=== PATIENT | female | born 1960 | race Hispanic/Latino ===

== ENCOUNTER 2017-07-05 16:53 | Inpatient (IN) | payer MEDICARE, MEDICAID ==
[~2017-07-05 16:53] MED LIST: ISOVUE-370 76%-LOCM 1 ML ONE
[2017-07-05 17:13] LABS: #Eosinphils 0.2 thou/uL (0.0-0.7); #Lymphocytes 1.3 thou/uL (1.20-3.40); #Monocytes 0.2 thou/uL (0.11-0.59); %Basophils 0.6 % (0.0-1.0); %Eosinophils 3.2 % (0.0-10.0); %Lymphocytes 22.9 % (21.0-51.0); %Monocytes 3.8 % (0.0-10.0); Hematocrit 22.8 % (36.0-47.0); Mean Platelet Volume 7.8 fL (7.4-10.4); Red Blood Cell (RBC) Count 2.51 mill/uL (4.20-5.40); White Blood Cell (WBC) Count 5.7 thou/uL (4.8-10.8)
[2017-07-05 17:22] LABS: PTT 30.9 SEC (22.9-36.1); Prothrombin Time 17.3 SEC (12.0-14.7)
[2017-07-05 17:27] LABS: Sodium 132 mmol/L (135-148)
[2017-07-05 17:28] LABS: Mode RA; Vent NO
[2017-07-05 17:32] LABS: ALT (SGPT) 75 U/L (8-55); AST (SGOT) 27 U/L (5-34); Alkaline Phosphatase 390 U/L (40-150); Anion Gap 14 mmol/L (10-20); BUN (Urea Nitrogen) 33 mg/dL (9.8-20.1); Bilirubin, Total 0.7 mg/dL (0.2-1.2); CK (CPK) 450 U/L (29-168); Calc. Creatinine Clearance 0 mL/min (70-130); Calcium 7.4 mg/dL (7.8-10.44); Carbon Dioxide 27 mmol/L (22-29); Chloride 95 mmol/L (98-107); Estimated GFR-MDRD 13; Globulin 3.8 g/dL (2.4-3.5); Lipase 48 U/L (8-78); Protein, Total 7.1 g/dL (6.0-8.3)
[2017-07-05 17:34] LABS: Troponin I 0.021 ng/mL (< 0.028)
[2017-07-05 17:38] LABS: Acetaminophen Less than 6.0 mcg/mL (10.0-30.0); Salicylate Less than 8.0 mg/dL (15.0-30.0)
[2017-07-05] MEDS ORDERED: Insulin Regular 300 UNITS/3 ML VIAL ONE (18:36)
--- NOTE | 2017-07-05 19:22 | CT ---
CT OF THE BRAIN WITHOUT CONTRAST: 07/05/17 COMPARISON: 06/29/17 HISTORY: Unresponsive after dialysis. Altered mental status. TECHNIQUE: Multiple contiguous axial images were obtained in a CT of the brain without contrast. FINDINGS: The brain is normal in morphology and attenuation without focal lesions or confluent areas of infarc tion. There is no evidence of hydrocephalus, intracranial hemorrhage, or extra-axial fluid collectio n. The calvarium and overlying soft tissues are unremarkable. The visualized paranasal sinuses and mast oid air cells are well aerated. IMPRESSION: No evidence of acute intracranial abnormality. POS: [facility]
--- NOTE | 2017-07-05 19:29 | RAD ---
SINGLE VIEW OF THE CHEST: 07/05/17 COMPARISON: 07/02/17 HISTORY: Altered mental status. Patient became unresponsive in dialysis. FINDINGS: Single view of the chest shows an enlarged cardiomediastinal silhouette. There is stable scarring in the left mid lung. Increased interstitial lung markings are present. No pleural effusion is seen. IMPRESSION: Stable exam. POS: [facility]
--- NOTE | 2017-07-05 20:25 | CT ---
CTA OF THE CHEST WITH CONTRAST: 07/05/17 COMPARISON: None. HISTORY: Dialysis patient that became unresponsive suddenly. Diabetes with elevated blood glucose. TECHNIQUE: Multiple contiguous axial images were obtained in a CTA of the chest with contrast per pulmonary em bolism protocol. 3D oblique MIP reformats and direct coronal reformats were performed. FINDINGS: The pulmonary arteries are well opacified without filling defects to suggest pulmonary emboli. The h eart is globally enlarged. No hilar or mediastinal lymphadenopathy are appreciated. There are multifocal air space opacities in the lungs. These are more prominent in the hilar regions , left greater than right. This could represent pulmonary edema or multifocal infiltrates. No pneumo thorax is seen. There are minimal bilateral pleural effusions. Diffuse soft tissue anasarca is seen. There is a small amount of ascites. The other visualized subdi aphragmatic structures are unremarkable. Degenerative changes are seen in the spine. IMPRESSION: Multifocal air space opacities in the lungs. This could represent a multifocal pneumonia or pulmonar y edema. POS: [facility]
[2017-07-05] MEDS ORDERED: Dextrose 50% Abboject 50 ML SYRINGE SLOW IVP PRN (20:37)
[2017-07-05] MEDS ORDERED: Dextrose 5% in Water 1,000 ML IV PRN (20:37)
[2017-07-05] MEDS ORDERED: Acetaminophen 325 MG TAB PO PRN (20:37)
[2017-07-05] MEDS ORDERED: Ondansetron ODT 4 MG TAB PO PRN (20:37)
[2017-07-05] MEDS: ADMIXTURE FEE SC SCH (21:15)
[2017-07-05] MEDS: Heparin 5,000 UNITS/ML VIAL SC SCH (21:15)
[2017-07-05] MEDS: INSULIN DETEMIR SC SCH (21:15)
[2017-07-05] MEDS: Acetaminophen/Codeine 30-300mg Tablet PO PRN (21:15)
[2017-07-05] MEDS: Metoclopramide HCl 10 MG/10 ML UDCUP PO SCH (21:16)
[2017-07-05] MEDS: Gabapentin 100 MG CAP PO SCH (21:16)
[2017-07-05] MEDS: Atorvastatin Calcium 40 MG TAB PO SCH (21:16)
[2017-07-06] MEDS: Acetaminophen/Codeine 30-300mg Tablet PO PRN ×4 (04:16→23:27)
--- NOTE | 2017-07-06 04:34 | HP-2 ---
CODE STATUS: Full. ATTENDING: Dr. Virgen Mann RESIDENT: Miguel Ellis M.D. HISTORIAN: Patient. CHIEF COMPLAINT: Unresponsive. HISTORY OF PRESENT ILLNESS: Kathy Rodriguez is a 56-year-old female with past medical history of e nd-stage renal disease on hemodialysis, chronic anemia, hypertension, hyperlipidemia, diabetes type 1, who presents after a syncopal episode. She was getting dialysis when she states she passed out. She completed the dialysis session per Dr. Kat, the brusher and shearer. She did not endorse any symptom s before or after the episode. She does report increased leg swelling over the last few days and dy spnea while lying flat. She denied any tongue biting or postictal state or incontinence after the e pisode. She denies any fevers, chills, chest pain, palpitations, nausea, vomiting, diarrhea, abdomi nal pain, dysuria, seizures, muscle pain, cramps, or weakness. PAST MEDICAL HISTORY: 1. End-stage renal disease on hemodialysis. 2. Chronic anemia. 3. Hypertension. 4. Type 1 diabetes mellitus. 5. Hyperlipidemia. 6. Congestive heart failure. PAST SURGICAL HISTORY: 1. Complete hysterectomy. 2. Cholecystectomy. 3. . 4. Right toe amputation. ALLERGIES: No known drug allergies. MEDICATIONS: 1. Zolpidem 10 mg p.o. at bedtime. 2. Gabapentin 100 mg p.o. t.i.d. 3. Aspirin 325 mg p.o. daily. 4. Atorvastatin calcium 40 mg p.o. at bedtime. 5. Tylenol #4 300/60 mg 1 tab p.o. b.i.d. 6. Vitamin D3 5000 units p.o. daily. 7. Mometasone 100 mcg 2 inhalations IH daily. 8. Metoclopramide HCL 5 mg tablet 2.5 mg p.o. q.i.d. 9. Clonidine HCL 0.2 mg tablets 0.3 mg p.o. b.i.d. 10. Carvedilol 25 mg p.o. b.i.d. 11. Amlodipine 5 mg p.o. daily. 12. Pantoprazole 40 mg p.o. daily. 13. Levemir 10 units subcu daily. FAMILY HISTORY: 1. Maternal grandfather had coronary artery disease. 2. Maternal grandmother had coronary artery disease and myocardial infarction. 3. Mother had diabetes, hypertension, and pancreatic cancer. SOCIAL HISTORY: Ten pack year history of smoking, quit 31 years ago. Denies alcohol or drug use. REVIEW OF SYSTEMS: GENERAL: Denies fevers, chills, night sweats, sleep, appetite, weight change and fatigue. EYES: Denies vision changes, eye pain. ENT: Denies nasal congestion, rhinorrhea, sore throat. RESPIRATORY: Denies cough, congestion, shortness of breath, exercise intolerance. CARDIOVASCULAR: Positive for brief chest pain that is now resolved. Orthopnea and edema. Negative for palpitations or PND. GASTROINTESTINAL: Denies nausea, vomiting, diarrhea, constipation, abdominal pain, GI bleeding. GENITOURINARY: Denies incontinence, dysuria, polyuria, or discharge. SKIN: Denies rashes, lesions, jaundice, or itching. MUSCULOSKELETAL: Positive for chronic back pain. Denies tenderness, stiffness, swelling or arthral gias. NEUROLOGIC: Denies weakness, numbness, no seizures. Positive for syncope. PSYCHIATRIC: Denies anxiety or depression. PHYSICAL EXAMINATION: VITAL SIGNS: Blood pressure 168/65, pulse 87, respiratory rate 22, T-max 98.0, pulse ox 98% on 3 li ters. Current weight 67.45 kilograms. GENERAL: The patient is alert and oriented x4, no acute distress, appears older than stated age, bu t is appropriately interactive. EYES: Pupils equal, round, reactive to light and accommodation. Extraocular muscles intact. Conju nctiva within normal limits. ENT: Tympanic membranes pearly campbell without bulging or erythema. Nasal mucosa and oropharynx withi n normal limits. NECK: Supple, without lymphadenopathy or thyromegaly. IJ central line placed on the left side of t he neck. CARDIOVASCULAR: Regular rate and rhythm. No murmurs or gallops. Radial pulses and pedal pulses pr esent and equal bilaterally. RESPIRATORY: Normal effort, no retractions. Bibasilar rales on auscultation. SKIN: Warm and dry without cyanosis or lesions. ABDOMEN: Soft, nontender. Bowel sounds normoactive. No mass or distention. EXTREMITIES: No clubbing or cyanosis. There is 2+ pitting edema in both lower extremities. MUSCULOSKELETAL: Structure and tone within normal limits. Full range of motion. NEUROLOGICAL: No focal deficits. Sensation within normal limits. Cranial nerves II-XII grossly in tact. PSYCHIATRIC: Appropriate. LABORATORY DATA: White blood cell count 5.7, hemoglobin 7.0, hematocrit 22.8, platelets 155, MCV 90 .9, sodium 132, potassium 4.3, chloride 95, bicarbonate 27, BUN 33, creatinine 3.73, glucose 500, ca lcium 7.4, total protein 7.1, albumin 3.3, total bilirubin 0.7, AST 22, ALT 75, alkaline phosphatase 390. ABG; pH 7.47, pCO2 38.3, pO2 45.8, base excess 3.4, ammonia 25, prolactin 10.95. D-dimer 3. 21, INR 1.4, PT 17.3, PTT 30.9, CK 450, CK-MB 5.6, troponin 0.021. Lipase 48. BNP 7301. TSH was 0 .9. UDS; acetaminophen less than 6. Alcohol less than 10, salicylate less than 8. EKG: Normal si nus rhythm with left axis deviation. Chest x-ray; no acute changes. IMAGING: CT of the chest, no pulmonary embolism. CT of the head, no acute changes. ASSESSMENT AND PLAN: A 56-year-old female with past medical history of end-stage renal disease on h emodialysis, presents after becoming unresponsive at the end of hemodialysis. 1. Altered mental status, now resolved, consider hypoxia versus metabolic source, although the shital ent has known history of Ambien overdose. The patient is volume overloaded. Nephrology has been co nsulted. May proceed with dialysis tomorrow to remove fluid. No evidence of seizure activity, norm al prolactin, routine I's and O's. 2. End-stage renal disease on hemodialysis, acute fluid overload. Dr. Kat has been consulted. O2 p.r.n. 3. Chronic anemia. Baseline hemoglobin for patient seems to be high 6 to low 8. Likely secondary to end-stage renal disease. It is a normocytic anemia. 4. Hyponatremia, likely secondary to fluid overload. Nephrology recommendations pending, possible dialysis tomorrow. 5. Pseudocalcemia. Corrected calcium is 8.0. 6. Hypertension. Continue home medications. Monitor vitals closely. 7. Diabetes. Continue home insulin and moderate sliding scale insulin, a.c. and at bedtime Accu-C heks. 8. Hyperlipidemia. Continue home medications. 9. Congestive heart failure. BNP is 7301, elevated from baseline. Noncompliant with diet and flui d intake. She is obviously fluid overloaded. Possible dialysis tomorrow. Continue I's and O's. 10. Elevated CK, likely related to kidney failure. 11. Code status full. 12. Chronic back pain. Pain management with Tylenol #3. 13. Diet: Consistent carbohydrates 1800 kilo calories. 14. Hypoalbuminemia, supplements. 15. Activity: Ambulate with assist. DISPOSITION/LENGTH OF HOSPITAL STAY: 2 days. Symptomatic medication will be provided. History and physical exam as well as management discussed with Dr. Virgen Mann.
[2017-07-06 04:44] LABS: #Eosinphils 0.2 thou/uL (0.0-0.7); #Lymphocytes 1.4 thou/uL (1.20-3.40); #Monocytes 0.2 thou/uL (0.11-0.59); #Neutrophils 3.8 thou/uL (1.40-6.50); %Basophils 0.3 % (0.0-1.0); %Eosinophils 4.1 % (0.0-10.0); %Lymphocytes 24.3 % (21.0-51.0); %Monocytes 4.1 % (0.0-10.0); Hematocrit 21.6 % (36.0-47.0); Mean Platelet Volume 7.5 fL (7.4-10.4); Red Blood Cell (RBC) Count 2.34 mill/uL (4.20-5.40); White Blood Cell (WBC) Count 5.6 thou/uL (4.8-10.8)
[2017-07-06 05:06] LABS: ALT (SGPT) 56 U/L (8-55); AST (SGOT) 20 U/L (5-34); Alkaline Phosphatase 264 U/L (40-150); Anion Gap 12 mmol/L (10-20); BUN (Urea Nitrogen) 37 mg/dL (9.8-20.1); Bilirubin, Total 0.6 mg/dL (0.2-1.2); Calc. Creatinine Clearance 15 mL/min (70-130); Calcium 7.2 mg/dL (7.8-10.44); Carbon Dioxide 28 mmol/L (22-29); Chloride 98 mmol/L (98-107); Estimated GFR-MDRD 11; Globulin 3.4 g/dL (2.4-3.5); Protein, Total 6.3 g/dL (6.0-8.3)
[2017-07-06 05:55] LABS: Bilirubin Negative (Negative); Blood, Urine Moderate (Negative); Glucose, Urine (Dipstick) 500 mg/dL (Negative); Ketone, Urine Negative (Negative); Nitrite Negative (Negative); Protein, Urine (Dipstick) 300 mg/dL (Neg-Trace); Urobilinogen 0.2 mg/dL (0.2-1.0)
[2017-07-06 05:56] LABS: Bacteria/HPF 1+ HPF (None Seen); Hyaline Casts/LPF 0-3 HYALINE CAST LPF (0-3 Hyaline); RBC/HPF GREATER THAN 50-TNTC HPF (0-3)
[2017-07-06 06:04] LABS: Amphetamine Not Detected (NotDetected); Methadone Not Detected (NotDetected); Methamphetamine Not Detected (NotDetected)
[2017-07-06] MEDS: Cholecalciferol (Vitamin D3) 400 UNITS TAB PO SCH (08:56)
[2017-07-06] MEDS: Gabapentin 100 MG CAP PO SCH ×4 (08:56→20:38)
[2017-07-06] MEDS: Carvedilol 25 MG TAB PO SCH ×2 (08:56→20:38)
[2017-07-06] MEDS: Calcium Acetate 667 MG CAP PO SCH ×3 (08:56→20:38)
[2017-07-06] MEDS: Metoclopramide HCl 10 MG/10 ML UDCUP PO SCH ×4 (08:57→20:39)
[2017-07-06] MEDS: Heparin 5,000 UNITS/ML VIAL SC SCH ×3 (08:59→20:41)
--- NOTE | 2017-07-06 09:11 | PDOC.FM ---
- Subjective Subjective: Pt reports back pain. Denies CP, NVDC. Reports some persistent SOB. No acute events overnight. - Objective Vital Signs & Weight: Vital Signs (12 hours) Temp Pulse Resp BP BP BP Pulse Ox 07/06/17 07:52 98.4 F 70 18 146/65 H 99 07/06/17 07:16 96 07/06/17 05:17 96 07/06/17 04:10 99 F 71 18 157/69 H 100 07/06/17 00:05 98.5 F 75 12 141/61 H 95 07/05/17 21:15 170/73 H Weight Weight 65.091 kg I&O: 07/05/17 07/06/17 07/07/17 06:59 06:59 06:59 Intake Total 500 Output Total 200 Balance 300 Result Diagrams: 07/06/17 04:17 07/06/17 04:17 <Marvin Rdz - Last Filed: 07/06/17 09:08> - Objective Vital Signs & Weight: Vital Signs (12 hours) Temp Pulse Resp BP BP Pulse Ox 07/06/17 08:50 98.4 F 70 18 07/06/17 07:52 98.4 F 70 18 146/65 H 99 07/06/17 07:16 96 07/06/17 05:17 96 07/06/17 04:10 99 F 71 18 157/69 H 100 07/06/17 00:05 98.5 F 75 12 141/61 H 95 Weight Weight 65.091 kg I&O: 07/05/17 07/06/17 07/07/17 06:59 06:59 06:59 Intake Total 500 360 Output Total 200 Balance 300 360 Result Diagrams: 07/06/17 09:49 07/06/17 04:17 <Patrick Henry - Last Filed: 07/06/17 11:13> Phys Exam - Physical Examination Constitutional: NAD HEENT: PERRLA, sclera anicteric Respiratory: no wheezing, no rales, no rhonchi, clear to auscultation bilateral Cardiovascular: RRR, no significant murmur, no rub Gastrointestinal: soft, non-tender, no distention, positive bowel sounds Musculoskeletal: pulses present, edema present 2-3+ BL LE Neurological: non-focal, moves all 4 limbs <Marvin Rdz - Last Filed: 07/06/17 09:08> Dx/Plan - Plan Plan: -h/o ambien and narcotic overdose -pt had AMS, but maintained pulse and respiratory drive -likely 2/2 CHF -pt admits to fluid restriction non-compliance -to be dialyzed again today, will f/u post dialysis <Marvin Rdz - Last Filed: 07/06/17 09:08> Attending Addendum - Attending Addendum I personally evaluated the patient and discussed the management with Dr. Rdz. I agree with the History, Examination, Assessment and Plan documented above with any addition or exceptions noted below. BNP significantly elevated. Hypoxia likely secondary to volume overload due to increased fluid intake. Will start iron. Patient is going to dialysis today. Will f/u with Dr. Kat's recommendations. <Patrick Henry - Last Filed: 07/06/17 11:13>
[2017-07-06 09:59] LABS: Hematocrit 21.3 % (36.0-47.0)
[2017-07-06] MEDS ORDERED: Epoetin (ESRD) 10,000 UNITS/ML VIAL SC SCH (18:00)
[2017-07-06] MEDS: Atorvastatin Calcium 40 MG TAB PO SCH (20:38)
[2017-07-06] MEDS: ADMIXTURE FEE SC SCH (20:42)
[2017-07-06] MEDS: INSULIN DETEMIR SC SCH (20:42)
[2017-07-07] MEDS: Acetaminophen/Codeine 30-300mg Tablet PO PRN ×3 (05:08→21:31)
--- NOTE | 2017-07-07 06:04 | CON ---
DATE OF CONSULTATION: 07/06/2017 CONSULTING PHYSICIAN: Dr. Ellis. REASON FOR CONSULTATION: End-stage renal disease evaluation and care. REASON FOR ADMISSION: Altered mentation. HISTORY OF PRESENT ILLNESS: This is a 56-year-old female with history of end-stage renal d isease, anemia, hypertension, hyperlipidemia, who came to the hospital due to altered mentation. Th e patient was at dialysis for treatment and was found to be unresponsive and sent over here and she regained consciousness here. No chest pain, palpitations, fevers or chills. She was found to be se verely anemic. She is feeling better today. PAST MEDICAL HISTORY: Positive for end-stage renal disease, chronic anemia, hypertension, type 1 di abetes, hyperlipidemia, CHF. PAST SURGICAL HISTORY: Complete hysterectomy, cholecystectomy, , and right toe amputation. HOME MEDICATIONS: Zolpidem, gabapentin, aspirin, atorvastatin, Tylenol, vitamin D3, mometasone, met oclopramide, clonidine, carvedilol, amlodipine, pantoprazole, Levemir. ALLERGIES: No known drug allergies. SOCIAL HISTORY: No smoking, alcohol or illicit drug abuse. FAMILY HISTORY: Positive for heart disease. REVIEW OF SYSTEMS: The following complete review of systems was negative, unless otherwise mentione d in the HPI or below: Constitutional: Weight loss or gain, ability to conduct usual activities. Skin: Rash, itching. Eyes: Double vision, pain. ENT/Mouth: Nose bleeding, neck stiffness, pain, tenderness. Cardiovascular: Palpitations, dyspnea on exertion, orthopnea. Respiratory: Shortnes s of breath, wheezing, cough, hemoptysis, fever or night sweats. Gastrointestinal: Poor appetite, abdominal pain, heartburn, nausea, vomiting, constipation, or diarrhea. Genitourinary: Urgency, fr equency, dysuria, nocturia. Musculoskeletal: Pain, swelling. Neurologic/Psychiatric: Anxiety, de pression. Allergy/Immunologic: Skin rash, bleeding tendency. PHYSICAL EXAMINATION: GENERAL: This is a thin-built female, in no apparent distress. VITAL SIGNS: Temperature 98.7, pulse 72, respiratory rate 18, blood pressure 140/ . HEENT: Atraumatic, normocephalic. Oral mucosa is moist. NECK: Supple, no masses. CARDIOVASCULAR: S1, S2 heard. Rate and rhythm regular. RESPIRATORY: Clear. GASTROINTESTINAL: Abdomen is soft. MUSCULOSKELETAL: 1+ edema. DERMATOLOGIC: No skin rash. NEUROLOGIC: Alert and awake. PSYCHIATRIC: Mood and affect normal. LABORATORY DATA: Hemoglobin is 6.6. Potassium 4.1, BUN 37, creatinine is 4.1. ASSESSMENT AND PLAN: 1. End-stage renal disease. Plan is to have dialysis today and continue Monday, and as tolerated. We will have an extra dialysis tomorrow for fluid removal. 2. Anemia. We will give 2 units of blood. We will start on Epogen and follow. 3. Hypertension, stable. 4. Edema. We will remove fluid with dialysis as tolerated. Plan is to have 2 units of blood today. We will start her on Epogen and continue on dialysis as violetta erated with ultrafiltration. Plan is to have 3 days of dialysis in a row. We will have Monday, and Monday, and then extra dialysis on Monday.
[2017-07-07 08:47] LABS: Hematocrit 31.1 % (36.0-47.0); Mean Platelet Volume 8.4 fL (7.4-10.4); Red Blood Cell (RBC) Count 3.32 mill/uL (4.20-5.40); White Blood Cell (WBC) Count 4.6 thou/uL (4.8-10.8)
--- NOTE | 2017-07-07 08:59 | PDOC.FM ---
- Subjective Subjective: pt reports some SOB, but states it has improved since admission. Denies CP, NVDC. No other complaints at this time. She isscheduled to have dialysis again today per nephrology recommendations. - Objective Vital Signs & Weight: Vital Signs (12 hours) Temp Pulse Resp BP BP Pulse Ox 07/07/17 08:00 98.7 F 71 18 07/07/17 07:50 98.6 F 76 20 176/69 H 100 07/07/17 04:14 98.7 F 71 18 164/74 H 95 07/06/17 23:43 99.3 F 77 16 158/70 H 95 Weight Admit Weight 65.091 kg Weight 59.783 kg I&O: 07/06/17 07/07/17 07/08/17 06:59 06:59 06:59 Intake Total 500 2740 Output Total 200 3200 Balance 300 -460 Result Diagrams: 07/07/17 08:35 07/06/17 04:17 <Marvin Rdz - Last Filed: 07/07/17 09:01> - Objective Vital Signs & Weight: Vital Signs (12 hours) Temp Pulse Resp BP BP BP Pulse Ox 07/07/17 09:07 176/64 H 07/07/17 09:06 71 176/64 H 07/07/17 08:00 98.7 F 71 18 07/07/17 07:50 98.6 F 76 20 176/69 H 100 07/07/17 04:14 98.7 F 71 18 164/74 H 95 Weight Admit Weight 65.091 kg Weight 59.783 kg I&O: 07/06/17 07/07/17 07/08/17 06:59 06:59 06:59 Intake Total 500 2740 Output Total 200 3200 Balance 300 -460 Result Diagrams: 07/07/17 08:35 07/07/17 08:35 <Patrick Henry - Last Filed: 07/07/17 11:47> Phys Exam - Physical Examination Constitutional: NAD HEENT: moist MMs Respiratory: no wheezing, no rales, no rhonchi, clear to auscultation bilateral Cardiovascular: RRR, no rub, gallop BLADE Gastrointestinal: soft, non-tender, no distention, positive bowel sounds Musculoskeletal: pulses present, edema present 2-3+ pitting edema b/l LE Neurological: non-focal, moves all 4 limbs <aMrvin Rdz - Last Filed: 07/07/17 09:01> Dx/Plan (1) Altered mental status Code(s): R41.82 - ALTERED MENTAL STATUS, UNSPECIFIED Status: Resolved (2) Fluid overload Code(s): E87.70 - FLUID OVERLOAD, UNSPECIFIED Status: Acute (3) Anemia in chronic kidney disease (CKD) Code(s): N18.9 - CHRONIC KIDNEY DISEASE, UNSPECIFIED; D63.1 - ANEMIA IN CHRONIC KIDNEY DISEASE Status: Chronic (4) ESRD (end stage renal disease) on dialysis Code(s): N18.6 - END STAGE RENAL DISEASE; Z99.2 - DEPENDENCE ON RENAL DIALYSIS Status: Chronic - Plan Plan: -AMS, resolved, pt at baseline -likely 2/2 fluid restriction non compliance and fluid overload state,BNP in 7000s vs ambien vs narcotic use -dialysis again today per nephrology recommendations -Anemia likley 2/2 CKD transfused 2UPRBCs w/ dialysis manage per nephro recs -FOBT pending -elevated BP increase amlodipine 10mg <Marvin Rdz - Last Filed: 07/07/17 09:01> Attending Addendum - Attending Addendum I personally evaluated the patient and discussed the management with Dr. Rdz I agree with the History, Examination, Assessment and Plan documented above with any addition or exceptions noted below. Patient's swelling improved. No syncopal episodes since admission. H&H went from 6.6 to 10 after 2U PRBC. Likely d/c home after dialysis today. Will have patient f/u with PCP for evaluation HepBsAntigen, as well as increased Alk phos. <Patrick Henry - Last Filed: 07/07/17 11:47>
[2017-07-07] MEDS: Metoclopramide HCl 10 MG/10 ML UDCUP PO SCH ×4 (09:02→21:25)
[2017-07-07] MEDS: Calcium Acetate 667 MG CAP PO SCH ×3 (09:06→16:12)
[2017-07-07] MEDS: Carvedilol 25 MG TAB PO SCH ×2 (09:06→16:13)
[2017-07-07] MEDS: Heparin 5,000 UNITS/ML VIAL SC SCH ×2 (09:07→16:12)
[2017-07-07] MEDS: Cholecalciferol (Vitamin D3) 400 UNITS TAB PO SCH (09:07)
[2017-07-07] MEDS: Gabapentin 100 MG CAP PO SCH ×3 (09:07→21:24)
[2017-07-07 09:10] LABS: ALT (SGPT) 59 U/L (8-55); AST (SGOT) 40 U/L (5-34); Alkaline Phosphatase 363 U/L (40-150); Anion Gap 15 mmol/L (10-20); BUN (Urea Nitrogen) 22 mg/dL (9.8-20.1); Bilirubin, Total 0.7 mg/dL (0.2-1.2); Calc. Creatinine Clearance 21 mL/min (70-130); Calcium 8.1 mg/dL (7.8-10.44); Carbon Dioxide 28 mmol/L (22-29); Chloride 98 mmol/L (98-107); Estimated GFR-MDRD 17; Globulin 3.8 g/dL (2.4-3.5); Protein, Total 6.8 g/dL (6.0-8.3)
[2017-07-07] MEDS: Ferrous Sulfate 325 MG TAB PO SCH (16:13)
--- NOTE | 2017-07-07 18:15 | PRG ---
DATE OF SERVICE: 07/07/2017 SUBJECTIVE: Patient was seen and examined at bedside and overnight events noted. Patient denies an y shortness of breath or chest pain or palpitation. No history of nausea or vomiting or diarrhea or fever or chills or cramps. OBJECTIVE: GENERAL: This is a well-built female in no apparent distress. VITAL SIGNS: Temperature 97, pulse 71, respiratory rate 18, blood pressure 177/62. HEENT: Atraumatic, normocephalic. Oral mucosa is moist. NECK: Supple. CARDIOVASCULAR: S1 and S2 heard, rate and rhythm regular. RESPIRATORY: Clear to auscultation. GASTROINTESTINAL: Abdomen is soft. MUSCULOSKELETAL: No tenderness, no edema. DERMATOLOGIC: No skin rash. NEUROLOGIC: Alert and awake and oriented X3. No focal neurologic deficits. Moving all the extremi ties. PSYCHIATRIC: Mood and affect normal. LABORATORY DATA: Potassium is 4.3, BUN is 22, creatinine is 2.8. ASSESSMENT AND PLAN: 1. End-stage renal disease. Continue on dialysis as tolerated. Plan is to have dialysis today and then TTS as tolerated 2. Anemia, status post transfusion and hemoglobin is much better. Continue Epogen as tolerated. 3. Hypertension, stable. 4. Edema. Pull off fluid wit dialysis. Plan is to have dialysis today.
[2017-07-07] MEDS: Atorvastatin Calcium 40 MG TAB PO SCH (21:24)
[2017-07-07] MEDS: Docusate 100 MG CAP PO SCH (21:24)
[2017-07-07] MEDS: Ascorbic Acid 500 mg Chewable Tablet PO SCH (21:25)
[2017-07-07] MEDS: INSULIN DETEMIR SC SCH (21:26)
[2017-07-07] MEDS: ADMIXTURE FEE SC SCH (21:26)
[2017-07-08 04:27] LABS: #Eosinphils 0.2 thou/uL (0.0-0.7); #Lymphocytes 1.3 thou/uL (1.20-3.40); #Monocytes 0.2 thou/uL (0.11-0.59); #Neutrophils 2.5 thou/uL (1.40-6.50); %Basophils 0.3 % (0.0-1.0); %Eosinophils 4.8 % (0.0-10.0); %Monocytes 5.1 % (0.0-10.0); Hematocrit 30.2 % (36.0-47.0); Mean Platelet Volume 8.4 fL (7.4-10.4); White Blood Cell (WBC) Count 4.2 thou/uL (4.8-10.8)
[2017-07-08 04:52] LABS: ALT (SGPT) 45 U/L (8-55); AST (SGOT) 24 U/L (5-34); Alkaline Phosphatase 309 U/L (40-150); Anion Gap 15 mmol/L (10-20); BUN (Urea Nitrogen) 29 mg/dL (9.8-20.1); Bilirubin, Total 0.6 mg/dL (0.2-1.2); Calc. Creatinine Clearance 15 mL/min (70-130); Calcium 8.1 mg/dL (7.8-10.44); Carbon Dioxide 27 mmol/L (22-29); Chloride 96 mmol/L (98-107); Estimated GFR-MDRD 11; Globulin 3.8 g/dL (2.4-3.5); Protein, Total 6.8 g/dL (6.0-8.3)
[2017-07-08] MEDS: HumaLOG 300 UNITS/3 ML VIAL SC PRN ×2 (05:51→17:32)
--- NOTE | 2017-07-08 07:28 | PDOC.FM ---
- Subjective Subjective: Patient had no complaints overnight. She reports that she slept well. Denies SOB , CP, lightheadedness, dizziness, syncope - Objective MAR Reviewed: Yes Vital Signs & Weight: Vital Signs (12 hours) Temp Pulse Resp BP BP Pulse Ox 07/08/17 03:58 98.9 F 66 16 147/68 H 96 07/07/17 23:37 98.2 F 67 14 141/64 H 97 07/07/17 21:20 97.5 F L 60 12 07/07/17 19:50 97.5 F L 60 12 128/61 92 L Weight Admit Weight 65.091 kg Weight 60.509 kg I&O: 07/07/17 07/08/17 07/09/17 06:59 06:59 06:59 Intake Total 2740 1295 Output Total 3200 Balance -460 1295 Result Diagrams: 07/08/17 04:01 07/08/17 04:01 Phys Exam - Physical Examination Constitutional: NAD HEENT: moist MMs Respiratory: no wheezing, no rales, no rhonchi, clear to auscultation bilateral Cardiovascular: RRR, no rub, gallop systolic murmur Gastrointestinal: soft, non-tender, no distention, positive bowel sounds Musculoskeletal: no edema, pulses present Neurological: non-focal, moves all 4 limbs Psychiatric: normal affect, A&O x 3 Dx/Plan (1) Altered mental status Code(s): R41.82 - ALTERED MENTAL STATUS, UNSPECIFIED Status: Resolved Qualifiers: Altered mental status type: unspecified Qualified Code(s): R41.82 - Altered mental status, unspecified Plan: Patient had episode of syncope with AMS that has now improved. She is AOx3. This is likely 2/2 fluid overload because of fluid restriction non-compliance -encourage strict fluid restriction -HD TTS (2) Fluid overload Code(s): E87.70 - FLUID OVERLOAD, UNSPECIFIED Status: Acute Qualifiers: Hypervolemia type: other Qualified Code(s): E87.79 - Other fluid overload Plan: Patient has ESRD on HD TTS - patient non-compliant with fluid restriction -HD TTS -Encourage strict fluid restriction -Nephrology on board, appreciate recs (3) T2DM (type 2 diabetes mellitus) Status: Acute Qualifiers: Diabetes mellitus complication status: with kidney complications Diabetes mellitus complication detail: with chronic kidney disease Diabetes mellitus predatory animal exterminator insulin use: with predatory animal exterminator use Chronic kidney disease stage: on chronic dialysis Qualified Code(s): E11.22 - Type 2 diabetes mellitus with diabetic chronic kidney disease; N18.6 - End stage renal disease; Z79.4 - prison (current) use of insulin; Z99.2 - Dependence on renal dialysis Plan: Continue detemir 10U and SSI -Accuchecks ACHS -CC diet (4) Anemia in chronic kidney disease (CKD) Code(s): N18.9 - CHRONIC KIDNEY DISEASE, UNSPECIFIED; D63.1 - ANEMIA IN CHRONIC KIDNEY DISEASE Status: Chronic Qualifiers: Chronic kidney disease stage: on chronic dialysis Qualified Code(s): N18.6 - End stage renal disease; D63.1 - Anemia in chronic kidney disease; Z99.2 - Dependence on renal dialysis Plan: Patient has severe anemia of chronic disease s/p 2U PRBC's, Hb 9.7 today FOBT positive -Continue to monitor (5) ESRD (end stage renal disease) on dialysis Code(s): N18.6 - END STAGE RENAL DISEASE; Z99.2 - DEPENDENCE ON RENAL DIALYSIS Status: Chronic Plan: Patient has ESRD on HD TTS -Dani on board, appreciate recs -Dialysis today (6) Hypertension Code(s): I10 - ESSENTIAL (PRIMARY) HYPERTENSION Status: Chronic Qualifiers: Hypertension type: essential hypertension Qualified Code(s): I10 - Essential (primary) hypertension Plan: Continue home meds -Amlodipine increased yesterday, BP improved. -Continue to monitor (7) Transaminitis Code(s): R74.0 - NONSPEC ELEV OF LEVELS OF TRANSAMNS & LACTIC ACID DEHYDRGNSE Status: Acute Plan: AST, ALT, and Alk phos elevated on admission, have been downtrending Hep B surface antibody positive (was also positive 03/2017), Hep B surface antigen positive (was negative 03/2017), Hep B core Ab negative, Hep A Ab positive, Hep C negative This likely represents that the patient was exposed to Hep B in the past few months, although patient denies any IV drug use, needle sharing or other high risk behaviors. -ID consulted, appreciate recs - Plan Plan: Patient is ready for discharge after dialysis today, the hepatitis B could likely be worked up outpatient -Continue dialysis TTS
[2017-07-08] MEDS: Acetaminophen/Codeine 30-300mg Tablet PO PRN ×2 (09:29→16:18)
[2017-07-08] MEDS: Metoclopramide HCl 10 MG/10 ML UDCUP PO SCH ×4 (13:26→20:23)
[2017-07-08] MEDS: Calcium Acetate 667 MG CAP PO SCH ×3 (13:27→16:13)
[2017-07-08] MEDS: Ferrous Sulfate 325 MG TAB PO SCH ×2 (13:28→16:13)
[2017-07-08] MEDS: Carvedilol 25 MG TAB PO SCH ×2 (13:28→16:13)
[2017-07-08] MEDS: Docusate 100 MG CAP PO SCH ×2 (13:29→20:23)
[2017-07-08] MEDS: Gabapentin 100 MG CAP PO SCH ×3 (13:29→20:22)
[2017-07-08] MEDS: Ascorbic Acid 500 mg Chewable Tablet PO SCH ×2 (13:29→20:21)
[2017-07-08] MEDS: Cholecalciferol (Vitamin D3) 400 UNITS TAB PO SCH (13:29)
--- NOTE | 2017-07-08 19:55 | ADD-PRG ---
ADDENDUM DATE OF SERVICE: 07/08/2017 Please see the note from Dr. Amalia Ricks for which I concur. The patient was seen and evaluated and examined and discussed with the residents by bedside. The patient was getting dialysis, was tolera ting it fine, seemed not to have any problems at all with that and it seems like most of these thing s are just all from her being volume overloaded, now extra dialysis now back on Monday, , a monday schedule has helped. Hemoglobin had dropped to 9.7, which is not too concerning conside ring the end-stage renal disease, but she does have issues basically of fecal occult blood test was positive. There is also some question about hepatitis B status where the hepatitis B surface antige n has been positive now two different times hepatitis B surface antibody is positive too, so she lik curt is hepatitis B positive, so we are going to get GI involved, both for the Hemoccult positive sto ol as well as hepatitis status.
--- NOTE | 2017-07-08 20:03 | PRG ---
DATE OF SERVICE: 07/08/2017 SUBJECTIVE: Patient was seen and examined at bedside and overnight events noted. Patient denies an y shortness of breath or chest pain or palpitation. No history of nausea or vomiting or diarrhea or fever or chills or cramps. OBJECTIVE: GENERAL: This is a well-built female, seen during dialysis. VITAL SIGNS: Temperature 97.8, pulse 63, respirations 18, and blood pressure 160/63. HEENT: Atraumatic, normocephalic. Oral mucosa is moist. NECK: Supple. CARDIOVASCULAR: S1, S2 heard. Rate and rhythm regular. RESPIRATORY: Clear to auscultation. GASTROINTESTINAL: Abdomen is soft. MUSCULOSKELETAL: No tenderness, no edema. DERMATOLOGIC: No skin rash. NEUROLOGIC: Alert and awake and oriented x3. No focal neurologic deficits. Moving all the extremi ties. PSYCHIATRIC: Mood and affect normal. LABORATORY DATA: Potassium is 4.8, BUN is 29, creatinine is 4.1. ASSESSMENT AND PLAN: 1. End-stage renal disease. Continue on hemodialysis as tolerated, as tolerated. 2. Anemia, status post transfusion, hemoglobin is stable. 3. Edema. I will remove fluid. 4. Hypertension, stable. 5. Hepatitis B antigen being positive with good antibody titer. We will have ID consult for [email or web address] recommendations. We will follow.
[2017-07-08] MEDS: Atorvastatin Calcium 40 MG TAB PO SCH (20:23)
[2017-07-08] MEDS: ADMIXTURE FEE SC SCH (20:24)
[2017-07-08] MEDS: INSULIN DETEMIR SC SCH (20:24)
[2017-07-09] MEDS: Acetaminophen/Codeine 30-300mg Tablet PO PRN ×3 (01:40→21:35)
--- NOTE | 2017-07-09 04:14 | CON ---
DATE OF CONSULTATION: 07/08/2017 GASTROENTEROLOGY CONSULTATION CHIEF COMPLAINT: Anemia. HISTORY OF PRESENT ILLNESS: Ms. Rodriguez is a 56-year-old woman who was admitted with mental status c hange a couple of days ago. She was found to have severe anemia, slightly lower than her chronic an emia and she has received 3 units transfusion over the last week. She cannot see if she has had no overt gastrointestinal blood loss due to her vision. She was found to be Hemoccult positive here in the hospital. She has end-stage renal disease and is on hemodialysis and was fluid overload when s he came in. She is doing better since she received dialysis. She does report that she had shortnes s of breath on exertion over the last month, but currently she feels well without any shortness of b reath and is breathing comfortably. She had a very high BNP on presentation. She had an echocardio gram back in January, which showed an EF of 50% to 55% with mild mitral regurgitation. She had a Card iolite stress test, which was negative. PAST MEDICAL HISTORY: End-stage renal disease, on hemodialysis; hypertension; diabetes mellitus, ty pe 1; hyperlipidemia; congestive heart failure. PAST SURGICAL HISTORY: Hysterectomy, cholecystectomy, , toe amputation, and dialysis acces s. FAMILY HISTORY: Negative for GI malignancy. Her mother had pancreatic cancer. SOCIAL HISTORY: She quit smoking decades ago. No alcohol or drugs. ALLERGIES: No known drug allergies. MEDICATIONS: In the hospital currently include amlodipine, vitamin C, aspirin, atorvastatin, carved ilol, vitamin D, clonidine, docusate, Epoetin, iron, gabapentin, insulin, metoclopramide. REVIEW OF SYSTEMS: Negative x10 systems reviewed except as stated in the history of present illness . PHYSICAL EXAMINATION: VITAL SIGNS: Temperature 99.2, pulse 73, blood pressure 139/65, oxygen saturation 94% on room air. GENERAL: She is in no acute distress. She is alert and oriented x3. HEENT: Eyes have no scleral icterus. Oropharynx is clear, without lesions. NECK: No cervical or supraclavicular lymphadenopathy. LUNGS: Clear to auscultation bilaterally. HEART: Regular rate and rhythm. She has a 2-3/6 systolic murmur at the left lower sternal border. ABDOMEN: Soft, nontender, and nondistended. Bowel sounds are present. EXTREMITIES: No lower extremity edema. LABORATORY DATA: White blood cell count 4.2, hemoglobin is 9.7. She has had 2 units transfused 2 d ays ago and then she also had a unit transfused back on in 03/2017. INR 1.4, creatinine 4.11, bilir ubin 0.6, AST 24, ALT 45, alkaline phosphatase 309. Iron and TIBC are both low. Her hepatitis B alvarez rface antigen was positive for hepatitis B surface antibody with positive hepatitis C core antibody was negative. IMPRESSION: 1. Acute on chronic anemia, status post transfusion. Her iron studies are most consistent with ane clare of chronic disease. I would check ferritin. Given the acute worsening of the anemia and her in ability to visualize her stools and the Hemoccult positive stool noted in the hospital. Endoscopic workup is indicated. She does report having had a colonoscopy at least 5 years ago in [place]. 2. End-stage renal disease, on hemodialysis. 3. Congestive heart failure. She is breathing comfortably now. She had an echocardiogram and a st ress test back in January. Her BNP was markedly elevated on 07/05/2017 at 7300 hours. 4. Abnormal hepatitis B serology. Her surface antigen is positive, which should indicate chronic i nfection; however, the antibody is also positive and the core total antibody is negative. This prov ides a mixed picture. I would check a hepatitis B DNA level, which I would expect to be negative in the setting of the hepatitis B surface antibody positive state. This does not completely exclude a mild underlying chronic infection in the setting of surface antigen positive. This will not requir e further treatment, however. I will check a Hepatitis B e-antigen and E antibody as well. This ma y just be a lab error. RECOMMENDATIONS: 1. Additional hepatitis B serology is noted. 2. We will change to a clear liquid diet for tomorrow and give a bowel prep to plan EGD and colonos copy for Monday. 3. Check her ferritin level.
[2017-07-09 05:03] LABS: #Eosinphils 0.3 thou/uL (0.0-0.7); #Lymphocytes 1.4 thou/uL (1.20-3.40); #Monocytes 0.2 thou/uL (0.11-0.59); %Basophils 0.4 % (0.0-1.0); %Eosinophils 5.7 % (0.0-10.0); %Lymphocytes 29.1 % (21.0-51.0); %Monocytes 4.3 % (0.0-10.0); Hematocrit 30.2 % (36.0-47.0); Mean Platelet Volume 7.7 fL (7.4-10.4); Red Blood Cell (RBC) Count 3.19 mill/uL (4.20-5.40); White Blood Cell (WBC) Count 4.9 thou/uL (4.8-10.8)
[2017-07-09 05:11] LABS: ALT (SGPT) 36 U/L (8-55); AST (SGOT) 18 U/L (5-34); Alkaline Phosphatase 305 U/L (40-150); Anion Gap 13 mmol/L (10-20); BUN (Urea Nitrogen) 21 mg/dL (9.8-20.1); Bilirubin, Total 0.6 mg/dL (0.2-1.2); Calc. Creatinine Clearance 17 mL/min (70-130); Calcium 8.1 mg/dL (7.8-10.44); Carbon Dioxide 29 mmol/L (22-29); Chloride 97 mmol/L (98-107); Estimated GFR-MDRD 14; Globulin 3.7 g/dL (2.4-3.5); Protein, Total 6.7 g/dL (6.0-8.3)
--- NOTE | 2017-07-09 06:51 | PDOC.FM ---
- Subjective Subjective: Patient reports a subjective fever last night, but otherwise has no complaints. She denies any chest pain, SOB, nausea, vomiting, swelling - Objective MAR Reviewed: Yes Vital Signs & Weight: Vital Signs (12 hours) Temp Pulse Resp BP BP Pulse Ox 07/09/17 04:28 89 L 07/09/17 03:03 99.7 F H 72 14 166/72 H 94 L 07/09/17 00:04 20 95 07/08/17 23:45 100.1 F H 75 12 135/63 85 L 07/08/17 19:49 99.2 F 73 16 139/65 94 L 07/08/17 19:45 99.2 F 73 16 Weight Admit Weight 65.091 kg Weight 59.194 kg I&O: 07/07/17 07/08/17 07/09/17 06:59 06:59 06:59 Intake Total 2740 1295 1130 Output Total 3200 100 Balance -460 1295 1030 Result Diagrams: 07/09/17 04:32 07/09/17 04:32 Phys Exam - Physical Examination Constitutional: NAD HEENT: moist MMs Respiratory: no wheezing, no rales, no rhonchi, clear to auscultation bilateral Cardiovascular: RRR, no rub, gallop systolic murmur Gastrointestinal: soft, non-tender, no distention, positive bowel sounds Musculoskeletal: no edema, pulses present Neurological: non-focal, moves all 4 limbs Psychiatric: normal affect, A&O x 3 Dx/Plan (1) Altered mental status Code(s): R41.82 - ALTERED MENTAL STATUS, UNSPECIFIED Status: Resolved Qualifiers: Altered mental status type: unspecified Qualified Code(s): R41.82 - Altered mental status, unspecified Plan: Patient had episode of syncope with AMS that has now improved. She is AOx3. This is likely 2/2 fluid overload because of fluid restriction non-compliance -encourage strict fluid restriction -HD TTS (2) Fluid overload Code(s): E87.70 - FLUID OVERLOAD, UNSPECIFIED Status: Acute Qualifiers: Hypervolemia type: other Qualified Code(s): E87.79 - Other fluid overload Plan: Patient has ESRD on HD TTS - patient non-compliant with fluid restriction -HD TTS -Encourage strict fluid restriction -Nephrology on board, appreciate recs (3) T2DM (type 2 diabetes mellitus) Status: Acute Qualifiers: Diabetes mellitus complication status: with kidney complications Diabetes mellitus complication detail: with chronic kidney disease Diabetes mellitus customer training specialist insulin use: with penitentiary use Chronic kidney disease stage: on chronic dialysis Qualified Code(s): E11.22 - Type 2 diabetes mellitus with diabetic chronic kidney disease; N18.6 - End stage renal disease; Z79.4 - brain surgeon (current) use of insulin; Z99.2 - Dependence on renal dialysis Plan: Continue detemir 10U and SSI -Accuchecks ACHS -CC diet (4) Anemia in chronic kidney disease (CKD) Code(s): N18.9 - CHRONIC KIDNEY DISEASE, UNSPECIFIED; D63.1 - ANEMIA IN CHRONIC KIDNEY DISEASE Status: Chronic Qualifiers: Chronic kidney disease stage: on chronic dialysis Qualified Code(s): N18.6 - End stage renal disease; D63.1 - Anemia in chronic kidney disease; Z99.2 - Dependence on renal dialysis Plan: Patient has severe anemia of chronic disease s/p 2U PRBC's, Hb 9.4 today FOBT positive -GI consulted, appreciate recs -Plan for colonoscopy on Monday -Continue to monitor (5) ESRD (end stage renal disease) on dialysis Code(s): N18.6 - END STAGE RENAL DISEASE; Z99.2 - DEPENDENCE ON RENAL DIALYSIS Status: Chronic Plan: Patient has ESRD on HD JOSELUIS -Dani on board, appreciate recs (6) Hypertension Code(s): I10 - ESSENTIAL (PRIMARY) HYPERTENSION Status: Chronic Qualifiers: Hypertension type: essential hypertension Qualified Code(s): I10 - Essential (primary) hypertension Plan: Continue home meds -Amlodipine was increased, BP improved. -Continue to monitor (7) Transaminitis Code(s): R74.0 - NONSPEC ELEV OF LEVELS OF TRANSAMNS & LACTIC ACID DEHYDRGNSE Status: Acute Plan: AST, ALT, and Alk phos elevated on admission, have been downtrending Hep B surface antibody positive (was also positive 03/2017), Hep B surface antigen positive (was negative 03/2017), Hep B core Ab negative, Hep A Ab positive, Hep C negative -Will check Hep B PCR, Hep E -GI consulted, appreciate recs -ID consulted, appreciate recs
[2017-07-09] MEDS: Metoclopramide HCl 10 MG/10 ML UDCUP PO SCH ×4 (09:28→21:29)
[2017-07-09] MEDS: Calcium Acetate 667 MG CAP PO SCH ×3 (09:29→16:42)
[2017-07-09] MEDS: Ascorbic Acid 500 mg Chewable Tablet PO SCH ×2 (09:29→21:28)
[2017-07-09] MEDS: Docusate 100 MG CAP PO SCH ×2 (09:30→21:29)
[2017-07-09] MEDS: Cholecalciferol (Vitamin D3) 400 UNITS TAB PO SCH (09:30)
[2017-07-09] MEDS: Carvedilol 25 MG TAB PO SCH ×2 (09:30→16:41)
[2017-07-09] MEDS: Gabapentin 100 MG CAP PO SCH ×3 (09:30→21:29)
[2017-07-09] MEDS: Ferrous Sulfate 325 MG TAB PO SCH ×2 (09:31→16:41)
[2017-07-09] MEDS: HumaLOG 300 UNITS/3 ML VIAL SC PRN (11:28)
--- NOTE | 2017-07-09 11:57 | RAD ---
AP VIEW CHEST: HISTORY: Hypoxia. FINDINGS: AP view chest was obtained on 07/09/17. Comparison is made to previous exam from 07/05/17. AP view chest demonstrates EKG leads seen over the chest. Cardiomegaly is seen. Pulmonary vascular congestion is seen. No evidence of effusions, pneumonia, or pneumothorax is seen. IMPRESSION: Cardiomegaly and pulmonary vascular congestion. POS: [facility]
--- NOTE | 2017-07-09 15:48 | PRG ---
DATE OF SERVICE: 07/09/2017 SUBJECTIVE: Patient was seen and examined at bedside and overnight events noted. Patient denies an y shortness of breath or chest pain or palpitation. No history of nausea or vomiting or diarrhea or fever or chills or cramps. OBJECTIVE: GENERAL: This is a well-built female in no apparent distress, feeling much better. VITAL SIGNS: Temperature 98.5, pulse 60, respirations 16, blood pressure 140/64. HEENT: Atraumatic, normocephalic. Oral mucosa is moist. NECK: Supple. CARDIOVASCULAR: S1 and S2 heard, rate and rhythm regular. RESPIRATORY: Clear to auscultation. GASTROINTESTINAL: Abdomen is soft. MUSCULOSKELETAL: No tenderness, no edema. DERMATOLOGIC: No skin rash. NEUROLOGIC: Alert and awake and oriented X3. No focal neurologic deficits. Moving all the extremi ties. PSYCHIATRIC: Mood and affect normal. LABORATORY DATA: Potassium 4.7, BUN 21, creatinine 3.4, hemoglobin is 9.4. ASSESSMENT AND PLAN: 1. End-stage renal disease. We will continue on dialysis as tolerated. 2. Anemia. We will start on Epogen IV with dialysis. 3. Hypertension, stable. 4. Edema, better. 5. Positive hepatitis B surface antigen. Follow with GI and ID. We will follow.
[2017-07-09] MEDS ORDERED: GoLYTELY 4,000 ml Bottle PO SCH (16:00)
--- NOTE | 2017-07-09 16:58 | ADD-PRG ---
ADDENDUM: 07/09/2017 Please see the note from Dr. Ricks for which I concur. The patient was seen and evaluated, examined and discussed with the residents by bedside. Basically, patient had a little bit of low grade feve r overnight, little bit more short of breath even despite dialysis yesterday. She is not really com plaining, but her oxygen is little bit low. Not really having a cough necessarily. There is still the question of hepatitis B status and GI is board with that and also her iron deficiency and I will scope her for that to make sure she is not actively bleeding and she definitely has renal failure i ssues causing anemia and then iron deficiency. The other possibility I am going to make sure she do have a GI bleed, but otherwise we will continue same dialysis schedule. She should be due for dial ysis again tomorrow. We can get a chest x-ray today to make sure this is not in any way infectious.
[2017-07-09] MEDS: GoLYTELY 4,000 ml Bottle PO SCH ×2 (17:48→21:36)
--- NOTE | 2017-07-09 18:50 | CON ---
DATE OF CONSULTATION: 07/09/2017 REASON FOR CONSULTATION: To evaluate and interpret serological findings. HISTORY OF PRESENT ILLNESS: A 56-year-old patient who has a history of type 1 diabetes mellitus with end-stage renal disease on hemodialysis through an AV fistula and was admitted with a brief episode of unresponsiveness during dialysis. On arrival to the hospital, she recovered her mental status state. Initial evaluation demonstrated blood pressure 160/60, pulse 87, respirations 22 , temperature 98, and O2 sat 98%. She appeared alert and oriented with no distress. Physical examination findings were remarkable for edema in lower extremities. Otherwise, no focal deficits in the neuro examination. White cell count was 5.7, hemoglobin 7, platelets 155 with sodium 132, bicarbonate 27 , creatinine 3.73, glucose was 500, albumin 3.3, bilirubin 0.7, ALT 75, AST 22, and alkaline phosphatase 390. PH 7.47, pCO2 of 38, pO2 of 45, this is a venous gas, prolactin 10 and INR was 1.4. CK 450. Troponin 0.021. TSH 0.9. The toxicology showed detected opiates, but no other abnormalities. Beta hydroxybutyrate 0.08. The patient had a CT angio which did not show any evidence of pulmonary embolism. There were multifocal airspace opacities consistent with pulmonary edema. Currently, Ms. Rodriguez is no acute distress. She is oriented and alert, back to baseline. No headaches. No change in visual symptoms, sore throat, odynophagia, dysphagia, no cough or sputum production. Mild dyspnea, no chest pain, no abdominal pain or diarrhea, still voids a little bit. No joint symptoms or edema in the lower extremities. PAST MEDICAL HISTORY: Diabetes type 1, end-stage renal disease on hemodialysis through an AV fistula, hyperlipidemia, cardiomyopathy, and hypertension. PAST SURGICAL HISTORY: Hysterectomy, cholecystectomy, , and toe amputation. ALLERGIES: None. MEDICATIONS: Ambien, gabapentin, aspirin, atorvastatin, mometasone inhaler, metoclopramide, clonidine, Coreg, Norvasc, pantoprazole, and insulin. FAMILY HISTORY: Coronary artery disease, pancreatic cancer, and diabetes. SOCIAL HISTORY: Former smoker, quit many decades ago. PHYSICAL EXAMINATION: GENERAL: The patient has been afebrile except for one event where it went up to 100.1. Recently blood pressure 140/64, pulse 62, respirations 16, and O2 sat 100%. SKIN: With no areas of skin breakdown, no lymphadenopathy. HEENT: Ocular movements are conjugate. Oral cavity with no abnormalities of significance. NECK: Supple, no jugular venous distention. LUNGS: With symmetric clear breath sounds. HEART: S1, S2, regular rate. No S3 or S4. ABDOMEN: Soft, not distended or tender. No ascites. No bladder distention. EXTREMITIES: No joint inflammatory activity and 2+ edema in lower extremities. Pulses are 1+ in dorsalis pedis. Moves all extremities equally. NEUROLOGIC: Cognitive function is back to normal. Repeat chest x-ray from with cardiomegaly and pulmonary vascular congestion. LABORATORY: White cell count 4.9, hemoglobin 9.4, and platelets 146. Sodium 134. Blood sugar is 205. Transaminases normal, alkaline phosphatase 205, albumin 3.0. Serology showed reactive hepatitis surface antigen and reactive hepatitis surface antibody noted. ASSESSMENT: 1. End-stage renal disease with type 1 diabetes mellitus on hemodialysis through an arteriovenous fistula. 2. Reactive hepatitis surface antigen and concomitant reactivity for hepatitis surface antibody. DISCUSSION: The persistence of hepatitis surface antigen is sometimes associated with antibodies to hepatitis surface antigen and it appears that those patients usually have residue changes within the S-protein coding region, which leads to immune escape variants. This is easy to determine through measurement of the hepatitis B virus DNA quantitation in peripheral blood. If she does have positive Hep B DNA quantitation then it is very likely the patient represents one of those cases of chronic hepatitis B infection with surface antigen protein gene mutations that lead to escape mutants and then positivity for both antibody to the surface antigen and then the proliferation of strains that have different specificity which allows regrowth of the virus. This would be important because if she does have significant amount of virus, she may be at risk for chronic active hepatitis and might require antiviral treatment. KAL
--- NOTE | 2017-07-09 19:36 | PRG ---
DATE OF SERVICE: 07/09/2017 SUBJECTIVE: She has no acute complaints today. No abdominal pain. No overt blood in the stool. OBJECTIVE: VITAL SIGNS: Temperature 98.5, pulse 62, and blood pressure 140/64. GENERAL: She is in no acute distress, awake and alert. LUNGS: Clear to auscultation bilaterally. HEART: Regular rate and rhythm. ABDOMEN: Soft, nontender, nondistended, bowel sounds are present. EXTREMITIES: No lower extremity edema. LABORATORY DATA: White blood cell count 4.9, hemoglobin 9.4, and platelets 146. Ferritin is 595. IMPRESSION: 1. Acute on chronic anemia. Iron studies are most consistent with anemia of chronic disease and se condary to chronic renal disease. With acute worsening of her anemia and Hemoccult positive stools, we plan endoscopy to evaluate this further. 2. Hepatitis B surface antigen positive. This would suggest chronic infection; however, her surfac e antibody is also positive, which has a mixed signal. Her B surface antigen apparently was previou sly negative. I have requested a hepatitis B DNA level and hepatitis Be antigen and hepatitis Be an tibody to help further evaluate this. These labs are pending and likely will come back until after she is discharged. 3. Congestive heart failure and end-stage renal disease. RECOMMENDATIONS: 1. EGD and colonoscopy tomorrow. 2. Await additional hepatitis B serology as previously recommended.
[2017-07-09] MEDS: Atorvastatin Calcium 40 MG TAB PO SCH (21:29)
[2017-07-09] MEDS: ADMIXTURE FEE SC SCH (22:33)
[2017-07-09] MEDS: INSULIN DETEMIR SC SCH (22:33)
[2017-07-10] MEDS: Acetaminophen/Codeine 30-300mg Tablet PO PRN (02:25)
[2017-07-10 05:40] LABS: #Eosinphils 0.3 thou/uL (0.0-0.7); #Lymphocytes 1.1 thou/uL (1.20-3.40); #Monocytes 0.3 thou/uL (0.11-0.59); #Neutrophils 3.3 thou/uL (1.40-6.50); %Eosinophils 5.3 % (0.0-10.0); %Lymphocytes 22.8 % (21.0-51.0); %Monocytes 5.6 % (0.0-10.0); Hematocrit 29.5 % (36.0-47.0); Mean Platelet Volume 7.8 fL (7.4-10.4); Red Blood Cell (RBC) Count 3.14 mill/uL (4.20-5.40); White Blood Cell (WBC) Count 4.9 thou/uL (4.8-10.8)
[2017-07-10 06:04] LABS: ALT (SGPT) 27 U/L (8-55); AST (SGOT) 17 U/L (5-34); Alkaline Phosphatase 263 U/L (40-150); Anion Gap 14 mmol/L (10-20); BUN (Urea Nitrogen) 30 mg/dL (9.8-20.1); Bilirubin, Total 0.7 mg/dL (0.2-1.2); Calc. Creatinine Clearance 14 mL/min (70-130); Calcium 8.1 mg/dL (7.8-10.44); Carbon Dioxide 29 mmol/L (22-29); Chloride 90 mmol/L (98-107); Estimated GFR-MDRD 11; Globulin 3.6 g/dL (2.4-3.5); Protein, Total 6.6 g/dL (6.0-8.3)
--- NOTE | 2017-07-10 06:05 | PDOC.FM ---
- Subjective Subjective: Patient doing well this AM. No significant overnight events. Was placed on O2 overnight per nursing staff due to low oxygen levels. Patient states that she did not have any shortness of breath, chest pain, headache, or decreased consciousness during the time her oxygen levels were low. Spoke to patient this morning about missed clinic visits. She states that she could not go due to dialysis. She will have her colonoscopy and endoscopy performed today. Will follow recommendations of GI. - Objective MAR Reviewed: Yes Vital Signs & Weight: Vital Signs (12 hours) Temp Pulse Resp BP BP Pulse Ox 07/10/17 05:19 60 175/72 H 07/10/17 05:18 175/72 H 07/10/17 04:41 100 07/10/17 04:00 98.8 F 60 18 175/72 H 100 07/10/17 00:05 93 L 07/09/17 23:52 98.2 F 57 L 18 140/65 93 L 07/09/17 21:32 127/60 07/09/17 20:00 97.6 F 57 L 16 127/60 97 I&O: 07/08/17 07/09/17 07/10/17 06:59 06:59 06:59 Intake Total 850 Balance 850 Result Diagrams: 07/10/17 05:16 07/10/17 05:16 <Margaux Boland - Last Filed: 07/10/17 08:10> - Objective Vital Signs & Weight: Vital Signs (12 hours) Temp Pulse Resp BP BP Pulse Ox 07/10/17 08:00 98.3 F 66 14 175/74 H 96 07/10/17 05:19 60 175/72 H 07/10/17 05:18 175/72 H 07/10/17 04:41 100 07/10/17 04:00 98.8 F 60 18 175/72 H 100 07/10/17 00:05 93 L Weight Weight 61.779 kg I&O: 07/09/17 07/10/17 07/11/17 06:59 06:59 06:59 Intake Total 2850 Balance 2850 Result Diagrams: 07/10/17 05:16 07/10/17 05:16 <Kobe Velasco - Last Filed: 07/10/17 11:57> Phys Exam - Physical Examination Constitutional: NAD HEENT: moist MMs, sclera anicteric Neck: supple, full ROM Wheezing posteriorly. Crackles in right lower lung base > left lower lung base 3/6 systolic murmur Gastrointestinal: soft, non-tender, no distention, positive bowel sounds Musculoskeletal: pulses present 3+ pitting edema to knees Neurological: non-focal, moves all 4 limbs Psychiatric: normal affect, A&O x 3 Skin: no rash, cap refill <2 seconds <Margaux Boland - Last Filed: 07/10/17 08:10> Dx/Plan (1) Anemia in chronic kidney disease (CKD) Code(s): N18.9 - CHRONIC KIDNEY DISEASE, UNSPECIFIED; D63.1 - ANEMIA IN CHRONIC KIDNEY DISEASE Status: Chronic Qualifiers: Chronic kidney disease stage: on chronic dialysis Qualified Code(s): N18.6 - End stage renal disease; D63.1 - Anemia in chronic kidney disease; Z99.2 - Dependence on renal dialysis Plan: -s/p 2 units pRBCs -H&H stable -FOBT positive -GI consulted, appreciate recs -Colonoscopy and endoscopy today -Started on erythropoeitin by nephro (2) Transaminitis Code(s): R74.0 - NONSPEC ELEV OF LEVELS OF TRANSAMNS & LACTIC ACID DEHYDRGNSE Status: Acute Plan: -AST, ALT and AP elevated on admission -HepBs Ag and HepBs Ab positive; could represent immune escape variant that may require treatment with antivirals -HepBc Ab negative -HepA Ab positive; past infection -Hep C negative -HepB DNA & HepE pending -GI consulted; appreciate recs -ED consulted; appreciate recs (3) ESRD (end stage renal disease) on dialysis Code(s): N18.6 - END STAGE RENAL DISEASE; Z99.2 - DEPENDENCE ON RENAL DIALYSIS Status: Chronic Plan: -HD TTS -Patient fluid overloaded on admission -Nephro consulted; appreciate recs (4) CHF (congestive heart failure) Code(s): I50.9 - HEART FAILURE, UNSPECIFIED Status: Chronic Qualifiers: Congestive heart failure type: systolic Congestive heart failure chronicity : chronic Qualified Code(s): I50.22 - Chronic systolic (congestive) heart failure Plan: -EF 47% -CXR shows cardiomegaly with pulmonary vascular congestion -Fluid restrictions -Continue HD -Patient does not make much urine; diuresis not very effective (5) T2DM (type 2 diabetes mellitus) Status: Chronic Qualifiers: Diabetes mellitus complication status: with kidney complications Diabetes mellitus complication detail: with chronic kidney disease Diabetes mellitus ferry terminal supervisor insulin use: with senior care use Chronic kidney disease stage: on chronic dialysis Qualified Code(s): E11.22 - Type 2 diabetes mellitus with diabetic chronic kidney disease; N18.6 - End stage renal disease; Z79.4 - nursing home (current) use of insulin; Z99.2 - Dependence on renal dialysis Plan: -Detemir 10U and SSI -Accuchecks ACHS -Glucose this AM 198 -CC diet (6) Hypertension Code(s): I10 - ESSENTIAL (PRIMARY) HYPERTENSION Status: Chronic Qualifiers: Hypertension type: essential hypertension Qualified Code(s): I10 - Essential (primary) hypertension Plan: -Continue home meds -Amlodipine was increased; BP still labile -Consider adjusting medications <Margaux Boland - Last Filed: 07/10/17 08:10> Attending Addendum - Attending Addendum I personally evaluated the patient and discussed the management with Dr. Boland. I agree with the History, Examination, Assessment and Plan documented above with any addition or exceptions noted below. Patient feeling improved this morning. Denies any shortness of breath though she does continue on supplemental O2, though she is on this intermittently at home. Hgb stable overnight, but due to positive FOBT, patient going for scope today. Await results of EGD and colonoscopy and further GI recs. Labs relating to possible Hep B infection are still pending, appreciate ID support in the case. Due to the patient having bowel prep, monitor closely for further evidence of volume overload due to the 4L fluid requirement for prep. Patient will likely need HD after procedures this afternoon as her sodium has trended down, K has increased, and appears volume overloaded. If no HD, will need to repeat K this afternoon and institute medical treatments if further elevation is noted. BP not at goal, increasing anti-HTN therapy. <Kobe Velasco - Last Filed: 07/10/17 11:57>
[2017-07-10] MEDS: Carvedilol 25 MG TAB PO SCH ×2 (08:20→18:53)
[2017-07-10] MEDS: Ascorbic Acid 500 mg Chewable Tablet PO SCH ×2 (08:20→20:46)
[2017-07-10] MEDS: Calcium Acetate 667 MG CAP PO SCH ×3 (08:20→18:53)
[2017-07-10] MEDS: Ferrous Sulfate 325 MG TAB PO SCH (08:20)
[2017-07-10] MEDS: HumaLOG 300 UNITS/3 ML VIAL SC PRN (08:21)
[2017-07-10] MEDS: Gabapentin 100 MG CAP PO SCH ×3 (08:21→20:46)
[2017-07-10] MEDS: Cholecalciferol (Vitamin D3) 400 UNITS TAB PO SCH (08:21)
[2017-07-10] MEDS: Docusate 100 MG CAP PO SCH ×2 (08:21→20:46)
[2017-07-10] MEDS: Metoclopramide HCl 10 MG/10 ML UDCUP PO SCH ×4 (10:18→20:46)
--- NOTE | 2017-07-10 11:59 | PRG ---
DATE OF SERVICE: 07/10/2017 SUBJECTIVE: This is a 56-year-old female being seen for end-stage renal disease. Patient denies an y nausea, vomiting or chest pain. PHYSICAL EXAMINATION: GENERAL: Patient is awake, alert. VITAL SIGNS: Afebrile, pulse 60, breathing at 16, blood pressure 170/74. OBJECTIVE: See above. Awake, alert, in no acute distress. GENERAL APPEARANCE AND MENTAL STATUS: Fair. HEAD/NECK: Normocephalic. Atraumatic. EYES: EOMI. No deformity. EARS: Clear. No ulcers. NOSE: Intact. No lesions. MOUTH: Clear. No discharge. THROAT: Clear. No exudate. LUNGS: Clear. No crackles. CARDIAC: S1, S2. No rub. ABDOMEN: Benign. BS+. GENITALIA/RECTUM: Vasquez absent. BACK/EXTREMITIES: Edema 0+ Ulcer- NEUROLOGICAL: Alert and motor intact. SKIN: Rash- Bruise- LYMPHATICS: Edema- Ulcer- LABORATORY: Hemoglobin 9.5, potassium is 5.5. ASSESSMENT AND PLAN: 1. Stage 6 chronic kidney disease. We will plan dialysis. 2. Hyperkalemia, plan dialysis. 3. Recent conversion of hepatitis B serology, would recommend Infectious Disease consultation. 4. Medications based on GFR are appropriate.
[2017-07-10] MEDS ORDERED: Midazolam HCl 2 mg/2 ml Vial ONE (12:26)
[2017-07-10] MEDS ORDERED: Lidocaine 1% PF 5 ML VIAL ONE (13:04)
[2017-07-10] MEDS ORDERED: Propofol 200 MG/20 ML VIAL ONE (13:04)
[2017-07-10] MEDS ORDERED: GoLYTELY 4,000 ml Bottle PO SCH ×2 (15:00→16:00)
--- NOTE | 2017-07-10 15:02 | OP ---
DATE OF SERVICE: 07/10/2017 PROCEDURE PERFORMED: Esophagogastroduodenoscopy. PREOPERATIVE DIAGNOSES: Ms. Rodriguez was set up for EGD and colonoscopy to evaluate anemia and Hemocc ult positive stool. OPERATIVE NOTE: Informed consent was obtained from the patient. She was sedated with total intrave nous anesthesia. The bite block was placed and the endoscope was advanced easily to the second port ion of the duodenum. The esophagus had grade C erosive esophagitis in the distal esophagus. The st omach was full of a large amount of dry food. Retroflexed views in the stomach were not performed. The pylorus and first and second portions of the duodenum were normal. The patient was turned arou nd. Rectal exam was performed and revealed firm, dry, solid brown stool in the rectal vault. The c olonoscopy was not attempted. IMPRESSION: 1. Erosive distal esophagitis. 2. The stomach was full of a large amount of dry food. 3. Normal duodenum. 4. Rectal exam revealed firm, dry, solid brown stool in the rectal vault and the colonoscopy was no t attempted. RECOMMENDATIONS: 1. Clear liquid diet. 2. Increase Reglan to 10 mg 4 times a day. 3. We will repeat bowel prep with GoLYTELY. 4. Proton pump inhibitor. 5. We will try colonoscopy again tomorrow. EGD can be repeated at the same time since the stomach was full of food.
[2017-07-10] MEDS: Acetaminophen 325 MG TAB PO PRN (20:45)
[2017-07-10] MEDS: Atorvastatin Calcium 40 MG TAB PO SCH (20:46)
[2017-07-10] MEDS: ADMIXTURE FEE SC SCH (20:47)
[2017-07-10] MEDS: INSULIN DETEMIR SC SCH (20:47)
[2017-07-11] MEDS: Acetaminophen/Codeine 30-300mg Tablet PO PRN ×3 (02:38→22:58)
[2017-07-11] MEDS: Metoclopramide HCl 10 MG/10 ML UDCUP PO SCH ×4 (02:39→20:44)
[2017-07-11 05:21] LABS: #Eosinphils 0.1 thou/uL (0.0-0.7); #Lymphocytes 1.3 thou/uL (1.20-3.40); #Monocytes 0.3 thou/uL (0.11-0.59); #Neutrophils 2.4 thou/uL (1.40-6.50); %Basophils 0.8 % (0.0-1.0); %Eosinophils 3.2 % (0.0-10.0); %Lymphocytes 31.8 % (21.0-51.0); %Monocytes 7.2 % (0.0-10.0); Hematocrit 27.7 % (36.0-47.0); Mean Platelet Volume 7.5 fL (7.4-10.4); Red Blood Cell (RBC) Count 2.94 mill/uL (4.20-5.40); White Blood Cell (WBC) Count 4.1 thou/uL (4.8-10.8)
--- NOTE | 2017-07-11 05:38 | PDOC.FM ---
- Subjective Subjective: Patient doing well this AM. No chest pain, shortness of breath, dizziness, or confusion. Patient states that she drank the entire bowel prep regimen. Electrolytes have remained stable. GI will take patient for colonoscopy/ endoscopy today. No significant overnight events. - Objective MAR Reviewed: Yes Vital Signs & Weight: Vital Signs (12 hours) Temp Pulse Resp BP Pulse Ox 07/11/17 04:00 98.6 F 59 L 18 114/57 L 93 L 07/10/17 23:45 99.4 F 70 20 121/56 L 96 07/10/17 19:30 99.4 F 70 20 131/61 96 Weight Weight 61.779 kg I&O: 07/09/17 07/10/17 07/11/17 06:59 06:59 06:59 Intake Total 2850 130 Balance 2850 130 Result Diagrams: 07/11/17 04:40 07/11/17 04:40 <Margaux Boland - Last Filed: 07/11/17 08:01> - Objective Vital Signs & Weight: Vital Signs (12 hours) Temp Pulse Resp BP BP Pulse Ox 07/11/17 08:57 126/60 07/11/17 08:53 61 126/60 07/11/17 04:00 98.6 F 59 L 18 114/57 L 93 L 07/10/17 23:45 99.4 F 70 20 121/56 L 96 Weight Weight 60.872 kg I&O: 07/10/17 07/11/17 07/12/17 06:59 06:59 06:59 Intake Total 2850 4250 Output Total 0 Balance 2850 4250 Result Diagrams: 07/11/17 04:40 07/11/17 04:40 <Kobe Velasco - Last Filed: 07/11/17 11:21> Phys Exam - Physical Examination Constitutional: NAD HEENT: moist MMs, sclera anicteric Neck: full ROM Crackles in bilateral bases Cardiovascular: RRR 3/6 systolic murmur Gastrointestinal: soft (hyperactive), non-tender, no distention, positive bowel sounds Musculoskeletal: pulses present 3+ pitting edema Neurological: non-focal, moves all 4 limbs Psychiatric: A&O x 3 Deviation from normal: Appears sleepy Skin: cap refill <2 seconds <Margaux Boland - Last Filed: 07/11/17 08:01> Dx/Plan (1) Anemia in chronic kidney disease (CKD) Code(s): N18.9 - CHRONIC KIDNEY DISEASE, UNSPECIFIED; D63.1 - ANEMIA IN CHRONIC KIDNEY DISEASE Status: Chronic Qualifiers: Chronic kidney disease stage: on chronic dialysis Qualified Code(s): N18.6 - End stage renal disease; D63.1 - Anemia in chronic kidney disease; Z99.2 - Dependence on renal dialysis Plan: -Presented to ED 2/2 syncope -s/p 2 units pRBCs -H&H stable; Hg 8.9, Hct 27.7 -FOBT positive -GI consulted, appreciate recs -Colonoscopy and endoscopy attempted yesterday; dry food in stomach and hard, formed stool in rectum preventing scopes from being performed. GI was able to make it to esophagus, and there was evidence of erosive esophagitis. Patient was started on protonix. Plan for repeat colonoscopy and endoscopy today. Patient took more prep yesterday. -Started on erythropoeitin by nephro (2) Transaminitis Code(s): R74.0 - NONSPEC ELEV OF LEVELS OF TRANSAMNS & LACTIC ACID DEHYDRGNSE Status: Acute Plan: -AST, ALT and AP elevated on admission -HepBs Ag and HepBs Ab positive; could represent immune escape variant that may require treatment with antivirals -HepBc Ab negative -HepA Ab positive; past infection -Hep C negative -HepB DNA & HepE pending -GI consulted; appreciate recs -ED consulted; appreciate recs -As PT was elevated and patient has hypoalbuminemia, an abdominal U/S was performed to evaluate for cirrhosis of liver (3) ESRD (end stage renal disease) on dialysis Code(s): N18.6 - END STAGE RENAL DISEASE; Z99.2 - DEPENDENCE ON RENAL DIALYSIS Status: Chronic Plan: -HD TTS -Patient fluid overloaded on admission -Nephro consulted; appreciate recs -Patient received HD yesterday afternoon; she was fluid overloaded 2/2 4L of [place] (4) CHF (congestive heart failure) Code(s): I50.9 - HEART FAILURE, UNSPECIFIED Status: Chronic Qualifiers: Congestive heart failure type: systolic Congestive heart failure chronicity : chronic Qualified Code(s): I50.22 - Chronic systolic (congestive) heart failure Plan: -EF 47% -CXR shows cardiomegaly with pulmonary vascular congestion -Fluid restrictions; SL -Continue HD; last session 07/10 -Patient does not make much urine; diuresis not very effective -Monitor closely as patient volume overloaded after bowel prep yesterday. Patient received HD; however, she again had to drink bowel prep in preparation for colonoscopy/endoscopy (5) T2DM (type 2 diabetes mellitus) Status: Chronic Qualifiers: Diabetes mellitus complication status: with kidney complications Diabetes mellitus complication detail: with chronic kidney disease Diabetes mellitus intermediate card tender insulin use: with intermediate card tender use Chronic kidney disease stage: on chronic dialysis Qualified Code(s): E11.22 - Type 2 diabetes mellitus with diabetic chronic kidney disease; N18.6 - End stage renal disease; Z79.4 - half-way (current) use of insulin; Z99.2 - Dependence on renal dialysis Plan: -Detemir 10U and SSI -Accuchecks ACHS -Glucose this AM 214 -CC diet -Glucose levels labile; highs to lows (6) Hypertension Code(s): I10 - ESSENTIAL (PRIMARY) HYPERTENSION Status: Chronic Qualifiers: Hypertension type: essential hypertension Qualified Code(s): I10 - Essential (primary) hypertension Plan: -Continue home meds -Amlodipine was increased <Margaux Boland - Last Filed: 07/11/17 08:01> Attending Addendum - Attending Addendum I personally evaluated the patient and discussed the management with Dr. Boland. I agree with the History, Examination, Assessment and Plan documented above with any addition or exceptions noted below. Patient has completed bowel prep for the second time, and GI will attempt endscopy again today. Patient has evidence for gastroparesis/delayed gastric emptying and therefore Reglan has been increased. Will need to decrease at time of d/c due to renal clearance and patient being ESRD. Volume status appears stable, anticipate HD today as per her normal regimen. Once GI clearance, this will be what keeps patient in hospital. She has no complaints of dyspnea on room air, but sats in low 80s. Her bicarb is trending up and therefore will obtain ABG to evaluate respiratory status. Patient with likely chronic hypoxic respiratory failure but want to ensure nothing acute going on as well. <Kobe Velasco - Last Filed: 07/11/17 11:21>
[2017-07-11 05:43] LABS: ALT (SGPT) 23 U/L (8-55); AST (SGOT) 20 U/L (5-34); Alkaline Phosphatase 246 U/L (40-150); Anion Gap 13 mmol/L (10-20); BUN (Urea Nitrogen) 14 mg/dL (9.8-20.1); Bilirubin, Total 0.6 mg/dL (0.2-1.2); Calc. Creatinine Clearance 23 mL/min (70-130); Calcium 8.4 mg/dL (7.8-10.44); Carbon Dioxide 31 mmol/L (22-29); Chloride 99 mmol/L (98-107); Estimated GFR-MDRD 19; Globulin 3.7 g/dL (2.4-3.5); Protein, Total 6.6 g/dL (6.0-8.3)
[2017-07-11] MEDS: Carvedilol 25 MG TAB PO SCH ×2 (08:52→17:48)
[2017-07-11] MEDS: Ascorbic Acid 500 mg Chewable Tablet PO SCH ×2 (08:54→20:44)
[2017-07-11] MEDS: Cholecalciferol (Vitamin D3) 400 UNITS TAB PO SCH (08:57)
[2017-07-11] MEDS: Gabapentin 100 MG CAP PO SCH ×3 (08:57→20:44)
[2017-07-11] MEDS: Docusate 100 MG CAP PO SCH ×2 (08:57→20:44)
[2017-07-11] MEDS: Calcium Acetate 667 MG CAP PO SCH ×3 (09:31→17:47)
--- NOTE | 2017-07-11 09:50 | ULT ---
GALLBLADDER ULTRASOUND: Date: 07/11/17 HISTORY: Please assess the liver. COMPARISON: 04/01/17. TECHNIQUE: Utilizing a multihertz transducer, sonographic imaging of the right upper quadrant was performed in the longitudinal and transverse plane. FINDINGS: The head of the pancreas is grossly unremarkable. The remainder of the pancreas is obscured by bowel gas. There is no evidence of hepatic mass. No intrahepatic biliary dilatation. Contour of the hepat ic margin is maintained. There is a small right-sided pleural effusion. Main portal vein is patent. Common bile duct diameter is 0.9 cm. Gallbladder is surgically absent. Right kidney measures 9.5 x 3 .7 x 4.3 cm. IMPRESSION: 1. To-and-fro waveform to the patent main portal vein. 2. Small right-sided pleural effusion. 3. No obvious hepatic masses. Better interrogation of the hepatic parenchyma with liver mass protoc ol CT scan be performed. Note, correlation made with an abdomen/pelvis CT on 04/01/17 does demonstra te a slightly heterogeneous enhancement of the liver. POS: [facility]
--- NOTE | 2017-07-11 10:41 | PQF ---
DATE: 07-11-17 ATTN: DR. GALILEO AUSTIN Please provide a response below if a more specific term indicating a diagnosis and/or acuity level for this condition can be identified. Please exercise your independent, professional judgment in responding to the clarification form. Clinical indicators are provided at the top of this form for your review. Thank you. [ x ] Encephalopathy: Type: [ x] Acute [ ] Subacute [ ] Chronic Etiology: [ x ] Metabolic [ ] Toxic [ ] Toxic Metabolic [ ] Hepatic [ x ] Hypoxic [ ] Septic [ ] Drugs (specify) Severity: [ ] with coma [ ] without coma [ ] No diagnosis of Encephalopathy [ ] Does not apply to this patient [ ] Unable to determine [ ] Other diagnosis: [x] Present on Admission (POA): [ ] Yes [ ] No [ ] Unable to determine The following CLINICAL INDICATORS - SIGNS / SYMPTOMS are present in the medical record: ER DOCUMENTATION: ER CAVEAT INVOKED D/T PATIENT WITH MENTAL STATUS CHANGES, PT UNRESPONSIVE, NOT RESPONSIVE TO STERNAL RUB H&P: ALTERED MENTAL STATUS, NOW RESOLVED, CONSIDER HYPOXIA VS METABOLIC SOURCE PN DR. WILBER REYNA 07-07-17: ALTERED MENTAL STATUS-RESOLVED PN DR. SANJAY GILLILAND 07-09-17: ALTERED MENTAL STATUS -RESOLVED RISKS: H&P: HX OF ESRD, HTN, HYPERLIPIDEMIA, HX OF CHF, HX OF AMBIEN AND NARCOTIC OVERDOSE TREATMENTS: ER DOCUMENTATION: IVF ( SODIUM CHLORIDE ) (This form is maintained as a part of the permanent medical record) 2014 [employer]. All Rights Reserved DANO [email or web address] Office: [phone] [facility]
--- NOTE | 2017-07-11 11:04 | PRG ---
DATE OF SERVICE: 07/11/2017 SUBJECTIVE: This is a 56-year-old lady being seen for end-stage renal disease. The patient denies nausea, vomiting or chest pain. PHYSICAL EXAMINATION: GENERAL: Patient is awake, alert. VITAL SIGNS: Afebrile, pulse 20, breathing 16, blood pressure 114/57. OBJECTIVE: See above. Awake, alert, in no acute distress. GENERAL APPEARANCE AND MENTAL STATUS: Fair. HEAD/NECK: Normocephalic. Atraumatic. EYES: EOMI. No deformity. EARS: Clear. No ulcers. NOSE: Intact. No lesions. MOUTH: Clear. No discharge. THROAT: Clear. No exudate. LUNGS: Clear. No crackles. CARDIAC: S1, S2. No rub. ABDOMEN: Benign. BS+. GENITALIA/RECTUM: Vasquez absent. BACK/EXTREMITIES: Edema 0+ Ulcer- NEUROLOGICAL: Alert and motor intact. SKIN: Rash- Bruise- LYMPHATICS: Edema- Ulcer- LABORATORY: Hemoglobin 8.9, potassium 4.6. ASSESSMENT AND RECOMMENDATIONS: 1. Chronic kidney disease, continue hemodialysis. 2. Hypertension, stable. 3. Anemia, stable. 4. Hepatitis B status, will order a PCR of hepatitis B to assure there is not an active infection. I appreciate ID and a GI consultation.
[2017-07-11 13:16] LABS: Hepatitis B little e Antibody Negative (Negative)
--- NOTE | 2017-07-11 14:00 | PQF ---
DATE: 07-11-17 ATTN: DR. GALILEO AUSTIN / SIMEON COOPER Please provide a response below if a more specific term indicating a diagnosis and/or acuity level for this condition can be identified. Please exercise your independent, professional judgment in responding to the clarification form. Clinical indicators are provided on the bottom of this form for your review. Thank you. ACUTE HEART FAILURE [ ] Acute Systolic Heart Failure [ ] Acute Diastolic Heart Failure [ ] Acute Systolic and Diastolic Heart Failure ACUTE ON CHRONIC HEART FAILURE [ x ] Acute On Chronic Systolic Heart Failure [ ] Acute On Chronic Diastolic Heart Failure [ ] Acute On Chronic Systolic and Diastolic Heart Failure [ ] Does not apply to this patient [ ] Unable to determine [ ] Other diagnosis: The following CLINICAL INDICATORS - SIGNS / SYMPTOMS are present in the medical record: BNP: 07-05-17: 7301.3 H&P: HX OF CHF, CONGESTIVE HEART FAILURE. BNP 7301, ELEVATED FROM BASELINE. NONCOMPLIANT WITH DIET AND FLUID INTAKE CONSULT NOTE DR. DIAZ 07-09-17: CONGESTIVE HEART FAILURE CXR 07-09-17: PULMONARY VASCULAR CONGESTION RISKS: ER DOCUMENTATION: HX OF CHF, HTN, ESRD, TREATMENTS: TELEMETRY MONITORING, PT ON COREG (07-06-17), O2 USE (This form is maintained as a part of the permanent medical record) 2014 [employer]. All Rights Reserved DANO [email or web address] Office: [phone] [facility]
[2017-07-11] MEDS ORDERED: Propofol 200 MG/20 ML VIAL ONE (15:01)
[2017-07-11] MEDS ORDERED: Promethazine HCl 25 MG/ML VIAL SLOW IVP PRN (15:45)
[2017-07-11] MEDS ORDERED: Meperidine HCl/PF 25 MG/ML VIAL SLOW IVP PRN (15:45)
[2017-07-11] MEDS ORDERED: Morphine Sulfate 2 MG/ML SYRINGE SLOW IVP PRN (15:45)
[2017-07-11] MEDS ORDERED: Ondansetron HCl/PF 4 MG/2 ML Vial IVP PRN (15:45)
[2017-07-11 16:33] LABS: Oxyhemoglobin 84.4 % (94.0-97.0); Sodium 135 mmol/L (135-148)
[2017-07-11 16:36] LABS: Mode ROOM AIR; Modified Allen's Test NOT DONE; Vent NO
[2017-07-11] MEDS: Epoetin (ESRD) 20,000 UNITS/ML IVP SCH (17:45)
[2017-07-11] MEDS: Atorvastatin Calcium 40 MG TAB PO SCH (20:44)
[2017-07-11] MEDS: ADMIXTURE FEE SC SCH (20:45)
[2017-07-11] MEDS: INSULIN DETEMIR SC SCH (20:45)
--- NOTE | 2017-07-12 00:28 | OP ---
PREPROCEDURE DIAGNOSES: 1. Anemia, Hemoccult positive stool. 2. Gastroparesis, poor esophagogastroduodenoscopy performed yesterday. POSTPROCEDURE DIAGNOSES: 1. Erosive distal esophagitis consistent with recurrent regurgitation. 2. Otherwise normal esophagogastroduodenoscopy. 3. Colonoscopy notable for 4 polyps scattered throughout the colon from the ascending to the descen ding. These were 3-5 mm by hot snare polypectomy. 4. Prep was extremely poor, recommend repeat colonoscopy in one year. ANESTHESIA: TIVA. PROCEDURE IN DETAIL: After the patient was informed of the risks, benefits, possible complications of endoscopy including perforation, bleeding, reactions to medication and aspiration, informed conse nt was obtained. The patient was brought to endoscopy suite where she was sedated in gradual fashio n. Once she was comfortable, a bite block was placed in incisural orifice. The endoscope was advan nehemias through the esophagus, stomach and second and third portion of duodenum and slowly removed. The esophagus was notable for distal esophagitis consistent with reflux, regurgitation. Stomach was em pty. There was no evidence of retained food at this time. Retroflexed views were normal. The duod enum was normal to the third portion. The scope was removed after the stomach was desufflated. The patient was turned in the room and a rectal examination was performed. The endoscope was advanced through anal canal, through the colon to the cecum. Prep was fair to poor; about a liter of fluid u sed to irrigate the colon, but it was unable to be cleared completely. Small lesions may have been missed, 5 polyps in the size of 3 and 7 mm were noted in the ascending through the descending colon. These were all removed by hot snare polypectomy and submitted to Pathology. Retroflexed views in the rectum were normal. There was diverticulosis coli. No large lesions were seen. But again, ot er small lesions up to a cm in size may have been missed secondary to the prep. We would recommend she repeat colonoscopy in 5 years. The scope was removed. The patient tolerated the procedure well with no complications.
[2017-07-12] MEDS: Metoclopramide HCl 10 MG/10 ML UDCUP PO SCH ×4 (01:30→20:22)
[2017-07-12] MEDS: Acetaminophen 325 MG TAB PO PRN (05:14)
[2017-07-12 07:13] LABS: ALT (SGPT) 24 U/L (8-55); AST (SGOT) 26 U/L (5-34); Alkaline Phosphatase 274 U/L (40-150); Anion Gap 19 mmol/L (10-20); BUN (Urea Nitrogen) 23 mg/dL (9.8-20.1); Bilirubin, Total 0.5 mg/dL (0.2-1.2); Calc. Creatinine Clearance 15 mL/min (70-130); Calcium 8.3 mg/dL (7.8-10.44); Carbon Dioxide 24 mmol/L (22-29); Chloride 95 mmol/L (98-107); Estimated GFR-MDRD 12; Globulin 3.8 g/dL (2.4-3.5); Protein, Total 6.6 g/dL (6.0-8.3)
[2017-07-12 08:12] LABS: #Eosinphils 0.2 thou/uL (0.0-0.7); #Lymphocytes 1.2 thou/uL (1.20-3.40); #Monocytes 0.3 thou/uL (0.11-0.59); #Neutrophils 8.5 thou/uL (1.40-6.50); %Basophils 0.2 % (0.0-1.0); %Eosinophils 1.6 % (0.0-10.0); %Lymphocytes 11.8 % (21.0-51.0); %Monocytes 3.4 % (0.0-10.0); Hematocrit 29.9 % (36.0-47.0); Mean Platelet Volume 7.5 fL (7.4-10.4); Red Blood Cell (RBC) Count 3.13 mill/uL (4.20-5.40); White Blood Cell (WBC) Count 10.2 thou/uL (4.8-10.8)
[2017-07-12] MEDS: Gabapentin 100 MG CAP PO SCH ×3 (08:59→20:22)
[2017-07-12] MEDS: Cholecalciferol (Vitamin D3) 400 UNITS TAB PO SCH (08:59)
[2017-07-12] MEDS: Calcium Acetate 667 MG CAP PO SCH ×3 (08:59→17:12)
[2017-07-12] MEDS: Carvedilol 25 MG TAB PO SCH ×2 (08:59→17:12)
[2017-07-12] MEDS: Ascorbic Acid 500 mg Chewable Tablet PO SCH ×2 (08:59→20:23)
[2017-07-12] MEDS: Docusate 100 MG CAP PO SCH ×2 (08:59→20:23)
--- NOTE | 2017-07-12 09:22 | PDOC.FM ---
- Subjective Subjective: Patient altered this AM. Only oriented to person and place. Not oriented to time. Patient also appeared more lethargic this AM. She would fall asleep while I was trying to ask her questions. She did not complain of any pain or shortness of breath, however, her O2 this AM was 84%. Nurse states that her oxygen status waxes and wanes, and patient does not do a great job about keeping her O2 on. Additionally, night team got called early this AM regarding fever. Patient was given tylenol, but no cultures were drawn at that time. Will obtain cultures if patient fevers again. Obtained UA and urine culture, along with 2 view cxr. Will also obtain respiratory panel to evaluate for cause of fever. Patient was in dialysis when on team rounds this AM. She was much more alert and oriented x3. Episode this morning was likely secondary to delerium/ patient waking from sleep. Patient did endorse cough that started this last night. - Objective MAR Reviewed: Yes Vital Signs & Weight: Vital Signs (12 hours) Temp Pulse Resp BP BP BP Pulse Ox 07/12/17 09:04 100 F H 07/12/17 08:59 79 140/64 07/12/17 07:10 102.1 F H 79 14 94 L 07/12/17 07:08 102.1 F H 79 14 140/64 94 L 07/12/17 04:00 100.4 F H 72 18 136/64 93 L Weight Weight 61.099 kg I&O: 07/11/17 07/12/17 07/13/17 06:59 06:59 06:59 Intake Total 4250 480 Output Total 0 Balance 4250 480 Result Diagrams: 07/12/17 07:57 07/12/17 06:08 <Margaux Boland - Last Filed: 07/12/17 10:48> - Objective Vital Signs & Weight: Vital Signs (12 hours) Temp Pulse Resp BP BP BP Pulse Ox 07/12/17 09:04 100 F H 07/12/17 08:59 79 140/64 07/12/17 07:10 102.1 F H 79 14 94 L 07/12/17 07:08 102.1 F H 79 14 140/64 94 L 07/12/17 04:00 100.4 F H 72 18 136/64 93 L Weight Weight 61.099 kg I&O: 07/11/17 07/12/17 07/13/17 06:59 06:59 06:59 Intake Total 4250 480 Output Total 0 Balance 4250 480 Result Diagrams: 07/12/17 07:57 07/12/17 06:08 <Kobe Velasco - Last Filed: 07/12/17 12:16> Phys Exam - Physical Examination Lethargic appearing. Fell asleep while being asked questions. [place] warm. HEENT: moist MMs, sclera anicteric Neck: full ROM Crackles in Right lower lung base > left lower lung base Cardiovascular: RRR 4/6 systolic murmur Gastrointestinal: soft, non-tender, no distention, positive bowel sounds Musculoskeletal: pulses present 3+ pitting edema Neurological: moves all 4 limbs Deviation from normal: Oriented to person and place, and not to time. Skin: no rash, cap refill <2 seconds <Margaux Boland - Last Filed: 07/12/17 10:48> Dx/Plan (1) Altered mental status Code(s): R41.82 - ALTERED MENTAL STATUS, UNSPECIFIED Status: Acute Qualifiers: Altered mental status type: delirium Qualified Code(s): R41.0 - Disorientation, unspecified Plan: -Could be secondary to infection as patient spiked fever -Will obtain blood cultures if patient spikes fever again - blood cultures x2 and culture of dialysis port -UA obtained; Urine culture pending -CXR pending; rule out pneumonia with increasing O2 requirement along with fever -Respiratory panel pending to evaluate source of fever -Patient mental status improved on team rounds; she was in dialysis and was much more alert and oriented x3 (2) Anemia in chronic kidney disease (CKD) Code(s): N18.9 - CHRONIC KIDNEY DISEASE, UNSPECIFIED; D63.1 - ANEMIA IN CHRONIC KIDNEY DISEASE Status: Chronic Qualifiers: Chronic kidney disease stage: on chronic dialysis Qualified Code(s): N18.6 - End stage renal disease; D63.1 - Anemia in chronic kidney disease; Z99.2 - Dependence on renal dialysis Plan: -Presented to ED 2/2 syncope; resolved -s/p 2 units pRBCs -H&H stable -GI consulted, appreciate recs -Colonoscopy and endoscopy: erosive esophagitis, started on protonixs; 4 polyps that were biopsied, pending results -Started on erythropoeitin by nephro (3) Transaminitis Code(s): R74.0 - NONSPEC ELEV OF LEVELS OF TRANSAMNS & LACTIC ACID DEHYDRGNSE Status: Acute Plan: -AST, ALT and AP elevated on admission -HepBs Ag and HepBs Ab positive; could represent immune escape variant that may require treatment with antivirals -HepBc Ab negative -HepA Ab positive; past infection -Hep C negative -HepB DNA & HepE pending -GI consulted; appreciate recs -ED consulted; appreciate recs -As PT was elevated and patient has hypoalbuminemia, an abdominal U/S was performed to evaluate for cirrhosis of liver -Live U/S showed some heterogeneity; may need CT as outpatient to evaluate more definitively for cirrhosis. Portal HTN noted, indicative of chronic liver disease; vena cava dilation indicating heart failure (4) ESRD (end stage renal disease) on dialysis Code(s): N18.6 - END STAGE RENAL DISEASE; Z99.2 - DEPENDENCE ON RENAL DIALYSIS Status: Chronic Plan: -HD TTS -Patient fluid overloaded on admission -Nephro consulted; appreciate recs -Patient skipped dialysis yesterday due to procedure; dialysis to be done today (5) CHF (congestive heart failure) Code(s): I50.9 - HEART FAILURE, UNSPECIFIED Status: Chronic Qualifiers: Congestive heart failure type: systolic Congestive heart failure chronicity : chronic Qualified Code(s): I50.22 - Chronic systolic (congestive) heart failure Plan: -EF 47% -CXR shows cardiomegaly with pulmonary vascular congestion -Fluid restrictions; SL -Continue HD -Patient does not make much urine; diuresis not very effective -Clinically fluid overloaded; dialysis today -CXR to evaluate for pleural effusion vs. pneumonia (6) T2DM (type 2 diabetes mellitus) Status: Chronic Qualifiers: Diabetes mellitus complication status: with kidney complications Diabetes mellitus complication detail: with chronic kidney disease Diabetes mellitus termite control technician insulin use: with termite control technician use Chronic kidney disease stage: on chronic dialysis Qualified Code(s): E11.22 - Type 2 diabetes mellitus with diabetic chronic kidney disease; N18.6 - End stage renal disease; Z79.4 - keno terminal operator (current) use of insulin; Z99.2 - Dependence on renal dialysis Plan: -Detemir 10U and SSI -Accuchecks ACHS -CC diet (7) Hypertension Code(s): I10 - ESSENTIAL (PRIMARY) HYPERTENSION Status: Chronic Qualifiers: Hypertension type: essential hypertension Qualified Code(s): I10 - Essential (primary) hypertension Plan: -Continue home meds <Margaux Boland - Last Filed: 07/12/17 10:48> Attending Addendum - Attending Addendum I personally evaluated the patient and discussed the management with Dr. Boland. I agree with the History, Examination, Assessment and Plan documented above with any addition or exceptions noted below. Patient with some confusion this morning that was resolved at the time of our encounter. She did spike fever overnight, and due to risk, we are working up for infection. It appears she may have a new consolidation on XR, will begin empiric treatment for pneumonia as she has also been mildly more hypoxic than usual and patient reports cough that began last night. Pro-calcitonin elevated, suggesting bacterial source of fever. Will obtain blood and line cultures if she fevers again. Continue HD as tolerated and needed. Stable from GI standpoint. <Kobe Velasco - Last Filed: 07/12/17 12:16>
--- NOTE | 2017-07-12 11:08 | RAD ---
EXAM: CHEST 2 VIEWS: HISTORY: Pneumonia. COMPARISON: 07/09/17, 04/28/17. CORRELATION: CT angio chest 07/05/17. FINDINGS: Portable upright chest demonstrates cardiomegaly. Linear opacities likely represent areas of subseg mental atelectasis or scaring. The lateral projection demonstrates opacification in the right lung base suggesting right lower lobe infiltrate. Small superimposed effusion cannot be excluded. There is no pneumothorax. Osteopenic changes are noted. IMPRESSION: 1. Cardiomegaly. 2. Chronic changes of lung parenchyma. 3. Pleural and parenchymal changes in the right lung base. Continued surveillance is recommended. POS: [facility]
[2017-07-12 12:14] LABS: HBV as IU/mL HBV DNA not detected IU/mL (.)
[2017-07-12] MEDS ORDERED: Vancomycin HCl 1 GM in Premix Bag 1 BAG IVPB SCH ×3 (12:15→15:00)
[2017-07-12] MEDS ORDERED: Vancomycin HCl 750 MG in Sodium Chloride 0.9% 250 ML 250 ML IVPB SCH (12:15)
[2017-07-12] MEDS ORDERED: Vancomycin HCl 1.25 GM in Sodium Chloride 0.9% 250 ML 250 ML IVPB SCH (12:15)
[2017-07-12] MEDS ORDERED: HOLD VANCOMYCIN FOR LEVEL >20 FS SCH (12:15)
--- NOTE | 2017-07-12 12:21 | PRG ---
DATE OF SERVICE: 07/12/2017 SUBJECTIVE: This is a 56-year-old female being seen for end-stage renal disease. The patient denie s any nausea, vomiting or chest pain. PHYSICAL EXAMINATION: GENERAL: Patient is awake, alert. VITAL SIGNS: Temperature is 100, pulse 79, breathing at 16, blood pressure 140/60. OBJECTIVE: See above. Awake, alert, in no acute distress. GENERAL APPEARANCE AND MENTAL STATUS: Fair. HEAD/NECK: Normocephalic. Atraumatic. EYES: EOMI. No deformity. EARS: Clear. No ulcers. NOSE: Intact. No lesions. MOUTH: Clear. No discharge. THROAT: Clear. No exudate. LUNGS: Clear. No crackles. CARDIAC: S1, S2. No rub. ABDOMEN: Benign. BS+. GENITALIA/RECTUM: Vasquez absent. BACK/EXTREMITIES: Edema 0+ Ulcer- NEUROLOGICAL: Alert and motor intact. SKIN: Rash- Bruise- LYMPHATICS: Edema- Ulcer- LABORATORY: Hemoglobin 9.5, potassium is 5.0. ASSESSMENT AND RECOMMENDATIONS: 1. Stage 6 chronic kidney disease. We will plan hemodialysis. 2. Hypertension, stable. 3. Anemia, stable. 4. Hepatitis B status is pending.
[2017-07-12 13:17] LABS: Hep B Surface AG-Rflx Sendout Negative (Negative); Hepatitis B Core Total Negative (Negative); Hepatitis B Surface AB-Sendout Reactive (.); Hepatitis B little e Antibody Negative (Negative); Hepatitis B little e Antigen Negative (Negative)
[2017-07-12] MEDS: Acetaminophen/Codeine 30-300mg Tablet PO PRN ×2 (14:44→22:09)
[2017-07-12] MEDS: Cefepime 1 GM in Sodium Chloride 0.9% 100 ML IVPB SCH (14:45)
[2017-07-12] MEDS: HumaLOG 300 UNITS/3 ML VIAL SC PRN (17:47)
[2017-07-12] MEDS: ADMIXTURE FEE SC SCH (20:22)
[2017-07-12] MEDS: INSULIN DETEMIR SC SCH (20:22)
[2017-07-12] MEDS: Atorvastatin Calcium 40 MG TAB PO SCH (20:23)
[2017-07-12 21:23] LABS: Bilirubin Negative (Negative); Blood, Urine Moderate (Negative); Glucose, Urine (Dipstick) 500 mg/dL (Negative); Ketone, Urine Negative (Negative); Nitrite Negative (Negative); Protein, Urine (Dipstick) > or equal to 300 mg/dL (Neg-Trace); Urobilinogen 0.2 mg/dL (0.2-1.0)
[2017-07-12 21:25] LABS: Bacteria/HPF 1+ HPF (None Seen); Hyaline Casts/LPF 4-6 HYALINE CAST LPF (0-3 Hyaline); WBC/HPF 21-50 HPF (0-3)
[2017-07-12 21:39] LABS: Transitional Epithelial 0-3 HPF (0-3)
[2017-07-12 21:40] LABS: Yeast-All Forms Rare HPF (None Seen)
[2017-07-13] MEDS: Metoclopramide HCl 10 MG/10 ML UDCUP PO SCH ×4 (01:09→21:12)
[2017-07-13] MEDS: Acetaminophen/Codeine 30-300mg Tablet PO PRN ×3 (05:19→17:45)
[2017-07-13 06:06] LABS: #Eosinphils 0.2 thou/uL (0.0-0.7); #Lymphocytes 1.4 thou/uL (1.20-3.40); #Monocytes 0.3 thou/uL (0.11-0.59); %Basophils 0.2 % (0.0-1.0); %Eosinophils 2.9 % (0.0-10.0); %Lymphocytes 23.9 % (21.0-51.0); %Monocytes 4.9 % (0.0-10.0); Hematocrit 29.3 % (36.0-47.0); Mean Platelet Volume 7.1 fL (7.4-10.4); Red Blood Cell (RBC) Count 3.06 mill/uL (4.20-5.40); White Blood Cell (WBC) Count 5.9 thou/uL (4.8-10.8)
[2017-07-13 06:10] VITALS: BMI 25.1
--- NOTE | 2017-07-13 06:30 | PDOC.FM ---
- Subjective Subjective: Patient doing well this morning. She was up in bed eating, which I have not seen her do since she has been admitted. She was alert and oriented x4. Additionally, patient was receiving dialysis in her room. She was in good spirits. We had a long conversation about her current status. - Objective MAR Reviewed: Yes Vital Signs & Weight: Vital Signs (12 hours) Temp Pulse Resp BP BP Pulse Ox 07/13/17 04:00 98.2 F 60 18 134/63 94 L 07/12/17 20:15 98 07/12/17 19:40 98 F 68 18 120/58 L 97 Weight Weight 60.373 kg I&O: 07/11/17 07/12/17 07/13/17 06:59 06:59 06:59 Intake Total 4250 480 1460 Output Total 0 3700 Balance 4250 480 -2240 Result Diagrams: 07/13/17 04:54 07/13/17 04:54 <Margaux Boland - Last Filed: 07/13/17 09:00> - Objective Vital Signs & Weight: Vital Signs (12 hours) Temp Pulse Resp BP Pulse Ox 07/13/17 04:00 98.2 F 60 18 134/63 94 L Weight Weight 60.373 kg I&O: 07/12/17 07/13/17 07/14/17 06:59 06:59 06:59 Intake Total 480 1460 Output Total 3700 Balance 480 -2240 Result Diagrams: 07/13/17 04:54 07/13/17 04:54 <Kobe Velasco - Last Filed: 07/13/17 11:08> Phys Exam - Physical Examination Constitutional: NAD HEENT: moist MMs, sclera anicteric Neck: full ROM Respiratory: no wheezing Right lower quadrant crackles Cardiovascular: RRR 3/6 systolic murmur Gastrointestinal: soft, non-tender, no distention, positive bowel sounds Musculoskeletal: pulses present 3+ edema Neurological: moves all 4 limbs Psychiatric: normal affect, A&O x 3 Skin: cap refill <2 seconds <Margaux Boland - Last Filed: 07/13/17 09:00> Dx/Plan (1) HABP (hospital-acquired bacterial pneumonia) Code(s): J15.9 - UNSPECIFIED BACTERIAL PNEUMONIA Status: Acute Plan: -CXR on 07/12 shows right lower lung base pleural and parenchymal changes -Patient altered yesterday AM -Procalcitonin 4.31 on 07/12; repeat on 07/13 5.23 -Started on vancomycin, cefepime, and levoquin 07/12 -Clinical improvement in patient presentation today -Right lower lobe crackles heard on exam -O2 sats of 100% on RA currently -Will recheck procalcitonin tomorrow -Vanc level to be checked prior to dialysis and then patient placed on sliding scale (2) Anemia in chronic kidney disease (CKD) Code(s): N18.9 - CHRONIC KIDNEY DISEASE, UNSPECIFIED; D63.1 - ANEMIA IN CHRONIC KIDNEY DISEASE Status: Chronic Qualifiers: Chronic kidney disease stage: on chronic dialysis Qualified Code(s): N18.6 - End stage renal disease; D63.1 - Anemia in chronic kidney disease; Z99.2 - Dependence on renal dialysis Plan: -s/p 2 units pRBCs -H&H stable; Hg 9.2 -GI consulted, appreciate recs -Colonoscopy and endoscopy: erosive esophagitis, started on protonixs; 4 polyps that were biopsied, pending results -Started on erythropoeitin by nephro (3) Transaminitis Code(s): R74.0 - NONSPEC ELEV OF LEVELS OF TRANSAMNS & LACTIC ACID DEHYDRGNSE Status: Acute Plan: -AST, ALT and AP elevated on admission -HepBs Ag and HepBs Ab positive; could represent immune escape variant that may require treatment with antivirals -HepBc Ab negative -HepA Ab positive; past infection -Hep C negative -HepB DNA negative -Hepe Ag and Ab negative -GI consulted; appreciate recs -ED consulted; appreciate recs -As PT was elevated and patient has hypoalbuminemia, an abdominal U/S was performed to evaluate for cirrhosis of liver -Live U/S showed some heterogeneity; may need CT as outpatient to evaluate more definitively for cirrhosis. Portal HTN noted, indicative of chronic liver disease; vena cava dilation indicating heart failure (4) ESRD (end stage renal disease) on dialysis Code(s): N18.6 - END STAGE RENAL DISEASE; Z99.2 - DEPENDENCE ON RENAL DIALYSIS Status: Chronic Plan: -HD TTS -Nephro consulted; appreciate recs -HD this AM (5) CHF (congestive heart failure) Code(s): I50.9 - HEART FAILURE, UNSPECIFIED Status: Chronic Qualifiers: Congestive heart failure type: systolic Congestive heart failure chronicity : chronic Qualified Code(s): I50.22 - Chronic systolic (congestive) heart failure Plan: -EF 47% -CXR shows cardiomegaly with pulmonary vascular congestion -Repeat CXR 07/12 showed right sided pleural and parenchymal changes which may indicate pneumonia -Fluid restrictions; SL -Continue HD; HD this AM -Patient does not make much urine; diuresis not very effective (6) T2DM (type 2 diabetes mellitus) Status: Resolved Qualifiers: Diabetes mellitus complication status: with kidney complications Diabetes mellitus complication detail: with chronic kidney disease Diabetes mellitus exterminator insulin use: with exterminator use Chronic kidney disease stage: on chronic dialysis Qualified Code(s): E11.22 - Type 2 diabetes mellitus with diabetic chronic kidney disease; N18.6 - End stage renal disease; Z79.4 - senior care (current) use of insulin; Z99.2 - Dependence on renal dialysis Plan: -Detemir 10U and SSI -Accuchecks ACHS -CC diet (7) Hypertension Code(s): I10 - ESSENTIAL (PRIMARY) HYPERTENSION Status: Chronic Qualifiers: Hypertension type: essential hypertension Qualified Code(s): I10 - Essential (primary) hypertension Plan: -Continue home meds (8) Altered mental status Code(s): R41.82 - ALTERED MENTAL STATUS, UNSPECIFIED Status: Resolved Qualifiers: Altered mental status type: delirium Qualified Code(s): R41.0 - Disorientation, unspecified Plan: -Could be secondary to infection as patient spiked fever. Could also be due to hypoxia. -Blood cultures x2 and culture of dialysis port pending -UA obtained; Urine culture pending -CXR showed pleural and parenchymal changes in right lower lung base which may be billing customer service representative of pneumonia -Patient started on cefepime, vancomycin, and levoquin on 07/12 for HCAP -Respiratory panel pending -Procalcitonin was elevated: >4; indicative of potential for severe sepsis -Repeat procalcitonin to evaluate for effectiveness of antibiotics is pending. -Alert and oriented x4 this AM <Margaux Boland - Last Filed: 07/13/17 09:00> Attending Addendum - Attending Addendum I personally evaluated the patient and discussed the management with Dr. Boland. I agree with the History, Examination, Assessment and Plan documented above with any addition or exceptions noted below. Patient significantly improved this morning. Was able to eat this morning and has no complaints today. Patient with likely diagnosis of pneumonia due to fevers, hypoxia, cough, and elevated procalcitonin. She is on abx therapy currently and has been afebrile. Cultures pending. Continue dialysis as necessary. It also appears that she does not have an active Hep B infection as no viral genetic material isolated. She also tested positive for Rhinovirus which could be contributing to her infection picture. Will repeat PCT tomorrow. Overall, improving. Patient will need Vanc monitored closely due to diminished clearance with her ESRD. <Kobe Velasco - Last Filed: 07/13/17 11:08>
[2017-07-13 06:31] LABS: ALT (SGPT) 18 U/L (8-55); AST (SGOT) 18 U/L (5-34); Alkaline Phosphatase 240 U/L (40-150); Anion Gap 12 mmol/L (10-20); BUN (Urea Nitrogen) 13 mg/dL (9.8-20.1); Bilirubin, Total 0.5 mg/dL (0.2-1.2); Calc. Creatinine Clearance 18 mL/min (70-130); Calcium 8.3 mg/dL (7.8-10.44); Carbon Dioxide 30 mmol/L (22-29); Chloride 96 mmol/L (98-107); Estimated GFR-MDRD 15; Globulin 3.6 g/dL (2.4-3.5); Protein, Total 6.5 g/dL (6.0-8.3)
[2017-07-13 09:43] LABS: Vancomycin, Random 19.7 ug/mL (See Comment)
--- NOTE | 2017-07-13 10:20 | PRG ---
DATE OF SERVICE: 07/13/2017 SUBJECTIVE: This is a 56-year-old female being seen for end-stage renal disease. Patient denies an y nausea, vomiting or chest pain. PHYSICAL EXAMINATION: GENERAL: On examination, patient is awake, alert. VITAL SIGNS: Afebrile, pulse 75, breathing at 16, blood pressure 134/60. GENERAL APPEARANCE AND MENTAL STATUS: Fair. HEAD/NECK: Normocephalic. Atraumatic. EYES: EOMI. No deformity. EARS: Clear. No ulcers. NOSE: Intact. No lesions. MOUTH: Clear. No discharge. THROAT: Clear. No exudate. LUNGS: Clear. No crackles. CARDIAC: S1, S2. No rub. ABDOMEN: Benign. BS+. GENITALIA/RECTUM: Vasquez absent. BACK/EXTREMITIES: Edema 0+ Ulcer- NEUROLOGICAL: Alert and motor intact. SKIN: Rash- Bruise- LYMPHATICS: Edema- Ulcer- LABORATORY DATA: Show hemoglobin 9.2. ASSESSMENT AND RECOMMENDATIONS: 1. Stage 6 chronic kidney disease. We will plan dialysis. 2. Hypertension, stable. 3. Anemia, stable. 4. Medications based on glomerular filtration rate are appropriate.
[2017-07-13] MEDS: Vancomycin HCl 500 MG in Sodium Chloride 0.9% 100 ML IVPB SCH (10:33)
[2017-07-13] MEDS: Calcium Acetate 667 MG CAP PO SCH ×3 (12:01→17:44)
[2017-07-13] MEDS: Ascorbic Acid 500 mg Chewable Tablet PO SCH ×2 (12:03→21:12)
[2017-07-13] MEDS: Docusate 100 MG CAP PO SCH ×2 (12:03→21:12)
[2017-07-13] MEDS: Gabapentin 100 MG CAP PO SCH ×3 (12:03→21:12)
[2017-07-13] MEDS: Cholecalciferol (Vitamin D3) 400 UNITS TAB PO SCH (12:04)
[2017-07-13] MEDS: Carvedilol 25 MG TAB PO SCH ×2 (12:10→17:45)
[2017-07-13] MEDS: Cefepime 1 GM in Sodium Chloride 0.9% 100 ML IVPB SCH (14:10)
[2017-07-13 14:27] LABS: HBV as IU/mL HBV DNA not detected IU/mL (.)
[2017-07-13] MEDS: Epoetin (ESRD) 20,000 UNITS/ML IVP SCH (16:25)
[2017-07-13] MEDS: INSULIN DETEMIR SC SCH (21:12)
[2017-07-13] MEDS: ADMIXTURE FEE SC SCH (21:12)
[2017-07-13] MEDS: Atorvastatin Calcium 40 MG TAB PO SCH (21:12)
[2017-07-13] MEDS: Zolpidem Tartrate 5 MG TAB PO PRN (22:17)
[2017-07-14] MEDS: Acetaminophen/Codeine 30-300mg Tablet PO PRN ×3 (00:48→20:58)
[2017-07-14] MEDS: Metoclopramide HCl 10 MG/10 ML UDCUP PO SCH ×4 (02:39→21:14)
[2017-07-14 06:16] LABS: ALT (SGPT) 19 U/L (8-55); AST (SGOT) 21 U/L (5-34); Alkaline Phosphatase 300 U/L (40-150); Anion Gap 13 mmol/L (10-20); BUN (Urea Nitrogen) 17 mg/dL (9.8-20.1); Bilirubin, Total 0.6 mg/dL (0.2-1.2); Calc. Creatinine Clearance 20 mL/min (70-130); Calcium 8.1 mg/dL (7.8-10.44); Carbon Dioxide 28 mmol/L (22-29); Chloride 97 mmol/L (98-107); Estimated GFR-MDRD 16; Globulin 3.7 g/dL (2.4-3.5); Protein, Total 6.7 g/dL (6.0-8.3)
--- NOTE | 2017-07-14 06:49 | PDOC.FM ---
- Subjective Subjective: Patient doing well this AM. No significant overnight events. She says she feels much improved over the past few days. She is alert and oriented x4. She makes good eye contact and communicates effectively. She has been tolerating PO. She had one low grade fever over night to 100.0. Procalcitonin down from yesterday. Patient continues to improve. She states that she does not believe she has dialysis scheduled for today. Last session was yesterday. She was on O2 this AM. States that when nurse came in to assess her this AM, her oxygen was in mid 80's. Discussed keeping O2 on, as her O2 levels tend to fluctuate. Patient understood and stated that she would make a better effort to keep O2 on. - Objective MAR Reviewed: Yes Vital Signs & Weight: Vital Signs (12 hours) Temp Pulse Resp BP BP BP Pulse Ox 07/14/17 04:00 100.0 F H 73 18 138/63 93 L 07/14/17 01:52 100 07/14/17 00:48 97 07/14/17 00:47 70 16 129/60 97 07/13/17 22:16 72 16 138/63 100 07/13/17 21:12 131/60 07/13/17 21:08 97 07/13/17 21:04 97.9 F 70 16 131/60 97 Weight Admit Weight 65.091 kg Weight 59.693 kg I&O: 07/12/17 07/13/17 07/14/17 06:59 06:59 06:59 Intake Total 480 1460 1048 Output Total 3700 375 Balance 480 -2247 673 Result Diagrams: 07/14/17 06:47 07/14/17 04:44 Radiology Reviewed by me: Yes <Margaux Boland - Last Filed: 07/14/17 08:55> - Objective Vital Signs & Weight: Vital Signs (12 hours) Temp Pulse Pulse Pulse Resp BP BP 07/14/17 11:54 98.4 F 70 16 07/14/17 10:12 71 71 125/60 07/14/17 09:56 136/64 07/14/17 09:50 136/64 07/14/17 09:48 100.5 F H 76 18 07/14/17 07:34 100.5 F H 76 18 07/14/17 04:00 100.0 F H 73 18 BP BP Pulse Ox Pulse Ox Pulse Ox 07/14/17 11:54 137/63 93 L 07/14/17 10:12 146/64 H 91 L 99 07/14/17 09:56 07/14/17 09:50 07/14/17 09:48 95 07/14/17 07:34 114/56 L 93 L 07/14/17 04:00 138/63 93 L Weight Admit Weight 65.091 kg Weight 59.693 kg I&O: 07/13/17 07/14/17 07/15/17 06:59 06:59 06:59 Intake Total 1460 1048 Output Total 3700 375 Balance -2240 673 Result Diagrams: 07/14/17 06:47 07/14/17 04:44 <Kobe Velasco - Last Filed: 07/14/17 14:31> Phys Exam - Physical Examination Constitutional: NAD HEENT: moist MMs, sclera anicteric Eyes appear dry Neck: full ROM Right lower lung base crackles Cardiovascular: RRR 3/6 systolic murmur Gastrointestinal: soft, non-tender, no distention, positive bowel sounds Musculoskeletal: pulses present 2+ edema Neurological: moves all 4 limbs Psychiatric: normal affect, A&O x 3 Skin: cap refill <2 seconds <Margaux Boland - Last Filed: 07/14/17 08:55> Dx/Plan (1) HABP (hospital-acquired bacterial pneumonia) Code(s): J15.9 - UNSPECIFIED BACTERIAL PNEUMONIA Status: Acute Plan: -CXR on 07/12 shows right lower lung base pleural and parenchymal changes -Procalcitonin 4.31 on 07/12; repeat on 07/13 5.23; this AM 4.58 -Started on vancomycin, cefepime, and levoquin 07/12 (Day #3) -Continue checking procalcitonin as indication of improvement in infection, effectiveness of abx, and when to deescelate abx -Vanc level to be checked prior to dialysis and then patient placed on sliding scale -All antibiotics have been dosed per patient renal function -Rhinovirus positive; adds to infection picture, patient on droplet precautions (2) Anemia in chronic kidney disease (CKD) Code(s): N18.9 - CHRONIC KIDNEY DISEASE, UNSPECIFIED; D63.1 - ANEMIA IN CHRONIC KIDNEY DISEASE Status: Chronic Qualifiers: Chronic kidney disease stage: on chronic dialysis Qualified Code(s): N18.6 - End stage renal disease; D63.1 - Anemia in chronic kidney disease; Z99.2 - Dependence on renal dialysis Plan: -s/p 2 units pRBCs -H&H stable -GI consulted, appreciate recs -Colonoscopy and endoscopy: erosive esophagitis, started on protonixs; 4 polyps that were biopsied, pending results -Started on erythropoeitin by nephro (3) Transaminitis Code(s): R74.0 - NONSPEC ELEV OF LEVELS OF TRANSAMNS & LACTIC ACID DEHYDRGNSE Status: Acute Plan: -AST, ALT and AP elevated on admission -HepBs Ag and HepBs Ab positive; could represent immune escape variant that may require treatment with antivirals; most recent HepBs Ag negative -HepBc Ab negative -HepA Ab positive; past infection -Hep C negative -HepB DNA negative -Hepe Ag and Ab negative -GI consulted; appreciate recs -ID consulted; appreciate recs -As PT was elevated and patient has hypoalbuminemia, an abdominal U/S was performed to evaluate for cirrhosis of liver -Live U/S showed some heterogeneity; may need CT as outpatient to evaluate more definitively for cirrhosis. Portal HTN noted, indicative of chronic liver disease; vena cava dilation indicating heart failure -Last HepB Ag negative; patient does not have active hepatitis B infection (4) ESRD (end stage renal disease) on dialysis Code(s): N18.6 - END STAGE RENAL DISEASE; Z99.2 - DEPENDENCE ON RENAL DIALYSIS Status: Chronic Plan: -HD TTS -Nephro consulted; appreciate recs -Continue HD per nephro (5) CHF (congestive heart failure) Code(s): I50.9 - HEART FAILURE, UNSPECIFIED Status: Chronic Qualifiers: Congestive heart failure type: systolic Congestive heart failure chronicity : chronic Qualified Code(s): I50.22 - Chronic systolic (congestive) heart failure Plan: -EF 47% -Fluid restrictions; SL -Continue HD -Patient does not make much urine; diuresis not very effective -Fluid status improved; edema has decreased and lungs do not sound fluid filled (6) T2DM (type 2 diabetes mellitus) Status: Resolved Qualifiers: Diabetes mellitus complication status: with kidney complications Diabetes mellitus complication detail: with chronic kidney disease Diabetes mellitus termite exterminator insulin use: with termite exterminator use Chronic kidney disease stage: on chronic dialysis Qualified Code(s): E11.22 - Type 2 diabetes mellitus with diabetic chronic kidney disease; N18.6 - End stage renal disease; Z79.4 - [facility] (current) use of insulin; Z99.2 - Dependence on renal dialysis Plan: -Detemir 10U and SSI -Accuchecks ACHS -CC diet (7) Hypertension Code(s): I10 - ESSENTIAL (PRIMARY) HYPERTENSION Status: Chronic Qualifiers: Hypertension type: essential hypertension Qualified Code(s): I10 - Essential (primary) hypertension Plan: -Continue home meds (8) Altered mental status Code(s): R41.82 - ALTERED MENTAL STATUS, UNSPECIFIED Status: Resolved Qualifiers: Altered mental status type: delirium Qualified Code(s): R41.0 - Disorientation, unspecified Plan: -Could be secondary to infection as patient spiked fever. Could also be due to hypoxia. -Blood cultures x2 and culture of dialysis port pending; negative to date -UA obtained; Urine culture pending -CXR showed pleural and parenchymal changes in right lower lung base which may be pharmaceutical representative of pneumonia -Patient started on cefepime, vancomycin, and levoquin on 07/12 for HCAP -Respiratory panel positive for rhnovirus -Procalcitonin was elevated: >4; indicative of potential for severe sepsis -Repeat procalcitonin initially elevated, but has since downtrended <Margaux Boland - Last Filed: 07/14/17 08:55> Attending Addendum - Attending Addendum I personally evaluated the patient and discussed the management with Dr. Boland. I agree with the History, Examination, Assessment and Plan documented above with any addition or exceptions noted below. Patient feeling well this morning. She did have mild fever this morning but continues to feel well. Continue to treated presumed pneumonia due to worsened hypoxia and infiltrate on imaging. Her oxygenation is improved. Will continue abx over the next couple of days and transition to oral if continues to improve. Hgb stable, and fluid overload status has improved somewhat. <Kobe Velasco - Last Filed: 07/14/17 14:31>
[2017-07-14 07:38] LABS: #Eosinphils 0.2 thou/uL (0.0-0.7); #Monocytes 0.3 thou/uL (0.11-0.59); #Neutrophils 5.9 thou/uL (1.40-6.50); %Basophils 0.2 % (0.0-1.0); %Eosinophils 2.1 % (0.0-10.0); %Lymphocytes 13.8 % (21.0-51.0); %Monocytes 3.9 % (0.0-10.0); Hematocrit 28.9 % (36.0-47.0); Mean Platelet Volume 7.5 fL (7.4-10.4); Red Blood Cell (RBC) Count 2.94 mill/uL (4.20-5.40); White Blood Cell (WBC) Count 7.4 thou/uL (4.8-10.8)
--- NOTE | 2017-07-14 07:54 | PRG ---
DATE OF SERVICE: 07/14/2017. SUBJECTIVE: This is a 56-year-old female being seen for end-stage renal disease. The patient kerrie ated dialysis well. Denies any nausea, vomiting or chest pain. PHYSICAL EXAMINATION: GENERAL: Patient is awake, alert. VITAL SIGNS: Temperature is 100, pulse 75, breathing at 16, blood pressure 138/63. HEAD/NECK: Normocephalic, atraumatic. EYES: EOMI. No deformity. EARS: Clear. No ulcers. NOSE: Intact. No lesions. MOUTH: Clear. No discharge. THROAT: Clear. No exudate. LUNGS: Clear. No crackles. CARDIAC: S1, S2. No rub. ABDOMEN: Benign. BS+. GENITALIA/RECTUM: Vasquez absent. BACK/EXTREMITIES: Edema 0+ Ulcer-. NEUROLOGICAL: Alert and motor intact. SKIN: Rash- Bruise- LYMPHATICS: Edema- Ulcer-. LABORATORY DATA: Show hemoglobin is 9.2, potassium is 3.0. ASSESSMENT AND RECOMMENDATIONS: 1. Stage 6 chronic kidney disease. We will plan dialysis tomorrow. 2. Hypertension, stable. 3. Anemia, stable. 4. Fever, management per primary team.
[2017-07-14] MEDS: Calcium Acetate 667 MG CAP PO SCH ×3 (09:48→17:17)
[2017-07-14] MEDS: Carvedilol 25 MG TAB PO SCH ×2 (09:49→17:17)
[2017-07-14] MEDS: Cholecalciferol (Vitamin D3) 400 UNITS TAB PO SCH (09:50)
[2017-07-14] MEDS: Ascorbic Acid 500 mg Chewable Tablet PO SCH ×2 (09:50→20:59)
[2017-07-14] MEDS: Gabapentin 100 MG CAP PO SCH ×3 (09:52→20:59)
[2017-07-14] MEDS: Docusate 100 MG CAP PO SCH ×2 (09:52→21:00)
[2017-07-14] MEDS: HumaLOG 300 UNITS/3 ML VIAL SC PRN ×2 (09:59→12:04)
[2017-07-14] MEDS ORDERED: Benzonatate 100 MG CAP PO PRN (10:55)
[2017-07-14] MEDS: Cefepime 1 GM in Sodium Chloride 0.9% 100 ML IVPB SCH (11:56)
[2017-07-14] MEDS: Artificial Tear Sol 15 ML BOT EA EYE PRN ×3 (12:03→20:57)
[2017-07-14] MEDS: Atorvastatin Calcium 40 MG TAB PO SCH (21:00)
[2017-07-14] MEDS: INSULIN DETEMIR SC SCH (21:01)
[2017-07-14] MEDS: ADMIXTURE FEE SC SCH (21:01)
[2017-07-15] MEDS: Metoclopramide HCl 10 MG/10 ML UDCUP PO SCH ×4 (03:44→20:45)
[2017-07-15] MEDS: Acetaminophen/Codeine 30-300mg Tablet PO PRN ×4 (03:45→20:47)
[2017-07-15] MEDS: Artificial Tear Sol 15 ML BOT EA EYE PRN ×5 (03:45→20:45)
[2017-07-15 05:41] LABS: #Lymphocytes 1.4 thou/uL (1.20-3.40); #Monocytes 0.3 thou/uL (0.11-0.59); #Neutrophils 5.5 thou/uL (1.40-6.50); %Eosinophils 0.4 % (0.0-10.0); %Lymphocytes 19.7 % (21.0-51.0); %Monocytes 3.7 % (0.0-10.0); Hematocrit 28.6 % (36.0-47.0); Mean Platelet Volume 7.4 fL (7.4-10.4); Red Blood Cell (RBC) Count 2.98 mill/uL (4.20-5.40); White Blood Cell (WBC) Count 7.2 thou/uL (4.8-10.8)
[2017-07-15 06:08] LABS: ALT (SGPT) 15 U/L (8-55); AST (SGOT) 17 U/L (5-34); Alkaline Phosphatase 272 U/L (40-150); Anion Gap 12 mmol/L (10-20); BUN (Urea Nitrogen) 31 mg/dL (9.8-20.1); Bilirubin, Total 0.5 mg/dL (0.2-1.2); Calc. Creatinine Clearance 14 mL/min (70-130); Calcium 8.3 mg/dL (7.8-10.44); Carbon Dioxide 27 mmol/L (22-29); Chloride 96 mmol/L (98-107); Estimated GFR-MDRD 11; Globulin 3.7 g/dL (2.4-3.5); Protein, Total 6.5 g/dL (6.0-8.3)
--- NOTE | 2017-07-15 06:16 | PDOC.FM ---
- Subjective Subjective: Patient is seen in dialysis. Patient reports she is feeling much better today. Reported N/V yesterday that has since resolved. No longer feeling SOB. Pain in her back that is chronic. Denies hematochezia and melena. - Objective MAR Reviewed: Yes Vital Signs & Weight: Vital Signs (12 hours) Temp Pulse Resp BP BP Pulse Ox 07/15/17 04:00 97.7 F 60 18 130/59 L 99 07/15/17 00:38 93 L 07/14/17 20:59 156/78 H 07/14/17 20:00 98.8 F 76 18 97 Weight Admit Weight 65.091 kg Weight 59.693 kg I&O: 07/13/17 07/14/17 07/15/17 06:59 06:59 06:59 Intake Total 1460 1048 960 Output Total 3700 375 Balance -2240 673 960 Result Diagrams: 07/15/17 04:28 07/15/17 04:28 <Eboni Morris - Last Filed: 07/15/17 11:11> - Objective Vital Signs & Weight: Vital Signs (12 hours) Temp Pulse Resp BP BP BP Pulse Ox 07/16/17 08:45 136/60 07/16/17 08:44 65 07/16/17 07:48 97.7 F 65 16 136/60 100 07/16/17 04:53 95 07/16/17 04:00 97.9 F 64 18 140/63 100 Weight Admit Weight 65.091 kg Weight 58.06 kg I&O: 07/15/17 07/16/17 07/17/17 06:59 06:59 06:59 Intake Total 1200 1356 Output Total 0 3200 Balance 1200 -1844 Result Diagrams: 07/16/17 05:35 07/16/17 05:39 <Desire Jansen - Last Filed: 07/16/17 13:54> Phys Exam - Physical Examination Constitutional: NAD HEENT: moist MMs cataracts of R eye B/l lung bases with soft rhonch and distant breath sounds bilaterally Cardiovascular: RRR systolic murmur Gastrointestinal: soft, non-tender, no distention, positive bowel sounds 2+ edema b/l Neurological: moves all 4 limbs Psychiatric: normal affect, A&O x 3 Skin: no rash <Eboni Morris - Last Filed: 07/15/17 11:11> Dx/Plan (1) HABP (hospital-acquired bacterial pneumonia) Code(s): J15.9 - UNSPECIFIED BACTERIAL PNEUMONIA Status: Acute (2) Transaminitis Code(s): R74.0 - NONSPEC ELEV OF LEVELS OF TRANSAMNS & LACTIC ACID DEHYDRGNSE Status: Acute (3) Anemia in chronic kidney disease (CKD) Code(s): N18.9 - CHRONIC KIDNEY DISEASE, UNSPECIFIED; D63.1 - ANEMIA IN CHRONIC KIDNEY DISEASE Status: Chronic Qualifiers: Chronic kidney disease stage: on chronic dialysis Qualified Code(s): N18.6 - End stage renal disease; D63.1 - Anemia in chronic kidney disease; Z99.2 - Dependence on renal dialysis (4) CHF (congestive heart failure) Code(s): I50.9 - HEART FAILURE, UNSPECIFIED Status: Chronic Qualifiers: Congestive heart failure type: systolic Congestive heart failure chronicity : chronic Qualified Code(s): I50.22 - Chronic systolic (congestive) heart failure (5) Diabetes type I Status: Chronic (6) ESRD (end stage renal disease) on dialysis Code(s): N18.6 - END STAGE RENAL DISEASE; Z99.2 - DEPENDENCE ON RENAL DIALYSIS Status: Chronic (7) Hypertension Code(s): I10 - ESSENTIAL (PRIMARY) HYPERTENSION Status: Chronic Qualifiers: Hypertension type: essential hypertension Qualified Code(s): I10 - Essential (primary) hypertension - Plan Plan: HAP -CXR on 07/12 shows right lower lung base pleural and parenchymal changes -Downtrending Procalcitonin 4.31--> 5.23--> 4.58--> 4.17 -Start PO Abx Levaquin and Cefdinir (renally dosed) -Recheck Procal tomorrow morning -Rhinovirus positive; adds to infection picture, patient on droplet precautions Anemia of chronic disease -s/p 2 units pRBCs -H&H stable -GI consulted, appreciate recs -Colonoscopy and endoscopy: erosive esophagitis, started on protonixs; 4 polyps that were biopsied, pending results -Started on erythropoeitin by nephro Transaminitis -AST, ALT and AP elevated on admission, AST and ALT normalized, AP remains elevated but downtrending -HepBs Ag and HepBs Ab positive; could represent immune escape variant that may require treatment with antivirals; most recent HepBs Ag negative -HepBc Ab negative -HepA Ab positive; past infection -Hep C negative -HepB DNA negative -Hepe Ag and Ab negative -GI consulted; appreciate recs -ID consulted; appreciate recs -As PT was elevated and patient has hypoalbuminemia, an abdominal U/S was performed to evaluate for cirrhosis of liver -Live U/S showed some heterogeneity; may need CT as outpatient to evaluate more definitively for cirrhosis. Portal HTN noted, indicative of chronic liver disease; vena cava dilation indicating heart failure -Last HepB Ag negative; patient does not have active hepatitis B infection ESRD on HD -HD TTS -Nephro consulted; appreciate recs -Continue HD per nephro CHF -EF 47% -Fluid restrictions; SL -Continue HD -Patient does not make much urine; diuresis not very effective -Fluid status improved; edema has decreased and lungs do not sound fluid filled T2DM -Detemir 10U and SSI -Accuchecks ACHS -CC diet HTN -Continue home meds AMS, resolved -Could be secondary to infection as patient spiked fever. Could also be due to hypoxia. -Blood cultures x2 and culture of dialysis port pending; negative to date -UA obtained; Urine culture negative -CXR showed pleural and parenchymal changes in right lower lung base which may be patient representative of pneumonia -Patient started on cefepime, vancomycin, and levoquin on 07/12 for HCAP -Respiratory panel positive for rhnovirus -Procalcitonin was elevated: >4; indicative of potential for severe sepsis -Repeat procalcitonin initially elevated, but has since downtrended <Eboni Morris - Last Filed: 07/15/17 11:11> Attending Addendum - Attending Addendum I personally evaluated the patient and discussed the management with Dr. Morris on 07/15/17. I agree with the History, Examination, Assessment and Plan documented above with any addition or exceptions noted below. The patient was seen in dialysis. Will monitor procalcitonin. If patient continues to improve, anticipate discharge tomorrow. <Desire Jansen - Last Filed: 07/16/17 13:54>
[2017-07-15] MEDS: Ascorbic Acid 500 mg Chewable Tablet PO SCH ×2 (07:58→20:47)
[2017-07-15] MEDS: Calcium Acetate 667 MG CAP PO SCH ×3 (07:58→17:08)
[2017-07-15] MEDS: Carvedilol 25 MG TAB PO SCH ×2 (07:58→17:09)
[2017-07-15] MEDS: Docusate 100 MG CAP PO SCH ×2 (09:09→20:46)
[2017-07-15] MEDS: Cholecalciferol (Vitamin D3) 400 UNITS TAB PO SCH (09:09)
[2017-07-15] MEDS: Gabapentin 100 MG CAP PO SCH ×3 (09:09→20:46)
[2017-07-15 09:43] LABS: Vancomycin, Trough 19.1 ug/mL
--- NOTE | 2017-07-15 10:06 | PRG ---
DATE OF SERVICE: 07/15/2017 SUBJECTIVE: This is a 56-year-old female being seen for end-stage renal disease. The patient denie s any nausea, vomiting, or chest pain. PHYSICAL EXAMINATION: GENERAL: Patient is awake, alert. VITAL SIGNS: Afebrile, pulse 60, breathing at 16, blood pressure 121/60. GENERAL APPEARANCE AND MENTAL STATUS: Fair. HEAD/NECK: Normocephalic. Atraumatic. EYES: EOMI. No deformity. EARS: Clear. No ulcers. NOSE: Intact. No lesions. MOUTH: Clear. No discharge. THROAT: Clear. No exudate. LUNGS: Clear. No crackles. CARDIAC: S1, S2. No rub. ABDOMEN: Benign. BS+. GENITALIA/RECTUM: Vasquez absent. BACK/EXTREMITIES: Edema 0+ Ulcer- NEUROLOGICAL: Alert and motor intact. SKIN: Rash- Bruise- LYMPHATICS: Edema- Ulcer- LABORATORY DATA: Show hemoglobin 8.9. ASSESSMENT AND PLAN: 1. Stage 6 chronic kidney disease, continue hemodialysis. 2. Hypertension, stable. 3. Anemia, stable. 4. Medications based on glomerular filtration rate are appropriate.
[2017-07-15] MEDS: Epoetin (ESRD) 20,000 UNITS/ML IVP SCH (10:27)
[2017-07-15] MEDS: Vancomycin HCl 500 MG in Sodium Chloride 0.9% 100 ML IVPB SCH (10:45)
[2017-07-15] MEDS ORDERED: Cefdinir 300 MG CAP PO SCH (11:00)
[2017-07-15] MEDS: HumaLOG 300 UNITS/3 ML VIAL SC PRN (17:09)
[2017-07-15] MEDS: Atorvastatin Calcium 40 MG TAB PO SCH (20:46)
[2017-07-15] MEDS: ADMIXTURE FEE SC SCH (22:19)
[2017-07-15] MEDS: INSULIN DETEMIR SC SCH (22:19)
[2017-07-16] MEDS: Zolpidem Tartrate 5 MG TAB PO PRN (00:19)
[2017-07-16] MEDS: Metoclopramide HCl 10 MG/10 ML UDCUP PO SCH ×2 (05:10→08:45)
[2017-07-16 05:53] LABS: #Eosinphils 0.1 thou/uL (0.0-0.7); #Lymphocytes 1.5 thou/uL (1.20-3.40); #Monocytes 0.4 thou/uL (0.11-0.59); #Neutrophils 3.8 thou/uL (1.40-6.50); %Basophils 0.1 % (0.0-1.0); %Eosinophils 1.8 % (0.0-10.0); %Lymphocytes 25.7 % (21.0-51.0); %Monocytes 6.8 % (0.0-10.0); Mean Platelet Volume 7.3 fL (7.4-10.4); Red Blood Cell (RBC) Count 3.13 mill/uL (4.20-5.40); White Blood Cell (WBC) Count 5.8 thou/uL (4.8-10.8)
--- NOTE | 2017-07-16 06:08 | PDOC.FM ---
- Subjective Subjective: Patient is significantly better this morning. States her cough has improved, she is not having SOB or chest pain. She feels at baseline and is ready to go home. - Objective MAR Reviewed: Yes Vital Signs & Weight: Vital Signs (12 hours) Temp Pulse Resp BP BP Pulse Ox 07/16/17 04:53 95 07/15/17 20:47 156/78 H 07/15/17 20:00 98.1 F 67 18 129/58 L 96 Weight Admit Weight 65.091 kg Weight 59.874 kg I&O: 07/14/17 07/15/17 07/16/17 06:59 06:59 06:59 Intake Total 1048 1200 876 Output Total 375 0 3200 Balance 673 1200 -2324 Result Diagrams: 07/16/17 05:35 07/15/17 04:28 <Eboni Morris - Last Filed: 07/16/17 07:52> - Objective Vital Signs & Weight: Vital Signs (12 hours) Temp Pulse Resp BP BP BP Pulse Ox 07/16/17 08:45 136/60 07/16/17 08:44 65 07/16/17 07:48 97.7 F 65 16 136/60 100 07/16/17 04:53 95 07/16/17 04:00 97.9 F 64 18 140/63 100 Weight Admit Weight 65.091 kg Weight 58.06 kg I&O: 07/15/17 07/16/17 07/17/17 06:59 06:59 06:59 Intake Total 1200 1356 Output Total 0 3200 Balance 1200 -1844 Result Diagrams: 07/16/17 05:35 07/16/17 05:39 <Desire Jansen - Last Filed: 07/16/17 14:39> Phys Exam - Physical Examination Constitutional: NAD HEENT: PERRLA, moist MMs Neck: no nodes Respiratory: no wheezing, no rales, no rhonchi, clear to auscultation bilateral Cardiovascular: RRR systolic murmur Gastrointestinal: soft, non-tender, positive bowel sounds 1+ b/l LE edema Neurological: non-focal, normal sensation, moves all 4 limbs Psychiatric: normal affect, A&O x 3 Skin: no rash, normal turgor <Eboni Morris - Last Filed: 07/16/17 07:52> Dx/Plan (1) HABP (hospital-acquired bacterial pneumonia) Code(s): J15.9 - UNSPECIFIED BACTERIAL PNEUMONIA Status: Acute (2) Transaminitis Code(s): R74.0 - NONSPEC ELEV OF LEVELS OF TRANSAMNS & LACTIC ACID DEHYDRGNSE Status: Acute (3) Anemia in chronic kidney disease (CKD) Code(s): N18.9 - CHRONIC KIDNEY DISEASE, UNSPECIFIED; D63.1 - ANEMIA IN CHRONIC KIDNEY DISEASE Status: Chronic Qualifiers: Chronic kidney disease stage: on chronic dialysis Qualified Code(s): N18.6 - End stage renal disease; D63.1 - Anemia in chronic kidney disease; Z99.2 - Dependence on renal dialysis (4) CHF (congestive heart failure) Code(s): I50.9 - HEART FAILURE, UNSPECIFIED Status: Chronic Qualifiers: Congestive heart failure type: systolic Congestive heart failure chronicity : chronic Qualified Code(s): I50.22 - Chronic systolic (congestive) heart failure (5) Diabetes type I Status: Chronic (6) ESRD (end stage renal disease) on dialysis Code(s): N18.6 - END STAGE RENAL DISEASE; Z99.2 - DEPENDENCE ON RENAL DIALYSIS Status: Chronic (7) Hypertension Code(s): I10 - ESSENTIAL (PRIMARY) HYPERTENSION Status: Chronic Qualifiers: Hypertension type: essential hypertension Qualified Code(s): I10 - Essential (primary) hypertension - Plan Plan: HAP -CXR on 07/12 shows right lower lung base pleural and parenchymal changes -Downtrending Procalcitonin 4.31--> 5.23--> 4.58--> 4.17 --> 3 today -Continue PO Abx Levaquin and Cefdinir (renally dosed) -Recheck Procal tomorrow morning -Patient continues to need 2L of O2, patient has O2 at home and reports she needs it at least twice daily, will evaluate O2 status through the morning and d /c home today -Rhinovirus positive; adds to infection picture, patient on droplet precautions Anemia of chronic disease -s/p 2 units pRBCs -H&H stable -GI consulted, appreciate recs -Colonoscopy and endoscopy: erosive esophagitis, started on protonixs; 4 polyps that were biopsied, pending results -Started on erythropoeitin by nephro Transaminitis -AST, ALT and AP elevated on admission, AST and ALT normalized, AP remains elevated but downtrending -HepBs Ag and HepBs Ab positive; could represent immune escape variant that may require treatment with antivirals; most recent HepBs Ag negative -HepBc Ab negative -HepA Ab positive; past infection -Hep C negative -HepB DNA negative -Hepe Ag and Ab negative -GI consulted; appreciate recs -ID consulted; appreciate recs -As PT was elevated and patient has hypoalbuminemia, an abdominal U/S was performed to evaluate for cirrhosis of liver -Live U/S showed some heterogeneity; may need CT as outpatient to evaluate more definitively for cirrhosis. Portal HTN noted, indicative of chronic liver disease; vena cava dilation indicating heart failure -Last HepB Ag negative; patient does not have active hepatitis B infection ESRD on HD -HD TTS -Nephro consulted; appreciate recs -Continue HD per nephro CHF -EF 47% -Fluid restrictions; SL -Continue HD -Patient does not make much urine; diuresis not very effective -Fluid status improved; edema has decreased and lungs do not sound fluid filled T2DM -Detemir 10U and SSI -Accuchecks ACHS -CC diet HTN -Continue home meds AMS, resolved -Could be secondary to infection as patient spiked fever. Could also be due to hypoxia. -Blood cultures x2 and culture of dialysis port pending; negative to date -UA obtained; Urine culture negative -CXR showed pleural and parenchymal changes in right lower lung base which may be retail field representative of pneumonia -Patient started on cefepime, vancomycin, and levoquin on 07/12 for HCAP -Respiratory panel positive for rhnovirus -Procalcitonin was elevated: >4; indicative of potential for severe sepsis -Repeat procalcitonin initially elevated, but has since downtrended <Eboni Morris - Last Filed: 07/16/17 07:52> Attending Addendum - Attending Addendum I personally evaluated the patient and discussed the management with Dr. Morris. I agree with the History, Examination, Assessment and Plan documented above with any addition or exceptions noted below. The patient was sitting up eating breakfast. She is feeling much better and will be discharged home. <Desire Jansen - Last Filed: 07/16/17 14:39>
[2017-07-16] MEDS: Acetaminophen/Codeine 30-300mg Tablet PO PRN (06:26)
[2017-07-16 07:49] VITALS: TEMP 97.7
[2017-07-16] MEDS: Ascorbic Acid 500 mg Chewable Tablet PO SCH (08:44)
[2017-07-16] MEDS: Docusate 100 MG CAP PO SCH (08:44)
[2017-07-16] MEDS: Gabapentin 100 MG CAP PO SCH (08:44)
[2017-07-16] MEDS: Carvedilol 25 MG TAB PO SCH (08:44)
[2017-07-16] MEDS: Cholecalciferol (Vitamin D3) 400 UNITS TAB PO SCH (08:44)
[2017-07-16] MEDS: Calcium Acetate 667 MG CAP PO SCH (08:45)
[2017-07-16 08:56] LABS: Anion Gap 10 mmol/L (10-20); BUN (Urea Nitrogen) 15 mg/dL (9.8-20.1); Calc. Creatinine Clearance 19 mL/min (70-130); Calcium 8.4 mg/dL (7.8-10.44); Carbon Dioxide 29 mmol/L (22-29); Chloride 98 mmol/L (98-107); Estimated GFR-MDRD 16
--- NOTE | 2017-07-16 10:39 | PRG ---
DATE OF SERVICE: 07/16/2017 SUBJECTIVE: This is a 56-year-old female being seen for end-stage renal disease. The patient denie s any nausea, vomiting or chest pain. PHYSICAL EXAMINATION: GENERAL: Patient is awake, alert. VITAL SIGNS: Afebrile, pulse 75, respirations 16, blood pressure 136/60. GENERAL APPEARANCE AND MENTAL STATUS: Fair. HEAD/NECK: Normocephalic. Atraumatic. EYES: EOMI. No deformity. EARS: Clear. No ulcers. NOSE: Intact. No lesions. MOUTH: Clear. No discharge. THROAT: Clear. No exudate. LUNGS: Clear. No crackles. CARDIAC: S1, S2. No rub. ABDOMEN: Benign. BS+. GENITALIA/RECTUM: Vasquez absent. BACK/EXTREMITIES: Edema 0+ Ulcer- NEUROLOGICAL: Alert and motor intact. SKIN: Rash- Bruise- LYMPHATICS: Edema- Ulcer- LABORATORY DATA: Show hemoglobin 9.4, creatinine 3.0. ASSESSMENT AND RECOMMENDATIONS: 1. Stage 6 chronic kidney disease, continue hemodialysis. 2. Hypertension, stable. 3. Anemia, stable. 4. Medications based on glomerular filtration rate are appropriate.
[2017-07-16 15:04] VITALS: BP 111/56
--- NOTE | 2017-07-17 02:02 | DIS-2 ---
DATE OF ADMISSION: 07/09/2017 DATE OF DISCHARGE: 07/16/2017 RESIDENT: Margaux Boland DO ADMITTING ATTENDING: Virgen Mann MD DISCHARGE ATTENDING: Desire Jansen MD CONSULTATIONS: 1. Nephrology, Dr. Josiah Kat. 2. Infectious Disease, Dr. Mitchell Kebede. 3. Gastroenterology, Dr. Nikolay Chris. PROCEDURES: 1. Chest thoracic CTA: Multifocal airspace opacities in the lungs. This could represent multifocal pneumonia or pulmonary edema. 2. Brain CT: No evidence of acute intracranial abnormality. 3. Chest x-ray: Enlarged cardiomediastinal silhouette, stable scarring in left mid lung, increased interstitial lung markings are present. No pleural effusion seen. 4. Chest x-ray #2 on 07/09/2017 shows cardiomegaly and pulmonary vascular congestion. 5. EGD shows erosive distal esophagitis. 6. Colonoscopy showed four polyps scattered throughout the colon from ascending to descending. They were 3-5 mm in diameter and were removed by hot snare polypectomy. Recommend repeat colonoscopy in 1 year. 7. Abdominal ultrasound to and fro waveforms to the patent main portal vein, small right-sided pleural effusion, no obvious hepatic masses. Better interrogation of hepatic parenchymal liver mass protocol CT can be performed. There is a slight heterogeneous enhancement of the liver. 8. Chest x-ray #3 was performed on 07/12/2017 shows cardiomegaly with chronic changes on lung parenchyma. There is pleural and parenchymal changes in the right lung base that may be indicative of pneumonia. PRIMARY DIAGNOSES: 1. Acute symptomatic anemia, likely secondary to anemia of chronic disease; resolved. 2. Hospital-acquired bacterial pneumonia. 3. Acute on chronic congestive heart failure. 4. End-stage renal disease, on dialysis. SECONDARY DIAGNOSES: 1. Transaminitis. 2. Diabetes mellitus type 2. 3. Hypertension. 4. Altered mental status, resolved (encephalopathy secondary to hypoxia versus metabolic derangement). DISCHARGE MEDICATIONS: 1. Artificial Tears solution 2 mL bottle 2 drops each eye every 2 hours as needed. 2. Ascorbic acid 500 mg oral twice daily. 3. Calcium acetate 1334 mg oral 3 times daily with meals. 4. Cefdinir 300 mg oral every 48 hours. 5. Cholecalciferol 400 units oral daily. 6. Epoetin 7500 units IV push every Monday, , and Monday. 7. Levofloxacin 500 mg oral every 48 hours. 8. Amlodipine besylate 10 mg oral daily. 9. Zolpidem 10 mg oral at bedtime. 10. Gabapentin 100 mg oral 3 times daily. 11. Aspirin 325 mg oral daily. 12. Atorvastatin calcium 40 mg oral at bedtime. 13. Acetaminophen with codeine 1 tablet oral twice daily. 14. Vitamin D3 5000 units oral daily. 15. Mometasone 100 mcg 2 inhalations daily. 16. Metoclopramide 2.5 mg oral 4 times daily. 17. Clonidine 0.3 mg oral twice daily. 18. Carvedilol 25 mg oral twice daily. 19. Pantoprazole 40 mg oral daily. 20. Insulin Detemir 10 units subcu daily. DISCONTINUED MEDICATIONS: Amlodipine besylate 5 mg oral daily was switched to amlodipine besylate 10 mg oral daily. HISTORY OF PRESENT ILLNESS AND HOSPITAL COURSE: This is a 56-year-old female with past medical history of end-stage renal disease on hemodialysis, chronic anemia, hypertension, hyperlipidemia, diabetes mellitus 2 who presents after a syncopal episode. She was getting dialysis and she states she passed out. 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 She did not endorse any symptoms before or after this episode. She does report increased leg swelling over the last few days and dyspnea while lying flat. She denied any tongue biting, postictal state or incontinence after the episode. She denied any fever, chills, chest pain, palpitations, nausea, vomiting, diarrhea, abdominal pain, dysuria, seizures, muscle pain, cramps, or weakness. The patient was found to be severely anemic upon presentation. Her hemoglobin got as low as 6.6. She was transfused 2 units of packed red blood cells and her hemoglobin and hematocrit improved. After transfusion, hemoglobin and hematocrit remained stable around 9.4 for hemoglobin and 34 hematocrit. The patient does have a history of chronic anemia, which is likely secondary to anemia of chronic disease from multiple comorbid conditions. Additionally, her white count was 5.7 on admission, but got as low as 4.1. Her platelet count remained stable, and ranged from the 140s to the 180s. Coag studies were done. PT was found to be elevated at 17.3, INR was 1.4, and PTT was 30.9. D-dimer was elevated at 3.21. A blood gas was performed on admission as the patient presented with syncopal episode and altered mental status. ABG: pH was noted to be 7.47, pCO2 of 38.3 and a pO2 of 45.8. CMP on admission showed sodium of 132, potassium of 4.3, chloride of 95, bicarbonate of 27, BUN of 33 and a creatinine of 3.73. Glucose was highly elevated at 500. Calcium was low at 7.4. AST was 27, ALT 75 and alkaline phosphatase was 390. Serum total protein was 7.1, albumin 3.3. Additional labs were obtained to include ammonia which was normal at 25, CK which was elevated at 450. CK-MB was 5.6 and troponin was 0.021. Beta natriuretic peptide was highly elevated at 7301.3. TSH was normal at 0.9584 and lipase was normal at 48. Prolactin level was normal at 10.95. Urine studies were obtained. Urine showed a moderate amount of blood, large protein and glucose, trace leukocyte esterase, 7-10 urine wbcs with 11-20 urine squamous epithelial cells likely indicative of contamination. Tox screen was also done and was positive for opiates. Patient's altered mental status seemed to resolve after 2 units of packed red blood cells. Her glucose decreased throughout the course of her hospital stay. Additionally, a serology was performed to rule out causes of transaminitis. Syphilis was nonreactive. HIV antigen and antibody were nonreactive. Hepatitis A antibody total was negative. Hepatitis C antibody was negative; however, hepatitis B antigen and antibody were both noted to be positive, but hepatitis C antibody was negative. This caused a question in regard to whether or not the patient actually had an active infection, thus Infectious Disease and GI were both consulted. Dr. Kebede recommended a hepatitis B DNA quant as well as a serology for hepatitis B antibody and antigen. Hepatitis B DNA was negative as well as hepatitis Be antibody and Be antigen. Interestingly, the hepatitis B antigen was rechecked multiple times throughout the course of the admission and on the final check, it came back negative. Thus, Dr. Kat and Dr. Kebede both agreed that this is likely not an acute infection and the patient does not need to be on isolation protocol for dialysis. A liver ultrasound was performed and it did show evidence of liver disease; however, this is likely not due to hepatitis. This requires further workup as an outpatient presumably with a CT liver protocol. As patient did present with anemia, a stool occult blood was performed, which was positive. Thus, GI was consulted. A colonoscopy was performed. Four polyps were biopsied. The biopsies came back as tubular adenoma with no malignant cells. Further colonoscopy was recommended in 1 year as prep was poor. Erosive esophagitis was noted and patient was started on Protonix per GI. This may be a cause or contributor to patient's symptomatic anemia. During the course of her hospital stay, the patient did again have altered mental status. At that time, it was decided to work the patient up as she additionally had a fever above 100.4. Blood cultures were obtained. An additional chest x-ray was performed. Urine studies were performed and a procalcitonin was obtained. Blood cultures all came back negative; however, procalcitonin was highly elevated at 4.31. Chest x-ray also showed a right lower lobe infiltrate/opacity. When patient's altered mental status resolved, the patient was able to tell us that she did start to develop a cough, which was nonproductive. With fever and changes in mental status, along with chest x- ray findings it was presumed that patient had hospital-acquired pneumonia. The patient was started on vancomycin, Levaquin, and cefepime for coverage of hospital-acquired pneumonia and procalcitonin was trended over the course of 3 days. Initially, the procal increased to 5.23. However, over the next 2 days, it down trended to 4.[address] down to 3.55. Thus, it could be presumed that the antibiotic therapy is effective and patient's infection is resolving. On the day of discharge, patient was doing much better. She reported drastic improvement in her symptoms and voiced her desire to go home with great clinical improvement. The weekend team decided that with the correct antibiotic therapy, patient was stable for discharge. The patient is to follow very closely with primary care physician at [facility]. The importance for followup was described in detail on several different occasions. Patient is known to have poor followup and thus ends up in the hospital or emergency room on multiple occasions. Patient voiced that she understood the necessity for very close followup and was willing to abide with the recommendations set forth by the hospital team. The patient was noted to be hypoxic several times during her hospital stay. Of note, patient had been on oxygen after discharge with pneumonia back a few months ago. She said that she uses her oxygen p.r.n.; however, it was noted that her oxygen status is very labile. She will be at 100% on room air and then a couple of hours later, she will be saturating 84% on room air and require oxygen just while lying down in bed without any ambulation or exertion. It was decided at that time the patient should be on oxygen continuously due to her labile O2 requirement. A blood gas was obtained on 07/11/2017, which showed that her pH was 7.39, pCO2 was 54, pO2 was 55 and her O2 sat count/ measure was 86.7. Patient does not reliably wear her O2. She would take it off several times during her hospital stay. Additionally, the nurses raman take it off when her oxygen sat was good instead of just turning the oxygen down. It was discussed at length with patient that she should be wearing her oxygen and to turn it down if her oxygen saturation is above 95. Patient stated that she was in understanding and the necessity to wear her oxygen; however, it was noted that she was not very compliant while in the hospital. Thus, she was sent home with oxygen and she is to follow with her primary care physician to further discuss her oxygen requirement and to possibly work her up further for any chronic lung diseases. DISPOSITION: Stable. DISCHARGE INSTRUCTIONS: 1. Location: Home. 2. Activity: As tolerated. 3. Diet: Fluid restriction diet, heart healthy diet, renal diet, fluid restriction not to exceed 1800 mL per day. 4. Followup: The patient is to follow up with [facility]. Additionally, the patient is to follow up no later than 7 days with primary care physician at [facility]. She is to bring discharge paperwork as well as ID and insurance card. Someone will call patient on Monday , 07/17/2017 to arrange followup appointment. KAL
== END 2017-07-16 11:15 | disposition home or self-care (01) | DRG 291 ==
LOC: ERS 16:53 → 2SW 20:22 → OBSVTOIN 07-09 07:49 → 2NO 07-09 15:34
PROVIDERS: ADMIT Family Medicine; ATTEND Family Medicine
PROC: 5A1D70Z Performance of Urinary Filtration, Intermittent, Less than 6 Hours Per Day (ICD-10-PCS; 2017-07-06)
PROC: 30233N1 Transfusion of Nonautologous Red Blood Cells into Peripheral Vein, Percutaneous Approach (ICD-10-PCS; 2017-07-06)
PROC: 0DJ08ZZ Inspection of Upper Intestinal Tract, Via Natural or Artificial Opening Endoscopic (ICD-10-PCS; principal; 2017-07-10)
PROC: 0DJ08ZZ Inspection of Upper Intestinal Tract, Via Natural or Artificial Opening Endoscopic (ICD-10-PCS; 2017-07-10)
PROC: 0DBK8ZZ Excision of Ascending Colon, Via Natural or Artificial Opening Endoscopic (ICD-10-PCS; 2017-07-11)
PROC: 0DBM8ZZ Excision of Descending Colon, Via Natural or Artificial Opening Endoscopic (ICD-10-PCS; 2017-07-11)
DX: I13.2 Hypertensive heart and chronic kidney disease with heart failure and with stage 5 chronic kidney disease, or end stage renal disease (principal); N18.6 End stage renal disease; G93.41 Metabolic encephalopathy; J18.9 Pneumonia, unspecified organism; E11.22 Type 2 diabetes mellitus with diabetic chronic kidney disease; K76.6 Portal hypertension; E87.1 Hypo-osmolality and hyponatremia; I50.23 Acute on chronic systolic (congestive) heart failure; Z99.2 Dependence on renal dialysis; Z79.4 Long term (current) use of insulin; D63.1 Anemia in chronic kidney disease; Y95 Nosocomial condition; E87.5 Hyperkalemia; E78.5 Hyperlipidemia, unspecified; E88.09 Other disorders of plasma-protein metabolism, not elsewhere classified; K76.9 Liver disease, unspecified; K20.9 Esophagitis, unspecified; K57.30 Diverticulosis of large intestine without perforation or abscess without bleeding; G89.29 Other chronic pain; M54.9 Dorsalgia, unspecified; Z91.19 Patient's noncompliance with other medical treatment and regimen; D12.6 Benign neoplasm of colon, unspecified
CPT/HCPCS: 36415; 36416; 36430; 70450; 71010; 71020; 71275; 76705; 80048; 80053; 80202; 80306; 80307; 81003; 81015; 82010; 82140; 82274; 82550; 82553; 82728; 82805; 83690; 83880; 84145; 84146; 84443; 84484; 85025; 85027; 85379; 85610; 85730; 86704; 86705; 86706; 86707; 86708; 86780; 86803; 86850; 86900; 86901; 87040; 87086; 87340; 87350; 87389; 87517; 87633; 88305; 90471; 90732; 90935; 93005; 93798; 94760; 96361; 96374; A4216; A4353; G0009; G0257; G8978-GP-CI; G8979-GP-CI; G8980-GP-CI; J0692; J1610; J1644; J1815; J1956; J2001; J2250; J2704; J3370; J7050; P9016; Q4081

== ENCOUNTER 2017-07-21 10:09 | Observation (INO) | payer MEDICARE, MEDICAID ==
[2017-07-21 11:03] LABS: #Lymphocytes 1.3 thou/uL (1.20-3.40); #Monocytes 0.4 thou/uL (0.11-0.59); #Neutrophils 3.1 thou/uL (1.40-6.50); %Basophils 0.5 % (0.0-1.0); %Eosinophils 0.7 % (0.0-10.0); %Lymphocytes 26.6 % (21.0-51.0); %Monocytes 8.4 % (0.0-10.0); Hematocrit 28.5 % (36.0-47.0); Mean Platelet Volume 6.2 fL (7.4-10.4); Red Blood Cell (RBC) Count 3.01 mill/uL (4.20-5.40); White Blood Cell (WBC) Count 4.9 thou/uL (4.8-10.8)
[2017-07-21 11:29] LABS: ALT (SGPT) 11 U/L (8-55); AST (SGOT) 19 U/L (5-34); Alkaline Phosphatase 289 U/L (40-150); Anion Gap 12 mmol/L (10-20); BUN (Urea Nitrogen) 13 mg/dL (9.8-20.1); Bilirubin, Total 0.5 mg/dL (0.2-1.2); CK (CPK) 125 U/L (29-168); Calc. Creatinine Clearance 0 mL/min (70-130); Calcium 7.6 mg/dL (7.8-10.44); Carbon Dioxide 30 mmol/L (22-29); Chloride 96 mmol/L (98-107); Estimated GFR-MDRD 14; Protein, Total 7.1 g/dL (6.0-8.3)
--- NOTE | 2017-07-21 12:05 | RAD ---
CHEST ONE VIEW: HISTORY: Chest pain. Shortness of breath. Vomiting. COMPARISON: Chest, two views, 07/12/2017. FINDINGS: Heart size is enlarged. Mild pulmonary venous congestion, worsening. Early edema. No pneumothorax . No large effusion. Linear opacity in the lingula and left lower lobe. No acute osseous abnormality. IMPRESSION: Cardiomegaly and early edema. POS: OFF
[2017-07-21] MEDS ORDERED: Furosemide 40 MG/4 ML VIAL ONE (13:02)
[2017-07-21 14:12] VITALS: BMI 22.6
[2017-07-21] MEDS ORDERED: Lidocaine 2% Viscous Solution 10 ML, Aluminum & Magnesium Hydroxide 30 ML SSW SCH ×2 (14:29)
[2017-07-21] MEDS ORDERED: Acetaminophen 325 MG TAB PO PRN (14:29)
[2017-07-21] MEDS: Heparin 5,000 UNITS/ML VIAL SC SCH ×2 (15:09→20:07)
[2017-07-21 15:12] LABS: Troponin I 0.023 ng/mL (< 0.028)
[2017-07-21] MEDS ORDERED: Dextrose 5% in Water 1,000 ML IV PRN (15:17)
[2017-07-21] MEDS ORDERED: Dextrose 50% Abboject 50 ML SYRINGE SLOW IVP PRN (15:17)
[2017-07-21] MEDS ORDERED: HumaLOG 300 UNITS/3 ML VIAL SC PRN (15:17)
[2017-07-21] MEDS ORDERED: Nitroglycerin 0.4 MG TAB (25 Tab Bottle) SL PRN (18:20)
[2017-07-21 18:39] LABS: Troponin I 0.022 ng/mL (< 0.028)
[2017-07-21 19:58] VITALS: BP 158/66; TEMP 98.2
[2017-07-21] MEDS ORDERED: FLU VACC QS2017-18 36 mo. & older 0.5 ML SYRINGE IM ONE (21:00)
--- NOTE | 2017-07-22 14:58 | SS-2 ---
CHIEF COMPLAINT: Chest pain. HISTORY OF PRESENT ILLNESS: This is a 56-year-old female who presents with 1-day history of chest p ain and vomiting. The pain is diffusely over the chest and through to the back. She notes it as a sharp pain. The pain has been constant and has not let up. She rates the pain as an 8/10. She too k ibuprofen with no relief. She did state that after some morphine in the ER, her pain was 6/10. S he denies illness recently, but she does note an associated nausea and vomiting with this episode. Her last stress test was in 01/2017 that was normal and she had a previous echo showing diastolic co ngestive heart failure at that time as well. Her last catheterization was roughly around the same t verenice and that was normal as well. PAST MEDICAL HISTORY: Anemia of chronic disease; diastolic CHF; end-stage renal disease, on dialysi s; diabetes mellitus, type 2; hypertension; and erosive esophagitis. PAST SURGICAL HISTORY: Hysterectomy, cholecystectomy, C-sections, and right toe amputations. FAMILY HISTORY: None of note. SOCIAL HISTORY: She denies tobacco, alcohol, or drug use. ADMISSION MEDICATIONS: 1. Ascorbic acid 500 mg b.i.d. 2. Calcium acetate 1334 mg t.i.d., and 3. Cholecalciferol 400 units. 4. Epoetin 7500 units Tuesdays, , and Saturdays. 5. Amlodipine 10 mg p.o. daily. 6. Zolpidem 10 mg p.o. daily. 7. Gabapentin 100 mg t.i.d. 8. Aspirin 325 mg p.o. daily. 9. Atorvastatin 40 mg. 10. Acetaminophen with codeine. 11. Vitamin D3 5000 units. 12. Mometasone 100 mcg. 13. Metoclopramide 2.5 mg q.i.d. 14. Clonidine 0.3 mg b.i.d. 15. Carvedilol 25 mg b.i.d. 16. Pantoprazole 40 mg. 17. Insulin detemir 10 units subcu. REVIEW OF SYSTEMS: General: Denies fevers or chills, weight changes, night sweats. Does note fati ivana. Eyes: Denies vision changes or eye pain. ENT: Denies nasal congestion, rhinorrhea, or sore throat. Respiratory: Denies cough, congestion, shortness of breath, exercise intolerance. Cardiov ascular: Does admit to chest pains. Denies palpitations, edema, orthopnea, or PND. Gastrointestin al: She does admit to nausea and vomiting. She denies diarrhea, constipation, abdominal pain, GI b leed. : Denies incontinence or dysuria. Skin: Denies rashes, lesions, jaundice, itching. Musc uloskeletal: Denies pain, tenderness, stiffness, swelling, or arthritis in any joints. Neurologic: She does admit to weakness. She denies any numbness, syncope, or seizures. Psychiatric: She den ies anxiety or depression. PHYSICAL EXAMINATION: VITAL SIGNS: Blood pressure 149/95, pulse of 70, respirations 21, temperature max 97.7, pulse ox 97 % on room air, current weight is 85 kilos. GENERAL: She was alert and oriented x4. Appropriately interactive. EYES: PERRLA. Conjunctivae within normal limits. ENT: Nasal mucosa and oropharynx within normal limits. NECK: Supple, without lymphadenopathy, without thyromegaly, but JVD was present. CARDIOVASCULAR: Regular rate and rhythm. A systolic murmur 3/6 is present. Radial pulses and peda l pulses were equal bilaterally. RESPIRATORY: Normal effort, no retractions. Clear lungs to auscultation bilaterally. SKIN: Warm and dry. ABDOMEN: Soft. There is epigastric tenderness to palpation. Bowel sounds are present x4. No mass or distention. EXTREMITIES: No clubbing or cyanosis. She did have 2+ pitting edema to her bilateral lower extremi ties. NEUROLOGIC: No focal neurologic deficits. Cranial nerves II-XII were grossly intact. GCS was 15. PSYCHIATRIC: She was appropriate. HOSPITAL COURSE: The patient was admitted to the hospital for basically a chest pain, acute coronar y syndrome ruled out. The patient was actually better than her baseline as far as her chronic illne sses are concerned. So, it was determined that the patient needed to have troponins trended x3, and with her recent cardiac workup and recent hospitalization within the last 2 weeks, the attending an d the medical team decided that it would be best for this patient to be a candidate for a short stay in the hospital. The patient rested comfortably, did have some improvement with the pain with a GI cocktail, but did note that the chest pain did not completely resolve. The patient is on end-stage renal dialysis with Dr. Kat and has not missed any of her dialysis appointments on Monday, , and Monday. So, it was of priority to get this patient out and available, so that she can go to her dialysis as scheduled on Saturdays. The patient, otherwise, has tolerated the hospitalizatio n well and again was above her baseline for her chronic medical illnesses. At that time, it was dec ided after the third troponin that came back, her troponins respectively were 0.02, 0.023, and 0.022 , which is below her baseline because of her chronic kidney disease, that it was determined that she would be safe to go home with outpatient followup. At that time, she was discharged in satisfactor y condition. DISCHARGE DIAGNOSES: 1. Atypical chest pain. 2. End-stage renal disease, on dialysis. 3. Diabetes mellitus, type 2. 4. Hypertension. 5. Erosive esophagitis. 6. Chronic anemia. DISCHARGE MEDICATIONS: Will be the exact same as the admission medications except for we added in P rotonix 40 mg b.i.d. instead of once a day, which should be the pantoprazole 40 mg. DISPOSITION: Stable. DISCHARGE INSTRUCTIONS: 1. Location: She will be discharged home into her own care. 2. Diet: Will be a diabetic diet. 3. Activity: Will be no restrictions 4. Followup: Will be with her primary care physician, Dr. Boland at [facility], in 1 week. We encouraged her to take it easy over this time and hopefully that pain will resolve and s he will be evaluated further by her primary care physician.
--- NOTE | 2017-07-23 17:44 | EKG ---
Test Reason : Blood Pressure : / mmHG Vent. Rate : 071 BPM Atrial Rate : 071 BPM P-R Int : 160 ms QRS Dur : 080 ms QT Int : 436 ms P-R-T Axes : 059 136 000 degrees QTc Int : 473 ms Normal sinus rhythm Right axis deviation Abnormal ECG Confirmed by AIDAN GODOY ([id number]) on 07/23/2017 5:43:56 PM Referred By: Confirmed By:AIDAN GODOY
== END 2017-07-21 21:22 | disposition home or self-care (01) ==
LOC: ERS 10:09 → T4-A 13:20 → INTOOBSV 13:20 → 2SW 15:34
PROVIDERS: ADMIT Family Medicine; ATTEND Family Medicine
DX: R07.89 Other chest pain (principal); E11.22 Type 2 diabetes mellitus with diabetic chronic kidney disease; I13.2 Hypertensive heart and chronic kidney disease with heart failure and with stage 5 chronic kidney disease, or end stage renal disease; N18.6 End stage renal disease; I50.30 Unspecified diastolic (congestive) heart failure; Z79.82 Long term (current) use of aspirin; Z79.4 Long term (current) use of insulin; Z79.899 Other long term (current) drug therapy; Z90.710 Acquired absence of both cervix and uterus; Z90.49 Acquired absence of other specified parts of digestive tract; Z98.891 History of uterine scar from previous surgery; Z89.421 Acquired absence of other right toe(s); Z87.891 Personal history of nicotine dependence; Z99.2 Dependence on renal dialysis
CPT/HCPCS: 71010; 80053; 82550; 82553; 82962; 83690; 83880; 84484 ×2; 85025; 93005; 94760; 96374; 96375; 99285; G0378; 36415; 36416; 93010; A4216; J1644; J1940; J2270

== ENCOUNTER 2017-08-03 10:11 | Inpatient (IN) | payer MEDICARE, MEDICAID ==
--- NOTE | 2017-08-03 11:24 | RAD ---
SINGLE VIEW OF THE CHEST 08/03/17 COMPARISON: 07/21/17 HISTORY: Mental status changes and bilateral lower extremity edema. Altered mental status. FINDINGS: Single view of the chest shows an enlarged cardiomediastinal silhouette. There are bilateral perihil ar opacities which extend in the interstitium and likely represents pulmonary edema. No obvious pleu ral effusion is seen. IMPRESSION: Cardiomegaly with bilateral pulmonary edema. POS: [facility]
[2017-08-03 11:52] LABS: #Eosinphils 0.1 thou/uL (0.0-0.7); #Lymphocytes 1.1 thou/uL (1.20-3.40); #Monocytes 0.3 thou/uL (0.11-0.59); #Neutrophils 4.5 thou/uL (1.40-6.50); %Basophils 0.4 % (0.0-1.0); %Eosinophils 1.5 % (0.0-10.0); %Monocytes 5.4 % (0.0-10.0); Hematocrit 26.7 % (36.0-47.0); Mean Platelet Volume 7.7 fL (7.4-10.4); Red Blood Cell (RBC) Count 2.85 mill/uL (4.20-5.40)
[2017-08-03 11:54] LABS: Oxyhemoglobin 88.6 % (94.0-97.0); Sodium 132 mmol/L (135-148)
[2017-08-03 11:57] LABS: Modified Allen's Test POSITIVE; Vent NO
[2017-08-03 11:58] LABS: Mode 3L NC
[2017-08-03 12:04] LABS: Lactic Acid - Sepsis 0.7 mmol/L (0.5-2.2)
[2017-08-03 12:14] LABS: Bilirubin Negative (Negative); Blood, Urine Large (Negative); Glucose, Urine (Dipstick) 500 mg/dL (Negative); Ketone, Urine Negative (Negative); Nitrite Negative (Negative); Protein, Urine (Dipstick) > or equal to 300 mg/dL (Neg-Trace); Urobilinogen 0.2 mg/dL (0.2-1.0)
--- NOTE | 2017-08-03 12:14 | CT ---
CT OF BRAIN PERFORMED WITHOUT CONTRAST ENHANCEMENT: Date: 08/03/17 COMPARISON: 07/05/17 study. HISTORY: Altered mental status. FINDINGS: The ventricular and cisternal system is within normal limits. Mild sulcal prominence noted. There ar e no signs of intracerebral hemorrhage or extra-axial fluid collections. The mastoid air cells and v isualized sinuses are clear. IMPRESSION: No acute intracranial abnormalities. POS: [facility]
[2017-08-03 12:17] LABS: Bacteria/HPF None Seen HPF (None Seen); Hyaline Casts/LPF 0-3 HYALINE CAST LPF (0-3 Hyaline); RBC/HPF GREATER THAN 50-TNTC HPF (0-3); Squamous Epithelial 0-3 HPF (0-3); WBC/HPF 0-3 HPF (0-3)
[2017-08-03 12:21] LABS: ALT (SGPT) 18 U/L (8-55); AST (SGOT) 19 U/L (5-34); Alkaline Phosphatase 260 U/L (40-150); Anion Gap 17 mmol/L (10-20); BUN (Urea Nitrogen) 64 mg/dL (9.8-20.1); Bilirubin, Total 0.7 mg/dL (0.2-1.2); CK (CPK) 294 U/L (29-168); Calc. Creatinine Clearance 0 mL/min (70-130); Calcium 7.8 mg/dL (7.8-10.44); Carbon Dioxide 22 mmol/L (22-29); Chloride 96 mmol/L (98-107); Estimated GFR-MDRD 8; Globulin 3.8 g/dL (2.4-3.5); Lipase 47 U/L (8-78)
[2017-08-03 12:50] LABS: Troponin I 0.034 ng/mL (< 0.028)
[2017-08-03] MEDS ORDERED: Artificial Tear Sol 15 ML BOT EA EYE PRN (14:01)
[2017-08-03] MEDS ORDERED: Dextrose 5% in Water 1,000 ML IV PRN (14:19)
[2017-08-03] MEDS ORDERED: Dextrose 50% Abboject 50 ML SYRINGE SLOW IVP PRN (14:19)
[2017-08-03] MEDS ORDERED: HumaLOG 300 UNITS/3 ML VIAL SC PRN ×2 (14:19)
[2017-08-03] MEDS: Epoetin (ESRD) 20,000 UNITS/ML IVP SCH (18:03)
[2017-08-03 20:51] LABS: Troponin I 0.038 ng/mL (< 0.028)
[2017-08-03] MEDS: cloNIDine 0.3 MG TAB PO SCH (21:24)
[2017-08-03] MEDS: Gabapentin 100 MG CAP PO SCH ×2 (21:24)
[2017-08-03] MEDS: Atorvastatin Calcium 40 MG TAB PO SCH (21:24)
[2017-08-03] MEDS: Carvedilol 25 MG TAB PO SCH (21:24)
[2017-08-03] MEDS: Calcium Acetate 667 MG CAP PO SCH (21:25)
--- NOTE | 2017-08-03 21:33 | HP-2 ---
DATE OF ADMISSION: 08/03/2017 at 12:51. CODE STATUS: FULL. PRIMARY CARE PHYSICIAN: Dr. Boland. ATTENDING PHYSICIAN: Dr. Duran. RESIDENT: PGY1 - Dr. Angélica Vaca. HISTORIAN: The patient. SPECIALIST: Nephrology, Dr. Smith. CHIEF COMPLAINT: Altered mental status, fluid overload, and weakness. HISTORY OF PRESENT ILLNESS: A 56-year-old female with a past medical history of end-stage renal dis ease on hemodialysis Monday, , and Monday; diastolic heart failure, and type 2 diabetes, who presents with altered mental status and increased falls and weakness at home as well as fluid ov erload. Associated symptoms include worsening shortness of breath, requiring oxygen at home, 2 lite rs, worsening edema in her bilateral lower extremities. She reports she gets short of breath at nig ht, sleeps on 2 pillows. She also reports taking Ambien at home for sleep. Family states the patie nt was acting confused and thinks it was due to her Ambien. Dr. Smith was consulted in the ER, the pa kevon was scheduled for dialysis. PAST MEDICAL HISTORY: Diastolic heart failure, preserved ejection fraction of 50%, end-stage renal disease on hemodialysis, type 2 diabetes, anemia of chronic disease, hypertension, hyperlipidemia, c hronic back pain, hyponatremia, asthma, and GERD. PAST SURGICAL HISTORY: Cholecystectomy, , hysterectomy, right second toe amputation, and f istula on the left arm. ALLERGIES: No known drug allergies. MEDICATIONS: Nasonex, pantoprazole, Levemir, carvedilol, amlodipine, metoclopramide, aspirin, gabap entin, clonidine, and vitamin D3. FAMILY HISTORY: Mom has diabetes and pancreatic cancer. A sibling has rheumatoid arthritis. SOCIAL HISTORY: The patient currently does not smoke. Used to smoke 1 pack per day for 10 years. Denies alcohol use, denies drug use. Marital status: Single. REVIEW OF SYSTEMS: GENERAL: Decreased appetite. Denies fevers and chills. RESPIRATORY: Endorses shortness of breath. Denies cough and congestion. CARDIOVASCULAR: Endorses paroxysmal nocturnal dyspnea and orthopnea. Denies chest pain and palpita tions. NEUROLOGIC: Endorses weakness and falls. GI: Denies nausea, vomiting, diarrhea, constipation. SKIN: Denies rashes or lesions. PSYCHIATRIC: Denies anxiety and depression. PHYSICAL EXAMINATION: VITAL SIGNS: Blood pressure 138/58, pulse of 74, respiratory rate 16, T-max 98, pulse ox 98% on 3 l iters, current weight 54 kilograms. GENERAL: Alert and oriented x4, no apparent distress. Well-developed, well-nourished, appropriatel y interactive. EYES: PERRLA, EOMI. Conjunctivae within normal limits. ENT: Nasal mucosa within normal limits. Oropharynx within normal limits. NECK: Supple, no lymphadenopathy, no thyromegaly. CARDIOVASCULAR: Regular rate and rhythm. Systolic murmur 2/6, S3, gallop, 2+ pedal pulses. RESPIRATORY: Normal effort, no retractions. Crackles bilateral bases. SKIN: Warm and dry. ABDOMEN: Soft, nontender to palpation. Bowel sounds in all 4 quadrants. No masses or distention. EXTREMITIES: No clubbing or cyanosis. 2+ pitting edema to the level of the knees bilaterally as we ll as some noted sacral edema. MUSCULOSKELETAL: Structure within normal limits. Tone within normal limits. Muscle strength 5/5. Full range of motion. NEUROLOGIC: No focal deficits. Sensation within normal limits. DTR 2/4. Cranial nerves II throug h XII intact. GCS 15. PSYCHIATRIC: Appropriate. LABORATORY DATA: White blood cell count 6, H\T\H 8.5 and 26.7, and platelets 151. Chemistry 130/4.6/96/22/64/5.3/337. Alkaline phosphatase 260, albumin 3.2. BNP 4460. CK-MB 12.4, troponin 0.034. UA large blood, greater than 300 protein, negative leukocyte esterase, negative nitrites, negative k etones, 500 of glucose, greater than 50 RBCs, 0-3 white blood cells, no bacteria seen. ABG 7.4/37.4/62.8. EKG: Normal sinus rhythm. Chest x-ray: Cardiomegaly, bilateral pulmonary edema. Lactic acid 0.7. Ammonia 20. ASSESSMENT AND PLAN: A 56-year-old female with end-stage renal disease on hemodialysis Monday, Mon, and Monday with diastolic heart failure with preserved ejection fraction and with type 2 di abetes, who presents with altered mental status, increased lower extremity edema, weakness and fall, admitted for end-stage renal disease requiring dialysis, and diastolic heart failure exacerbation. 1. Congestive heart failure exacerbation. 2. Had an echo in 01/2017 showed a preserved ejection fraction of 50%. 3. End-stage renal disease on hemodialysis Monday, , and Monday. Dr. Burks was consult ed in the ED, the patient was scheduled for dialysis. Dialysis will be necessary to assist and redu cing the patient's volume overload status. 4. Diastolic heart failure, acute exacerbation with pulmonary edema. The patient states she has ne gative amount of urine. We will evaluate the patient's volume status after receiving dialysis. We will monitor her I's and O's. We will restart her home medications of her beta jose angel, carvedilol, and her hypertension medications including amlodipine and clonidine. 5. Altered mental status secondary to medication such as Ambien or gabapentin in the specific setti ng of end-stage renal disease. We will do a complete medication reconciliation of the patient. 6. Elevated CK-MB and troponins without chest pain. We will trend her EKG was normal. Stress test was in January. No ischemia, increased in diastolic volume. 7. Hypertension. We will restart home medications. 8. Hyperlipidemia. We will continue her statin and aspirin. 9. Anemia could be of chronic disease or iron deficient. We will look back in the records. 10. Diabetes type 2. We will restart home dose of 10 units of Lantus and put her on sliding scale insulin, and do Accu-Cheks a.c. and at bedtime. DISPOSITION AND LENGTH OF STAY: 2-3 days. Symptomatic medications will be provided. History and physical exam, as well as management, were discussed with Dr. Duran.
[2017-08-03 22:33] VITALS: BMI 25.0
[2017-08-03] MEDS: Acetaminophen 325 MG TAB PO PRN (22:45)
[2017-08-03 23:11] LABS: Troponin I 0.035 ng/mL (< 0.028)
[2017-08-03 23:18] LABS: Critical Call CKMBM RESULT DECREASING
[2017-08-04 06:05] LABS: #Eosinphils 0.1 thou/uL (0.0-0.7); #Lymphocytes 1.2 thou/uL (1.20-3.40); #Monocytes 0.2 thou/uL (0.11-0.59); #Neutrophils 2.4 thou/uL (1.40-6.50); %Basophils 0.7 % (0.0-1.0); %Eosinophils 1.6 % (0.0-10.0); %Monocytes 5.7 % (0.0-10.0); Hematocrit 26.1 % (36.0-47.0); Mean Platelet Volume 7.7 fL (7.4-10.4); Red Blood Cell (RBC) Count 2.78 mill/uL (4.20-5.40); White Blood Cell (WBC) Count 3.9 thou/uL (4.8-10.8)
--- NOTE | 2017-08-04 06:15 | HP ---
DATE OF ADMISSION: 08/03/2017 CHIEF COMPLAINT: Shortness of breath. HISTORY OF PRESENT ILLNESS: This is a 56-year-old female with multiple medical comorbidities who had a recent admission for altered mental status, was discharged home and was in good condition. Over the last day, she has become progressively more fatigued, dizzy and short of breath with worsening swelling of the lower extremities. Her family also felt like she was more tired and fatigued and not as responsive and so the decision was made to take her to the ED. In the ED, she was found to have pulmonary edema, volume overload and a CT of the head, which was negative and a chest x-ray, which again demonstrated the pulmonary edema and she is admitted to our service. Currently, I am seeing her in dialysis when we attempted to get 3.9 liters off during the session. She says she is still quite fatigued and tired, but otherwise has no complaints. REVIEW OF SYSTEMS: Constitutional: Negative for fever or chills. Eyes: Without decreased visual acuity or eye pain. ENT: No ringing in the ears, no decreased hearing, no sore throat. Cardiovascular: No chest pain or palpitations. Respiratory: Positive for shortness of breath. Negative for cough or wheezing. Gastrointestinal: Without nausea, vomiting, diarrhea. Genitourinary: Without hematuria or dysuria, urinates about once a day. Musculoskeletal: Without myalgias, arthralgias currently. Neurologic: Without numbness or tingling currently. Psychiatric: Alert and oriented, denies anxiety or depression currently. PAST MEDICAL HISTORY: Significant for: 1. End-stage renal disease secondary to presumed hypertensive nephrosclerosis, diabetic nephropathy. 2. Diabetes mellitus type 2, insulin-dependent. 3. Essential hypertension. 4. Hyperlipidemia. 5. Anemia of chronic disease. 6. Neuropathy. 7. Diastolic heart failure. 8. Chronic respiratory failure with home O2. PAST SURGICAL HISTORY: Significant for: 1. Complete hysterectomy. 2. Cholecystectomy. 3. . 4. Right toe amputation. 5. Colonoscopy in 2017 with tubular adenoma demonstrated. MEDICATIONS: Upon discharge from previous stay include: 1. Artificial Tears. 2. Vitamin C. 3. Calcium acetate. 4. Cefdinir, which is reportedly completed. 5. Cholecalciferol. 6. Epogen. 7. Levaquin, which is reportedly completed. 8. Amlodipine. 9. Zolpidem. 10. Gabapentin. 11. Aspirin. 12. Atorvastatin. 13. Tylenol with codeine 14. Vitamin D3. 15. Mometasone. 15. Metoclopramide. 16. Clonidine. 17. Carvedilol. 18. Pantoprazole 19. Insulin detemir. ALLERGIES: No known drug allergies. FAMILY HISTORY: Positive for diabetes, hypertension, and coronary artery disease. SOCIAL HISTORY: A 40-[id number] history of smoking, quit 31-30 years ago. Denies alcohol or drug use. PHYSICAL EXAMINATION: VITAL SIGNS: From the ED are actually not available, but been told by nursing, she is reportedly afebrile and her vital signs are stable. CONSTITUTIONAL: She is sleeping comfortably in the dialysis chair, in no acute distress. HEENT: Eyes without icterus or injection. Pinna normal. Nares patent. Moist mucous membranes. CARDIOVASCULAR: Regular rate and rhythm without murmur. LUNGS: Clear to auscultation bilaterally. ABDOMEN: From my exam, bowel sounds positive, nontender to palpation. GENITOURINARY: Deferred. MUSCULOSKELETAL: Previously noted amputation, otherwise no deformity. NEUROLOGIC: Moves all extremities well. No obvious focal deficit. SKIN: Without current rash or lesion. Nails several on her feet with bruising. PSYCHIATRIC: Mood and affect appropriate for current medical condition. Alert and oriented x3 and drowsy. HEMATOLOGY: No obvious bleeding or bruising. LABORATORY DATA AND X-RAY FINDINGS: White count of 6, hemoglobin 8.5 with MCV of 93.5, platelets 151. Blood gas arterial demonstrated pH 7.4, O2 62.8, with a base deficit at 1.8. Chemistry is pertinent for sodium of 130, potassium 4.6 , chloride 96, bicarbonate of 22, anion gap 17, BUN 64, creatinine 5.34, glucose 337. Normal AST, ALT, alkaline phosphatase 260, creatinine kinase 294, CK-MB 12.4, troponin I 0.034. Brain natriuretic peptide 4460. Urine was sent, which demonstrated large blood. A chest x-ray, which demonstrated bilateral pulmonary edema and a brain CT, which revealed no acute intracranial abnormalities, both of which I have personally reviewed and agree with. ASSESSMENT AND PLAN: This is a 56-year-old female with: 1. Acute hypoxic respiratory failure secondary to pulmonary edema, secondary end-stage renal disease. We will dialyze and consult Nephrology. Continue home medications with the exception of the sedating medications. 2. Altered mental status. The patient has a longstanding history of apparently using Tylenol with codeine as well as taking more than one of her Ambien tablets every night to go to sleep. She is also on gabapentin and we will investigate further whether or not she takes this in extra dose as compared with what is on MAR. She is relatively clear from a mental standpoint currently, but we will continue to monitor. 3. Elevated troponin, still this is secondary to end-stage renal disease, hypertension, pulmonary edema. She currently has no chest pain. We will defer consultation. 4. Elevated BNP and history of left ventricular hypertrophy in the chart, history of diastolic heart dysfunction with pulmonary edema, proceed with dialysis. 5. Essential hypertension. We will continue home antihypertensives. 6. Diabetes 2 with hyperglycemia. We will go ahead and restart home insulin and monitor closely. 7. Anion gap metabolic acidosis, suspect this is likely secondary to her uremia and not related to diabetic ketoacidosis, but we will restart insulin and monitor. 8. Hyponatremia, felt to be secondary to her end-stage renal disease and hypervolemic status. We will monitor. 10. Uremia on dialysis. 11. Anemia of chronic disease, currently on Epogen and we will monitor. Transfuse p.r.n. We will follow up as an outpatient. 12. Elevated alkaline phosphate, suspect secondary to metabolic bone disease related to secondary hyperparathyroidism, but will defer this workup until outpatient. If she is here over 1-2 days, we will repeat studies including PTH , vitamin D, magnesium and phosphatase. 13. Hematuria on clean-catch. We will defer this workup to Nephrology for microscopic urinalysis and additional management. 14. Deep venous thrombosis prophylaxis with heparin. 15. Gastrointestinal prophylaxis with diet. MTDD
[2017-08-04 06:19] LABS: Anion Gap 11 mmol/L (10-20); BUN (Urea Nitrogen) 25 mg/dL (9.8-20.1); Calc. Creatinine Clearance 20 mL/min (70-130); Calcium 7.9 mg/dL (7.8-10.44); Carbon Dioxide 29 mmol/L (22-29); Chloride 98 mmol/L (98-107); Estimated GFR-MDRD 16; Magnesium 1.8 mg/dL (1.6-2.6); Phosphorus 2.9 mg/dL (2.3-4.7)
--- NOTE | 2017-08-04 06:41 | CON ---
DATE OF CONSULTATION: 08/03/2017 NEPHROLOGY CONSULTATION CONSULTING PHYSICIANE: . REASON FOR CONSULTATION: End-stage renal disease evaluation and care. REASON FOR ADMISSION: Altered mentation. HISTORY OF PRESENT ILLNESS: This is a 56-year-old female with a history of end-stage renal disease, hypertension, hyperlipidemia, who came to the hospital with altered mentation. The patient took 2 Ambien yesterday for sleep and was found to have altered mentation, brought to the hospital. She is due for dialysis today and was seen during dialysis. No nausea or vomiting, no chest pain. She is feeling better. PAST MEDICAL HISTORY: Positive for end-stage renal disease, hypertension, hyperlipidemia, gout, con gestive heart failure, neuropathy. PAST SURGICAL HISTORY: Dialysis access placement, cholecystectomy, cardiac catheterization, and hys terectomy. HOME MEDICATIONS: Vitamin D3, atorvastatin, aspirin, carvedilol, Catapres, amlodipine, gabapentin, Tylenol with Codeine, clonidine, calcium acetate, metoclopramide, Zofran. ALLERGIES: No known drug allergies. SOCIAL HISTORY: No smoking, alcohol, or illicit drug abuse. FAMILY HISTORY: No history of any kidney disease. REVIEW OF SYSTEMS: The following complete review of systems was negative, unless otherwise mentione d in the HPI or below: Constitutional: Weight loss or gain, ability to conduct usual activities. Skin: Rash, itching. Eyes: Double vision, pain. ENT/Mouth: Nose bleeding, neck stiffness, pain, tenderness. Cardiovascular: Palpitations, dyspnea on exertion, orthopnea. Respiratory: Shortness of breath, wheezing, cough, hemoptysis, fever or night sweats. Gastrointestinal: Poor appetite, abdominal pain, heartburn, nausea, vomiting, constipation, or diar dwain. Genitourinary: Urgency, frequency, dysuria, nocturia. Musculoskeletal: Pain, swelling. Neurologic/Psychiatric: Anxiety, depression. Allergy/Immunologic: Skin rash, bleeding tendency. PHYSICAL EXAMINATION: GENERAL: This is a well-built white female in no apparent distress. She was seen during dialysis. VITAL SIGNS: Temperature 98.7, pulse is 77, respiratory rate 18, blood pressure 165/67. HEENT: Atraumatic and normocephalic. Oral mucosa is moist. NECK: Supple, no masses. CARDIOVASCULAR: S1, S2 heard. Rate and rhythm regular. RESPIRATORY: Clear. GASTROINTESTINAL: Abdomen is soft. MUSCULOSKELETAL: No tenderness. No edema. DERMATOLOGIC: No skin rash. NEUROLOGIC: Alert, awake. PSYCHIATRIC: Mood and affect normal. LABORATORY AND X-RAY FINDINGS: Hemoglobin is 8.5, potassium 4.6, BUN 64, creatinine is 5.3. ASSESSMENT AND PLAN: 1. End-stage renal disease on hemodialysis. The patient was seen and evaluated during dialysis and tolerating well. We will continue dialysis as tolerated. 2. Hypertension. remove fluid with dialysis. 3. Edema, controlled. 4. Anemia. Continue Epogen with dialysis. 5. We will continue on dialysis as tolerated. Altered mentation is better. We will follow. Thank you for the consultation.
[2017-08-04] MEDS: Acetaminophen 325 MG TAB PO PRN ×2 (07:17→15:58)
[2017-08-04] MEDS: Calcium Acetate 667 MG CAP PO SCH ×3 (07:58→17:54)
[2017-08-04] MEDS: Carvedilol 25 MG TAB PO SCH ×2 (07:59→20:50)
[2017-08-04] MEDS: Amlodipine 10 MG TAB PO SCH (07:59)
[2017-08-04] MEDS: Aspirin 325 MG TAB PO SCH (07:59)
[2017-08-04] MEDS: Gabapentin 100 MG CAP PO SCH ×3 (08:00→20:50)
[2017-08-04] MEDS: cloNIDine 0.3 MG TAB PO SCH ×2 (08:00→20:49)
[2017-08-04] MEDS: Heparin 5,000 UNITS/ML VIAL SC SCH ×3 (08:01→20:50)
[2017-08-04] MEDS: Furosemide 40 MG/4 ML VIAL IVP SCH ×2 (08:01→08:45)
[2017-08-04] MEDS: Mometasone 100 MCG HFA INHALER INH SCH (08:10)
[2017-08-04] MEDS ORDERED: Enoxaparin Sodium 30 MG/0.3 ML SYRINGE SC SCH (09:00)
[2017-08-04] MEDS ORDERED: Insulin Detemir 100 UNITS/ML 10 UNITS in Pre-Filled Syringe 1 EACH SC SCH (09:00)
[2017-08-04] MEDS: Insulin Detemir 100 UNITS/ML 12 UNITS in Pre-Filled Syringe 1 EACH SC SCH (09:20)
--- NOTE | 2017-08-04 11:07 | PDOC.FM ---
- Objective Vital Signs & Weight: Vital Signs (12 hours) Temp Pulse Resp BP BP Pulse Ox 08/04/17 08:43 98.8 F 69 16 08/04/17 08:11 92 L 08/04/17 08:10 69 12 08/04/17 08:08 98.8 F 16 95 08/04/17 07:59 70 144/65 H 08/04/17 05:23 95 08/04/17 04:11 98.0 F 72 18 164/73 H 95 Weight Weight 60.328 kg I&O: 08/03/17 08/04/17 08/05/17 06:59 06:59 06:59 Intake Total 540 Balance 540 Result Diagrams: 08/04/17 05:36 08/04/17 05:36 <Angélica Granados - Last Filed: 08/04/17 11:05> - Objective Vital Signs & Weight: Vital Signs (12 hours) Temp Pulse Resp BP BP Pulse Ox 08/05/17 04:00 98.3 F 60 16 145/64 H 92 L 08/04/17 20:49 144/65 H Weight Weight 137 lb 3.2 oz I&O: 08/04/17 08/05/17 08/06/17 06:59 06:59 06:59 Intake Total 540 1320 Output Total 300 Balance 540 1020 Result Diagrams: 08/04/17 05:36 08/04/17 05:36 <Tye Elmore - Last Filed: 08/05/17 08:00> Phys Exam - Physical Examination Constitutional: NAD HEENT: PERRLA, moist MMs rales, crackles b/l upper and lower lungs Cardiovascular: RRR Gastrointestinal: soft, non-tender, no distention Musculoskeletal: pulses present Neurological: non-focal, normal sensation Psychiatric: normal affect, A&O x 3 <Angélica Granados - Last Filed: 08/04/17 11:05> Dx/Plan (1) Altered mental status Code(s): R41.82 - ALTERED MENTAL STATUS, UNSPECIFIED Status: Acute (2) Elevated troponin Code(s): R74.8 - ABNORMAL LEVELS OF OTHER SERUM ENZYMES Status: Acute (3) Fluid overload Code(s): E87.70 - FLUID OVERLOAD, UNSPECIFIED Status: Acute (4) Hyperglycemia Code(s): R73.9 - HYPERGLYCEMIA, UNSPECIFIED Status: Acute (5) Hyponatremia Code(s): E87.1 - HYPO-OSMOLALITY AND HYPONATREMIA Status: Acute (6) Anemia in chronic kidney disease (CKD) Code(s): N18.9 - CHRONIC KIDNEY DISEASE, UNSPECIFIED; D63.1 - ANEMIA IN CHRONIC KIDNEY DISEASE Status: Chronic (7) ESRD (end stage renal disease) on dialysis Code(s): N18.6 - END STAGE RENAL DISEASE; Z99.2 - DEPENDENCE ON RENAL DIALYSIS Status: Chronic (8) Hypertension Code(s): I10 - ESSENTIAL (PRIMARY) HYPERTENSION Status: Chronic (9) T2DM (type 2 diabetes mellitus) Status: Resolved (10) CHF (congestive heart failure) Code(s): I50.9 - HEART FAILURE, UNSPECIFIED Status: Chronic - Plan Plan: 56 yo f with ESRD on HD TRS, dCHF, and dm, present in volume overload and altered admitted for dialysis. 1.) ESRD on HD: Dr. Smith consulted in the ER. Pt set up for dialysis yesterday. BUN/Cr improved this am. Pt still volume overloaded. Will have pt get her dialysis tomorrow and consider dc tomorrow. Pt had 4L removed in dialysis. 2.)dCHF, acute exacerbation, volume overloaded. -pt still volume overloaded today, but improved physical exam from yesterday. Will schedule dialysis tomorrow. 3.)HTN, controlled -will continue home meds, contine to monitor 4.)DM-uncontrolled. -increased lantus from 10 to 12. 5.)AMS-resolved, likely 2/2 ambien/gabapentin. -dc'd ambien -Will decrease gabapentin. <Angélica Granados - Last Filed: 08/04/17 11:05> Attending Addendum - Attending Addendum I personally evaluated the patient and discussed the management with Dr. Granados I agree with the History, Examination, Assessment and Plan documented above with any addition or exceptions noted below. Patient came in volume overloaded. She is a dialysis patient. Recently she has been eating soup because she felt ill. She is better after dialysis. Plan is to dialyze Monday, pull off more fluid, then send home. <Tye Elmore - Last Filed: 08/05/17 08:00>
--- NOTE | 2017-08-04 12:12 | PRG ---
DATE OF SERVICE: 08/04/2017 SUBJECTIVE: Patient was seen and examined at bedside and overnight events noted. Patient denies any shortness of breath or chest pain or palpitation. No history of nausea or vomiting or diarrhea or fever or chills or cramps. OBJECTIVE: GENERAL: This is a well-built female in no apparent distress. VITAL SIGNS: Temperature 98.0, pulse 64, respiratory rate 18, blood pressure 143/65. HEENT: Atraumatic, normocephalic. Oral mucosa is moist. NECK: Supple. CARDIOVASCULAR: S1 and S2 heard, rate and rhythm regular. RESPIRATORY: Clear to auscultation. GASTROINTESTINAL: Abdomen is soft. MUSCULOSKELETAL: No tenderness, no edema. DERMATOLOGIC: No skin rash. NEUROLOGIC: Alert and awake and oriented X3. No focal neurologic deficits. Moving all the extremities. PSYCHIATRIC: Mood and affect normal. LABORATORY DATA: Potassium 3.5, BUN 25, creatinine is 2.9. ASSESSMENT AND PLAN: 1. End-stage renal disease - will continue HD TTS as tolerated. 2. Hypertension - remove fluid with HD as tolerated. 3. Edema. 4. Anemia. 5. Plan is to continue on dialysis, TTS as tolerated. MTDD
[2017-08-04] MEDS: Atorvastatin Calcium 40 MG TAB PO SCH (20:50)
[2017-08-05] MEDS: Acetaminophen 325 MG TAB PO PRN ×2 (04:57→09:42)
--- NOTE | 2017-08-05 06:19 | PDOC.FM ---
- Subjective Subjective: Patient doing well this AM. She denies any chest pain, shortness of breath, or MSK pain. No significant overnight events. She is on 2L of O2 satting 92%. This is currently her baseline at home. She has been using home O2 since being discharged from hospital 2 months ago when she had pneumonia. Had long discussion about discontinuing ambien to avoid mental status changes. She was on board with this plan. Patient advised to follow closely with PCP to adjust insulin regimen for better control of DM. - Objective MAR Reviewed: Yes Vital Signs & Weight: Vital Signs (12 hours) Temp Pulse Resp BP BP Pulse Ox 08/05/17 04:00 98.3 F 60 16 145/64 H 92 L 08/04/17 20:49 144/65 H 08/04/17 19:43 98.0 F 68 16 139/63 92 L Weight Weight 60.328 kg I&O: 08/03/17 08/04/17 08/05/17 06:59 06:59 06:59 Intake Total 540 960 Output Total 300 Balance 540 660 Result Diagrams: 08/04/17 05:36 08/04/17 05:36 <Margaux Boland - Last Filed: 08/05/17 07:56> - Objective Vital Signs & Weight: Vital Signs (12 hours) Temp Pulse Resp BP Pulse Ox 08/05/17 08:43 97.4 F L 70 22 H 157/69 H 93 L 08/05/17 08:26 98 08/05/17 08:24 63 16 08/05/17 08:00 97.4 F L 70 22 H 93 L 08/05/17 04:00 98.3 F 60 16 145/64 H 92 L Weight Weight 138 lb 1.6 oz I&O: 08/04/17 08/05/17 08/06/17 06:59 06:59 06:59 Intake Total 540 1320 Output Total 300 Balance 540 1020 Result Diagrams: 08/04/17 05:36 08/04/17 05:36 <Tye Elmore - Last Filed: 08/05/17 10:37> Phys Exam - Physical Examination Constitutional: NAD HEENT: moist MMs, sclera anicteric Neck: supple, full ROM Respiratory: no wheezing Coarse rales in biltaeral bases Cardiovascular: RRR 3/6 systolic murmur Gastrointestinal: soft, non-tender, no distention, positive bowel sounds Musculoskeletal: pulses present 2+ pitting edema bilaterally to level of knee Neurological: non-focal, moves all 4 limbs Skin: no rash, cap refill <2 seconds <Margaux Boland - Last Filed: 08/05/17 07:56> Dx/Plan (1) ESRD (end stage renal disease) on dialysis Code(s): N18.6 - END STAGE RENAL DISEASE; Z99.2 - DEPENDENCE ON RENAL DIALYSIS Status: Chronic (2) Diastolic left-sided congestive heart failure with preserved left ventricular function, NYHA class 4 Code(s): I50.30 - UNSPECIFIED DIASTOLIC (CONGESTIVE) HEART FAILURE Status: Acute Plan: acute on chronic (3) Leukopenia Code(s): D72.819 - DECREASED WHITE BLOOD CELL COUNT, UNSPECIFIED Status: Acute (4) Anemia in chronic kidney disease (CKD) Code(s): N18.9 - CHRONIC KIDNEY DISEASE, UNSPECIFIED; D63.1 - ANEMIA IN CHRONIC KIDNEY DISEASE Status: Chronic (5) Hypertension Code(s): I10 - ESSENTIAL (PRIMARY) HYPERTENSION Status: Chronic Qualifiers: Hypertension type: essential hypertension Qualified Code(s): I10 - Essential (primary) hypertension (6) T2DM (type 2 diabetes mellitus) Status: Resolved - Plan Plan: 56 yo f with ESRD on HD TRS, dCHF, and dm, present in volume overload and altered mental status admitted for dialysis. 1.) ESRD on HD: Dr. Smith consulted; appreciate recs. BUN/Cr yesterday 25 and 2.98 , respectively which is improved and back to baseline. Patient does not abide by fluid restriction recommendations while at home. Counseled on importance of fluid restriction to prevent fluid overload. Patient due for dialysis today. Will discharge home today after dialysis if volume status stable. 2.) dCHF, acute exacerbation, volume overloaded: Due for dialysis today (TTS). Will reevaluate after dialysis and consider discharge home. 3.) HTN, controlled: Will continue home meds, contine to monitor BP. 4.) DM-uncontrolled: Lantus 12 Units. BG this AM 240. Patient does not abide by CC diet at home. Counseled on importance of medication compliance, as well as diet compliance to reduce BG. Patient previously on short acting insulin at home. May consider adding this back to her medication regimen. Advised to follow closely with PCP to manage DM and adjust insulin appropriately. 5.) ACD: Stable. Worked up during prior admission. 6.) AMS-resolved, likely 2/2 ambien/gabapentin: This is a recurrent issue. dc'd ambien, however, this has been dc'd in the past, but patient has some left over at home. Gabapentin decreased. Will continue on the decreased dose of gabapentin at home. Long discussion regarding use of ambien. Advised patient to stop taking ambien as it is affecting her mental status. She seemed receptive. 7.) Hypoxia: Patient has been on O2 since being discharged from hospital a few months ago. She was being treated for pneumonia. Since that time her O2 sats have been very labile. She has been admitted to the hospital several times since then for different reasons. Each time she requires O2. A-a gradient increased. Recommend outpatient PFT's to further evaluate lung function and to investigate causes for hypoxia. Patient states she has not had PFTs done in the past. <Margaux Boland - Last Filed: 08/05/17 07:56> Attending Addendum - Attending Addendum I personally evaluated the patient and discussed the management with Dr. Boland I agree with the History, Examination, Assessment and Plan documented above. <Tye Elmore - Last Filed: 08/05/17 10:37>
[2017-08-05] MEDS: Mometasone 100 MCG HFA INHALER INH SCH (08:24)
[2017-08-05] MEDS: Insulin Detemir 100 UNITS/ML 12 UNITS in Pre-Filled Syringe 1 EACH SC SCH (08:55)
--- NOTE | 2017-08-05 12:48 | PRG ---
DATE OF SERVICE: 08/05/2017 SUBJECTIVE: Patient was seen and examined at bedside and overnight events noted. Patient denies an y shortness of breath or chest pain or palpitation. No history of nausea or vomiting or diarrhea or fever or chills or cramps. OBJECTIVE: SUBJECTIVE: This is a well build male in no apparent distress. VITAL SIGNS: Temperature 97.4, pulse 70, respiratory rate 22, blood pressure 131/61. HEENT: Atraumatic, normocephalic. Oral mucosa is moist. NECK: Supple. CARDIOVASCULAR: S1 and S2 heard, rate and rhythm regular. RESPIRATORY: Clear to auscultation. GASTROINTESTINAL: Abdomen is soft. MUSCULOSKELETAL: No tenderness, no edema. DERMATOLOGIC: No skin rash. NEUROLOGIC: Alert and awake and oriented X3. No focal neurologic deficits. Moving all the extremi ties. PSYCHIATRIC: Mood and affect normal. LABORATORY DATA: No labs done today. ASSESSMENT AND PLAN: 1. End-stage renal disease. Continue on hemodialysis on Monday, , and Monday. The shital ent was seen during dialysis and tolerating well. 2. Hypertension, remove fluid with dialysis. 3. Edema. 4. Anemia. 5. Overall, tolerating dialysis well. We will continue on dialysis Monday, Monday, and Monday.
[2017-08-05] MEDS: Calcium Acetate 667 MG CAP PO SCH ×3 (12:54→17:10)
[2017-08-05] MEDS: Gabapentin 100 MG CAP PO SCH ×2 (12:55→15:49)
[2017-08-05] MEDS: Heparin 5,000 UNITS/ML VIAL SC SCH ×2 (12:55→15:53)
[2017-08-05] MEDS: Furosemide 40 MG/4 ML VIAL IVP SCH (15:16)
[2017-08-05] MEDS: Amlodipine 10 MG TAB PO SCH (15:47)
[2017-08-05] MEDS: Aspirin 325 MG TAB PO SCH (15:47)
[2017-08-05] MEDS: cloNIDine 0.3 MG TAB PO SCH (16:45)
[2017-08-05] MEDS: Carvedilol 25 MG TAB PO SCH (16:45)
[2017-08-05] MEDS: Epoetin (ESRD) 20,000 UNITS/ML IVP SCH (16:46)
[2017-08-05 19:39] VITALS: BP 163/70; TEMP 98.3
--- NOTE | 2017-08-07 10:37 | DIS-2 ---
DATE OF ADMISSION: 08/03/2017 DATE OF DISCHARGE: 08/05/2017 RESIDENT PHYSICIAN: Dr. Margaux Boland ATTENDING PHYSICIAN: Dr. Tye Elmore CONSULTATIONS 1. Nephrology, Dr. Louise 2. Cardiac Rehab. PROCEDURES: 1. Brain CT, no acute intracranial abnormalities. 2. Chest x-ray: Cardiomegaly with bilateral pulmonary edema. DISCHARGE MEDICATIONS: 1. Insulin Detemir 12 units subcu every morning. 2. Gabapentin 100 mg oral t.i.d. 3. Aspirin 325 mg oral daily. 4. Atorvastatin 40 mg oral at bedtime. 5. Acetaminophen with codeine 1 tablet oral twice daily as needed. 6. Vitamin D3 5000 units oral daily. 7. Mometasone 100 mcg 2 inhalations daily. 8. Metoclopramide 2.5 mg oral 4 times daily. 9. Clonidine 0.3 mg oral twice daily. 10. Carvedilol 25 mg oral twice daily. 11. Artificial Tears solution 50 mL bottle 2 drops each eye every 2 hours as needed. 12. Ascorbic acid 500 mg oral twice daily. 13. Calcium acetate 1335 mg oral 3 times daily with meals. 14. Procrit 7500 units IV push every Monday, , and Monday. 15. Amlodipine besylate 10 mg oral daily. 16. Pantoprazole 40 mg oral daily. DISCONTINUED MEDICATIONS: Zolpidem tartrate 10 mg oral at bedtime. HISTORY OF PRESENT ILLNESS/HOSPITAL COURSE: This is a 56-year-old female with multiple medical comorbidities who had a recent admission for altered mental status and was discharged home in good condition. Over the last day she has become progressively more fatigued, dizzy and short of breath with worsening swelling of lower extremities. Her family also felt like she was more tired and fatigued and has not been as responsive. They made a decision to take her to the emergency department. In the emergency department, she was found to have pulmonary edema and volume overload. CT of the head was negative. Chest x -ray did confirm pulmonary edema bilaterally. She was admitted to our service. She was immediately taken to dialysis where she had 3.9 liters of fluid removed. The patient remained stable throughout the course of her hospital stay, she continued to improve after dialysis. She received dialysis on the day of admission as well as on Monday. Her normal dialysis days are Monday, and Monday. Dialysis was the necessary means of improving the patient's fluid status as she does not urinate much and Lasix was not helpful with diuresis. Nephrology was on the case and they agreed that after her dialysis session on Monday she was stable and cleared to go home. As her primary care physician, I discussed with patient at length the necessity for very close followup. There have been multiple times that she has been scheduled to be seen in clinic and has not shown up. The patient is back in the hospital on multiple occasions due to fluid overload or altered mental status. Of note, the family reports that she has been taking more than the prescribed amount of Ambien. This is not the first time that this has been reported. I had a lengthy discussion with patient regarding discontinuation of Ambien as this affects her mental status. 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 She has no refills left at this time and I will not continue to refill this medication for her. Of note, the patient's AA gradient on ABG was significantly elevated. I do not see where she has had pulmonary function testing done in the past. I will recommend pulmonary function testing as an outpatient. The patient has had an oxygen requirement since being diagnosed with pneumonia and being hospitalized 2 -3 months ago. Prior to that hospitalization, the patient did not have an oxygen requirement that was noted. Outpatient PFTs may help to further evaluate obstructive versus restrictive lung diseases and assist with management. The patient was a former smoker. She smoked for a period of 10 years, but quit years ago. I recommend very close follow up with primary care physician at [facility]. The patient will require frequent followups in the primary care clinic and may need to continue with home health to assist her with her needs. The patient is also diabetic. Her blood glucose levels remained slightly elevated during the course of her hospital stay. Her Levemir was increased from 10 units to 12 units which seemed to improve glucose levels. I will continue to monitor this as an outpatient and adjust as necessary. It seems that the patient may need to be placed on mealtime insulin or have an additional agent added to her diabetic medication regimen for maximization of therapy and ideal blood glucose control. The patient needs a followup specifically for diabetes sometime in the near future. DISCHARGE INSTRUCTIONS: 1. Location: Home. 2. Diet: Consistent carbohydrate diet, no sodium, fluid restriction, heart healthy. 3. Activity: As tolerated. 4. Followup: The patient is to follow up with her primary care physician, Dr. Margaux Boland at [facility]. She has a scheduled appointment on 08/11/2017. She is aware of this appointment and states that she is going to follow up as advised. The patient was in understanding and agreement with the above-mentioned plan. I evaluated this patient with Dr. Boland and agree with pak portions of note above with the following addendum. Patient stated that she had been feeling ill with nausea prior to admission and had been eating [employer] soup as her primary food. We reiterated the need to stay on her diet, avoid high salt foods like soup. We think her fluid overload was primarily from dietary non-compliance. MD KAL Nance
== END 2017-08-05 19:41 | disposition home or self-care (01) | DRG 291 ==
LOC: ERS 10:11 → 2NO 12:42
PROVIDERS: ADMIT Internal Medicine; ATTEND Internal Medicine
PROC: 5A1D70Z Performance of Urinary Filtration, Intermittent, Less than 6 Hours Per Day (ICD-10-PCS; principal; 2017-08-03)
DX: I13.2 Hypertensive heart and chronic kidney disease with heart failure and with stage 5 chronic kidney disease, or end stage renal disease (principal); J96.21 Acute and chronic respiratory failure with hypoxia; N18.6 End stage renal disease; I50.33 Acute on chronic diastolic (congestive) heart failure; E87.1 Hypo-osmolality and hyponatremia; N25.81 Secondary hyperparathyroidism of renal origin; E11.22 Type 2 diabetes mellitus with diabetic chronic kidney disease; E11.65 Type 2 diabetes mellitus with hyperglycemia; E78.5 Hyperlipidemia, unspecified; M10.9 Gout, unspecified; D63.1 Anemia in chronic kidney disease; E87.70 Fluid overload, unspecified; D72.819 Decreased white blood cell count, unspecified; G62.9 Polyneuropathy, unspecified; R31.9 Hematuria, unspecified; R41.82 Altered mental status, unspecified; Z99.2 Dependence on renal dialysis; Z87.891 Personal history of nicotine dependence; Z99.81 Dependence on supplemental oxygen; Z82.49 Family history of ischemic heart disease and other diseases of the circulatory system; Z83.3 Family history of diabetes mellitus; Z82.61 Family history of arthritis; Z80.0 Family history of malignant neoplasm of digestive organs; T42.6X5A Adverse effect of other antiepileptic and sedative-hypnotic drugs, initial encounter
CPT/HCPCS: 36415; 36416; 51701; 70450; 71010; 80048; 80053; 81003; 81015; 82140; 82553; 82805; 83605; 83690; 83735; 83880; 84100; 84484; 85025; 87040; 87086; 87340; 90935; 93005; 93798; 94760; G0257; J1644; J1815; J1940; Q4081

== ENCOUNTER 2017-08-23 09:58 | Inpatient (IN) | payer MEDICARE, MEDICAID ==
[2017-08-23 10:57] LABS: #Eosinphils 0.2 thou/uL (0.0-0.7); #Monocytes 0.2 thou/uL (0.11-0.59); #Neutrophils 5.8 thou/uL (1.40-6.50); %Basophils 0.5 % (0.0-1.0); %Eosinophils 2.8 % (0.0-10.0); %Monocytes 2.5 % (0.0-10.0); Hematocrit 23.2 % (36.0-47.0); Mean Platelet Volume 7.1 fL (7.4-10.4); Red Blood Cell (RBC) Count 2.39 mill/uL (4.20-5.40); White Blood Cell (WBC) Count 7.2 thou/uL (4.8-10.8)
--- NOTE | 2017-08-23 10:59 | RAD ---
PORTABLE AP CHEST: Date: 08-23-17 History: Altered mental status. Comparison: 08-03-17 FINDINGS: Cardiac silhouette remains enlarged. There is increased bilateral perihilar interstitial and alveola r opacities, also present on the prior exam. Findings again may be related to asymmetric pulmonary e may though infectious process is a possibility. No pleural effusion is seen. There is osteopenia. N o other interval change. IMPRESSION: Bilateral perihilar interstitial and alveolar opacities with greater parenchymal density at the righ t lung base. Findings may be related to prominent asymmetric pulmonary edema or infectious process. Similar finding is noted on the prior exam. POS: [facility]
[2017-08-23 11:08] LABS: PTT 33.9 SEC (22.9-36.1); Prothrombin Time 16.2 SEC (12.0-14.7)
[2017-08-23 11:21] LABS: Troponin I 0.043 ng/mL (< 0.028)
[2017-08-23 11:25] LABS: ALT (SGPT) 31 U/L (8-55); AST (SGOT) 32 U/L (5-34); Alkaline Phosphatase 456 U/L (40-150); Anion Gap 18 mmol/L (10-20); BUN (Urea Nitrogen) 43 mg/dL (9.8-20.1); Bilirubin, Total 0.6 mg/dL (0.2-1.2); CK (CPK) 393 U/L (29-168); Calc. Creatinine Clearance 0 mL/min (70-130); Calcium 8.7 mg/dL (7.8-10.44); Carbon Dioxide 25 mmol/L (22-29); Chloride 99 mmol/L (98-107); Estimated GFR-MDRD 12; Lipase 29 U/L (8-78); Protein, Total 7.7 g/dL (6.0-8.3)
[2017-08-23 11:36] LABS: Lactic Acid - Sepsis 1.1 mmol/L (0.5-2.2)
[2017-08-23 11:50] LABS: Oxyhemoglobin 75.4 % (94.0-97.0); Sodium 137 mmol/L (135-148)
[2017-08-23 11:56] LABS: Modified Allen's Test POSITIVE
[2017-08-23 11:57] LABS: Mode NC; Vent NO
[2017-08-23] MEDS ORDERED: Nitroglycerin 2% Ointment 1 INCH/1 GM Packet ONE (12:10)
[2017-08-23] MEDS ORDERED: Aspirin 325 MG TAB PO SCH (13:00)
[2017-08-23] MEDS ORDERED: Dextrose 5% in Water 1,000 ML IV PRN (14:08)
[2017-08-23] MEDS ORDERED: Dextrose 50% Abboject 50 ML SYRINGE SLOW IVP PRN (14:08)
[2017-08-23] MEDS ORDERED: Ondansetron HCl/PF 4 MG/2 ML Vial IVP PRN (14:08)
[2017-08-23] MEDS ORDERED: HumaLOG 300 UNITS/3 ML VIAL SC PRN (14:12)
[2017-08-23 16:07] LABS: Troponin I 0.039 ng/mL (< 0.028)
[2017-08-23 16:08] LABS: Critical Call CKMBM RESULT DECREASING
[2017-08-23] MEDS ORDERED: Nitroglycerin 2% Ointment 1 INCH/1 GM Packet TOP SCH (20:00)
[2017-08-23 23:39] VITALS: BMI 20.5
--- NOTE | 2017-08-24 00:10 | CON ---
NEPHROLOGY CONSULTATION NOTE DATE OF CONSULTATION: 08/23/2017 CONSULTING PHYSICIAN: Dr. Roland from ER. REASON FOR CONSULTATION: End-stage renal disease evaluation and care. REASON FOR ADMISSION: Shortness of breath. HISTORY OF PRESENT ILLNESS: This is a 56-year-old female with history of end-stage renal disease, C HF, diabetes, anemia, chronic back pain and hypernatremia who came to the hospital with shortness of breath, found to have fluid overload. The patient is awaiting his dialysis Monday, and S , and is due for dialysis tomorrow. She was seen during dialysis and tolerating well, feelin g better. Already she had fluid overload. No chest pain or palpitation reported. No nausea, vomit ing or diarrhea. No fever or chills. No skin rash. PAST MEDICAL HISTORY: Positive for end-stage renal disease, type 2 diabetes, CHF, hypertension, hyp erlipidemia, hyponatremia, asthma and GERD. PAST SURGICAL HISTORY: Cholecystectomy, , hysterectomy and fistula placement. HOME MEDICATIONS: , pantoprazole, Levemir, carvedilol, amlodipine, metoclopramide, aspirin, L evaquin, clonidine and vitamin D3. ALLERGIES: No known drug allergies. SOCIAL HISTORY: No smoking, alcohol or illicit drug abuse. FAMILY HISTORY: No history of kidney disease. REVIEW OF SYSTEMS: The following complete review of systems was negative, unless otherwise mentione d in the HPI or below: Constitutional: Weight loss or gain, ability to conduct usual activities. Skin: Rash, itching. Eyes: Double vision, pain. ENT/Mouth: Nose bleeding, neck stiffness, pain, tenderness. Cardiovascular: Palpitations, dyspnea on exertion, orthopnea. Respiratory: Shortness of breath, wheezing, cough, hemoptysis, fever or night sweats. Gastrointestinal: Poor appetite, abdominal pain, heartburn, nausea, vomiting, constipation, or diar dwain. Genitourinary: Urgency, frequency, dysuria, nocturia. Musculoskeletal: Pain, swelling. Neurologic/Psychiatric: Anxiety, depression. Allergy/Immunologic: Skin rash, bleeding tendency. PHYSICAL EXAMINATION: GENERAL: This is a well-built female in no apparent distress. VITAL SIGNS: Temperature is 97.3, pulse 70, respiratory rate 18 and blood pressure 163/70. HEENT: Atraumatic and normocephalic. Oral mucosa is moist. NECK: Supple. No masses. HEART: S1 and S2 are heard. Rate and rhythm regular. RESPIRATORY: Chest had crackles. ABDOMEN: Soft. MUSCULOSKELETAL: No tenderness noted. DERMATOLOGIC: No skin rash. NEUROLOGIC: Alert and awake. PSYCHIATRIC: Mood and affect normal. LABORATORY DATA: Hemoglobin is 7.4. Potassium is 4.8, BUN is 43 and creatinine is 3.8. ASSESSMENT AND PLAN: 1. End-stage renal disease. Plan is to have dialysis today. Patient was evaluated and seen during dialysis. Plan is to remove fluid. We will have dialysis today and tomorrow for 4 hours each with ultrafiltration as tolerated. 2. Anemia. Recheck hemoglobin after fluid removal and transfuse if less than 7. 3. Hypertension. We will remove fluid with dialysis. 4. Fluid overload, edema with shortness of breath and pulmonary edema. We will remove fluid. 5. Hypoalbuminemia. Increase protein intake. 6. Hypertension, stable. Plan is to remove fluid with dialysis as tolerated. Patient was advised to limit fluid intake. Thank you for the consultation.
--- NOTE | 2017-08-24 00:18 | HP-2 ---
CODE STATUS: FULL. PRIMARY CARE PHYSICIAN: Margaux Boland DO ATTENDING PHYSICIAN: Virgen Mann M.D. RESIDENT: Mary Goodrich M.D. HISTORIAN: Patient. SPECIALIST: Dr. Louise of Nephrology. CHIEF COMPLAINT: Shortness of breath. HISTORY OF PRESENT ILLNESS: The patient is a 56-year-old female with a past medical history of end-stage renal disease on hemodialysis Monday, , and Monday, diastolic heart failure with an EF of 50%-55%, and insulin-dependent type 2 diabetes, who presented with acute onset of shortness of breath that started this morning. The patient states that she had dialysis as scheduled yesterday and was then instructed for an additional hemodialysis today; however, she had worsening shortness of breath and thus called EMS. She states that she has had progressive worsening swelling of her legs over the past few weeks as well. Denies missing any hemodialysis but states that she has increased her p.o. liquid intake over the past few days. In addition, the patient endorses chest pain that started this morning along with the shortness of breath. States that the chest pain is located at mid sternum, describes it as a tightness, 6/10 pain without any radiation. She does state that the chest pain improved with nitro that she was given in the ED. Denies any nausea, vomiting, diarrhea, vision changes, or headache. In the ER, the patient was given aspirin and Nitro-Bid. PAST MEDICAL HISTORY: 1. End-stage renal disease on hemodialysis Monday, , and Monday. 2. Diastolic congestive heart failure (EF 50%-55% on 01/2017). 3. Anemia of chronic disease. 4. Hypertension. 5. Hyperlipidemia. 6. Chronic back pain. 7. Gastroesophageal reflux disease. 8. Asthma. PAST SURGICAL HISTORY: 1. Cholecystectomy. 2. . 3. Hysterectomy. 4. Right second toe amputation. ALLERGIES: No known drug allergies. MEDICATIONS: 1. Coreg 25 mg p.o. b.i.d. 2. Acetaminophen/codeine No. 4 one tab p.o. b.i.d. 3. Amlodipine 10 mg p.o. daily. 4. Atorvastatin 40 mg p.o. at bedtime. 5. Aspirin 325 mg p.o. daily. 6. Protonix 40 mg p.o. daily. 7. Levemir 12 units subcu q.a.m. 8. Gabapentin 100 mg p.o. t.i.d. 9. Reglan 2.5 mg p.o. q.i.d. 10. Clonidine 0.3 mg p.o. b.i.d. 11. Vitamin D3 5000 units p.o. daily. 12. Epoetin 7500 units IV Monday, , and Monday. 13. Asmanex HFA 100 mcg 2 inhaled daily. 14. Vitamin C 500 mg p.o. b.i.d. 15. Calcium acetate 1334 mg p.o. t.i.d. with meals. 16. Artificial Tears 2 drops in each eye every 2 hours p.r.n. FAMILY HISTORY: Mom, diabetes and pancreatic cancer. SOCIAL HISTORY: 1. [id number]-eeql history but quit. 2. Alcohol none. Drugs: None. REVIEW OF SYSTEMS: A 12-point review of systems including general, eyes, respiratory, CV, GI, , skin, musculoskeletal, neuro, and psych are all negative except for pertinent positives mentioned in the HPI. PHYSICAL EXAMINATION: VITAL SIGNS: Blood pressure 153/75, pulse 89, respiratory rate 28, temperature 96.7, pulse ox ____% on 2 liters. Weight 57 kilos. GENERAL: Alert, oriented x3, no apparent distress, currently receiving hemodialysis. Appropriately interactive. EYES: PERRLA, EOMI. ENT: Nasal mucosa within normal. Oropharynx within normal. NECK: Supple, no lymphadenopathy. CARDIOVASCULAR: Regular rate and rhythm. No murmurs. Radial pulses 2+. RESPIRATORY: Bilateral rales. SKIN: No cyanosis or lesions. ABDOMEN: Soft, nontender to palpation. Bowel sounds x4. EXTREMITIES: 3+ pitting edema, right second toe amputation. MUSCULOSKELETAL: Structure within normal, tone within normal. NEUROLOGIC: No focal deficits. Sensation within normal. PSYCHIATRIC: Appropriate. LABORATORY DATA: Hemoglobin 7.4, hematocrit 23.2, MCV 97.1, white count 7.2, platelets 185. Sodium 137, potassium 4.8, chloride 99, bicarbonate 25, BUN 43, creatinine 3.85 , glucose 254. Calcium 8.7, serum total protein 7.7, albumin 3.7, AST 32, ALT 31, alkaline phosphatase 456, total bilirubin 0.6. Lactate 1.1. CK-MB 12.8. Troponin 0.043. BNP 3418. IMAGING: Chest x-ray bilateral perihilar interstitial and alveolar opacities, possibly indicative of asymmetric pulmonary edema or infectious process. ASSESSMENT AND PLAN: A 56-year-old female who presents with: 1. Hypoxia secondary to fluid overload secondary to end-stage renal disease. The patient is followed outpatient by Dr. Louise of Nephrology and received hemodialysis yesterday. The patient was told to come back for hemodialysis today for additional dialysis; however, she had acute shortness of breath this morning and thus called EMS. The patient currently has O2 sats in the 90s at 4 liters of O2 and currently receiving hemodialysis. Continue hemodialysis as scheduled and follow up with Dr. Louise's recommendations. 2. Atypical chest pain. The patient with initial indeterminate troponins; however, that is chronic for her likely secondary to her end-stage renal disease. EKG did not show any acute changes. We will continue to trend cardiac enzymes. Repeat EKG in the morning. Obtain a magnesium, phosphorous, and TSH. We will continue the patient on aspirin, statin, and nitro p.r.n. The patient did have a stress test on 01/2017 and was normal. 3. Hypertension. We will continue the patient's carvedilol, amlodipine, and clonidine. 4. Hyperlipidemia. The patient had a fasting lipid panel done on 01/2017 and was normal. We will continue on the patient's home atorvastatin. 5. Anemia of chronic disease. The patient had iron studies done on 06/2017, which was consistent with anemia of chronic disease. We will continue epoetin Monday, , and Monday and monitor. 6. Insulin-dependent type 2 diabetes. We will continue the patient on home Levemir, sliding scale insulin, and Accu-Cheks a.c. and at bedtime. 7. Elevated CK at 343, likely secondary to elevated CK-MB, which is likely secondary to end-stage renal disease. 8. Elevated alkaline phosphatase. This appears to be chronic in nature. The patient did have an abdominal ultrasound done recently, which showed a bile duct dilatation at 10 mm. The patient has a history of cholecystectomy. Patient currently denies any abdominal pain. 9. Chronic back pain. We will continue on the patient's home medications. 10. Diet: Renal and Consistent Carbohydrates 11. Prophylaxis: SCDs 12. Code Status: Full. Disposition and length of hospital stay: Less than 2 midnights. Symptomatic medications will be provided. History and physical exam, as well as management, discussed with Dr. Mann. KAL
[2017-08-24] MEDS ORDERED: hydrALAZINE 20 MG/ML VIAL SLOW IVP PRN (01:10)
[2017-08-24] MEDS: Acetaminophen 325 MG TAB PO PRN ×3 (01:26→12:45)
[2017-08-24 06:01] LABS: #Eosinphils 0.1 thou/uL (0.0-0.7); #Lymphocytes 1.1 thou/uL (1.20-3.40); #Monocytes 0.2 thou/uL (0.11-0.59); #Neutrophils 3.7 thou/uL (1.40-6.50); %Basophils 0.3 % (0.0-1.0); %Lymphocytes 22.2 % (21.0-51.0); %Monocytes 3.6 % (0.0-10.0); Hematocrit 21.9 % (36.0-47.0); Mean Platelet Volume 6.8 fL (7.4-10.4); Red Blood Cell (RBC) Count 2.25 mill/uL (4.20-5.40); White Blood Cell (WBC) Count 5.1 thou/uL (4.8-10.8)
[2017-08-24 06:25] LABS: ALT (SGPT) 21 U/L (8-55); AST (SGOT) 24 U/L (5-34); Alkaline Phosphatase 306 U/L (40-150); Anion Gap 15 mmol/L (10-20); BUN (Urea Nitrogen) 15 mg/dL (9.8-20.1); Bilirubin, Total 0.7 mg/dL (0.2-1.2); Calc. Creatinine Clearance 23 mL/min (70-130); Calcium 8.7 mg/dL (7.8-10.44); Carbon Dioxide 26 mmol/L (22-29); Chloride 100 mmol/L (98-107); Estimated GFR-MDRD 21; Globulin 3.8 g/dL (2.4-3.5); Magnesium 2.2 mg/dL (1.6-2.6); Phosphorus 2.8 mg/dL (2.3-4.7); Protein, Total 7.1 g/dL (6.0-8.3)
[2017-08-24] MEDS: Carvedilol 25 MG TAB PO SCH ×2 (06:32→17:26)
[2017-08-24] MEDS: Metoclopramide HCl 10 MG TAB PO SCH ×3 (07:23→17:26)
[2017-08-24] MEDS ORDERED: INSULIN DETEMIR SC SCH (09:00)
[2017-08-24] MEDS ORDERED: ADMIXTURE FEE SC SCH (09:00)
[2017-08-24] MEDS ORDERED: Amlodipine 10 MG TAB PO SCH (09:00)
[2017-08-24] MEDS ORDERED: Epoetin (ESRD) 20,000 UNITS/ML IVP SCH (09:00)
[2017-08-24] MEDS ORDERED: cloNIDine 0.3 MG TAB PO SCH (09:00)
[2017-08-24] MEDS ORDERED: Aspirin 325 MG TAB PO SCH (09:00)
--- NOTE | 2017-08-24 10:37 | PDOC.FM ---
- Subjective Subjective: 56 yo female with pmh of esrd on dialysis presenting again for fluid restriction non-compliance and volume overload. She was urgently dialyzed yesterday and is receiving dialysis once again today. She had no acute events overnight and denies CP, SOB, NVDC. - Objective Vital Signs & Weight: Vital Signs (12 hours) Temp Pulse Resp BP BP Pulse Ox 08/24/17 07:24 77 149/67 H 08/24/17 06:33 98.4 F 84 16 186/80 H 98 08/24/17 04:00 98.7 F 86 16 178/80 H 91 L 08/24/17 01:08 94 18 154/67 H 08/24/17 00:00 181/81 H Weight Weight 54.913 kg I&O: 08/23/17 08/24/17 08/25/17 06:59 06:59 06:59 Intake Total 480 Output Total 4000 Balance -3520 Result Diagrams: 08/24/17 05:42 08/24/17 05:42 <Marvin Rdz - Last Filed: 08/24/17 10:38> - Objective Vital Signs & Weight: Vital Signs (12 hours) Temp Pulse Resp BP BP Pulse Ox 08/24/17 07:24 77 149/67 H 08/24/17 06:33 98.4 F 84 16 186/80 H 98 08/24/17 04:00 98.7 F 86 16 178/80 H 91 L 08/24/17 01:08 94 18 154/67 H 08/24/17 00:00 181/81 H Weight Weight 121 lb 1 oz I&O: 08/23/17 08/24/17 08/25/17 06:59 06:59 06:59 Intake Total 480 Output Total 4000 Balance -3520 Result Diagrams: 08/24/17 05:42 08/24/17 05:42 <Tye Elmore - Last Filed: 08/24/17 10:44> Phys Exam - Physical Examination Constitutional: NAD HEENT: PERRLA, sclera anicteric Neck: no nodes Respiratory: no wheezing, no rhonchi, clear to auscultation bilateral scattered rales Cardiovascular: RRR, no significant murmur, no rub, gallop Gastrointestinal: soft, non-tender, no distention, positive bowel sounds Musculoskeletal: pulses present, edema present 3+, pitting Neurological: non-focal, normal sensation, moves all 4 limbs Psychiatric: normal affect Skin: no rash <Marvin Rdz - Last Filed: 08/24/17 10:38> Dx/Plan (1) Fluid overload Code(s): E87.70 - FLUID OVERLOAD, UNSPECIFIED Status: Acute (2) Anemia in chronic kidney disease (CKD) Code(s): N18.9 - CHRONIC KIDNEY DISEASE, UNSPECIFIED; D63.1 - ANEMIA IN CHRONIC KIDNEY DISEASE Status: Chronic (3) CHF (congestive heart failure) Code(s): I50.9 - HEART FAILURE, UNSPECIFIED Status: Chronic (4) ESRD (end stage renal disease) on dialysis Code(s): N18.6 - END STAGE RENAL DISEASE; Z99.2 - DEPENDENCE ON RENAL DIALYSIS Status: Chronic - Plan Plan: fluid overload 2/2 pt fluid restriction non-compliance. Pt readily admits this and is a frequent a recurring problem. She was urgently dialyzed yesterday and is receiving dialysis once again today. Nephrology has been consulted, appreciate recommendations continue home medications for other chronic medical conditions tylenol prn for pain. No narcotics. No ambien. hydralizine prn for elevated pressures, althrough elevated pressure likely 2/2 fluid overload. will plan for obs tonight and dc tomorrow, pending nephro recs <Marvin Rdz - Last Filed: 08/24/17 10:38> Attending Addendum - Attending Addendum I personally evaluated the patient and discussed the management with Dr. Rdz I agree with the History, Examination, Assessment and Plan documented above with any addition or exceptions noted below. Patient well known to me who returns with fluid overload. She is a dialysis patient and has been non compliant with her fluid restriction and diet. She is being dialyzed today and will pull off some extra fluid. <Tye Elmore - Last Filed: 08/24/17 10:44>
[2017-08-24 14:42] VITALS: BP 154/75; TEMP 96.7
[2017-08-24] MEDS: Gabapentin 100 MG CAP PO SCH ×2 (14:43)
--- NOTE | 2017-08-24 17:13 | PQF ---
CLINICAL DOCUMENTATION IMPROVEMENT CLARIFICATION FORM: ICD-10 Updated PLEASE DO AN ADDENDUM TO THE PROGRESS NOTE WITH ANY DOCUMENTATION UPDATES OR ADDITIONS AND CARRY THROUGH TO DC SUMMARY. THANK YOU. DATE: 08/24/17 ATTN: Dr. Marvin Rdz/ Attending Dr. Elmore Please exercise your independent, professional judgment in responding to the clarification form. Clinical indicators are provided on the bottom of this form for your review Please check appropriate box(s): [ x ] Acute Respiratory Failure: [x ] with Hypoxia[ ] with Hypercapnia [ ] Acute On Chronic Respiratory Failure: [ ] with Hypoxia [ ] with Hypercapnia [ ] Acute Respiratory Failure due to: (etiology) [ ] Other diagnosis [ ] Unable to determine For continuity of documentation, please document condition throughout progress notes and discharge summary. Thank You. CLINICAL INDICATORS - SIGNS / SYMPTOMS / LABS ED REPORT: RESP 28, O2 SAT 78 ON 2L OXYGEN O2 SAT 90-95 ON 4L OXYGEN H&P: HYPOXIA SECONDARY TO FLUID OVERLOAD SECONDARY TO ESRD. PT CURRENTLY HAS O2 SATS IN THE 90S AT 4 LITERS OF O2 ABG: PO2 39.2 RISKS: H&P: HX OF ESRD; DIASTOLIC HEART FAILURE; DM 2 TREATMENT: CPOE 08/23: RESP: O2 TO KEEP SATS 92% RENAL CONSULT: WILL HAVE DIALYSIS TODAY & TOMORROW FOR 4 HRS EACH W/ ULTRAFILTRATION TOLERATED Thank you, Katheryn (This form is maintained as a part of the permanent medical record) 2014 [email or web address]. All Rights Reserved Katheryn Agarwal RN, BSN [email or web address] Office: [phone] [facility]
[2017-08-24] MEDS ORDERED: Atorvastatin Calcium 40 MG TAB PO SCH (21:00)
--- NOTE | 2017-08-24 23:35 | PRG ---
DATE OF SERVICE: 08/24/2017 SUBJECTIVE: Patient was seen and examined at bedside and overnight events noted. Patient denies an y shortness of breath or chest pain or palpitation. No history of nausea or vomiting or diarrhea or fever or chills or cramps. OBJECTIVE: GENERAL: This is a well-built female, in no apparent distress. VITAL SIGNS: Temperature 96.7, pulse 77, respiratory rate 18, blood pressure 154/75. HEENT: Atraumatic, normocephalic, oral mucosa is moist. NECK: Supple. CARDIOVASCULAR: S1, S2 heard, rate and rhythm regular. RESPIRATORY: Clear to auscultation. GASTROINTESTINAL: Abdomen is soft. MUSCULOSKELETAL: No tenderness, no edema. DERMATOLOGIC: No skin rash. NEUROLOGIC: Alert and awake and oriented x3, no focal neurologic deficits. Moving all the extremit ies. PSYCHIATRIC: Mood and affect normal. LABORATORY DATA: Potassium is 3.3, BUN is 15, creatinine is 2.3. ASSESSMENT AND PLAN: 1. End-stage renal disease, dialysis as tolerated. I have seen during dialysis. 2. Anemia. 3. Hypertension fluid overload . The patient had 2 sessions of dialysis in a row and we will advise to limit fluid intake.
--- NOTE | 2017-08-25 12:55 | DIS-2 ---
DATE OF ADMISSION: 08/23/2017 DATE OF DISCHARGE: LOCATION: [place], [place] RESIDENT PHYSICIAN: Dr. Marvin Rdz ADMITTING ATTENDING: Dr. Tye Elmore DISCHARGE ATTENDING: Dr. Tye Elmore CONSULTATIONS: Nephrology, Dr. Sera Louise PROCEDURES: Chest x-ray on 08/23/2017 showed bilateral perihilar interstitial and alveolar opacitie s with greater parenchymal density at the right lung base. Findings may be related to prominent asy mmetric pulmonary edema or infectious process. Similar finding is noted on the prior exam. PRIMARY DIAGNOSES: 1. Acute on chronic hypoxic respiratory failure. 2. Volume overload. 3. Congestive heart failure exacerbation. SECONDARY DIAGNOSES: 1. End-stage renal disease on dialysis. 2. Type 2 diabetes. 3. Anemia of chronic disease. 4. Hyperlipidemia. DISCHARGE MEDICATIONS: 1. Tylenol #4 300 mg/60 mg tab, 1 tab p.o. b.i.d. 2. Amlodipine 10 mg p.o. daily. 3. Artificial Tears solution 2 drops each eye q.2h. 4. Vitamin C 500 mg p.o. b.i.d. 5. Aspirin 325 mg p.o. daily. 6. Atorvastatin 40 mg p.o. daily. 7. Calcium acetate 1334 mg p.o. t.i.d. 8. Carvedilol 25 mg p.o. b.i.d. 9. Vitamin D3 5000 units p.o. daily. 10. Procrit 7500 units IV push, Monday, , and Monday. 11. Neurontin 100 mg p.o. t.i.d. 12. Levemir 12 units subcu every morning. 13. Metoclopramide 2.5 mg p.o. 4 times a day. 14. Asmanex 2 inhalers, 2 puffs of inhaler daily. 15. Protonix 40 mg p.o. daily. 16. Clonidine 0.3 mg p.o. b.i.d. DISCONTINUED MEDICATIONS: None. HISTORY OF PRESENT ILLNESS AND HOSPITAL COURSE: The patient is a 56-year-old female with past medic al history of end-stage renal disease on hemodialysis Monday, , and Monday as well as zack stolic heart failure, insulin-dependent type 2 diabetes who presented to the ED with acute onset of shortness of breath. The patient reported on admission that she was scheduled for dialysis the day prior, went to her scheduled appointment. However, they noted she was going to need an additional d ay of dialysis, but she had worsening shortness of breath as well as increased swelling of her lower extremities and decided to call EMS. Upon talking to the patient, she states she is not compliant with her fluid restrictions. This is a chronic and often repeated problem as the patient has had [facility] hospitalizations for the same reason. She was dialyzed on the night of admission as well as the following day to remove the extra fluid. After dialysis, her symptoms had resolved. Her oxygen saturation had improved from below 91% to 98% on discharge, her blood pressure had also improved fr om 185/67 to 154/75. Her hemoglobin on discharge was 7.0 and stable from her prior values. Her BNP on this most recent admission was 3418. DISPOSITION: Stable. DISCHARGE INSTRUCTIONS: 1. Location: Home. 2. Diet: Renal, heart healthy diabetic diet. 3. Activity: As tolerated. 4. Follow up with primary care provider in 7-10 days. 5. Follow up with Nephrology for scheduled dialysis session.
--- NOTE | 2017-09-03 14:36 | EKG ---
Test Reason : Blood Pressure : / mmHG Vent. Rate : 075 BPM Atrial Rate : 075 BPM P-R Int : 152 ms QRS Dur : 080 ms QT Int : 416 ms P-R-T Axes : 043 -09 032 degrees QTc Int : 464 ms Normal sinus rhythm Possible Left atrial enlargement Borderline ECG Confirmed by TIARA SAAB (2) on 09/03/2017 2:36:10 PM Referred By: MAXIME Confirmed By:TIARA SAAB
--- NOTE | 2017-10-14 10:40 | EKG ---
Test Reason : Blood Pressure : / mmHG Vent. Rate : 089 BPM Atrial Rate : 089 BPM P-R Int : 152 ms QRS Dur : 078 ms QT Int : 384 ms P-R-T Axes : 027 -13 027 degrees QTc Int : 467 ms Normal sinus rhythm Possible Left atrial enlargement Borderline ECG Confirmed by RENEE JUAN M.D. ([id number]), editorial specialist CANDI DUNN ([id number]) on 10/14/2017 10:39:38 AM Referred By: Confirmed By:RENEE JUAN M.D.
== END 2017-08-24 16:55 | disposition home or self-care (01) | DRG 291 ==
LOC: ERS 09:58 → 2NO 12:07
PROVIDERS: ADMIT Internal Medicine; ATTEND Internal Medicine
PROC: 5A1D70Z Performance of Urinary Filtration, Intermittent, Less than 6 Hours Per Day (ICD-10-PCS; principal; 2017-08-23)
DX: I13.2 Hypertensive heart and chronic kidney disease with heart failure and with stage 5 chronic kidney disease, or end stage renal disease (principal); N18.6 End stage renal disease; J96.01 Acute respiratory failure with hypoxia; I50.33 Acute on chronic diastolic (congestive) heart failure; E11.22 Type 2 diabetes mellitus with diabetic chronic kidney disease; Z99.2 Dependence on renal dialysis; Z79.4 Long term (current) use of insulin; D63.1 Anemia in chronic kidney disease; Z91.19 Patient's noncompliance with other medical treatment and regimen; E78.5 Hyperlipidemia, unspecified; K21.9 Gastro-esophageal reflux disease without esophagitis; J45.909 Unspecified asthma, uncomplicated; Z87.891 Personal history of nicotine dependence; G89.29 Other chronic pain; M54.9 Dorsalgia, unspecified; E88.09 Other disorders of plasma-protein metabolism, not elsewhere classified
CPT/HCPCS: 36415; 36416; 71010; 80053; 82553; 82805; 83605; 83690; 83735; 83880; 84100; 84443; 84484; 85025; 85610; 85730; 86850; 86900; 86901; 87040; 90935; 93005; 93010; 94760; G0257; J1815; Q4081

== ENCOUNTER 2017-08-29 08:04 | Emergency (ER) | payer MEDICARE, MEDICAID ==
--- NOTE | 2017-08-29 08:32 | RAD ---
FRONTAL RADIOGRAPH CHEST: Date: 08-29-17 Comparison: 08-23-17 History: Difficulty breathing, dyspnea. FINDINGS: There is pulmonary vascular congestion with extensive increased linear interstitial density througho ut the perihilar regions in both lung bases. Interstitial opacity and pulmonary vascular congestion has improved since the 08-23-17. There is no pneumothorax or large volume pleural effusion. The cardi ac silhouette is prominent. IMPRESSION: Findings suggesting improving pulmonary edema. Infectious pneumonitis or inflammatory interstitial p rocess cannot be excluded. Continued follow up to full resolution advised. POS: [facility]
[2017-08-29] MEDS ORDERED: Nitroglycerin 2% Ointment 1 INCH/1 GM Packet ONE (09:06)
[2017-08-29 09:13] LABS: #Eosinphils 0.3 thou/uL (0.0-0.7); #Lymphocytes 0.9 thou/uL (1.20-3.40); #Monocytes 0.4 thou/uL (0.11-0.59); #Neutrophils 4.3 thou/uL (1.40-6.50); %Basophils 0.1 % (0.0-1.0); %Eosinophils 4.5 % (0.0-10.0); %Lymphocytes 15.5 % (21.0-51.0); %Monocytes 6.4 % (0.0-10.0); Hematocrit 19.4 % (36.0-47.0); Mean Platelet Volume 6.7 fL (7.4-10.4); Red Blood Cell (RBC) Count 1.99 mill/uL (4.20-5.40); White Blood Cell (WBC) Count 5.9 thou/uL (4.8-10.8)
[2017-08-29 09:19] LABS: PTT 33.1 SEC (22.9-36.1); Prothrombin Time 16.2 SEC (12.0-14.7)
[2017-08-29 09:42] LABS: ALT (SGPT) 41 U/L (8-55); AST (SGOT) 42 U/L (5-34); Alkaline Phosphatase 660 U/L (40-150); Anion Gap 19 mmol/L (10-20); BUN (Urea Nitrogen) 92 mg/dL (9.8-20.1); Bilirubin, Total 0.5 mg/dL (0.2-1.2); CK (CPK) 225 U/L (29-168); Calc. Creatinine Clearance 0 mL/min (70-130); Calcium 7.9 mg/dL (7.8-10.44); Carbon Dioxide 23 mmol/L (22-29); Chloride 90 mmol/L (98-107); Estimated GFR-MDRD 7; Globulin 3.7 g/dL (2.4-3.5); Lipase 71 U/L (8-78); Protein, Total 7.1 g/dL (6.0-8.3)
[2017-08-29 09:44] LABS: Troponin I 0.028 ng/mL (< 0.028)
== END 2017-08-29 10:26 | disposition home or self-care (01) ==
LOC: ERS 08:04
DX: I13.2 Hypertensive heart and chronic kidney disease with heart failure and with stage 5 chronic kidney disease, or end stage renal disease (principal); N18.6 End stage renal disease; I50.9 Heart failure, unspecified; E87.70 Fluid overload, unspecified; E10.9 Type 1 diabetes mellitus without complications; E78.5 Hyperlipidemia, unspecified; Z79.899 Other long term (current) drug therapy
CPT/HCPCS: 71010; 80053; 82553; 83690; 83880; 84484; 85025; 85610; 85730; 93005

== ENCOUNTER 2017-08-30 13:10 | Emergency (ER) | payer MEDICARE, MEDICAID ==
--- NOTE | 2017-08-30 14:42 | RAD ---
CHEST 1 VIEW: HISTORY: Dyspnea and shortness of breath. COMPARISON: Chest 1 view 08/29/17. FINDINGS: Heart size continues to be enlarged. Worsening lower lobe airspace opacities. Moderate edema. No pneumothorax. Small effusions. IMPRESSION: Cardiomegaly with worsening interstitial opacities suggesting worsening effusions. There is also inc reased confluence of the right lower lobe airspace opacity, also likely edema, although developing in fection cannot be excluded. POS: [facility]
[2017-08-30 15:53] LABS: #Eosinphils 0.1 thou/uL (0.0-0.7); #Lymphocytes 0.9 thou/uL (1.20-3.40); #Monocytes 0.1 thou/uL (0.11-0.59); #Neutrophils 3.8 thou/uL (1.40-6.50); %Basophils 0.2 % (0.0-1.0); %Eosinophils 2.3 % (0.0-10.0); %Lymphocytes 18.2 % (21.0-51.0); %Monocytes 1.9 % (0.0-10.0); Hematocrit 19.3 % (36.0-47.0); Mean Platelet Volume 7.1 fL (7.4-10.4); Red Blood Cell (RBC) Count 2.01 mill/uL (4.20-5.40); White Blood Cell (WBC) Count 4.9 thou/uL (4.8-10.8)
[2017-08-30 16:19] LABS: Troponin I 0.045 ng/mL (< 0.028)
[2017-08-30 16:26] LABS: ALT (SGPT) 41 U/L (8-55); AST (SGOT) 32 U/L (5-34); Alkaline Phosphatase 513 U/L (40-150); Anion Gap 13 mmol/L (10-20); BUN (Urea Nitrogen) 26 mg/dL (9.8-20.1); Bilirubin, Total 0.9 mg/dL (0.2-1.2); Calc. Creatinine Clearance 0 mL/min (70-130); Calcium 9.2 mg/dL (7.8-10.44); Carbon Dioxide 27 mmol/L (22-29); Chloride 99 mmol/L (98-107); Estimated GFR-MDRD 23; Globulin 3.7 g/dL (2.4-3.5); Protein, Total 7.1 g/dL (6.0-8.3)
== END 2017-08-30 17:03 | disposition home or self-care (01) ==
LOC: ERS 13:10
DX: E87.70 Fluid overload, unspecified (principal); E10.40 Type 1 diabetes mellitus with diabetic neuropathy, unspecified; E10.22 Type 1 diabetes mellitus with diabetic chronic kidney disease; E78.5 Hyperlipidemia, unspecified; I13.2 Hypertensive heart and chronic kidney disease with heart failure and with stage 5 chronic kidney disease, or end stage renal disease; I50.9 Heart failure, unspecified; M10.9 Gout, unspecified; N18.6 End stage renal disease; Z99.2 Dependence on renal dialysis; Z79.82 Long term (current) use of aspirin; Z79.899 Other long term (current) drug therapy
CPT/HCPCS: 71010; 80053; 82553; 84484; 85025; 93005

== ENCOUNTER 2017-08-30 21:04 | Inpatient (IN) | payer MEDICARE, MEDICAID ==
[2017-08-30] MEDS ORDERED: Nitroglycerin 2% Ointment 1 INCH/1 GM Packet ONE (22:08)
[2017-08-30 23:03] LABS: Troponin I 0.057 ng/mL (< 0.028)
[2017-08-30] MEDS ORDERED: Aspirin 325 MG TAB PO SCH (23:59)
[2017-08-31] MEDS ORDERED: Dextrose 50% Abboject 50 ML SYRINGE SLOW IVP PRN (00:14)
[2017-08-31] MEDS ORDERED: Dextrose 5% in Water 1,000 ML IV PRN (00:14)
[2017-08-31] MEDS: Acetaminophen/Codeine 30-300mg Tablet PO PRN ×2 (01:26→13:34)
[2017-08-31 01:40] LABS: Troponin I 0.061 ng/mL (< 0.028)
[2017-08-31 04:46] LABS: #Eosinphils 0.1 thou/uL (0.0-0.7); #Monocytes 0.3 thou/uL (0.11-0.59); #Neutrophils 4.3 thou/uL (1.40-6.50); %Basophils 0.4 % (0.0-1.0); %Eosinophils 1.2 % (0.0-10.0); %Lymphocytes 16.9 % (21.0-51.0); %Monocytes 4.9 % (0.0-10.0); Hematocrit 19.3 % (36.0-47.0); Mean Platelet Volume 7.1 fL (7.4-10.4); Red Blood Cell (RBC) Count 1.98 mill/uL (4.20-5.40); White Blood Cell (WBC) Count 5.7 thou/uL (4.8-10.8)
[2017-08-31 04:51] LABS: Anion Gap 14 mmol/L (10-20); BUN (Urea Nitrogen) 42 mg/dL (9.8-20.1); Calc. Creatinine Clearance 21 mL/min (70-130); Calcium 8.9 mg/dL (7.8-10.44); Carbon Dioxide 26 mmol/L (22-29); Chloride 99 mmol/L (98-107); Estimated GFR-MDRD 15
[2017-08-31 04:57] LABS: Troponin I 0.064 ng/mL (< 0.028)
[2017-08-31] MEDS ORDERED: Ondansetron HCl 4 MG/5 ML UDCUP PO PRN (08:21)
[2017-08-31] MEDS: Ondansetron HCl/PF 4 MG/2 ML Vial IVP PRN ×3 (08:28→15:55)
[2017-08-31] MEDS ORDERED: Aspirin 81 mg Enteric Coated Tablet PO SCH (09:00)
--- NOTE | 2017-08-31 09:21 | HP-2 ---
DATE OF ADMISSION: 08/30/2017 CODE STATUS: FULL. PRIMARY CARE PHYSICIAN: Dr. Boland - [facility]. ATTENDING PHYSICIAN: Kobe Velasco M.D. RESIDENT: Amalia Ricks M.D. SPECIALIST: Dr. Kat is her equal opportunity representative. CHIEF COMPLAINT: Shortness of breath and chest pain. HISTORY OF PRESENT ILLNESS: This is a 56-year-old female with past medical history of end-stage renal disease on hemodialysis, hypertension, hyperlipidemia , anemia of chronic disease who has been having shortness of breath all day today. She reports it was worse when she moved herself. She is on 2 liters of oxygen at home, started having chest pain at 03:04 this afternoon after dialysis. She reports a sharp pain in the middle of her chest, it is constant, does not radiate. Nothing made it feel better or worse. She has a dry cough that started today. In the ER, she was given Nitro-Bid. PAST MEDICAL HISTORY: 1. ESRD on HD. 2. HFpEF, EF 50%-55% on 02/02/2017. 3. Anemia of chronic kidney disease. 4. Hypertension. 5. Hyperlipidemia. 6. Chronic back pain. 7. GERD. 8. Asthma. 9. Diabetes type 2. PAST SURGICAL HISTORY: 1. Cholecystectomy. 2. . 3. Hysterectomy. 4. Right second toe amputation. ALLERGIES: No known drug allergies. MEDICATIONS: 1. Tylenol #4 300 mg - 60 mg 1 tab b.i.d. 2. Amlodipine 10 mg daily. 3. Vitamin C 500 mg b.i.d. 4. Aspirin 325 mg daily. 5. Atorvastatin 40 mg daily. 6. Calcium acetate 1334 mg t.i.d. 7. Carvedilol 25 mg b.i.d. 8. Vitamin D3 5000 mg daily. 9. Procrit 7500 mg IV push, Monday, , and Monday. 10. Neurontin 100 mg t.i.d. 11. Levemir 12 units subcutaneous q.a.m. 12. Metoclopramide 2.5 mg q.i.d. 13. Asmanex 2 inhalers 2 puffs each. 14. Protonix 40 mg daily. 15. Clonidine 0.3 mg b.i.d. FAMILY HISTORY: Mom with diabetes and pancreatic cancer. SOCIAL HISTORY: Used to smoke one-half pack per day for 6 years, quit 30 years ago. Denies alcohol or drug use. REVIEW OF SYSTEMS: GENERAL: Denies fever, chills, fatigue. EYES: Denies vision changes. ENT: Denies rhinorrhea or sore throat. RESPIRATORY: Reports cough and shortness of breath. CARDIOVASCULAR: Reports chest pain and edema. GASTROINTESTINAL: Positive for nausea. Negative for vomiting, diarrhea, constipation, abdominal pain. GENITOURINARY: Still makes urine. Negative for dysuria or polyuria. SKIN: Negative for rashes or lesions. MUSCULOSKELETAL: Negative for pain or tenderness. NEUROLOGIC: Negative for weakness or numbness. PSYCHIATRIC: Negative for anxiety or depression. PHYSICAL EXAMINATION: VITAL SIGNS: Blood pressure 167/49, pulse 90, respiratory rate 20, temperature 98.2, and pulse oximetry 93% on 3 liters. GENERAL: Alert and oriented x3, no acute distress, well-nourished, appropriately interactive. HEENT: Pupils are equal, round, reactive to light. Extraocular muscles intact. Conjunctivae within normal limits. ENT: Nasal mucosa and oropharynx within normal limits. NECK: Supple, no lymphadenopathy. CARDIOVASCULAR: Regular rate and rhythm, 3/6 systolic murmur. A 2+ radial and pedal pulses. RESPIRATORY: Normal effort, no retractions. Crackles bilaterally. SKIN: Warm and dry. No cyanosis or lesions. ABDOMEN: Soft, nontender to palpation, normoactive bowel sounds. No mass or distention. EXTREMITIES: No cyanosis, 2+ pitting edema in bilateral lower extremities up to the knees. MUSCULOSKELETAL: Structure within normal limits. Right second toe amputation. Tone within normal limits, 5/5 muscle strength. Full range of motion. NEUROLOGICAL: No focal deficits. Sensation within normal limits. PSYCHIATRIC: Appropriate. LABORATORY DATA AND IMAGING: WBC 4.9, hemoglobin 6.4, hematocrit 19.3, platelets 189, sodium 135, potassium 3.7, chloride 99, CO2 27, BUN 26, creatinine 2.22, GFR 23, glucose 220, CK-MB 10.5, troponin 0.045, calcium 9.2, alkaline phosphatase 513, total bilirubin 0.9, AST 32, ALT 41. Chest x-ray showed cardiomegaly with worsening interstitial opacities suggesting worsening effusions, increased right lower lobe opacity likely edema. ASSESSMENT AND PLAN: This is a 56-year-old female who presents with: 1. Acute hypoxic respiratory failure secondary to volume overload. The patient has end-stage renal disease on hemodialysis. She is not fluid restrict at home. We will fluid restrict. Nephrology was consulted by the ED. Plan for hemodialysis tomorrow with 2 units packed red blood cells and we will give oxygen as needed. Patient is on 2 liters chronically at home. 2. Atypical chest pain. 3. Elevated cardiac enzymes chronically increased secondary to renal disease. They are currently at the patient's baseline, we will trend and we will monitor on tele. 4. End-stage renal disease on hemodialysis, Dr. Louise was consulted. The patient sees Dr. Kat outpatient, plan for hemodialysis tomorrow. 5. Severe anemia of chronic disease. Hemoglobin 6.4, plan to transfuse 2 units blood cells with dialysis tomorrow. We will monitor CBC. 6. Hypertension. Continue home medications. 7. Diabetes type 2. Accu-Cheks a.c. and at bedtime. Continue Levemir home dose sliding scale insulin and consistent carbohydrate diet. 8. Hyperlipidemia. Continue home medications. 9. Gastroesophageal reflux disease. Continue home medications. 10. Chronic elevation of alkaline phosphatase, likely secondary to biliary pathology, chronic and elevated and has been worked up in the past. 11. Deep venous thrombosis prophylaxis, sequential compression devices. DISPOSITION: Admit to tele. Symptomatic medications will be provided. History and physical exam as well as management discussed with Dr. Velasco. KAL
[2017-08-31 11:12] LABS: Troponin I 0.061 ng/mL (< 0.028)
[2017-08-31 11:18] VITALS: BMI 27.1
--- NOTE | 2017-08-31 11:32 | PDOC.EVN ---
Attending Addendum - Attending Addendum I personally evaluated the patient and discussed the management with Dr. Ricks. I agree with the History, Examination, Assessment and Plan documented in her H& P with any addition or exceptions noted below. Patient with ESRD on HD who is very well known to our service presenting with dyspnea and chest pain associated with fluid overload for noncompliance with fluid restrictions in outpatient setting. She has been hospitalized multiple times for similar issues. She was initially hypoxic with increased supplemental O2 requirement, but that has improved since HD initiated. She may likely need HD over the next several days to remove the excess fluid. Further, she was found to be anemic with Hgb of 6.2 that could certainly contribute to her symptoms. She is receiving 2u PRBCs during HD that may further worsen her fluid status. We will keep her on fluid restriction while in house. She is hypertensive that will need controlling, which is also likely due to fluid overload. Finally, she does have some elevation of cardiac enzymes without EKG changes that will need to be trended. This is likely a result of demand ischemia from her fluid overload and anemia, but if continues to trend up, will need cardiology consult. She has a normal stress from earlier this year.
[2017-08-31] MEDS: Aspirin 325 MG TAB PO SCH (13:35)
[2017-08-31] MEDS: Gabapentin 100 MG CAP PO SCH ×2 (13:35→22:08)
[2017-08-31] MEDS: Calcium Acetate 667 MG CAP PO SCH ×2 (13:35→22:08)
[2017-08-31] MEDS: Amlodipine 10 MG TAB PO SCH (13:35)
--- NOTE | 2017-08-31 17:08 | EKG ---
Test Reason : Blood Pressure : / mmHG Vent. Rate : 084 BPM Atrial Rate : 084 BPM P-R Int : 144 ms QRS Dur : 082 ms QT Int : 392 ms P-R-T Axes : 059 088 020 degrees QTc Int : 463 ms Normal sinus rhythm Normal ECG When compared with ECG of 30-AUG-2017 21:22, (Unconfirmed) Questionable change in QRS axis Confirmed by ROMÁN GONZALES, SAnitha (4) on 08/31/2017 5:07:57 PM Referred By: Confirmed By:DR. Jill FRANCE MD
[2017-08-31] MEDS ORDERED: Ketorolac Tromethamine 30 MG/ML VIAL IVP SCH (19:45)
[2017-08-31] MEDS ORDERED: Metoclopramide HCl 10 MG/2 ML VIAL IVP SCH (19:45)
[2017-08-31] MEDS ORDERED: diphenhydrAMINE 25 MG in Sodium Chloride 0.9% 50 ML IVPB SCH (19:45)
[2017-08-31] MEDS: cloNIDine 0.3 MG TAB PO SCH (22:07)
[2017-08-31] MEDS: HumaLOG 300 UNITS/3 ML VIAL SC PRN (22:18)
[2017-09-01 05:56] LABS: Anion Gap 14 mmol/L (10-20); BUN (Urea Nitrogen) 31 mg/dL (9.8-20.1); Calc. Creatinine Clearance 22 mL/min (70-130); Calcium 9.2 mg/dL (7.8-10.44); Carbon Dioxide 28 mmol/L (22-29); Chloride 98 mmol/L (98-107); Estimated GFR-MDRD 16
[2017-09-01 05:57] LABS: #Eosinphils 0.1 thou/uL (0.0-0.7); #Monocytes 0.3 thou/uL (0.11-0.59); #Neutrophils 3.2 thou/uL (1.40-6.50); %Basophils 0.9 % (0.0-1.0); %Eosinophils 2.5 % (0.0-10.0); %Lymphocytes 21.6 % (21.0-51.0); %Monocytes 5.7 % (0.0-10.0); Hematocrit 28.3 % (36.0-47.0); Mean Platelet Volume 7.2 fL (7.4-10.4); Red Blood Cell (RBC) Count 2.94 mill/uL (4.20-5.40); White Blood Cell (WBC) Count 4.7 thou/uL (4.8-10.8)
--- NOTE | 2017-09-01 06:14 | CON ---
DATE OF CONSULTATION: 08/31/2017 CONSULTING PHYSICIAN: Dr. Ricks REASON FOR CONSULTATION: End-stage renal disease. REASON FOR ADMISSION: Shortness of breath. HISTORY OF PRESENT ILLNESS: This is a 56-year-old female with history of end-stage renal disease, CH F, hypertension, hyperlipidemia, chronic back pain, came to the hospital with above complaints. The patient is noncompliant with fluid restriction and is having frequent admissions for fluid overload. No nausea, vomiting, no chest pain or palpitation reported. The patient was seen during dialysis. PAST MEDICAL HISTORY: Positive for end-stage renal disease, CHF, anemia, hypertension, hyperlipidemi a, chronic back pain, gastroesophageal reflux disease, asthma. PAST SURGICAL HISTORY: Cholecystectomy, , hysterectomy, and right second toe amputation. HOME MEDICATIONS: Tylenol, amlodipine, vitamin C, aspirin, atorvastatin, Calcium acetate, carvedilol , vitamin D, Procrit, Neurontin, Levemir, metoclopramide, aspirin, Protonix, clonazepam. ALLERGIES: No known drug allergies. SOCIAL HISTORY: No smoking, alcohol or illicit drug abuse. FAMILY HISTORY: No history of any kidney disease. REVIEW OF SYSTEMS: The following complete review of systems was negative, unless otherwise mentioned in the HPI or below: Constitutional: Weight loss or gain, ability to conduct usual activities. Skin: Rash, itching. Eyes: Double vision, pain. ENT/Mouth: Nose bleeding, neck stiffness, pain, tenderness. Cardiovascular: Palpitations, dyspnea on exertion, orthopnea. Respiratory: Shortness of breath, wheezing, cough, hemoptysis, fever or night sweats. Gastrointestinal: Poor appetite, abdominal pain, heartburn, nausea, vomiting, constipation, or diarrhea. Genitourinary: Urgency, frequency, dysuria, nocturia. Musculoskeletal: Pain, swelling. Neurologic/Psychiatric: Anxiety, depression. Allergy/Immunologic: Skin rash, bleeding tendency. PHYSICAL EXAMINATION: GENERAL: This is a thin-built female in no apparent distress. VITAL SIGNS: Temperature 99.1, pulse 70, respirations 16, blood pressure 171/74. HEENT: Atraumatic, normocephalic. Oral mucosa is moist. NECK: Supple. CARDIOVASCULAR: S1, S2. Rate and rhythm regular. RESPIRATORY: Clear. ABDOMEN: Soft. MUSCULOSKELETAL: 1+ edema. DERMATOLOGIC: No skin rash. NEUROLOGIC: Grossly normal. LABS: Hemoglobin is 6.2. Potassium 4.4, BUN 42, creatinine 3.1. ASSESSMENT AND PLAN: 1. End-stage renal disease on hemodialysis. Plan is to have dialysis. 2. Anemia, severe and possibly contributing to the symptoms. Agree with transfusion. Monitor. Con tinue as tolerated. 3. Edema, remove fluid. 4. Hypertension. 5. Fluid overload. Plan is to have dialysis with blood transfusion, removal of fluid. The patient might need at least 2 -3 sessions of dialysis in a row and recommend close monitor. Thank you for the consultation. We will follow.
[2017-09-01] MEDS: HumaLOG 300 UNITS/3 ML VIAL SC PRN ×3 (06:23→21:14)
[2017-09-01] MEDS ORDERED: FLU VACC QS2017-18 36 mo. & older 0.5 ML SYRINGE IM ONE (09:00)
--- NOTE | 2017-09-01 09:19 | PDOC.FM ---
- Subjective Subjective: Pt was in dialysis this morning. - Objective MAR Reviewed: Yes Vital Signs & Weight: Vital Signs (12 hours) Temp Pulse Resp BP BP BP Pulse Ox 09/01/17 07:05 98 F 63 18 158/66 H 98 09/01/17 04:00 98.6 F 65 16 152/67 H 92 L 09/01/17 02:03 96 09/01/17 00:00 98.6 F 65 16 148/67 H 96 08/31/17 22:07 173/77 H Weight Admit Weight 62.777 kg Weight 65.091 kg I&O: 08/31/17 09/01/17 09/02/17 06:59 06:59 06:59 Intake Total 190 1470 Balance 190 1470 Result Diagrams: 09/01/17 05:31 09/01/17 05:31 <Angélica Granados - Last Filed: 09/01/17 11:53> - Objective Vital Signs & Weight: Vital Signs (12 hours) Temp Pulse Resp BP BP BP Pulse Ox 09/01/17 13:11 173/77 H 09/01/17 13:00 98 F 63 18 09/01/17 07:05 98 F 63 18 158/66 H 98 09/01/17 04:00 98.6 F 65 16 152/67 H 92 L Weight Admit Weight 62.777 kg Weight 65.091 kg I&O: 08/31/17 09/01/17 09/02/17 06:59 06:59 06:59 Intake Total 190 1470 Balance 190 1470 Result Diagrams: 09/01/17 05:31 09/01/17 05:31 <Kobe Velasco - Last Filed: 09/01/17 14:38> Phys Exam - Physical Examination HEENT: PERRLA, moist MMs, sclera anicteric Neck: no JVD Respiratory: no wheezing, no rales, no rhonchi, clear to auscultation bilateral Cardiovascular: RRR, no significant murmur Gastrointestinal: soft, non-tender, no distention, positive bowel sounds Musculoskeletal: no edema, pulses present Neurological: non-focal, normal sensation, moves all 4 limbs Psychiatric: normal affect, A&O x 3 Skin: no rash <Angélica Granados - Last Filed: 09/01/17 11:53> Dx/Plan (1) ESRD (end stage renal disease) on dialysis Code(s): N18.6 - END STAGE RENAL DISEASE; Z99.2 - DEPENDENCE ON RENAL DIALYSIS Status: Chronic (2) Acute respiratory failure with hypoxia Code(s): J96.01 - ACUTE RESPIRATORY FAILURE WITH HYPOXIA Status: Acute (3) Diastolic left-sided congestive heart failure with preserved left ventricular function, NYHA class 4 Code(s): I50.30 - UNSPECIFIED DIASTOLIC (CONGESTIVE) HEART FAILURE Status: Acute (4) Anemia in chronic kidney disease (CKD) Code(s): N18.9 - CHRONIC KIDNEY DISEASE, UNSPECIFIED; D63.1 - ANEMIA IN CHRONIC KIDNEY DISEASE Status: Chronic - Plan Plan: 56 yo f presented with volume overload 2/2 ESRD and CHF admitted for acute hypoxic respiratory failure. 1.)Acute hypoxic respiratory failure 2/2 volume overload from ESRD. -Saturating at 96% on 2L (baseline for pt) -Nephro consulted who recommend daily dialysis for 2-3 days 2.)Anemia of chronic disease, improved Initial Hb ~6, now s/p 2 units prbcs and repeat Hb @ 9.3 3.)Elevated cardiac enzymes, 2/2 demand ischemia, downtrending -Normal stress test in january 17.) HTN, uncontrolled, 2/2 volume overload -Continue amlodipine and clonidine Dispo: possible dc tomorrow after dialysis <Angélica Granados - Last Filed: 09/01/17 11:53> Attending Addendum - Attending Addendum I personally evaluated the patient and discussed the management with Dr. Prabha Vaca. I agree with the History, Examination, Assessment and Plan documented above with any addition or exceptions noted below. Patient doing better this morning. Blood counts much improved after blood admin , and getting consecutive dialysis sessions to decrease fluid balance. She will likely be dialyzed again tomorrow and hopefully home at this point. Will need to continue to address her excessive fluid intake and how it is contributing to multiple hospitalizations and likely decreasing her life span. <Kobe Velasco - Last Filed: 09/01/17 14:38>
[2017-09-01] MEDS ORDERED: Heparin 1,000 UNITS/ML VIAL ONE (11:11)
--- NOTE | 2017-09-01 12:50 | PRG ---
DATE OF SERVICE: 09/01/2017 SUBJECTIVE: Patient was seen and examined at bedside and overnight events noted. Patient denies any shortness of breath or chest pain or palpitation. No history of nausea or vomiting or diarrhea or f ever or chills or cramps. OBJECTIVE: GENERAL: This is a thin built female seen during dialysis. VITAL SIGNS: Temperature 98.0, pulse 63, respiratory rate 18, blood pressure 158/68. HEENT: Atraumatic, normocephalic. Oral mucosa is moist. NECK: Supple. CARDIOVASCULAR: S1, S2 heard. Rate and rhythm regular. RESPIRATORY: Clear to auscultation. GASTROINTESTINAL: Abdomen is soft. MUSCULOSKELETAL: No tenderness, no edema. DERMATOLOGIC: No skin rash. NEUROLOGIC: Alert and awake and oriented x3. No focal neurologic deficits. Moving all the extremit ies. PSYCHIATRIC: Mood and affect normal LABORATORY DATA: Potassium is 3.8, BUN is 31, creatinine is 2.9. ASSESSMENT AND PLAN: 1. End-stage renal disease. Continue on hemodialysis as tolerated. 2. Anemia. 3. Edema. 4. Hypertension. 5. Fluid overload. Remove fluid with dialysis as tolerated. 6. We will continue to remove fluid with dialysis as tolerated. We will have dialysis today and the n continue dialysis on Monday, , and Monday. Patient was counseled to limit fluid intake and patient reports dry mouth with uncontrolled diabetes. Patient was encouraged to keep her sugar u nder control.
[2017-09-01] MEDS: Calcium Acetate 667 MG CAP PO SCH ×2 (13:10→21:13)
[2017-09-01] MEDS: Amlodipine 10 MG TAB PO SCH (13:10)
[2017-09-01] MEDS: Carvedilol 25 MG TAB PO SCH ×2 (13:10→16:58)
[2017-09-01] MEDS: cloNIDine 0.3 MG TAB PO SCH ×2 (13:11→21:28)
[2017-09-01] MEDS: Gabapentin 100 MG CAP PO SCH ×2 (13:11→21:13)
[2017-09-01] MEDS: Aspirin 325 MG TAB PO SCH (13:11)
[2017-09-02] MEDS: Acetaminophen/Codeine 30-300mg Tablet PO PRN (02:42)
[2017-09-02 05:10] LABS: #Eosinphils 0.2 thou/uL (0.0-0.7); #Lymphocytes 0.8 thou/uL (1.20-3.40); #Monocytes 0.4 thou/uL (0.11-0.59); #Neutrophils 4.4 thou/uL (1.40-6.50); %Basophils 0.7 % (0.0-1.0); %Eosinophils 3.9 % (0.0-10.0); %Lymphocytes 14.1 % (21.0-51.0); %Monocytes 6.6 % (0.0-10.0); Hematocrit 30.5 % (36.0-47.0); Mean Platelet Volume 6.9 fL (7.4-10.4); Red Blood Cell (RBC) Count 3.14 mill/uL (4.20-5.40); White Blood Cell (WBC) Count 5.9 thou/uL (4.8-10.8)
[2017-09-02] MEDS: HumaLOG 300 UNITS/3 ML VIAL SC PRN ×2 (05:23→17:01)
[2017-09-02 05:32] LABS: Anion Gap 13 mmol/L (10-20); BUN (Urea Nitrogen) 31 mg/dL (9.8-20.1); Calc. Creatinine Clearance 23 mL/min (70-130); Calcium 8.6 mg/dL (7.8-10.44); Carbon Dioxide 28 mmol/L (22-29); Chloride 94 mmol/L (98-107); Estimated GFR-MDRD 18
--- NOTE | 2017-09-02 06:23 | PDOC.FM ---
- Subjective Subjective: Pt states that she feels well today. She has no SOB or chest pain and states that she is ready to go home. There were no acute events over night. Pt denies all other symptoms in ROS - Objective MAR Reviewed: Yes Vital Signs & Weight: Vital Signs (12 hours) Temp Pulse Resp BP BP Pulse Ox 09/02/17 05:35 98.7 F 67 16 156/70 H 94 L 09/02/17 00:32 98.4 F 62 16 138/63 93 L 09/01/17 21:28 118/56 L 09/01/17 20:29 98.3 F 61 16 131/60 94 L 09/01/17 20:00 98.3 F 61 16 94 L Weight Admit Weight 62.777 kg Weight 65.091 kg I&O: 08/31/17 09/01/17 09/02/17 06:59 06:59 06:59 Intake Total 190 1470 1320 Output Total 0 Balance 190 1470 1320 Result Diagrams: 09/02/17 04:51 09/02/17 04:51 <Mykel Escalera - Last Filed: 09/02/17 10:55> - Objective Vital Signs & Weight: Vital Signs (12 hours) Temp Pulse Resp BP Pulse Ox 09/02/17 07:10 98.7 F 67 16 94 L 09/02/17 05:35 98.7 F 67 16 156/70 H 94 L 09/02/17 00:32 98.4 F 62 16 138/63 93 L Weight Admit Weight 62.777 kg Weight 65.091 kg I&O: 09/01/17 09/02/17 09/03/17 06:59 06:59 06:59 Intake Total 1470 1320 Output Total 0 Balance 1470 1320 Result Diagrams: 09/02/17 04:51 09/02/17 04:51 <Kobe Velasco - Last Filed: 09/02/17 11:24> Phys Exam - Physical Examination Constitutional: NAD HEENT: PERRLA, moist MMs Neck: no JVD Respiratory: clear to auscultation bilateral Cardiovascular: RRR, no significant murmur Gastrointestinal: soft, non-tender, no distention, positive bowel sounds Musculoskeletal: no edema Neurological: non-focal, normal sensation, moves all 4 limbs Lymphatic: no nodes Psychiatric: normal affect, A&O x 3 Skin: no rash, normal turgor <Mykel Escalera - Last Filed: 09/02/17 10:55> Dx/Plan (1) Acute respiratory failure with hypoxia Code(s): J96.01 - ACUTE RESPIRATORY FAILURE WITH HYPOXIA Status: Resolved (2) Diastolic left-sided congestive heart failure with preserved left ventricular function, NYHA class 4 Code(s): I50.30 - UNSPECIFIED DIASTOLIC (CONGESTIVE) HEART FAILURE Status: Chronic (3) ESRD (end stage renal disease) on dialysis Code(s): N18.6 - END STAGE RENAL DISEASE; Z99.2 - DEPENDENCE ON RENAL DIALYSIS Status: Chronic (4) Anemia in chronic kidney disease (CKD) Code(s): N18.9 - CHRONIC KIDNEY DISEASE, UNSPECIFIED; D63.1 - ANEMIA IN CHRONIC KIDNEY DISEASE Status: Chronic QualifierTitle: Chronic kidney disease stage: on chronic dialysis Qualified Code(s): N18.6 - End stage renal disease; D63.1 - Anemia in chronic kidney disease; D63.1 - Anemia in chronic kidney disease; Z99.2 - Dependence on renal dialysis; Z99.2 - Dependence on renal dialysis; Z99.2 - Dependence on renal dialysis; Z99.2 - Dependence on renal dialysis (5) Diabetes type I Status: Chronic - Plan Plan: 56 yo f presented with volume overload 2/2 ESRD and CHF admitted for acute hypoxic respiratory failure. 1.)Acute hypoxic respiratory failure 2/2 volume overload from ESRD. -Saturating in mid 90s on 2L (baseline for pt) -Overload appears to have resolved after multiple rounds of HD. She is scheduled for HD again today 2.)Anemia of chronic disease, improved Initial Hb 6.2, now s/p 2 units prbcs and repeat Hb @ 9.9 3.)Elevated cardiac enzymes, 2/2 demand ischemia, downtrending -Normal stress test in january 4.) HTN, uncontrolled, 2/2 volume overload -Continue amlodipine and clonidine 5.) DM -BG has been elevated for the past day dt pt not getting insulin. This has been restarted -Trend accuchecks during day Dispo: likely dc today after dialysis pending nephro recommendation and BG checks <Mykel Escalera - Last Filed: 09/02/17 10:55> Attending Addendum - Attending Addendum I personally evaluated the patient and discussed the management with Dr. Escalera. I agree with the History, Examination, Assessment and Plan documented above with any addition or exceptions noted below. Patient doing much improved from fluid overload and respiratory standpoint. She has now received HD 3 days in a row with improvement. She is stable for discharge from that standpoint. Unfortunately, she did not receive her basal insulin this morning even though it had been ordered, therefore she will receive that now and we will monitor her blood sugars through the day. If improved, she will be stable for discharge later today. <Kobe Velasco - Last Filed: 09/02/17 11:24>
--- NOTE | 2017-09-02 12:42 | PRG ---
Patient Name: BRIGIDO CASTILLO Date of service: 09/02/2017 Subjective: Patient was seen and examined at bedside and overnight events noted. Patient denies any shortness of breath or chest pain or palpitation. No history of nausea or vomiting or diarrhea or fever or chills or cramps. Objective: General: This is a thin-built female in no apparent distress. Vital signs: Temperature 98.7, pulse 67, respiratory rate 16, blood pressure 156/77. HEENT: Atraumatic, normocephalic. Oral mucosa is moist. Neck: Supple. Cardiovascular: S1 S2 heard. Rate and rhythm regular. Respiratory: Clear to auscultation. Gastrointestinal: Abdomen is soft. Musculoskeletal: No tenderness. No edema. Dermatologic: No skin rash. Neurologic: Alert and awake and oriented X3. No focal neurologic deficits. Moving all the extremit ies. Psychiatric: Mood and affect normal. LABORATORY: Potassium 4.0, BUN 31, creatinine was 2.7. ASSESSMENT AND PLAN: 1. End-stage renal disease. We will continue on hemodialysis. Patient was seen during dialysis and tolerating well. 2. Edema. We will remove fluid. 3. Hypertension. 4. Fluid overload. 5. Anemia of end-stage renal disease. Plan is to continue on dialysis as tolerated.
[2017-09-02] MEDS: Calcium Acetate 667 MG CAP PO SCH ×2 (13:50→21:35)
[2017-09-02] MEDS: Amlodipine 10 MG TAB PO SCH (13:50)
[2017-09-02] MEDS: Aspirin 325 MG TAB PO SCH (13:50)
[2017-09-02] MEDS: Carvedilol 25 MG TAB PO SCH ×2 (13:50→17:36)
[2017-09-02] MEDS: Gabapentin 100 MG CAP PO SCH ×2 (13:51→21:35)
[2017-09-02] MEDS: cloNIDine 0.3 MG TAB PO SCH ×2 (13:51→21:34)
[2017-09-02] MEDS: Insulin Detemir 100 UNITS/ML 12 UNITS in Pre-Filled Syringe 1 EACH SC SCH (13:53)
[2017-09-03] MEDS ORDERED: Insulin Detemir 100 UNITS/ML 10 UNITS in Pre-Filled Syringe 1 EACH SC SCH (00:15)
--- NOTE | 2017-09-03 05:38 | PDOC.FM ---
- Subjective Subjective: Pt feels well today and has no specific complaints. She refused her levemir last night because she was concerned about her blood sugar dropping, it was explained to her at the time that this was a basal insulin and would not cause hypoglycemia. She still refused. - Objective MAR Reviewed: Yes Vital Signs & Weight: Vital Signs (12 hours) Temp Pulse Resp BP BP Pulse Ox 09/03/17 03:14 98.4 F 62 20 136/64 100 09/02/17 23:23 97.5 F L 57 L 16 117/55 L 100 09/02/17 21:34 121/59 L 09/02/17 20:00 97.5 F L 57 L 16 100 09/02/17 19:11 97.9 F 60 16 121/59 L 100 Weight Admit Weight 62.777 kg Weight 50.5 kg I&O: 09/01/17 09/02/17 09/03/17 06:59 06:59 06:59 Intake Total 1470 1320 300 Output Total 0 5600 Balance 1470 1320 -5300 Result Diagrams: 09/03/17 05:30 09/03/17 05:30 <Mykel Escalera - Last Filed: 09/03/17 10:25> - Objective Vital Signs & Weight: Vital Signs (12 hours) Temp Pulse Resp BP BP Pulse Ox 09/03/17 08:19 98.2 F 62 12 95 09/03/17 08:14 62 121/59 L 09/03/17 08:00 98.2 F 64 12 120/60 97 09/03/17 03:14 98.4 F 62 20 136/64 100 09/02/17 23:23 97.5 F L 57 L 16 117/55 L 100 Weight Admit Weight 62.777 kg Weight 50.3 kg I&O: 09/02/17 09/03/17 09/04/17 06:59 06:59 06:59 Intake Total 1320 780 Output Total 0 5600 Balance 1320 -4820 Result Diagrams: 09/03/17 05:30 09/03/17 05:30 <Kobe Velasco - Last Filed: 09/03/17 10:31> Phys Exam - Physical Examination Constitutional: NAD HEENT: moist MMs Neck: no JVD, full ROM Respiratory: clear to auscultation bilateral Cardiovascular: RRR, no significant murmur Gastrointestinal: soft, non-tender, no distention Musculoskeletal: no edema Neurological: non-focal, moves all 4 limbs Lymphatic: no nodes Psychiatric: normal affect, A&O x 3 Skin: no rash, normal turgor <Mykel Escalera - Last Filed: 09/03/17 10:25> Dx/Plan (1) Acute respiratory failure with hypoxia Code(s): J96.01 - ACUTE RESPIRATORY FAILURE WITH HYPOXIA Status: Resolved (2) Diastolic left-sided congestive heart failure with preserved left ventricular function, NYHA class 4 Code(s): I50.30 - UNSPECIFIED DIASTOLIC (CONGESTIVE) HEART FAILURE Status: Chronic (3) ESRD (end stage renal disease) on dialysis Code(s): N18.6 - END STAGE RENAL DISEASE; Z99.2 - DEPENDENCE ON RENAL DIALYSIS Status: Chronic (4) Anemia in chronic kidney disease (CKD) Code(s): N18.9 - CHRONIC KIDNEY DISEASE, UNSPECIFIED; D63.1 - ANEMIA IN CHRONIC KIDNEY DISEASE Status: Chronic QualifierTitle: Chronic kidney disease stage: on chronic dialysis Qualified Code(s): N18.6 - End stage renal disease; D63.1 - Anemia in chronic kidney disease; D63.1 - Anemia in chronic kidney disease; Z99.2 - Dependence on renal dialysis; Z99.2 - Dependence on renal dialysis; Z99.2 - Dependence on renal dialysis; Z99.2 - Dependence on renal dialysis (5) Diabetes type I Status: Chronic - Plan Plan: 56 yo f presented with volume overload 2/2 ESRD and CHF admitted for acute hypoxic respiratory failure. 1.)Acute hypoxic respiratory failure 2/2 volume overload from ESRD. -Saturating in mid 90s on 2L (baseline for pt) -Overload appears to have resolved after multiple rounds of HD. She is scheduled for HD tomorrow 2.)Anemia of chronic disease, improved Initial Hb 6.2, now s/p 2 units prbcs and repeat Hb @ 9.9 3.)Elevated cardiac enzymes, 2/2 demand ischemia, downtrending -Normal stress test in january 17.) HTN, uncontrolled, 2/2 volume overload -Continue amlodipine and clonidine 5.) DM -BG has been elevated for the past day dt pt not getting insulin. This has been restarted -Trend accuchecks during day -Dt patient refusing insulin her BG leonard to an unacceptable level. Will work on getting it back down today prior to dc Dispo: likely dc today after control of blood glucose <Mykel Escalera - Last Filed: 09/03/17 10:25> Attending Addendum - Attending Addendum I personally evaluated the patient and discussed the management with Dr. Escalera. I agree with the History, Examination, Assessment and Plan documented above with any addition or exceptions noted below. Patient doing well this morning. Did not go home yesterday as blood glucose out of control as she did not get her morning basal insulin. Her blood sugars are better today. She is feeling well and wants to go home. Her sodium is mildly low this morning, likely a result of her chronic noncompliance with fluid restrictions. She will be having outpatient dialysis tomorrow and I advised her to follow up with that and educationed once more about fluid restriction needs to prevent further hospitalizations. <Kobe Velasco - Last Filed: 09/03/17 10:31>
[2017-09-03 06:06] LABS: #Eosinphils 0.3 thou/uL (0.0-0.7); #Lymphocytes 1.2 thou/uL (1.20-3.40); #Monocytes 0.4 thou/uL (0.11-0.59); #Neutrophils 3.4 thou/uL (1.40-6.50); %Basophils 0.5 % (0.0-1.0); %Lymphocytes 21.6 % (21.0-51.0); %Monocytes 8.1 % (0.0-10.0); Hematocrit 36.1 % (36.0-47.0); Mean Platelet Volume 6.9 fL (7.4-10.4); Red Blood Cell (RBC) Count 3.76 mill/uL (4.20-5.40); White Blood Cell (WBC) Count 5.4 thou/uL (4.8-10.8)
[2017-09-03 06:10] LABS: Anion Gap 14 mmol/L (10-20); BUN (Urea Nitrogen) 22 mg/dL (9.8-20.1); Calc. Creatinine Clearance 18 mL/min (70-130); Calcium 9.1 mg/dL (7.8-10.44); Carbon Dioxide 28 mmol/L (22-29); Chloride 90 mmol/L (98-107); Estimated GFR-MDRD 17
[2017-09-03] MEDS: HumaLOG 300 UNITS/3 ML VIAL SC PRN (06:34)
[2017-09-03] MEDS: Aspirin 325 MG TAB PO SCH (08:13)
[2017-09-03] MEDS: Calcium Acetate 667 MG CAP PO SCH (08:13)
[2017-09-03] MEDS: Gabapentin 100 MG CAP PO SCH (08:13)
[2017-09-03] MEDS: Amlodipine 10 MG TAB PO SCH (08:14)
[2017-09-03] MEDS: cloNIDine 0.3 MG TAB PO SCH (08:14)
[2017-09-03] MEDS: Carvedilol 25 MG TAB PO SCH (08:14)
[2017-09-03] MEDS: Insulin Detemir 100 UNITS/ML 12 UNITS in Pre-Filled Syringe 1 EACH SC SCH (08:38)
[2017-09-03] MEDS ORDERED: HumaLOG 300 UNITS/3 ML VIAL SC PRN (10:49)
[2017-09-03 12:33] VITALS: BP 124/59; TEMP 97.8
--- NOTE | 2017-09-03 13:39 | PRG ---
DATE OF SERVICE: 09/03/2017 SUBJECTIVE: Patient was seen and examined at bedside and overnight events noted. Patient denies any shortness of breath or chest pain or palpitation. No history of nausea or vomiting or diarrhea or f ever or chills or cramps. OBJECTIVE: GENERAL: This is a thin built female in no apparent distress. VITAL SIGNS: Temperature 97.8, pulse 63, respiratory rate 16, blood pressure 124/59. HEENT: Atraumatic, normocephalic, oral mucosa is moist NECK: Supple CARDIOVASCULAR: S1, S2 heard, rate and rhythm regular RESPIRATORY: Clear to auscultation GASTROINTESTINAL: Abdomen is soft MUSCULOSKELETAL: No tenderness, no edema DERMATOLOGIC: No skin rash NEUROLOGIC: Alert and awake and oriented x3, no focal neurologic deficits. Moving all the extremiti es. PSYCHIATRIC: Mood and affect normal LABORATORY DATA: Potassium is 4.5, sodium 127, BUN 22, creatinine is 2.83. ASSESSMENT AND PLAN: 1. End-stage renal disease. Add extra session of dialysis during this admission and fluid overload seems to be better. She is breathing better. 2. Hypernatremia, advised to limit fluid intake. 3. Edema, controlled. 4. Hypertension. 5. Fluid overload, better with dialysis. 6. Anemia of end-stage renal disease. Continue outpatient medications. 7. Continue on dialysis as tolerated. The patient was advised to limit fluid intake.
--- NOTE | 2017-09-03 19:53 | DIS-2 ---
DATE OF ADMISSION: 08/31/2017 DATE OF DISCHARGE: 09/03/2017 RESIDENT: Mykel Escalera D.O. ADMITTING ATTENDING: Kobe Velasco M.D. DISCHARGE ATTENDING: Kobe Velasco M.D. CONSULTATIONS: Sera Louise M.D., Nephrology. PROCEDURES: Hemodialysis on 08/31, 09/01 and 09/02. PRIMARY DIAGNOSIS: Acute hypoxic respiratory failure secondary to volume overload. SECONDARY DIAGNOSES: Diabetes mellitus, anemia of chronic disease, hypertension , end-stage renal disease and elevated troponins. DISCHARGE MEDICATIONS: Neurontin 100 mg p.o. b.i.d., aspirin 345 mg p.o. daily , Tylenol #4 361 p.o. b.i.d. p.r.n., Norvasc 10 mg p.o. daily, vitamin D3 and calcium acetate 1334 mg p.o. b.i.d., insulin detemir 12 units subcu a.m. DISCONTINUED MEDICATIONS: None. HOSPITAL COURSE: The patient was admitted with acute shortness of breath secondary to a hypoxic respiratory failure as she had been multiple times in the previous few months. It was determined that the patient was considerably volume overloaded as she had likely been noncompliant with her fluid restrictions while hospitalized. At the time of admission, she was given urgent hemodialysis. This was repeated for 3 days. By 09/02, she was euvolemic and asymptomatic and appeared to be back at her baseline. Prior to her hemodialysis on 09/02, she did not receive her basal insulin; therefore, her blood sugar was uncontrolled and she was unable to be discharged. On the evening of 09/02, she refused her insulin and thus, her blood sugars were not controlled overnight. After some discussion regarding the importance of basal insulin and how the basal insulin would not drop her blood sugar too low as was her concern, she agreed to take the medication. Her blood sugar was monitored throughout the day. At the time of discharge, her blood glucose was under 200. The importance of maintaining her volume restrictions as outlined by Dr. Louise was explained in detail. Additionally, the importance of following up with her PCP within the week was also emphasized. The patient agreed to both see her PCP outpatient and follow Nephrology recommendations as far as fluid intake is concerned and maintaining her hemodialysis as scheduled. DISPOSITION: Stable. DISCHARGE INSTRUCTIONS: 1. Location: Home. 2. Diet: A high protein, renal. 3. Activity: Ad roxie. 4. Followup: On Monday for hemodialysis and with her PCP within the week. [facility]
== END 2017-09-03 16:31 | disposition home or self-care (01) | DRG 291 ==
LOC: ERS 21:04 → 2SE 23:20
PROVIDERS: ADMIT Emergency Medicine; ATTEND Emergency Medicine
PROC: 5A1D70Z Performance of Urinary Filtration, Intermittent, Less than 6 Hours Per Day (ICD-10-PCS; principal; 2017-08-30)
PROC: 30233N1 Transfusion of Nonautologous Red Blood Cells into Peripheral Vein, Percutaneous Approach (ICD-10-PCS; 2017-08-30)
DX: I13.2 Hypertensive heart and chronic kidney disease with heart failure and with stage 5 chronic kidney disease, or end stage renal disease (principal); J96.01 Acute respiratory failure with hypoxia; N18.6 End stage renal disease; I50.33 Acute on chronic diastolic (congestive) heart failure; E87.0 Hyperosmolality and hypernatremia; I50.30 Unspecified diastolic (congestive) heart failure; E11.22 Type 2 diabetes mellitus with diabetic chronic kidney disease; Z99.2 Dependence on renal dialysis; Z79.4 Long term (current) use of insulin; D63.1 Anemia in chronic kidney disease; Z91.11 Patient's noncompliance with dietary regimen; K21.9 Gastro-esophageal reflux disease without esophagitis; E78.5 Hyperlipidemia, unspecified
CPT/HCPCS: 36415; 36416; 36430; 71010; 80048; 80053; 82553; 83690; 83880; 84484; 85025; 85610; 85730; 86850; 86900; 86901; 87340; 90935; 93005; 93010; A4216; G0257; J1200; J1644; J1815; J1885; J2405; J2765; J7050; P9016

== ENCOUNTER 2017-09-08 02:55 | Inpatient (IN) | payer MEDICARE, MEDICAID ==
[2017-09-08 03:52] LABS: #Basophils 0.1 thou/uL (0.0-0.2); #Eosinphils 0.4 thou/uL (0.0-0.7); #Lymphocytes 1.5 thou/uL (1.20-3.40); #Monocytes 0.5 thou/uL (0.11-0.59); #Neutrophils 5.5 thou/uL (1.40-6.50); %Basophils 0.6 % (0.0-1.0); %Eosinophils 4.9 % (0.0-10.0); %Lymphocytes 18.5 % (21.0-51.0); %Monocytes 6.2 % (0.0-10.0); Hematocrit 27.4 % (36.0-47.0); Mean Platelet Volume 6.5 fL (7.4-10.4); Red Blood Cell (RBC) Count 2.83 mill/uL (4.20-5.40); White Blood Cell (WBC) Count 7.9 thou/uL (4.8-10.8)
[2017-09-08 04:08] LABS: ALT (SGPT) 22 U/L (8-55); AST (SGOT) 15 U/L (5-34); Alkaline Phosphatase 468 U/L (40-150); Anion Gap 17 mmol/L (10-20); BUN (Urea Nitrogen) 60 mg/dL (9.8-20.1); Bilirubin, Total 0.5 mg/dL (0.2-1.2); CK (CPK) 127 U/L (29-168); Calc. Creatinine Clearance 0 mL/min (70-130); Calcium 8.4 mg/dL (7.8-10.44); Carbon Dioxide 24 mmol/L (22-29); Chloride 95 mmol/L (98-107); Estimated GFR-MDRD 8; Globulin 3.7 g/dL (2.4-3.5)
[2017-09-08 04:12] LABS: Troponin I 0.044 ng/mL (< 0.028)
[2017-09-08] MEDS ORDERED: Nitroglycerin 2% Ointment 1 INCH/1 GM Packet ONE (04:49)
[2017-09-08] MEDS ORDERED: Ondansetron HCl/PF 4 MG/2 ML Vial IVP PRN (04:51)
[2017-09-08] MEDS ORDERED: Dextrose 50% Abboject 50 ML SYRINGE SLOW IVP PRN (04:58)
[2017-09-08] MEDS ORDERED: Dextrose 5% in Water 1,000 ML IV PRN (04:58)
[2017-09-08] MEDS ORDERED: HumaLOG 300 UNITS/3 ML VIAL SC PRN (04:58)
[2017-09-08] MEDS ORDERED: Acetaminophen 325 MG TAB ONE (06:26)
--- NOTE | 2017-09-08 06:37 | HP-2 ---
DATE OF ADMISSION: 09/08/2017 LOCATION: [facility] in [place], [place] CODE STATUS: FULL. PRIMARY CARE PHYSICIAN: [facility]. ATTENDING PHYSICIAN: Dr. Desire Jansen RESIDENT PHYSICIAN: Dr. Marvin Rdz HISTORIAN: The patient's history provided by the patient. [facility] Nephrology, Dr. Kat. CHIEF COMPLAINT: Shortness of breath. HISTORY OF PRESENT ILLNESS: The patient is a 56-year-old female with past medical history of end-sta ge renal disease on dialysis Monday, and Monday, presents for increasing shortness of harvinder ath since 2:00 a.m. this morning. The patient admits to both dietary and fluid noncompliance and has been repeatedly hospitalized for the same thing. She is urgently dialyzed and then discharged home. She reports her symptoms are the same as the prior visit with shortness of breath and associated ch est pain. Also reports increasing edema bilateral lower extremities. Denies fever, chills, sweats, nausea, vomiting, diarrhea, constipation, congestion, pleuritic type pain. Does endorse a history of dry cough over the last 2 weeks. ER COURSE: Patient given aspirin and nitro in the ER. PAST MEDICAL HISTORY: End-stage renal disease on hemodialysis, hypertension, type 2 diabetes. PAST SURGICAL HISTORY: Left AV fistula. ALLERGIES: No known drug allergies. MEDICATIONS: 1. Aspirin 81 mg daily. 2. Amlodipine 10 mg daily. 3. Insulin Detemir 12 units subcutaneous q.a.m. 4. Gabapentin 100 mg daily. 5. PhosLo, unknown dose. 6. Pepcid. FAMILY HISTORY: Deferred. SOCIAL HISTORY: Nonsmoker, nondrinker, no drugs. REVIEW OF SYSTEMS: GENERAL: Denies fever, chills, night sweats, fatigue, complains of weight change. EYES: Denies vision change or eye pain. ENT: No nasal congestion, rhinorrhea, sore throat. RESPIRATORY: Complains of cough, shortness of breath, and exercise intolerance. No congestion. CARDIOVASCULAR: Complains of chest pain, edema and orthopnea. Denies palpitations. GI: Denies nausea, vomiting, diarrhea, constipation, abdominal pain. GENITOURINARY: Anuric. SKIN: No rashes or lesions. MUSCULOSKELETAL: Denies pain, tenderness, stiffness, arthritis and arthralgias. NEURO: Denies weakness, numbness, syncope. PSYCHIATRIC: Denies anxiety, depression. PHYSICAL EXAMINATION: VITAL SIGNS: Blood pressure 192/84, pulse 83, respiratory rate 18, T-max 98.4, pulse ox 92% on 2 lit ers nasal cannula. Current weight 52 kilograms. GENERAL: Alert and oriented, no acute distress. Well-developed, well-nourished, appropriately inter active. EYES: Pupils equal, round, reactive to light with accommodation. Extraocular muscles intact. Conju nctivae within normal limits. ENT: Oropharynx within normal limits. NECK: Supple, without lymphadenopathy. No thyromegaly. CARDIAC: Regular rate and rhythm, 2/6 systolic ejection murmur. No gallops. Radial pulse 2+. Peda l pulse 2+. RESPIRATORY: Normal effort, no retractions. Diffuse rales. Diminished bases in the lungs on auscul tation. SKIN: Warm and dry. No cyanosis. ABDOMEN: Soft, nontender. Normoactive bowel sounds in all 4 quadrants. No masses, distention or or ganomegaly. EXTREMITIES: No clubbing, cyanosis. 3+ bilateral lower extremity pitting edema to the knee. MUSCULOSKELETAL: Structure within normal limits. Tone within normal limits. NEUROLOGIC: No focal deficits. Sensation within normal limits. GCS 15. PSYCHIATRIC: Appropriately interactive. LABORATORY DATA: White blood cell 7.9, hemoglobin 9.3, hematocrit 27.4, platelets 268. Sodium 130, potassium 5.5, chloride 95, bicarbonate 24, BUN 60, creatinine 5.64, glucose 531, calcium 8.4, total protein 7.0, albumin 3.3, AST 15, ALT 22, alkaline phosphatase 468, total bilirubin 0.5, CK 127, CK-M B 10.7, troponin I 0.044. Chest x-ray showed changes consistent with volume overload, cardiomegaly a nd cephalization. ASSESSMENT AND PLAN: 1. Volume overload. The patient missed dialysis today and will require urgent hemodialysis. Consul t Nephrology, appreciate recommendations. 2. Hyponatremia. This is likely secondary to volume overload. The patient needs dialysis. 3. Hyperkalemia secondary to missed dialysis. The patient needs dialysis. Consult Nephrology, appr eciate recommendations. 4. Hyperglycemia. Resume home medications, insulin detemir 12 units q.a.m. Patient will be placed on moderate sliding scale insulin. 5. Elevated troponins secondary to demand ischemia in combination with end-stage renal disease. We will trend x3. 6. Elevated CK-MB as above. 7. Prophylaxis. SCDs and Pepcid for deep venous thrombosis and gastrointestinal prophylaxis, respec tively. 8. Hypoxic respiratory failure secondary to volume overload. Maintain oxygen saturation above 90%. The patient will need dialysis to remove extra fluid. Nephrology has been consulted, appreciate rec ommendations. 9. Hypertension. Blood pressure currently 192/84. We will continue home medications, but this is l ikely a result of poor patient compliance to dietary and fluid restrictions as well as a missed hemod ialysis session. The patient will need dialysis. Nephrology has been consulted, appreciate recommen dations. DISPOSITION/LENGTH OF HOSPITAL STAY: The patient is stable. Expected length of stay is less than or equal 2 days. Symptomatic medication will be provided. History and physical exam as well as management discussed with Dr. Desire Jansen who agrees with the above history and physical exam, assessment and plan unless otherwise noted in her addendum.
[2017-09-08 07:24] LABS: Troponin I 0.048 ng/mL (< 0.028)
[2017-09-08] MEDS ORDERED: Amlodipine 10 MG TAB PO SCH ×2 (09:00)
[2017-09-08] MEDS ORDERED: cloNIDine 0.3 MG TAB PO SCH (09:00)
[2017-09-08] MEDS ORDERED: Amlodipine 5 MG TAB PO SCH ×2 (09:00→12:15)
[2017-09-08] MEDS ORDERED: Calcium Acetate 667 MG CAP PO SCH (09:00)
[2017-09-08] MEDS ORDERED: Gabapentin 100 MG CAP PO SCH (09:00)
[2017-09-08 10:13] LABS: Troponin I 0.053 ng/mL (< 0.028)
--- NOTE | 2017-09-08 10:15 | RAD ---
PORTABLE UPRIGHT FRONTAL CHEST RADIOGRAPH: Date: 09-08-17 Comparison: 08-30-17 History: Difficulty breathing, hypoxia. FINDINGS: Cardiac silhouette is enlarged. There is pulmonary vascular congestion. There is diffuse increased li near interstitial density in the upper lobes, right greater than left, bilateral perihilar regions an d both lung bases. There are airspace opacities in the perihilar regions as well. Interstitial and al veolar opacity has improved since the 08-30-17 exam. IMPRESSION: Findings suggesting interstitial and mild alveolar pulmonary edema, improved since 08-30-17. Underlyi ng infectious pneumonitis or aspiration cannot be excluded. Follow up imaging following treatment to document resolution advised. POS: RAOUL
[2017-09-08] MEDS: Acetaminophen 325 MG TAB PO PRN ×2 (10:22→21:16)
--- NOTE | 2017-09-08 10:33 | ADD-HP ---
CHIEF COMPLAINT: Shortness of breath. HISTORY OF PRESENT ILLNESS: The patient is a 56-year-old female with a past medical history of end-stage renal disease on dialysis Monday, , Monday, who presented to the ER [facility] with increasing shortness of breath and lower extremity edema. The patient has a long history of n oncompliance with both her diet and her dialysis. The patient did not go to dialysis yesterday and n otes that she ate a big dinner for Thanksgiving and her shortness of breath worsened. She is using O 2 currently, but notes that she also uses O2 at home. I saw her this morning in dialysis. She is sl owly starting to feel better, but she is still a little bit short of breath. She still has swelling in her lower extremities. She initially had 2+ edema, it is about 1+ now. Chest x-ray showed change s consistent with volume overload. Troponins were indeterminate, but better than previous hospitaliz ations. Nephrology has been consulted and the patient is getting dialysis. She had multiple electro lyte abnormalities which will be addressed with dialysis. Please see Dr. Rdz's dictation for the full history and physical, assessment and plan. I have di scussed this personally with him and repeated pertinent portions myself. I agree with his documentat ion.
[2017-09-08] MEDS: Carvedilol 25 MG TAB PO SCH ×2 (11:13→17:18)
[2017-09-08] MEDS: Metoclopramide HCl 10 MG TAB PO SCH ×2 (11:30→13:37)
[2017-09-08] MEDS: INSULIN DETEMIR SC SCH (12:29)
[2017-09-08] MEDS: Aspirin 325 MG TAB PO SCH (12:29)
[2017-09-08] MEDS: ADMIXTURE FEE SC SCH (12:29)
--- NOTE | 2017-09-08 12:29 | CON ---
DATE OF CONSULTATION: 09/08/2017 REASON FOR CONSULTATION: Hyperkalemia. HISTORY OF PRESENT ILLNESS: This is a patient with a history of noncompliance with fluid as well as potassium intake, who presented to the hospital with shortness of breath. The patient had a 4 kilo w eight gain as well as potassium of more than 5.5. The patient denies any nausea, vomiting or chest p ain at this time. PAST MEDICAL HISTORY: End-stage renal disease, hypertension, diabetes mellitus, noncompliance, AV fi stula, and tunneled dialysis catheter. ALLERGIES: Reviewed. HOME MEDICATIONS: List reviewed. FAMILY HISTORY: Negative for ESRD. SOCIAL HISTORY: No alcohol or drug use. REVIEW OF SYSTEMS: Fifteen point review of systems was performed and negative except positives noted above. GENERAL: Weakness. HEAD: Headache. NECK: No swelling or lumps. NOSE: No epistaxis or discharge. EYES: No diplopia or pain. RESPIRATORY: Dyspnea. CARDIOVASCULAR: Chest pain. GASTROINTESTINAL: Nausea. /PROPOSAL CONSULTANT: Hematuria. MUSCULOSKELETAL: No joint pain. NEUROPSYCHIATIC SYSTEMS: No suicidal ideation. No ideation. SKIN: Denies any rash or ulcer. CONSTITUTIONAL: No fever or chills. PHYSICAL EXAMINATION: GENERAL: Patient is awake and alert. VITAL SIGNS: Afebrile, pulse 80, breathing at 16, and blood pressure 192/84. GENERAL APPEARANCE AND MENTAL STATUS: Fair. HEAD/NECK: Normocephalic. Atraumatic. EYES: EOMI. No deformity. EARS: Clear. No ulcers. NOSE: Intact. No lesions. MOUTH: Clear. No discharge. THROAT: Clear. No exudate. LUNGS: Clear. No crackles. CARDIAC: S1, S2. No rub. ABDOMEN: Benign. BS+. GENITALIA/RECTUM: Vasquez absent. BACK/EXTREMITIES: Lower extremities have 3+ edema. NEUROLOGICAL: Alert and motor intact. SKIN: Rash- Bruise. LYMPHATICS: Edema- Ulcer. LABORATORY DATA: Lab show hemoglobin 9, potassium is 5.5. ASSESSMENT AND RECOMMENDATIONS: 1. Stage 6 chronic kidney disease, plan dialysis. 2. Hyperkalemia, plan dialysis. 3. Anemia, stable. 4. Medications based on GFR are appropriate. 5. Hypertension. We would recommend fluid limitation and titrate blood pressure medicines. Risks v ersus benefits of compliance were discussed with the patient at length.
[2017-09-08] MEDS: Famotidine 20 MG TAB PO SCH ×2 (12:30→20:25)
[2017-09-08] MEDS: Gabapentin 100 MG CAP PO SCH ×4 (12:30→21:16)
[2017-09-08] MEDS: Calcium Acetate 667 MG CAP PO SCH ×3 (12:31→17:18)
[2017-09-08 13:26] LABS: Troponin I 0.048 ng/mL (< 0.028)
[2017-09-08 13:29] LABS: Critical Call CKMBM RESULT DECREASING
[2017-09-08 14:05] VITALS: BMI 22.6
[2017-09-08 15:39] LABS: Anion Gap 12 mmol/L (10-20); BUN (Urea Nitrogen) 18 mg/dL (9.8-20.1); Calc. Creatinine Clearance 26 mL/min (70-130); Calcium 8.5 mg/dL (7.8-10.44); Carbon Dioxide 28 mmol/L (22-29); Chloride 99 mmol/L (98-107); Estimated GFR-MDRD 24
[2017-09-08] MEDS ORDERED: Atorvastatin Calcium 40 MG TAB PO SCH (21:00)
[2017-09-08] MEDS ORDERED: Insulin Detemir 100 UNITS/ML 10 UNITS in Pre-Filled Syringe 1 EACH SC SCH (21:00)
[2017-09-09] MEDS: Acetaminophen 325 MG TAB PO PRN (05:19)
[2017-09-09 05:44] LABS: #Eosinphils 0.5 thou/uL (0.0-0.7); #Lymphocytes 1.3 thou/uL (1.20-3.40); #Monocytes 0.5 thou/uL (0.11-0.59); %Basophils 0.6 % (0.0-1.0); %Eosinophils 6.4 % (0.0-10.0); %Lymphocytes 17.5 % (21.0-51.0); %Monocytes 6.2 % (0.0-10.0); Mean Platelet Volume 6.5 fL (7.4-10.4); Red Blood Cell (RBC) Count 3.08 mill/uL (4.20-5.40); White Blood Cell (WBC) Count 7.2 thou/uL (4.8-10.8)
[2017-09-09 06:08] LABS: Anion Gap 12 mmol/L (10-20); BUN (Urea Nitrogen) 36 mg/dL (9.8-20.1); Calc. Creatinine Clearance 16 mL/min (70-130); Calcium 8.6 mg/dL (7.8-10.44); Carbon Dioxide 28 mmol/L (22-29); Chloride 100 mmol/L (98-107); Estimated GFR-MDRD 15
[2017-09-09] MEDS: Aspirin 325 MG TAB PO SCH (08:38)
[2017-09-09] MEDS: Calcium Acetate 667 MG CAP PO SCH ×3 (08:38→18:02)
[2017-09-09] MEDS: Famotidine 20 MG TAB PO SCH (08:39)
[2017-09-09] MEDS: Gabapentin 100 MG CAP PO SCH ×2 (08:39→14:26)
[2017-09-09] MEDS: Carvedilol 25 MG TAB PO SCH ×2 (08:39→16:53)
[2017-09-09] MEDS: INSULIN DETEMIR SC SCH (08:39)
[2017-09-09] MEDS: ADMIXTURE FEE SC SCH (08:39)
--- NOTE | 2017-09-09 12:33 | PDOC.FM ---
- Subjective Subjective: No acute events overnight. No complaints this morning. Denies chest pain or shortness of breath. - Objective I&O: 09/08/17 09/09/17 09/10/17 06:59 06:59 06:59 Intake Total 460 Balance 460 Result Diagrams: 09/09/17 04:43 09/09/17 04:43 <Angélica Granados - Last Filed: 09/09/17 12:38> - Objective Vital Signs & Weight: Vital Signs (12 hours) Temp Pulse Resp BP Pulse Ox 09/09/17 16:54 78 169/74 H 09/09/17 15:05 97.8 F 79 15 95 09/09/17 14:28 98.2 F 73 18 100 09/09/17 14:24 98.2 F 73 18 177/81 H 100 I&O: 09/08/17 09/09/17 09/10/17 06:59 06:59 06:59 Intake Total 460 Balance 460 Result Diagrams: 09/09/17 04:43 09/09/17 04:43 <Desire Jansen - Last Filed: 09/09/17 17:41> Phys Exam - Physical Examination Constitutional: NAD HEENT: PERRLA, moist MMs Neck: no nodes, no JVD Respiratory: no wheezing, no rales, no rhonchi, clear to auscultation bilateral Cardiovascular: RRR, no significant murmur Gastrointestinal: soft, non-tender, no distention Musculoskeletal: no edema, pulses present Neurological: non-focal, normal sensation Psychiatric: normal affect, A&O x 3 Skin: no rash <Angélica Granados - Last Filed: 09/09/17 12:38> Dx/Plan (1) Hyperkalemia Code(s): E87.5 - HYPERKALEMIA Status: Acute (2) Fluid overload Code(s): E87.70 - FLUID OVERLOAD, UNSPECIFIED Status: Acute (3) Hyponatremia Code(s): E87.1 - HYPO-OSMOLALITY AND HYPONATREMIA Status: Acute (4) Anemia in chronic kidney disease (CKD) Code(s): N18.9 - CHRONIC KIDNEY DISEASE, UNSPECIFIED; D63.1 - ANEMIA IN CHRONIC KIDNEY DISEASE Status: Chronic (5) CHF (congestive heart failure) Code(s): I50.9 - HEART FAILURE, UNSPECIFIED Status: Chronic (6) ESRD (end stage renal disease) on dialysis Code(s): N18.6 - END STAGE RENAL DISEASE; Z99.2 - DEPENDENCE ON RENAL DIALYSIS Status: Chronic (7) Hyperlipidemia Code(s): E78.5 - HYPERLIPIDEMIA, UNSPECIFIED Status: Chronic (8) Hypertension Code(s): I10 - ESSENTIAL (PRIMARY) HYPERTENSION Status: Chronic (9) Acute respiratory failure with hypoxia Code(s): J96.01 - ACUTE RESPIRATORY FAILURE WITH HYPOXIA Status: Resolved - Plan Plan: 56 yo f with pmhx of ESRD on HD TRS with medication and diet noncompliance after the admitted for volume overload, hyperkalemia, and hyponatremia needing emergent hemodialysis, now s/p hemodialys yesterday and today. Hosp Day 2. 1.)ESRD on HD, TRS, improved -euvolemic this morning -getting dialysis during evaluation this morning -denies shortness of breath, no crackles heard on exam -will follow with nephro recs -can likely dc later this afternoon with close follow-up with PCP 2.) Hyperkalemia, resolved -2/2 ESRD with medication and diet noncompliance -will continue to educate patient on the importance of adhering to a low salt renal diet 3.)Hyponatremia, resolved -2/2 ESRD -Will continue to monitor 4.)DM, type 2, controlled Continue SSI home meds 5.)HTN, controlled -Continue home meds Dispo: likley discharge this afternoon <Angélica Granados - Last Filed: 09/09/17 12:38> Attending Addendum - Attending Addendum I personally evaluated the patient and discussed the management with Dr. Granados. I agree with the History, Examination, Assessment and Plan documented above with any addition or exceptions noted below. Patient's breathing and lower extremity edema are improving with dialysis. She will have dialysis again today. Anticipate discharge today or tomorrow. <Desire Jansen - Last Filed: 09/09/17 17:41>
--- NOTE | 2017-09-09 14:14 | PRG ---
DATE OF SERVICE: 09/09/2017 SUBJECTIVE: This is a 56-year-old female being seen for end-stage renal disease. The patient denies any nausea, vomiting or chest pain. PHYSICAL EXAMINATION: GENERAL: Patient is awake, alert. VITAL SIGNS: Afebrile, pulse 71, breathing 16, blood pressure 142/67. HEAD/NECK: Normocephalic. Atraumatic. EYES: EOMI. No deformity. EARS: Clear. No ulcers. NOSE: Intact. No lesions. MOUTH: Clear. No discharge. THROAT: Clear. No exudate. LUNGS: Clear. No crackles. CARDIAC: S1, S2. No rub. ABDOMEN: Benign. BS+. GENITALIA/RECTUM: Vasquez absent. BACK/EXTREMITIES: Edema 0+ Ulcer- NEUROLOGICAL: Alert and motor intact. SKIN: Rash- Bruise- LYMPHATICS: Edema- Ulcer- LABORATORY DATA: Show hemoglobin 9.6. ASSESSMENT AND RECOMMENDATIONS: 1. Stage 6 chronic kidney disease, continue hemodialysis. 2. Hypertension, stable. 3. Hyperkalemia, stable. 4. Medications based on glomerular filtration rate are appropriate.
[2017-09-09 15:19] VITALS: TEMP 97.8
[2017-09-09 16:55] VITALS: BP 169/74
== END 2017-09-09 19:23 | disposition home or self-care (01) | DRG 291 ==
LOC: ERS 02:55 → ERHOLD 04:44 → 2SW 06:58 → OBSVTOIN 09-09 09:55 → 2NO 09-09 11:09
PROVIDERS: ADMIT Family Medicine; ATTEND Family Medicine
PROC: 5A1D70Z Performance of Urinary Filtration, Intermittent, Less than 6 Hours Per Day (ICD-10-PCS; principal; 2017-09-09)
DX: I13.2 Hypertensive heart and chronic kidney disease with heart failure and with stage 5 chronic kidney disease, or end stage renal disease (principal); N18.6 End stage renal disease; J96.11 Chronic respiratory failure with hypoxia; E11.22 Type 2 diabetes mellitus with diabetic chronic kidney disease; I50.33 Acute on chronic diastolic (congestive) heart failure; E87.1 Hypo-osmolality and hyponatremia; E11.65 Type 2 diabetes mellitus with hyperglycemia; Z99.2 Dependence on renal dialysis; Z79.4 Long term (current) use of insulin; Z91.15 Patient's noncompliance with renal dialysis; Z99.81 Dependence on supplemental oxygen; E87.5 Hyperkalemia; D63.1 Anemia in chronic kidney disease; Z91.11 Patient's noncompliance with dietary regimen; I16.0 Hypertensive urgency
CPT/HCPCS: 36415; 36416; 71010; 80048; 80053; 82553; 84484; 85025; 90935; 93005; A4216; G0257; J1815

== ENCOUNTER 2017-09-15 06:42 | Emergency (ER) | payer MEDICARE, MEDICAID ==
[2017-09-15 07:11] LABS: #Eosinphils 0.2 thou/uL (0.0-0.7); #Lymphocytes 1.3 thou/uL (1.20-3.40); #Monocytes 0.3 thou/uL (0.11-0.59); #Neutrophils 4.7 thou/uL (1.40-6.50); %Basophils 0.4 % (0.0-1.0); %Eosinophils 3.2 % (0.0-10.0); %Lymphocytes 19.7 % (21.0-51.0); %Monocytes 4.1 % (0.0-10.0); Hematocrit 25.4 % (36.0-47.0); Mean Platelet Volume 6.8 fL (7.4-10.4); Red Blood Cell (RBC) Count 2.68 mill/uL (4.20-5.40); White Blood Cell (WBC) Count 6.4 thou/uL (4.8-10.8)
[2017-09-15 07:19] LABS: PTT 31.2 SEC (22.9-36.1)
[2017-09-15 07:36] LABS: ALT (SGPT) 32 U/L (8-55); AST (SGOT) 36 U/L (5-34); Alkaline Phosphatase 371 U/L (40-150); Anion Gap 13 mmol/L (10-20); BUN (Urea Nitrogen) 43 mg/dL (9.8-20.1); Bilirubin, Total 0.6 mg/dL (0.2-1.2); CK (CPK) 126 U/L (29-168); Calc. Creatinine Clearance 0 mL/min (70-130); Calcium 9.4 mg/dL (7.8-10.44); Carbon Dioxide 29 mmol/L (22-29); Chloride 95 mmol/L (98-107); Estimated GFR-MDRD 16; Lipase 39 U/L (8-78); Protein, Total 7.7 g/dL (6.0-8.3)
[2017-09-15 07:40] LABS: Troponin I 0.046 ng/mL (< 0.028)
--- NOTE | 2017-09-15 08:36 | RAD ---
CHEST 1 VIEW: History Dyspnea. Chest pain. COMPARISON: 09/08/17. FINDINGS: Cardiac silhouette is magnified and enlarged. Pulmonary vasculature remains engorged. Mediastinum i s midline. Patchy areas of predominantly interstitial infiltrate are present throughout each lung. No lobar consolidation or evidence of pneumothorax. personnel monitor leads overlie the chest. IMPRESSION: congestive heart failure. Appearance is similar to the prior study from 09/08/17. POS: ROSE
== END 2017-09-15 08:09 | disposition home or self-care (01) ==
LOC: ERS 06:42
DX: R07.2 Precordial pain (principal); E87.70 Fluid overload, unspecified; I13.2 Hypertensive heart and chronic kidney disease with heart failure and with stage 5 chronic kidney disease, or end stage renal disease; E10.22 Type 1 diabetes mellitus with diabetic chronic kidney disease; N18.6 End stage renal disease; I50.9 Heart failure, unspecified; Z99.2 Dependence on renal dialysis; E78.5 Hyperlipidemia, unspecified; M10.9 Gout, unspecified; E10.40 Type 1 diabetes mellitus with diabetic neuropathy, unspecified; Z79.82 Long term (current) use of aspirin; Z79.899 Other long term (current) drug therapy
CPT/HCPCS: 36415; 71010; 80053; 82553; 83690; 83880; 84484; 85025; 85610; 85730; 93005

== ENCOUNTER 2017-09-22 19:43 | Emergency (ER) | payer MEDICARE, MEDICAID ==
[2017-09-22 20:27] LABS: #Eosinphils 0.1 thou/uL (0.0-0.7); #Lymphocytes 0.9 thou/uL (1.20-3.40); #Monocytes 0.1 thou/uL (0.11-0.59); #Neutrophils 3.6 thou/uL (1.40-6.50); %Basophils 0.9 % (0.0-1.0); %Eosinophils 2.9 % (0.0-10.0); %Lymphocytes 19.6 % (21.0-51.0); %Monocytes 2.5 % (0.0-10.0); Hematocrit 21.6 % (36.0-47.0); Mean Platelet Volume 7.4 fL (7.4-10.4); Red Blood Cell (RBC) Count 2.22 mill/uL (4.20-5.40); White Blood Cell (WBC) Count 4.8 thou/uL (4.8-10.8)
[2017-09-22 20:47] LABS: ALT (SGPT) 36 U/L (8-55); AST (SGOT) 31 U/L (5-34); Alkaline Phosphatase 352 U/L (40-150); Anion Gap 16 mmol/L (10-20); BUN (Urea Nitrogen) 48 mg/dL (9.8-20.1); Bilirubin, Total 0.9 mg/dL (0.2-1.2); CK (CPK) 184 U/L (29-168); Calc. Creatinine Clearance 0 mL/min (70-130); Calcium 8.3 mg/dL (7.8-10.44); Carbon Dioxide 25 mmol/L (22-29); Chloride 97 mmol/L (98-107); Estimated GFR-MDRD 8; Globulin 3.5 g/dL (2.4-3.5); Protein, Total 6.8 g/dL (6.0-8.3)
[2017-09-22 20:51] LABS: Troponin I 0.039 ng/mL (< 0.028)
[2017-09-22] MEDS ORDERED: Furosemide 40 MG/4 ML VIAL ONE (21:42)
--- NOTE | 2017-09-22 22:22 | RAD ---
FRONTAL CHEST RADIOGRAPH 09/22/17 COMPARISON: 09/15/17. HISTORY: Shortness of breath and mid sternal chest pain. FINDINGS: The cardiac silhouette is enlarged. There is pulmonary vasculature prominence with bilateral perihila r, upper lobe, and basilar interstitial prominence, slightly more significant than on the 09/15/17 exa m. There is a nodular density seen lateral to the right heart border, similar when compared to studie s dating back to 01/20/17. IMPRESSION: 1. Enlarged cardiac silhouette with worsening diffuse interstitial prominence suggesting inters titial pulmonary edema or interstitial infectious pneumonitis. Short term followup imaging of the [place] following treatment advised to document resolution. 2. Nodular area of increased density is seen within the lateral aspect of the left base lateral to the left heart border measuring up to 1.6 cm. This will be better assessed on followup imaging fol lowing treatment. If this persists on followup post treatment radiographs, CT examination of the ches t would then be advised. Code T POS: RAOUL
--- NOTE | 2017-09-26 13:26 | EKG ---
Test Reason : Blood Pressure : / mmHG Vent. Rate : 073 BPM Atrial Rate : 073 BPM P-R Int : 152 ms QRS Dur : 080 ms QT Int : 418 ms P-R-T Axes : 045 -09 017 degrees QTc Int : 460 ms Normal sinus rhythm Possible Left atrial enlargement Nonspecific ST changes Borderline ECG Confirmed by ERENDIRA GRIFFIN MD ([id number]), editor greeting card CANDI DUNN ([id number]) on 09/26/2017 1:25:48 PM Referred By: Confirmed By:ERENDIRA GRIFFIN MD
== END 2017-09-22 21:49 | disposition home or self-care (01) ==
LOC: ERS 19:43
DX: I13.2 Hypertensive heart and chronic kidney disease with heart failure and with stage 5 chronic kidney disease, or end stage renal disease (principal); I50.9 Heart failure, unspecified; N18.6 End stage renal disease; E10.9 Type 1 diabetes mellitus without complications; E78.5 Hyperlipidemia, unspecified; M10.9 Gout, unspecified; Z87.891 Personal history of nicotine dependence; Z79.82 Long term (current) use of aspirin; Z79.899 Other long term (current) drug therapy
CPT/HCPCS: 71010; 80053; 82553; 84484; 85025; 93005; 94760; 96374; J1940

== ENCOUNTER 2017-09-26 15:16 | Observation (INO) | payer MEDICARE, MEDICAID ==
[2017-09-26 16:03] LABS: #Eosinphils 0.2 thou/uL (0.0-0.7); #Lymphocytes 0.7 thou/uL (1.20-3.40); #Monocytes 0.2 thou/uL (0.11-0.59); #Neutrophils 3.4 thou/uL (1.40-6.50); %Basophils 0.4 % (0.0-1.0); %Eosinophils 3.5 % (0.0-10.0); %Lymphocytes 14.9 % (21.0-51.0); %Monocytes 4.3 % (0.0-10.0); Hematocrit 22.7 % (36.0-47.0); Mean Platelet Volume 6.8 fL (7.4-10.4); Red Blood Cell (RBC) Count 2.36 mill/uL (4.20-5.40); White Blood Cell (WBC) Count 4.4 thou/uL (4.8-10.8)
[2017-09-26 16:09] LABS: PTT 30.7 SEC (22.9-36.1); Prothrombin Time 15.6 SEC (12.0-14.7)
--- NOTE | 2017-09-26 16:16 | RAD ---
UPRIGHT PORTABLE CHEST 1 VIEW: HISTORY: A 57-year-old female with chest pain and headache during dialysis. COMPARISON: 09/22/17. FINDINGS: Cardiomegaly with bilateral vascular congestion and bilateral interstitial edema with little overall change from prior study. No new confluent process. IMPRESSION: Evidence for cardiomegaly with vascular congestion and interstitial edema, stable. No new process. POS: RAOUL
[2017-09-26 16:19] LABS: ALT (SGPT) 52 U/L (8-55); AST (SGOT) 32 U/L (5-34); Alkaline Phosphatase 342 U/L (40-150); Anion Gap 13 mmol/L (10-20); BUN (Urea Nitrogen) 18 mg/dL (9.8-20.1); Bilirubin, Total 0.7 mg/dL (0.2-1.2); CK (CPK) 313 U/L (29-168); Calc. Creatinine Clearance 0 mL/min (70-130); Carbon Dioxide 28 mmol/L (22-29); Chloride 96 mmol/L (98-107); Estimated GFR-MDRD 23; Globulin 3.7 g/dL (2.4-3.5); Lipase 36 U/L (8-78)
[2017-09-26 16:23] LABS: Troponin I 0.032 ng/mL (< 0.028)
[2017-09-26] MEDS ORDERED: Nitroglycerin 2% Ointment 1 INCH/1 GM Packet ONE (17:11)
[2017-09-26 17:43] LABS: Bilirubin Negative (Negative); Blood, Urine Large (Negative); Glucose, Urine (Dipstick) 250 mg/dL (Negative); Ketone, Urine Negative (Negative); Nitrite Negative (Negative); Protein, Urine (Dipstick) > or equal to 300 mg/dL (Neg-Trace); Urobilinogen 0.2 mg/dL (0.2-1.0)
[2017-09-26 17:45] LABS: Bacteria/HPF None Seen HPF (None Seen); Hyaline Casts/LPF 0-3 HYALINE CAST LPF (0-3 Hyaline); RBC/HPF GREATER THAN 50-TNTC HPF (0-3); Squamous Epithelial 0-3 HPF (0-3)
[2017-09-26] MEDS ORDERED: hydrALAZINE 20 MG/ML VIAL ONE ×2 (18:45→20:28)
[2017-09-26] MEDS ORDERED: Acetaminophen 325 MG TAB ONE (18:58)
[2017-09-26 19:34] LABS: Troponin I 0.043 ng/mL (< 0.028)
[2017-09-26] MEDS ORDERED: Nitroglycerin 0.4 MG TAB (25 Tab Bottle) PO PRN (22:08)
[2017-09-26] MEDS ORDERED: Ondansetron ODT 4 MG TAB PO PRN (22:08)
[2017-09-26 22:13] VITALS: BMI 24.1
--- NOTE | 2017-09-26 23:25 | PDOC.EVN ---
Event Note - Event Note Event Note: Attending H&P I personally evaluated the patient and discussed the management with Drs. Morris and Danielito. I avhe reviewed the written H&P and it is repeated by me. I agree with the History, Examination, Assessment and Plan documented above with any addition or exceptions noted below. ACS evalaution for chest pain. Patient has elevated BP in spite of BB and ccb. Will add third agent for better control, with fourth prn med for BP >160.
[2017-09-26 23:57] LABS: Troponin I 0.038 ng/mL (< 0.028)
--- NOTE | 2017-09-26 23:59 | HP-2 ---
CODE STATUS: Full. PRIMARY CARE PHYSICIAN: Dr. Margaux Boland. ATTENDING PHYSICIAN: Dr. Derrick Marinelli. RESIDENT: Dr. Eboni Morris. HISTORIAN: Patient. SPECIALIST: Dr. Kat, commercial marketing specialist. CHIEF COMPLAINT: Chest pain and headache. HISTORY OF PRESENT ILLNESS: The patient is a 57-year-old female with past medical history of end-stage renal disease on dialysis, congestive heart failure and hypertension who came to the ED from dialysis where she started having sharp substernal chest pain associated with shortness of breath and nausea. Her pain did not radiate. She reports she had the same pain 3 days ago. It started at rest and lasted the whole day and resolved on its own. The patient was given Tylenol at dialysis, which improved her pain, but still continues to have mild pain. The patient has no past medical history of coronary artery disease. She had a negative catheterization in 2014 and negative stress test in January. In the ER, she was given aspirin and nitroglycerin. PAST MEDICAL HISTORY: 1. Hyperlipidemia. 2. End-stage renal disease, on dialysis Monday, and Monday. 3. Congestive heart failure with preserved ejection fraction. 4. Type 1 diabetes. 5. Hypertension. 6. Gout. PAST SURGICAL HISTORY: 1. Cholecystectomy. 2. Catheterization in 2014. 3. Fistula of the left arm. 4. Hysterectomy. 5. x1. 6. Right foot second toe amputation. ALLERGIES: No known drug allergies. MEDICATIONS: 1. Nitro 0.4 mg p.o. p.r.n. 2. Levemir 10 units at bedtime. 3. Levemir 12 units q.a.m. 4. Gabapentin 100 mg b.i.d. 5. Pepcid 20 mg b.i.d. 6. Vitamin D 5000 units. 7. Carvedilol 25 mg b.i.d. 8. Atorvastatin 40 mg at bedtime. 9. Aspirin 325 mg daily. 10. Amlodipine 10 mg daily. FAMILY HISTORY: Deferred. SOCIAL HISTORY: The patient is a former smoker, smoked half a pack a day for 14 years, giving her a 7-pack-year history. No alcohol or drug use. REVIEW OF SYSTEMS: GENERAL: Negative for fever. EYES: Reports chronic vision changes. ENT: Denies nasal congestion or sore throat. RESPIRATORY: Denies cough or congestion. Reports some mild shortness of breath. CARDIOVASCULAR: Reports chest pain. No palpitations. Reports edema. GASTROINTESTINAL: Admits to nausea. No vomiting, diarrhea, constipation or abdominal pain. GENITOURINARY: Denies dysuria. NEUROLOGIC: Reports headache. No weakness or syncope. PHYSICAL EXAMINATION: VITAL SIGNS: Blood pressure 214/83. Pulse 89. Respiratory rate 16. T-max 98.3. Pulse ox 95% on 2 liters. Current weight 53 kilograms. GENERAL: The patient is alert and oriented x4, in no acute distress. Appropriately interactive. EYES: PERRLA, EOMI. CARDIOVASCULAR: Regular rate and rhythm. No murmurs or gallops. Radial pulses 2+. RESPIRATORY: Normal effort, no retractions. Does have some crackles in bilateral bases and right greater than left. SKIN: Warm and dry. No cyanosis. ABDOMEN: Soft and nontender. EXTREMITIES: There is bilateral lower extremity, 2+ pitting edema. MUSCULOSKELETAL: Structure within normal limits. Tone within normal limits. NEUROLOGIC: No focal deficits. PSYCHIATRIC: Appropriate. LABORATORY AND IMAGING DATA: CBC: White blood cell count 4.4, hemoglobin 7.5, hematocrit 22.7, platelets 211, MCV 96.4 and 76.9% neutrophils. Chemistries: Sodium 134, potassium 3.3, chloride 96, CO2 of 28, BUN 18, creatinine 2.23, glucose 267, calcium 9.0, total protein 7.0, albumin 3.3, AST 32, ALT 52, alkaline phosphatase 342 and total bilirubin 0.7. Coags: PT 15.6, INR 1.2 and PTT 30.7. CK 313, CK-MB 14.5, troponin 0.032, lipase 36 and BNP 2986.8. UA specific gravity 1.013, blood large, protein greater than or equal to 300, leukocyte esterase small, nitrates negative, ketones negative, glucose 250, red blood cells greater than 50, white blood cell greater than 50 and bacteria 0. EKG: Left axis deviation, no ST changes, normal sinus rhythm. Chest x-ray: Cardiomegaly with vascular congestion and interstitial edema, stable from prior readings. ASSESSMENT AND PLAN: 1. Atypical chest pain. Pain is sharp and long in duration. The patient with no distress or diaphoresis. The patient's EKG did not show any signs of ischemia. We will trend the troponins and continue nitro paste. Troponin and CK-MB are at her baseline from prior readings. 2. Hypertension. The patient states that her normal blood pressure is very high. In the ED, she was given the nitro paste, which brought her blood pressure down to 187/83 and the patient reports that this is her normal. She does have a mild headache, although I am not sure if this is from the nitro paste or because of the elevated pressure. We will give her IV Hydralazine with a goal SBP < 160. Since home BP run high, will also add Losartan as home med. We will put p.r.n. hydralazine. 3. Diastolic congestive heart failure. The patient at baseline has mild pulmonary edema as evidenced by chest x-rays. Also, BNP today is at its lowest in 3 years. The patient is on 2 liters of oxygen, which is her home level. At this point, we will just continue to evaluate and proceed with dialysis at normal schedule. 4. End-stage renal disease, on dialysis. We will consult Nephrology, Dr. Kat for dialysis if patient ends up staying until , which is her normal dialysis day. 5. Type 1 diabetes. The patient's blood glucose elevated, is due for her home dose of Levemir. We will continue with home Levemir and add sliding scale insulin. 6. Anemia of chronic disease. This is at baseline from prior readings. The patient may be a candidate for transfusion with history of heart disease and hemoglobin at 7.5 at the moment. We will recheck tomorrow and consider transfusion with dialysis if she stays until . 7. Venous thromboembolism prophylaxis. We will give Lovenox. 8. Gastrointestinal prophylaxis. We will give Pepcid. Disposition and length of hospital stay is 1-2 days. Symptomatic medications will be provided. History and physical exam as well as management was discussed with Dr. Derrick Marinelli. KAL
[2017-09-27] MEDS ORDERED: HumaLOG 300 UNITS/3 ML VIAL SC PRN ×2 (00:05)
[2017-09-27] MEDS ORDERED: Dextrose 50% Abboject 50 ML SYRINGE SLOW IVP PRN (00:05)
[2017-09-27] MEDS ORDERED: Dextrose 5% in Water 1,000 ML IV PRN (00:05)
[2017-09-27] MEDS ORDERED: diphenhydrAMINE 25 MG CAP PO PRN (00:37)
[2017-09-27] MEDS: Acetaminophen 325 MG TAB PO PRN ×2 (02:09→08:57)
[2017-09-27 04:53] LABS: #Eosinphils 0.2 thou/uL (0.0-0.7); #Lymphocytes 0.7 thou/uL (1.20-3.40); #Monocytes 0.3 thou/uL (0.11-0.59); #Neutrophils 4.8 thou/uL (1.40-6.50); %Basophils 0.3 % (0.0-1.0); %Eosinophils 2.5 % (0.0-10.0); %Lymphocytes 11.8 % (21.0-51.0); %Monocytes 5.4 % (0.0-10.0); Hematocrit 24.1 % (36.0-47.0); Mean Platelet Volume 7.1 fL (7.4-10.4); Red Blood Cell (RBC) Count 2.46 mill/uL (4.20-5.40)
[2017-09-27 05:29] LABS: Anion Gap 13 mmol/L (10-20); BUN (Urea Nitrogen) 26 mg/dL (9.8-20.1); Calc. Creatinine Clearance 19 mL/min (70-130); Calcium 8.8 mg/dL (7.8-10.44); Carbon Dioxide 26 mmol/L (22-29); Chloride 95 mmol/L (98-107); Estimated GFR-MDRD 16
--- NOTE | 2017-09-27 06:22 | PDOC.FM ---
- Subjective Subjective: Patient doing well this AM. No significant overnight events. She states that she was having sharp chest pain toward the end of dialysis. This happens fairly often. She states that she is compliant with medications, however, this is doubtful. When asked if she was still being followed by , she stated they were still coming to see her. However, as her PCP I have received several letters from stating that they have discontinued their services due to non- compliance on the part of the patient. This morning she denies chest pain, shortness of breath, palpitations, N/V. She did endorse right wrist pain. It does appear red and swollen. She has a history of gout. - Objective MAR Reviewed: Yes Vital Signs & Weight: Vital Signs (12 hours) Temp Pulse Resp BP BP Pulse Ox 09/27/17 06:11 96 09/27/17 03:51 97.7 F 67 20 178/72 H 91 L 09/27/17 00:08 97.3 F L 72 18 125/59 L 96 09/26/17 22:12 97.8 F 72 16 142/65 H 95 09/26/17 22:08 95 Weight Weight 58.06 kg Result Diagrams: 09/27/17 04:28 09/27/17 04:28 EKG Reviewed by me: Yes Radiology Reviewed by me: Yes Phys Exam - Physical Examination Constitutional: NAD HEENT: moist MMs, sclera anicteric Neck: supple Respiratory: clear to auscultation bilateral Cardiovascular: RRR systolic murmur Gastrointestinal: soft, non-tender, no distention, positive bowel sounds Musculoskeletal: pulses present, edema present 2+ pitting edema to level of mid calf b/l Neurological: non-focal, moves all 4 limbs Psychiatric: A&O x 3 Skin: cap refill <2 seconds Deviation from normal: erythematous, swollen right wrist. Tender to palpation. Dx/Plan (1) Atypical chest pain Code(s): R07.89 - OTHER CHEST PAIN Status: Acute (2) Hypertension Code(s): I10 - ESSENTIAL (PRIMARY) HYPERTENSION Status: Chronic Qualifiers: Hypertension type: secondary to other renal disorders Qualified Code(s): I15.1 - Hypertension secondary to other renal disorders; N28.89 - Other specified disorders of kidney and ureter; N28.89 - Other specified disorders of kidney and ureter (3) ESRD (end stage renal disease) on dialysis Code(s): N18.6 - END STAGE RENAL DISEASE; Z99.2 - DEPENDENCE ON RENAL DIALYSIS Status: Chronic (4) Hematuria Code(s): R31.9 - HEMATURIA, UNSPECIFIED Status: Chronic Qualifiers: Hematuria type: unspecified type Qualified Code(s): R31.9 - Hematuria, unspecified (5) Diastolic CHF Code(s): I50.30 - UNSPECIFIED DIASTOLIC (CONGESTIVE) HEART FAILURE Status: Chronic Qualifiers: Congestive heart failure chronicity: chronic Qualified Code(s): I50.32 - Chronic diastolic (congestive) heart failure (6) Gout Code(s): M10.9 - GOUT, UNSPECIFIED Status: Chronic (7) Diabetes type I Status: Chronic Qualifiers: Diabetes mellitus complication status: with kidney complications Diabetes mellitus complication detail: with chronic kidney disease Chronic kidney disease stage: on chronic dialysis Qualified Code(s): E10.22 - Type 1 diabetes mellitus with diabetic chronic kidney disease; N18.6 - End stage renal disease; N18.6 - End stage renal disease; N18.6 - End stage renal disease; N18.6 - End stage renal disease; Z99.2 - Dependence on renal dialysis; Z99.2 - Dependence on renal dialysis; Z99.2 - Dependence on renal dialysis; Z99.2 - Dependence on renal dialysis (8) Hyperlipidemia Code(s): E78.5 - HYPERLIPIDEMIA, UNSPECIFIED Status: Chronic Qualifiers: Hyperlipidemia type: unspecified Qualified Code(s): E78.5 - Hyperlipidemia , unspecified - Plan Plan: Plan: Atypical chest pain: - Troponins trended - CKMB elevated - ASA daily - Nitro paste for chest pain HTN: - Slightly above baseline - Patient non-compliant with medications - On BB and CCB - Will add third agent for better control; needs dialysis ESRD on HD: - T, TH, Sa dialysis DM type I: - Uncontrolled - Patient non-compliant - Continue levemir BID and SSI - Patient on statin CHFwpEF: - Continue home medications - Add ADE-I/ARB - Monitor fluid status - Strict I&Os - Daily weights HLD: - Continue statin Chronic hematuria: - Consider workup as outpatient Possible gout: - Joint aspiration if possible - Treatment with corticosteroids
[2017-09-27] MEDS ORDERED: Calcium Acetate 667 MG CAP PO SCH (09:00)
[2017-09-27] MEDS ORDERED: Famotidine 20 MG TAB PO SCH (09:00)
[2017-09-27] MEDS ORDERED: Gabapentin 100 MG CAP PO SCH (09:00)
[2017-09-27] MEDS ORDERED: Enoxaparin Sodium 40 MG/0.4 ML SYRINGE SC SCH (09:00)
[2017-09-27] MEDS ORDERED: Carvedilol 25 MG TAB PO SCH (09:00)
[2017-09-27] MEDS ORDERED: Aspirin 325 MG TAB PO SCH (09:00)
[2017-09-27] MEDS ORDERED: Amlodipine 10 MG TAB PO SCH (09:00)
[2017-09-27] MEDS ORDERED: Insulin Detemir 100 UNITS/ML 10 UNITS in Pre-Filled Syringe 1 EACH SC SCH ×2 (09:00→21:00)
[2017-09-27 11:01] VITALS: BP 183/79; TEMP 99.6
--- NOTE | 2017-09-27 11:29 | ADD-PRG ---
ADDENDUM To the note of Dr. Margaux Boland. Ms. Rodriguez is a 57-year-old female who was admitted with atypical chest pain. She described it as a sharp pain. It was associated with some shortness of breath. This occurred while she was a t dialysis. She had a negative stress test in the spring of this year. Her troponins are so far nor mal. Her EKG is normal. We will discharge her.
[2017-09-27] MEDS ORDERED: predniSONE 20 MG TAB PO SCH (11:30)
[2017-09-27] MEDS ORDERED: Atorvastatin Calcium 40 MG TAB PO SCH (21:00)
--- NOTE | 2017-09-28 19:10 | DIS-2 ---
DATE OF ADMISSION: 09/26/2012 DATE OF DISCHARGE: 09/27/2017 ADMITTING ATTENDING: Dr. Derrick Marinelli. DISCHARGE ATTENDING: Dr. Thong Jasmine. RESIDENT: Dr. Margaux Boland. CONSULTATIONS: None. PROCEDURES: Chest x-ray: Evidence for cardiomegaly with vascular congestion, interstitial edema, stable. No new process. PRIMARY DIAGNOSES: 1. Atypical chest pain. 2. End-stage renal disease on hemodialysis. 3. Hypertensive urgency. SECONDARY DIAGNOSES: 1. Hematuria. 2. Diastolic congestive heart failure. 3. Gout. 4. Diabetes mellitus. 5. Hyperlipidemia. DISCHARGE MEDICATIONS: 1. Lisinopril 10 mg oral daily. 2. Prednisone 40 mg oral daily for a period of 7 days. 3. Gabapentin 100 mg oral twice daily. 4. Aspirin 325 mg oral daily. 5. Amlodipine 10 mg oral daily. 6. Calcium vitamin D3 5000 units oral daily. 7. Calcium acetate 1334 mg oral twice daily. 8. Nitroglycerin 0.4 mg oral as needed. 9. Carvedilol 25 mg oral twice daily. 10. Atorvastatin calcium 40 mg oral at bedtime. 11. Famotidine 20 mg oral twice daily. 12. Insulin detemir 100 units per mL 12 units subQ every morning and 10 units subQ at bedtime. HISTORY OF PRESENT ILLNESS AND HOSPITAL COURSE: This is a 57-year-old female well known to our service with a past medical history of end-stage renal disease on hemodialysis, congestive heart failure and hypertension, who came to the emergency department from dialysis where she was noted to have a sharp substernal chest pain associated with shortness of breath and nausea. The patient denied any radiation of pain. She reports that she has the same pain 3 days ago. It started at rest and lasted essentially the whole day, but did resolve on its own. The patient was given Tylenol at dialysis, which improved the pain, but she continues to still have it mildly. The patient has no past history of coronary artery disease. She had a negative catheterization in 2014 and negative stress test in January. In the ER, she was given aspirin and nitroglycerin. The patient remained stable throughout the course of her hospital stay. She tends to experience this similar type of pain very often while at dialysis. It is likely that this is due to demand ischemia from the amount of fluid being taken off. The patient's troponins were stable at about 0.043. Additionally, her BNP was 2986, which was down 2000 from a previous admission. The morning after admission, the patient denied any chest pain, shortness of breath, nausea or vomiting. Of note, patient did complain of right wrist pain, which was associated with erythema and swelling. She has a history of gout for which she has been treated for previously. This current episode looks like a gout flare. There did not look like there was enough joint fluid aspirate for verification. The patient was started on prednisone for a course of 7 days. She is to follow up with her primary care physician for further management and to taper steroids as necessary. This was discussed with the patient at length and she was in understanding and agreeable with the plan. Of note, patient is known to be noncompliant. When asked, she states that she is taking her medications and she will admit that she does not follow a fluid restrictive diet; however, it is unlikely that she has been taking her medications. Her blood pressure was elevated above her baseline during this admission. Additional blood pressure medication was started; however, the patient was encouraged to continue taking her medications as prescribed. Additionally, the patient was recently let go from home health due to noncompliance. When asked at this hospital stay if she was still seeing home health, she stated that she was, however, as her primary care physician, I received several letters from the home health, indicating that they have dismissed her from their services due to noncompliance with recommendations. Palliative has seen patient multiple times during her admission to the hospital. They have advised that this might possibly be due to a component of anxiety. The patient might benefit from being started on an additional medication; however, she needs to follow up in clinic to be further evaluated. Additionally, she would benefit from home health if she would comply with the recommendations. We can try to establish with a different home health agency at her followup visit in the primary care office. Of note, patient's family has not been by her side during any of her hospitalizations and may need to be discussed whether or not she has the necessary help she needs at home. She does live at home with her son per patient. DISPOSITION: Stable. DISCHARGE INSTRUCTIONS: 1. Location: Home. 2. Activity. Cardiopulmonary limitations. 3. Diet: Heart healthy diabetic diet, low sodium diet, fluid restrictive diet. 4. Followup: The patient is to follow up with her primary care physician, Dr. Boland at [facility] within the next 7 days of discharge. At this time, it is advised that she be evaluated for anxiety and/or depression and be treated accordingly. Patient is also to follow up with the [facility] as scheduled. KAL
--- NOTE | 2017-10-07 14:32 | EKG ---
Test Reason : CHEST PAIN Blood Pressure : / mmHG Vent. Rate : 080 BPM Atrial Rate : 080 BPM P-R Int : 162 ms QRS Dur : 088 ms QT Int : 406 ms P-R-T Axes : 034 -13 026 degrees QTc Int : 468 ms Normal sinus rhythm Possible Left atrial enlargement Left axis deviation Borderline ECG Confirmed by APPLE HORN DO ([id number]), manager editorial CANDI DUNN ([id number]) on 10/07/2017 2:31:59 PM Referred By: Confirmed By:APPLE HORN DO
== END 2017-09-27 13:32 | disposition home or self-care (01) ==
LOC: ERS 15:16 → 2SW 17:47
PROVIDERS: ADMIT Family Medicine; ATTEND Family Medicine
DX: R07.89 Other chest pain (principal); E10.22 Type 1 diabetes mellitus with diabetic chronic kidney disease; I13.2 Hypertensive heart and chronic kidney disease with heart failure and with stage 5 chronic kidney disease, or end stage renal disease; I50.30 Unspecified diastolic (congestive) heart failure; N18.6 End stage renal disease; I16.0 Hypertensive urgency; R31.9 Hematuria, unspecified; M10.9 Gout, unspecified; E78.5 Hyperlipidemia, unspecified; R51 Headache; D63.1 Anemia in chronic kidney disease; Z99.2 Dependence on renal dialysis; Z91.19 Patient's noncompliance with other medical treatment and regimen; Z79.82 Long term (current) use of aspirin; Z79.52 Long term (current) use of systemic steroids; Z79.899 Other long term (current) drug therapy; Z90.49 Acquired absence of other specified parts of digestive tract; Z90.710 Acquired absence of both cervix and uterus; Z89.421 Acquired absence of other right toe(s); Z98.890 Other specified postprocedural states; Z87.891 Personal history of nicotine dependence
CPT/HCPCS: 71010; 80048; 80053; 82550; 82553; 82962 ×2; 83690; 83880; 84484 ×2; 85025 ×2; 85610; 85730; 93005; 94760 ×3; 96374; 99285; G0378; 36415; 36416; 81003; 81015; J0360; J1815; J7506

== ENCOUNTER 2017-10-07 01:38 | Inpatient (IN) | payer MEDICARE, MEDICAID ==
[2017-10-07 02:45] LABS: ALT (SGPT) 30 U/L (8-55); AST (SGOT) 32 U/L (5-34); Alkaline Phosphatase 363 U/L (40-150); Anion Gap 15 mmol/L (10-20); BUN (Urea Nitrogen) 58 mg/dL (9.8-20.1); Bilirubin, Total 0.4 mg/dL (0.2-1.2); Calc. Creatinine Clearance 0 mL/min (70-130); Calcium 7.7 mg/dL (7.8-10.44); Carbon Dioxide 22 mmol/L (22-29); Chloride 89 mmol/L (98-107); Estimated GFR-MDRD 13; Globulin 2.5 g/dL (2.4-3.5); Protein, Total 5.3 g/dL (6.0-8.3)
[2017-10-07 02:47] LABS: Troponin I 0.059 ng/mL (< 0.028)
[2017-10-07 02:55] LABS: #Eosinphils 0.2 thou/uL (0.0-0.7); #Lymphocytes 1.1 thou/uL (1.20-3.40); #Monocytes 0.5 thou/uL (0.11-0.59); #Neutrophils 5.8 thou/uL (1.40-6.50); %Basophils 0.3 % (0.0-1.0); %Eosinophils 3.2 % (0.0-10.0); %Lymphocytes 13.8 % (21.0-51.0); Hematocrit 22.4 % (36.0-47.0); Mean Platelet Volume 7.2 fL (7.4-10.4); Red Blood Cell (RBC) Count 2.33 mill/uL (4.20-5.40); White Blood Cell (WBC) Count 7.6 thou/uL (4.8-10.8)
[2017-10-07 03:33] LABS: Base Excess -2.4 mEq/L (0 (+/- 2.5)); pH (venous) 7.45 (7.35-7.45)
[2017-10-07] MEDS ORDERED: Insulin Regular 300 UNITS/3 ML VIAL ONE (03:36)
[2017-10-07] MEDS ORDERED: Dextrose 5% in Water 1,000 ML IV PRN (07:45)
[2017-10-07] MEDS ORDERED: Dextrose 50% Abboject 50 ML SYRINGE SLOW IVP PRN (07:45)
[2017-10-07 08:24] LABS: Hemoglobin A1c 9.4 % (4.0-6.0)
[2017-10-07 08:29] VITALS: BMI 29.0
--- NOTE | 2017-10-07 08:33 | RAD ---
AP VIEW CHEST: Date: 10/07/17 HISTORY: Dyspnea. FINDINGS: AP view of chest obtained. Comparison made to previous exam from 09/26/17. AP view of chest demonstrates cardiomegaly. Pulmonary vascular congestion is seen. No evidence of eff usions, pneumonia, or pneumothorax seen. IMPRESSION: Cardiomegaly. Otherwise unremarkable AP view of chest. POS: [facility]
[2017-10-07] MEDS: HumaLOG 300 UNITS/3 ML VIAL SC PRN ×3 (08:45→18:55)
[2017-10-07 08:46] LABS: Troponin I 0.053 ng/mL (< 0.028)
[2017-10-07 08:53] LABS: Critical Call CKMBM RESULT DECREASING
--- NOTE | 2017-10-07 08:57 | HP-2 ---
CODE STATUS: FULL. PRIMARY CARE PHYSICIAN: [facility] ATTENDING PHYSICIAN: Kobe Velasco M.D. PGY1: Margaux Boland D.O. CHIEF COMPLAINT: Shortness of breath and chest pain. HISTORY OF PRESENT ILLNESS: This is a 57-year-old female with end-stage renal disease, on hemodialysis; hypertension; hyperlipidemia; and congestive heart failure that presents with worsening shortness of breath and chest pain that has been persistent over the last few hours. The patient endorses associated orthopnea and paroxysmal nocturnal dyspnea. She receives dialysis Monday, , Monday, and has not missed a session recently. The patient endorses being compliant with medications and fluid restrictive diet. On evaluation, patient was found to have a blood glucose greater than 700. She states that she knew her blood glucose was elevated after dinner, so she took an additional 15 units of sliding scale insulin, which is not listed on her medications from discharge or clinic. Patient was given 10 units of Novolin R in the emergency department. Blood glucose has come down to 512. Of note, the patient has had similar episodes of chest pain and shortness of breath in the past, which she is coming to the hospital for. Her most recent stress test was in 01/2017, which was negative for any signs of ischemia. She also had an echocardiogram done at that time, which showed a preserved ejection fraction and had no mention of diastolic failure. PAST MEDICAL HISTORY: 1. End-stage renal disease, on hemodialysis. 2. Hypertension. 3. Hyperlipidemia. 4. Congestive heart failure with preserved ejection fraction. 5. Type 1 diabetes mellitus. 6. Anemia of chronic disease. PAST SURGICAL HISTORY: 1. Cholecystectomy. 2. She did have a catheterization in 2014, which was normal. 3. Fistula, left arm. 4. Hysterectomy. 5. x1. 6. Right foot second toe amputation. ALLERGIES: No known drug allergies. MEDICATIONS LIST: From last discharge summary showed the patient taking, 1. Lisinopril 10 mg oral daily. 2. Gabapentin 100 mg oral twice daily. 3. Aspirin 325 mg oral daily. 4. Amlodipine 10 mg oral daily. 5. Calcium/vitamin D3 5000 units oral daily. 7. Calcium acetate 1334 mg oral twice daily. 8. Nitroglycerin 0.4 mg oral as needed. 9. Carvedilol 25 mg oral twice daily. 10. Atorvastatin calcium 40 mg oral at bedtime. 11. Famotidine 20 mg oral twice daily. 12. Insulin Detemir 100 units per mL, 12 units subcu every morning and 10 units subcu at bedtime. FAMILY HISTORY: Noncontributory. SOCIAL HISTORY: The patient is a former smoker, a half pack per day for 14 years. She denies any alcohol or drug use. REVIEW OF SYSTEMS: A 12-point review of systems was performed. All were negative except as listed in the HPI. PHYSICAL EXAMINATION: VITAL SIGNS: Blood pressure 149/54, pulse 67, respiratory rate 16, T-max 97.9, pulse ox 100% on 2 liters. Current weight 70 kilograms. GENERAL: Patient is alert and oriented x3, in no acute distress. Well- developed, well-nourished, appropriately interactive. EYES: Pupils equally round and reactive to light and accommodation. Extraocular muscles intact. Conjunctivae within normal limits. ENT: Nasal mucosa within normal limits. NECK: Supple. CARDIOVASCULAR: Regular rate and rhythm, 3/6 systolic murmur. Radial and pedal pulses 2+. RESPIRATORY: Normal respiratory effort, no retractions. LUNGS: Clear to auscultation bilaterally. The patient does have a 2 liter oxygen requirement, which is her baseline. SKIN: Warm and dry. No cyanosis or lesions. ABDOMEN: Soft, nontender to palpation. Bowel sounds positive in all 4 quadrants. No masses or distention. EXTREMITIES: No clubbing or cyanosis. Patient has 2+ pitting edema. MUSCULOSKELETAL: Structure within normal limit. Tone within normal limits. NEUROLOGIC: No focal deficits. GCS 15. PSYCHIATRIC: Appropriate. LABORATORY FINDINGS: 1. CBC reveals white blood cell count 7.6, hemoglobin 7.8, hematocrit 22.4, platelet count 203. 2. CMP reveals sodium 122, corrected to 133 after accounting for glucose, potassium 3.9, chloride 89, bicarb 22, BUN 58, creatinine 3.65, glucose 717 and then down to 517, calcium 7.7, total protein 5.3, albumin 2.8, total bilirubin 0.4, AST 32, ALT 30, alkaline phosphatase 363. 3. CK-MB 18.2, troponin 0.059. 4. BNP is 3348. 5. VBG shows pH 7.45, CO2 of 31.8, pO2 of 256.8. 6. Chest x-ray shows cardiomegaly and pulmonary vascular congestion. ASSESSMENT AND PLAN: This is a 57-year-old female with past medical history of end-stage renal disease, on hemodialysis; hypertension; hyperlipidemia; congestive heart failure; who presents with shortness of breath and chest pain, and was found to have a blood glucose of greater than 700. 1. Hyperglycemia. The patient was found to have blood glucose greater than 700. She does not appear to be in diabetic ketoacidosis or hyperosmolar hyperglycemic state. She was given Novolin R 10 units in the ED, which brought her blood glucose down to 512. She was given an additional 10 units several hours later. We are waiting for repeat blood glucose at this time. We will increase her Levemir to 15 units b.i.d. It is uncertain whether patient is on sliding scale insulin at mealtime, as it is not documented anywhere as such. We will plan on doing a mild sliding scale insulin here in the hospital to determine mealtime requirements. The patient does need to be followed closely with primary care physician to ensure that her regimen is correctly adjusted. Hemoglobin A1c is pending. Last hemoglobin A1c was done in 12/2016 that was 6.2 at that time. 2. End-stage renal disease, on hemodialysis. We will continue hemodialysis Monday, , and Monday. Consult nephrology in the a.m. for Monday dialysis. 3. Hyponatremia. This is likely secondary to hyperglycemia. Corrected sodium after accounting for blood glucose is 133. We will continue to monitor with CMP. 4. Congestive heart failure with preserved ejection fraction. She is uncertain of when patient was diagnosed. Echocardiogram from 01/2017 shows preserved ejection fraction and no mention of diastolic dysfunction. We will repeat echocardiogram at this time. 5. Diabetes mellitus, insulin-dependent. See plan for #1. 6. Elevated cardiac enzymes. We will trend cardiac enzymes. Echocardiogram is pending. Troponin is normal for patient, but CK-MB is elevated. 7. Anemia of chronic disease, stable through transfusion to get the patient above 8.0. 8. She was found to have coronary artery disease. 9. Hypertension. Continue home medications. 10. Hyperlipidemia. Continue home medications. 11. Deep venous thrombosis prophylaxis, sequential compression devices. DISPOSITION AND LENGTH OF HOSPITAL STAY: 2 days. Symptomatic medications will be provided. History and physical exam as well as management discussed with Dr. Kobe Velasco. [facility]ITAL[facility]
[2017-10-07] MEDS ORDERED: Insulin Detemir 100 UNITS/ML 15 UNITS in Pre-Filled Syringe 1 EACH SC SCH ×2 (09:00→21:00)
[2017-10-07] MEDS ORDERED: Nitroglycerin 0.4 MG TAB (25 Tab Bottle) SL PRN (10:07)
[2017-10-07] MEDS ORDERED: Epoetin (NON-ESRD) 20,000 UNITS/ML ML IVP SCH (11:15)
--- NOTE | 2017-10-07 11:22 | PDOC.EVN ---
Attending Addendum - Attending Addendum I personally evaluated the patient and discussed the management with Dr. Boland. I agree with the History, Examination, Assessment and Plan documented in her H& P with any addition or exceptions noted below. Patient with multiple hospitalizations for medical noncompliance admitted here with dyspnea and hyperglycemia. She reports she has not been taking her insulin properly. No evidence of DKA or HHS. Her blood sugars are already improved with insulin therapy. Resume proper home regimen and sliding scale as needed to get blood sugars down to normoglycemia. No indication for IV insulin therapy. She will have Nephro consulted for HD therapy that she is due for today. Anticipate 2-3 days hospitalization due to uncontrolled blood sugars and fluid overload.
[2017-10-07] MEDS ORDERED: FLU VACC QS2017-18 36 mo. & older 0.5 ML SYRINGE IM ONE (12:00)
[2017-10-07] MEDS ORDERED: Epoetin (NON-ESRD) 20,000 UNITS/ML ML SC SCH (17:15)
[2017-10-07 19:30] LABS: Bilirubin Negative (Negative); Blood, Urine Small (Negative); Glucose, Urine (Dipstick) 500 mg/dL (Negative); Ketone, Urine Negative (Negative); Nitrite Negative (Negative); Protein, Urine (Dipstick) 300 mg/dL (Neg-Trace); Urobilinogen 0.2 mg/dL (0.2-1.0)
[2017-10-07 19:33] LABS: Bacteria/HPF 2+ HPF (None Seen); Hyaline Casts/LPF 7-10 HYALINE CAST LPF (0-3 Hyaline); Squamous Epithelial 0-3 HPF (0-3)
[2017-10-07] MEDS: Famotidine 20 MG TAB PO SCH (21:13)
[2017-10-07] MEDS: Carvedilol 25 MG TAB PO SCH (21:13)
[2017-10-07] MEDS: Calcium Acetate 667 MG CAP PO SCH (21:13)
[2017-10-07] MEDS: Atorvastatin Calcium 40 MG TAB PO SCH (21:14)
[2017-10-08] MEDS: Acetaminophen 325 MG TAB PO PRN ×2 (06:21→16:36)
[2017-10-08] MEDS: HumaLOG 300 UNITS/3 ML VIAL SC PRN ×3 (06:21→20:32)
[2017-10-08] MEDS ORDERED: Insulin Detemir 100 UNITS/ML 20 UNITS in Pre-Filled Syringe 1 EACH SC SCH (06:55)
--- NOTE | 2017-10-08 07:34 | CON ---
DATE OF CONSULTATION: 10/07/2017 CONSULTING PHYSICIAN: Margaux Boland DO REASON FOR CONSULTATION: End-stage renal disease evaluation and care. REASON FOR ADMISSION: Shortness of breath. HISTORY OF PRESENT ILLNESS: A 57-year-old female with history of end-stage renal disease, noncomplia nce, hyperlipidemia, congestive heart failure, frequent hospitalization, came to the hospital with fl uid overload and shortness of breath. The patient remained noncompliant with fluid restriction despi te repeated counseling and is having frequent admissions. The patient said that she is having dry mo uth and feels thirsty and drinks as much as she wants nor have any control over over-fluid intake. The patient is severely edematous and short of breath. The patient was admitted last night. PAST MEDICAL HISTORY: Positive for end-stage renal disease, hypertension, hyperlipidemia, congestive heart failure, diabetes, and anemia. PAST SURGICAL HISTORY: 1. Cholecystectomy and AV fistula placement. 2. Hysterectomy, , and right foot surgery. HOME MEDICATIONS: Lisinopril, gabapentin, aspirin, amlodipine, calcium, nitroglycerine, , atorv astatin, famotidine, and insulin. ALLERGIES: No known drug allergies. SOCIAL HISTORY: Former smoker. No alcohol or illicit drug abuse. FAMILY HISTORY: No history of any kidney disease. REVIEW OF SYSTEMS: The following complete review of systems was negative, unless otherwise mentioned in the HPI or below: Constitutional: Weight loss or gain, ability to conduct usual activities. Sk in: Rash, itching. Eyes: Double vision, pain. ENT/Mouth: Nose bleeding, neck stiffness, pain, te nderness. Cardiovascular: Palpitations, dyspnea on exertion, orthopnea. Respiratory: Shortness of breath, wheezing, cough, hemoptysis, fever or night sweats. Gastrointestinal: Poor appetite, abdom inal pain, heartburn, nausea, vomiting, constipation, or diarrhea. Genitourinary: Urgency, frequenc y, dysuria, nocturia. Musculoskeletal: Pain, swelling. Neurologic/Psychiatric: Anxiety, depressio n. Allergy/Immunologic: Skin rash, bleeding tendency. PHYSICAL EXAMINATION: GENERAL: This is a well-built female in no apparent distress. VITAL SIGNS: Temperature 97.6, pulse 67, respirations 20, blood pressure 125/75. LABORATORY: Sodium 123, potassium 3.6. ASSESSMENT AND PLAN: 1. End-stage renal disease. Will begin hemodialysis. 2. Edema. Plan is to remove fluid with dialysis. 3. Hypertension. 4. Fluid overload. 5. Anemia. Plan is to have dialysis today with fluid removal. If needed, we will remove fluid tomorrow too. Th e patient was advised to limit fluid and salt intake . We will follow. Thank for your consult.
[2017-10-08 07:39] LABS: Anion Gap 11 mmol/L (10-20); BUN (Urea Nitrogen) 30 mg/dL (9.8-20.1); Calc. Creatinine Clearance 26 mL/min (70-130); Calcium 7.7 mg/dL (7.8-10.44); Carbon Dioxide 28 mmol/L (22-29); Chloride 99 mmol/L (98-107); Estimated GFR-MDRD 19
--- NOTE | 2017-10-08 07:57 | PDOC.FM ---
- Subjective Subjective: Patient being wheeled to dialysis, will revisit. - Objective MAR Reviewed: Yes Vital Signs & Weight: Vital Signs (12 hours) Temp Pulse Resp BP Pulse Ox 10/08/17 02:30 163/70 H 10/08/17 00:00 98.3 F 86 16 174/68 H 98 10/07/17 21:04 97.8 F 72 16 157/65 H 96 10/07/17 20:00 97.8 F 72 16 I&O: 10/07/17 10/08/17 10/09/17 06:59 06:59 06:59 Intake Total 1020 Output Total 4900 Balance -3880 Result Diagrams: 10/07/17 02:19 10/08/17 07:50 <Reji Edmond - Last Filed: 10/08/17 10:10> - Objective Vital Signs & Weight: Vital Signs (12 hours) Temp Pulse Resp BP Pulse Ox 10/08/17 08:00 98.3 F 86 16 98 10/08/17 02:30 163/70 H 10/08/17 00:00 98.3 F 86 16 174/68 H 98 Weight Admit Weight 69.853 kg Weight 69.853 kg I&O: 10/07/17 10/08/17 10/09/17 06:59 06:59 06:59 Intake Total 1020 Output Total 4900 Balance -3880 Result Diagrams: 10/07/17 02:19 10/08/17 07:50 <Kobe Velasco - Last Filed: 10/08/17 12:03> Dx/Plan (1) Hyperglycemia due to type 2 diabetes mellitus Code(s): E11.65 - TYPE 2 DIABETES MELLITUS WITH HYPERGLYCEMIA Status: Acute Plan: BG under better control now. Will titrate to 20 U bid of long acting based on her SSI need yesterday. (2) CHF (congestive heart failure) Code(s): I50.9 - HEART FAILURE, UNSPECIFIED Status: Chronic Plan: She has a diagnosis of CHF from her PCP, but no records indicating degree of CHF. Will again try to get echo. However, if she is clinically better, may get as an outpatient. (3) ESRD (end stage renal disease) on dialysis Code(s): N18.6 - END STAGE RENAL DISEASE; Z99.2 - DEPENDENCE ON RENAL DIALYSIS Status: Chronic Plan: Continue dialysis. Appreciate Nephro recommendation. Advised patient that she needs fluid restriction. (4) Hyperlipidemia Code(s): E78.5 - HYPERLIPIDEMIA, UNSPECIFIED Status: Chronic QualifierTitle: Hyperlipidemia type: unspecified Qualified Code(s): E78.5 - Hyperlipidemia, unspecified (5) Hypertension Code(s): I10 - ESSENTIAL (PRIMARY) HYPERTENSION Status: Chronic QualifierTitle: Hypertension type: secondary to other renal disorders Qualified Code(s): I15.1 - Hypertension secondary to other renal disorders; N28.89 - Other specified disorders of kidney and ureter; N28.89 - Other specified disorders of kidney and ureter Plan: Continue to be elevated above 150. Plan to increase lisinopril to 20. Will reevaluate after dialsyis as well. (6) T2DM (type 2 diabetes mellitus) Status: Resolved Plan: Clinical record from PCP does not indicate DM 1 or 2, both appear to be in the chart. Will get cpeptide to clarify. Again, increasing basal insulin. (7) Elevated troponin Code(s): R74.8 - ABNORMAL LEVELS OF OTHER SERUM ENZYMES Status: Acute Plan: Consider resolved. Trop not above baseline, not elevated after multiple draw and patient not having chest pain. <Reji Edmond M - Last Filed: 10/08/17 10:10> Attending Addendum - Attending Addendum I personally evaluated the patient and discussed the management with Dr. Edmond. I agree with the History, Examination, Assessment and Plan documented above with any addition or exceptions noted below. Patient feeling better today. Her blood sugars are improved. Will work to titrate insulin for better glucose control. HD today, will see if she needs repeat. Possible discharge later today if no need for HD tomorrow. <Kobe Velasco - Last Filed: 10/08/17 12:03>
[2017-10-08 08:36] LABS: Globulin 2.2 g/dL (2.4-3.5); Protein, Total 4.7 g/dL (6.0-8.3)
[2017-10-08 08:38] LABS: Alkaline Phosphatase 162 U/L (40-150); Bilirubin, Total 0.4 mg/dL (0.2-1.2)
[2017-10-08 08:41] LABS: ALT (SGPT) 26 U/L (8-55); AST (SGOT) 28 U/L (5-34)
[2017-10-08 08:55] LABS: ALT (SGPT) 23 U/L (8-55); AST (SGOT) 23 U/L (5-34); Alkaline Phosphatase 151 U/L (40-150); Anion Gap 8 mmol/L (10-20); BUN (Urea Nitrogen) 24 mg/dL (9.8-20.1); Bilirubin, Total 0.5 mg/dL (0.2-1.2); Calc. Creatinine Clearance 33 mL/min (70-130); Calcium 7.5 mg/dL (7.8-10.44); Carbon Dioxide 29 mmol/L (22-29); Chloride 101 mmol/L (98-107); Estimated GFR-MDRD 25; Globulin 2.2 g/dL (2.4-3.5); Protein, Total 4.7 g/dL (6.0-8.3)
[2017-10-08] MEDS ORDERED: Lisinopril 10 MG TAB PO SCH ×2 (09:00)
[2017-10-08] MEDS ORDERED: Aspirin 325 MG TAB PO SCH (09:00)
[2017-10-08] MEDS ORDERED: Amlodipine 10 MG TAB PO SCH (09:00)
[2017-10-08] MEDS: Lisinopril 20 MG TAB PO SCH (12:45)
[2017-10-08] MEDS: Calcium Acetate 667 MG CAP PO SCH ×2 (12:45→20:34)
[2017-10-08] MEDS: Aspirin 325 MG TAB PO SCH (12:45)
[2017-10-08] MEDS: Carvedilol 25 MG TAB PO SCH ×2 (12:49→20:34)
[2017-10-08] MEDS: Famotidine 20 MG TAB PO SCH ×2 (12:50→20:34)
[2017-10-08] MEDS: Amlodipine 10 MG TAB PO SCH (12:52)
[2017-10-08] MEDS: Insulin Detemir 100 UNITS/ML 20 UNITS in Pre-Filled Syringe 1 EACH SC SCH (12:53)
--- NOTE | 2017-10-08 19:49 | PRG ---
DATE OF SERVICE: 10/09/2017 SUBJECTIVE: Patient was seen and examined at bedside and overnight events noted. Patient denies any shortness of breath or chest pain or palpitation. No history of nausea or vomiting or diarrhea or f ever or chills or cramps. OBJECTIVE: GENERAL: This is a well-built female in no apparent distress. VITAL SIGNS: Temperature 97.7, pulse 68, respiratory rate 16, blood pressure 172/64. HEENT: Atraumatic, normocephalic. Oral mucosa is moist. NECK: Supple. CARDIOVASCULAR: S1, S2 heard. Rate and rhythm regular. RESPIRATORY: Clear to auscultation. GASTROINTESTINAL: Abdomen is soft. MUSCULOSKELETAL: No tenderness. No edema. DERMATOLOGIC: No skin rash. NEUROLOGIC: Alert and awake and oriented x3. No focal neurologic deficits. Moving all the extremiti es. PSYCHIATRIC: Mood and affect normal. LABORATORY DATA: Potassium is 3.3, BUN is 74, and creatinine was 2.06. ASSESSMENT AND PLAN: 1. End-stage renal disease. We will continue on dialysis as tolerated. 2. Hyperkalemia, mild. 3. Hypertension. 4. Fluid overload. Patient was advised to limit fluid intake. 5. Anemia of end-stage renal disease. Continue outpatient medications. Plan is to continue on dialysis as tolerated.
[2017-10-08] MEDS: Atorvastatin Calcium 40 MG TAB PO SCH (20:34)
[2017-10-09] MEDS: HumaLOG 300 UNITS/3 ML VIAL SC PRN (00:52)
[2017-10-09] MEDS: Acetaminophen 325 MG TAB PO PRN (04:40)
[2017-10-09 05:43] LABS: ALT (SGPT) 21 U/L (8-55); AST (SGOT) 21 U/L (5-34); Alkaline Phosphatase 160 U/L (40-150); Anion Gap 12 mmol/L (10-20); BUN (Urea Nitrogen) 23 mg/dL (9.8-20.1); Bilirubin, Total 0.4 mg/dL (0.2-1.2); Calc. Creatinine Clearance 28 mL/min (70-130); Calcium 7.6 mg/dL (7.8-10.44); Carbon Dioxide 27 mmol/L (22-29); Chloride 99 mmol/L (98-107); Estimated GFR-MDRD 21; Globulin 2.3 g/dL (2.4-3.5); Protein, Total 4.9 g/dL (6.0-8.3)
[2017-10-09] MEDS: Insulin Detemir 100 UNITS/ML 20 UNITS in Pre-Filled Syringe 1 EACH SC SCH (08:19)
[2017-10-09] MEDS: Aspirin 325 MG TAB PO SCH (08:22)
[2017-10-09] MEDS: Amlodipine 10 MG TAB PO SCH (08:22)
[2017-10-09] MEDS: Calcium Acetate 667 MG CAP PO SCH (08:22)
[2017-10-09] MEDS: Lisinopril 20 MG TAB PO SCH (08:23)
[2017-10-09] MEDS: Famotidine 20 MG TAB PO SCH (08:23)
[2017-10-09] MEDS: Carvedilol 25 MG TAB PO SCH (08:23)
--- NOTE | 2017-10-09 10:20 | PDOC.FM ---
- Subjective Subjective: Patient is off of oxygen, on RA and states she feels well. She state no more SOB , chest pain, or coughing. She says she feel ready to go home. - Objective MAR Reviewed: Yes Vital Signs & Weight: Vital Signs (12 hours) Temp Pulse Resp BP BP Pulse Ox 10/09/17 08:23 160/70 H 10/09/17 08:22 67 160/70 H 10/09/17 08:00 97.9 F 67 18 160/70 H 96 10/09/17 05:39 98.0 F 93 18 113/65 95 10/09/17 01:06 98.6 F 73 18 166/66 H 98 Weight Admit Weight 69.853 kg Weight 69.853 kg I&O: 10/08/17 10/09/17 10/10/17 06:59 06:59 06:59 Intake Total 1020 1500 Output Total 4900 5300 Balance -3880 3800 Result Diagrams: 10/07/17 02:19 10/09/17 04:07 <Reji Edmond M - Last Filed: 10/09/17 10:18> - Objective Vital Signs & Weight: Vital Signs (12 hours) Temp Pulse Resp BP BP Pulse Ox 10/09/17 08:23 160/70 H 10/09/17 08:22 67 160/70 H 10/09/17 08:00 97.9 F 67 18 160/70 H 96 10/09/17 05:39 98.0 F 93 18 113/65 95 10/09/17 01:06 98.6 F 73 18 166/66 H 98 Weight Admit Weight 69.853 kg Weight 69.853 kg I&O: 10/08/17 10/09/17 10/10/17 06:59 06:59 06:59 Intake Total 1020 1500 Output Total 4900 5300 Balance -3880 -3800 Result Diagrams: 10/07/17 02:19 10/09/17 04:07 <Kobe Velasco R - Last Filed: 10/09/17 10:29> Phys Exam - Physical Examination Constitutional: NAD HEENT: moist MMs Neck: no nodes, supple Respiratory: no wheezing, no rales, no rhonchi Cardiovascular: RRR 2/6 systolic murmur at RU sternal border Gastrointestinal: soft, non-tender, no distention, positive bowel sounds Musculoskeletal: edema present 2+ edema present in LE Neurological: non-focal Lymphatic: no nodes Psychiatric: normal affect, A&O x 3 Skin: no rash <LyReji M - Last Filed: 10/09/17 10:18> Dx/Plan (1) Hyperglycemia due to type 2 diabetes mellitus Code(s): E11.65 - TYPE 2 DIABETES MELLITUS WITH HYPERGLYCEMIA Status: Acute Plan: BG under better control now but patient required 16 units of SSI. Will change levemir to 24 U BID (2) CHF (congestive heart failure) Code(s): I50.9 - HEART FAILURE, UNSPECIFIED Status: Chronic Plan: She has a diagnosis of CHF from her PCP, but no records indicating degree of CHF. Echo done showed normal of 55-55% without evidence of dCHF. However, she has severe pulmonary hypertension and dilated right ventricle. (3) ESRD (end stage renal disease) on dialysis Code(s): N18.6 - END STAGE RENAL DISEASE; Z99.2 - DEPENDENCE ON RENAL DIALYSIS Status: Chronic Plan: Continue dialysis. Appreciate Nephro recommendation. Advised patient that she needs fluid restriction. She is to get outpatient dialysis tomorrow. (4) Hyperlipidemia Code(s): E78.5 - HYPERLIPIDEMIA, UNSPECIFIED Status: Chronic QualifierTitle: Hyperlipidemia type: unspecified Qualified Code(s): E78.5 - Hyperlipidemia, unspecified (5) Hypertension Code(s): I10 - ESSENTIAL (PRIMARY) HYPERTENSION Status: Chronic QualifierTitle: Hypertension type: secondary to other renal disorders Qualified Code(s): I15.1 - Hypertension secondary to other renal disorders; N28.89 - Other specified disorders of kidney and ureter; N28.89 - Other specified disorders of kidney and ureter Plan: Continue to be elevated above 150. Lisinopril to 20 mg from 10 mg. BP still elevated. Advise patient to follow up with PCP for continued titration. (6) T2DM (type 2 diabetes mellitus) Status: Resolved Plan: See Hyperglycemia. C-peptide pending. (7) Elevated troponin Code(s): R74.8 - ABNORMAL LEVELS OF OTHER SERUM ENZYMES Status: Acute Plan: Consider resolved. Trop not above baseline, not elevated after multiple draw and patient not having chest pain. (8) Pulmonary hypertension Code(s): I27.20 - PULMONARY HYPERTENSION, UNSPECIFIED Status: Acute Plan: Pulm hypertension on Echo. With good EF and no evidence seen of dCHF, this may represent right sided heart failure with cor pulmonale. Patient is now asymptomatic, advise follow up with PCP. Patient has oxygen at home. <Reji Edmond - Last Filed: 10/09/17 10:18> Attending Addendum - Attending Addendum I personally evaluated the patient and discussed the management with Dr. Edmond. I agree with the History, Examination, Assessment and Plan documented above with any addition or exceptions noted below. Patient doing well this morning. She has no complaints of shortness of breath after HD. She is scheduled to have HD tomorrow outpatient. Her blood sugars are improved. She is stable for discharge home today. <Kobe Velasco - Last Filed: 10/09/17 10:29>
[2017-10-09 11:52] VITALS: BP 132/67; TEMP 97.6
--- NOTE | 2017-10-09 22:05 | PRG ---
DATE OF SERVICE: 10/09/2017 SUBJECTIVE: Patient was seen and examined at bedside and overnight events noted. Patient denies any shortness of breath or chest pain or palpitation. No history of nausea or vomiting or diarrhea or f ever or chills or cramps. OBJECTIVE: GENERAL: This is a well-built female in no apparent distress. VITAL SIGNS: Temperature 97.6, pulse 66, respiratory rate 18, blood pressure 132/67. HEENT: Atraumatic, normocephalic, oral mucosa is moist. NECK: Supple. CARDIOVASCULAR: S1, S2 heard, rate and rhythm regular. RESPIRATORY: Clear to auscultation. GASTROINTESTINAL: Abdomen is soft. MUSCULOSKELETAL: No tenderness, no edema. DERMATOLOGIC: No skin rash. NEUROLOGIC: Alert and awake and oriented x3, no focal neurologic deficits. Moving all the extremiti es. PSYCHIATRIC: Mood and affect normal. LABORATORY DATA: Potassium is 3.9, BUN is 23, and creatinine is 2.4. ASSESSMENT AND PLAN: 1. End-stage renal disease, continue hemodialysis as tolerated. 2. Hyperkalemia, better. 3. Hypertension. 4. Fluid overload. 5. Anemia. Plan is to continue on dialysis as tolerated.
--- NOTE | 2017-10-10 20:07 | DIS-2 ---
DATE OF ADMISSION: 10/07/2017 DATE OF DISCHARGE: 10/09/2017 ADMITTING ATTENDING: Dr. Kobe Velasco. DISCHARGE ATTENDING: Dr. Kobe Velasco RESIDENT: Dr. Reji Edmond. CONSULTS: Dr. Sera Louise, Nephrology. PROCEDURES: 1. Chest x-ray. Impression: Cardiomegaly, otherwise unremarkable anterior and posterior view of est. 2. Echocardiogram. Impression: Ejection fraction estimated at 50% to 55%. Left atrium was mildly dilated, left ventricle size is normal. Moderately enlarged right atrium size, severely enlarged rig ht ventricle cavity, mild to moderate mitral regurg is present, moderate to severe tricuspid regurg, right ventricle systolic pressure of 79 mmHg consistent with severe pulmonary hypertension, severely enlarged right ventricle cavity, large pleural effusion. PRIMARY DIAGNOSES: 1. Hyperglycemia due to type 2 diabetes mellitus. 2. Congestive heart failure. 3. End-stage renal disease. 4. Pulmonary hypertension. SECONDARY DIAGNOSES: 1. Hyperlipidemia. 2. Hypertension. 3. Type 2 diabetes. 4. Elevated troponin. DISCHARGE MEDICATIONS: 1. Insulin Levemir 24 units subcu b.i.d. 2. Lisinopril 20 mg p.o. daily. 3. Gabapentin 100 mg p.o. b.i.d. 4. Aspirin 325 mg p.o. daily. 5. Vitamin D3 5000 units daily. 6. PhosLo 1334 mg p.o. b.i.d. 7. Nitroglycerin 0.4 mg p.o. as needed. 8. Carvedilol 25 mg p.o. b.i.d. 9. Atorvastatin 40 mg p.o. at bedtime. 10. Famotidine 20 mg p.o. b.i.d. 11. Prednisone 40 mg p.o. daily. 12. Amlodipine 10 mg p.o. daily. DISCONTINUED MEDICATION: Lisinopril 10 mg p.o. daily. HISTORY OF PRESENT ILLNESS AND HOSPITAL COURSE: This is a 57-year-old female who presented with end- stage renal disease on hemodialysis, hypertension, hyperlipidemia, and congestive heart failure with worsening shortness of breath and chest pain over the last few hours. She endorses orthopnea and PND . She received dialysis the day prior to admission; however, she found that elevated size from short of breath. She also found that she has hyperglycemia with blood glucose over 700. She was admitted and seen in the ER where studies were done, please see above. Troponin was found to be mildly eleva kimberly at 0.059, which eventually went down to 0.053. To note that she has always had indeterminate tro ponins on most of her visits. She was admitted to the medical floor due to her shortness of breath f or hemodialysis. The next day she was seen for hemodialysis, which 3 liters was taken off. She was continued with fluid restriction. She stated that her shortness of breath improved after that. The next day she also got a second dialysis and taking off and on 3 liters. At that point, the patient w as feeling improved breathing worrell. As for her hyperglycemia over 700, her other admission diagnosis , her insulin was increased from 15 to 20 and then to 24 units b.i.d., bringing her blood sugar down to the mid 100s with a final dose. An echo was done to evaluate for any changes in her heart failure and at that time, the echo found severe pulmonary hypertension which may led to cor pulmonale and ri ght-sided heart failure certainly explaining physical finding of shortness of breath and lower extrem ity edema. She has oxygen at home to help with pulmonary hypertension and also recommended to her th at she follow up with a clinical research associate as an outpatient for further evaluation. On day of discharge, her admission diagnoses of shortness of breath and hyperglycemia has resolved. The shortness of ashlee th was likely secondary to congestive heart failure and end-stage renal disease. As for her chronic issue of hyperlipidemia and hypertension, she was continued on her home medication and her lisinopril was increased from 10 mg to 20 mg. DISPOSITION: Stable. DISCHARGE INSTRUCTIONS: 1. Location: To home. 2. Activity: As tolerated. 3. Diet: Heart healthy diabetic diet, low sodium. 4. Followup: [facility] physician within 1 week.
== END 2017-10-09 14:06 | disposition home or self-care (01) | DRG 291 ==
LOC: ERS 01:38 → ERHOLD 04:08 → T4-A 06:56
PROVIDERS: ADMIT Student in an Organized Health Care Education/Training Program; ATTEND Student in an Organized Health Care Education/Training Program
PROC: 5A1D70Z Performance of Urinary Filtration, Intermittent, Less than 6 Hours Per Day (ICD-10-PCS; principal; 2017-10-08)
DX: I13.2 Hypertensive heart and chronic kidney disease with heart failure and with stage 5 chronic kidney disease, or end stage renal disease (principal); N18.6 End stage renal disease; E11.22 Type 2 diabetes mellitus with diabetic chronic kidney disease; I27.20 Pulmonary hypertension, unspecified; E11.65 Type 2 diabetes mellitus with hyperglycemia; I50.30 Unspecified diastolic (congestive) heart failure; E87.1 Hypo-osmolality and hyponatremia; Z99.2 Dependence on renal dialysis; Z79.4 Long term (current) use of insulin; E78.5 Hyperlipidemia, unspecified; D63.1 Anemia in chronic kidney disease; Z87.891 Personal history of nicotine dependence; E87.5 Hyperkalemia; Z91.14 Patient's other noncompliance with medication regimen
CPT/HCPCS: 36415; 36416; 71010; 80053; 81003; 81015; 82010; 82553; 82805; 83036; 83880; 83930; 84484; 84681; 85025; 87340; 90935; 93005; 93306; 96374; G0257; J0885; J1815

== ENCOUNTER 2017-10-20 20:06 | Observation (INO) | payer MEDICAID, MEDICARE ==
[2017-10-20 21:15] LABS: #Lymphocytes 0.8 thou/uL (1.20-3.40); #Monocytes 0.4 thou/uL (0.11-0.59); #Neutrophils 12.7 thou/uL (1.40-6.50); %Eosinophils 0.1 % (0.0-10.0); %Lymphocytes 5.6 % (21.0-51.0); %Monocytes 2.5 % (0.0-10.0); %Neutrophils 91.8 % (42.0-75.0); Hemoglobin 7.3 g/dL (12.0-16.0); Mean Corpuscular HGB CONC 32.5 g/dL (32.0-36.0); Mean Corpuscular Hemoglobin 31.9 pg (27.0-31.0); Mean Platelet Volume 6.7 fL (7.4-10.4); Platelet Count 258 thou/uL (130-400); Red Blood Cell (RBC) Count 2.29 mill/uL (4.20-5.40); White Blood Cell (WBC) Count 13.9 thou/uL (4.8-10.8)
[2017-10-20 21:32] LABS: Troponin I 0.054 ng/mL (< 0.028)
[2017-10-20 21:45] LABS: ALT (SGPT) 44 U/L (8-55); AST (SGOT) 30 U/L (5-34); Albumin 2.8 g/dL (3.5-5.0); Alkaline Phosphatase 303 U/L (40-150); Anion Gap 14 mmol/L (10-20); BUN (Urea Nitrogen) 11 mg/dL (9.8-20.1); Bilirubin, Total 0.9 mg/dL (0.2-1.2); CK (CPK) 123 U/L (29-168); Calc. Creatinine Clearance 0 mL/min (70-130); Calcium 9.4 mg/dL (7.8-10.44); Carbon Dioxide 31 mmol/L (22-29); Chloride 97 mmol/L (98-107); Estimated GFR-MDRD 35; Globulin 3.1 g/dL (2.4-3.5); Glucose 158 mg/dL (70-105); Protein, Total 5.9 g/dL (6.0-8.3); Sodium 139 mmol/L (136-145)
--- NOTE | 2017-10-20 21:47 | RAD ---
CHEST ONE VIEW: HISTORY: Chest pain. COMPARISON: Chest, one view, 10/07/2017. FINDINGS: Patchy air space opacities are present bilaterally. Mild edema. No pneumothorax or small effusion. IMPRESSION: Patchy air space opacities with interstitial markings and left effusion. Given the patient's history , this may be sequela of volume overload. Infection is within the differential. POS: [facility]
[2017-10-21] MEDS ORDERED: Acetaminophen 325 MG TAB ONE (00:08)
[2017-10-21] MEDS ORDERED: Nitroglycerin 0.4 MG TAB (25 Tab Bottle) SL PRN (01:37)
[2017-10-21] MEDS ORDERED: Acetaminophen 500 MG TAB PO PRN (04:52)
[2017-10-21] MEDS ORDERED: Acetaminophen 500 MG TAB PO SCH (04:52)
--- NOTE | 2017-10-21 06:26 | CON ---
DATE OF CONSULTATION: 10/20/2017 REASON FOR CONSULTATION: Shortness of breath post-dialysis. HISTORY OF PRESENTING ILLNESS: This is a 57-year-old female with a history of noncompliance and mass cierra fluid who presented to the hospital after dialysis complaining of increasing shortness of breath as well as facial swelling and lower extremity swelling. The patient stated his swelling did improve with dialysis. PAST MEDICAL HISTORY: Significant for end-stage renal disease, hypertension, anemia, ESRD, noncompli ance with multiple , congestive heart failure, hysterectomy, cholecystectomy, tunneled dialysis catheter, diabetes mellitus, anemia. HOME MEDICATIONS: List reviewed. ALLERGIES: Reviewed. FAMILY HISTORY: Negative for ESRD. REVIEW OF SYSTEMS: A 15-point review of systems was performed and negative except positives noted ab ove. GENERAL: Weakness- HEAD: Headache- NECK: No swelling or lumps. NOSE: No epistaxis or discharge. EYES: No diplopia or pain. RESPIRATORY: Dyspnea- CARDIOVASCULAR: Chest pain- GASTROINTESTINAL: Nausea- /WATER MAIN PIPE LAYER: Hematuria- MUSCULOSKELETAL: No joint pain. NEUROPSYCHIATIC SYSTEMS: No suicidal ideation. No ideation. SKIN: Denies any rash or ulcer. CONSTITUTIONAL: No fever or chills. PHYSICAL EXAMINATION: GENERAL: Patient is awake, alert. VITAL SIGNS: Afebrile, pulse 75, breathing 16, blood pressure was 157/90. HEAD/NECK: Normocephalic. Atraumatic. EYES: EOMI. No deformity. EARS: Clear. No ulcers. NOSE: Intact. No lesions. MOUTH: Clear. No discharge. THROAT: Clear. No exudate. LUNGS: Clear. No crackles. CARDIAC: S1, S2. No rub. ABDOMEN: Benign. BS+. GENITALIA/RECTUM: Vasquez absent. BACK/EXTREMITIES: Edema 0+ Ulcer- NEUROLOGICAL: Alert and motor intact. SKIN: Rash- Bruise- LYMPHATICS: Edema- Ulcer- LABORATORY DATA: Potassium is 3, creatinine 1.5. ASSESSMENT AND RECOMMENDATIONS: 1. Stage 6 chronic kidney disease. Plan urgent hemodialysis. 2. Congestive heart failure. 3. Facial edema, rule out superior vena cava syndrome. This can be accomplished by the primary care team. 4. Hypertension, stable. 5. Medications based on glomerular filtration rate are appropriate. 6. Hypokalemia. We will dialyze the patient with a 4K bath for 4 hours. Overall, prognosis is extr dg poor.
[2017-10-21] MEDS ORDERED: Dextrose 5% in Water 1,000 ML IV PRN ×2 (06:53→15:09)
[2017-10-21] MEDS ORDERED: Dextrose 50% Abboject 50 ML SYRINGE SLOW IVP PRN ×2 (06:53→15:09)
[2017-10-21 07:48] LABS: INR-International Normal Ratio 1.4; PTT 39.3 SEC (22.9-36.1); Prothrombin Time 17.1 SEC (12.0-14.7)
[2017-10-21 07:51] VITALS: BMI 29.0
[2017-10-21] MEDS ORDERED: ADMIXTURE FEE SC SCH (09:00)
[2017-10-21] MEDS ORDERED: INSULIN DETEMIR SC SCH (09:00)
[2017-10-21] MEDS: Lisinopril 20 MG TAB PO SCH (09:30)
[2017-10-21] MEDS: Famotidine 20 MG TAB PO SCH ×2 (09:30→21:00)
[2017-10-21] MEDS: Gabapentin 100 MG CAP PO SCH ×2 (09:31→21:00)
[2017-10-21] MEDS: Aspirin 325 MG TAB PO SCH (09:31)
[2017-10-21] MEDS: Insulin Detemir 100 UNITS/ML 12 UNITS in Pre-Filled Syringe 1 EACH SC SCH (09:31)
[2017-10-21] MEDS: Carvedilol 25 MG TAB PO SCH ×2 (10:32→20:48)
[2017-10-21 10:48] LABS: Hemoglobin 7.1 g/dL (12.0-16.0)
[2017-10-21 11:10] LABS: Anion Gap 15 mmol/L (10-20); BUN (Urea Nitrogen) 10 mg/dL (9.8-20.1); Calc. Creatinine Clearance 50 mL/min (70-130); Calcium 8.3 mg/dL (7.8-10.44); Carbon Dioxide 27 mmol/L (22-29); Chloride 101 mmol/L (98-107); Estimated GFR-MDRD 39; Glucose 141 mg/dL (70-105); Potassium 3.4 mmol/L (3.5-5.1); Sodium 140 mmol/L (136-145)
[2017-10-21] MEDS ORDERED: FLU VACC QS2017-18 36 mo. & older 0.5 ML SYRINGE IM ONE (12:00)
--- NOTE | 2017-10-21 13:46 | PRG ---
DATE OF SERVICE: 10/21/2017 SUBJECTIVE: A 57-year-old female being seen for end-stage renal disease. Patient denies any nausea, vomiting or chest pain. PHYSICAL EXAMINATION: GENERAL: Patient is awake, alert. VITAL SIGNS: Afebrile, pulse 76, breathing at 16, blood pressure 157/68. HEAD/NECK: Normocephalic. Atraumatic. EYES: EOMI. No deformity. EARS: Clear. No ulcers. NOSE: Intact. No lesions. MOUTH: Clear. No discharge. THROAT: Clear. No exudate. LUNGS: Clear. No crackles. CARDIAC: S1, S2. No rub. ABDOMEN: Benign. BS+. GENITALIA/RECTUM: Vasquez absent. BACK/EXTREMITIES: Edema 0+ Ulcer- NEUROLOGICAL: Alert and motor intact. SKIN: Rash- Bruise- LYMPHATICS: Edema- Ulcer- LABORATORY DATA: Show hemoglobin 7.1 and creatinine 1.3. ASSESSMENT AND RECOMMENDATIONS: 1. Stage 6 chronic kidney disease. Plan hemodialysis again on Monday. 2. Hypertension, stable. 3. Anemia. Would recommend transfusion. 4. Medications based on glomerular filtration rate are appropriate. 5. Anemia. Give 10,000 units of Epogen subcu.
[2017-10-21] MEDS ORDERED: Epoetin (ESRD) 10,000 UNITS/ML VIAL SC SCH (14:00)
--- NOTE | 2017-10-21 14:38 | CT ---
CT CHEST WITH CONTRAST: TECHNIQUE: Multiple axial tomograms were obtained through the chest with IV enhancement. HISTORY: Chest pain. Assess for pleural effusion and pericardial effusion. FINDINGS: There are small bilateral pleural effusions. No evidence of pericardial effusion. There is cardiome yaritza. Review of the lung hawk reveals an area of nodular opacity in the left upper lobe in the apex which is ill-defined and has the appearance of inflammatory infiltrate on the coronal projection. There is ground-glass opacity in the region of the lingula, also worrisome for infiltrate or edema. Mild ground-glass opacity in both lower lungs is also worrisome for edema. Focal atelectasis in the left lung base and mild bibasilar linear atelectasis. Images through the upper abdomen appear unremarkable with no evidence of ascites. IMPRESSION: 1. Confluent linear infiltrate in the left upper lobe extending into the apex worrisome for an infla mmatory infiltrate. 2. Ground-glass infiltrate in the lingula and in both lower lobes concerning for infiltrate or edema . 3. Small bilateral pleural effusions. 4. Focal atelectasis in the posterior left lung base and areas of linear atelectasis in both lung ba ses. 5. There is cardiomegaly without evidence of pericardial effusion. POS: [facility]
--- NOTE | 2017-10-21 15:50 | EKG ---
Test Reason : Blood Pressure : / mmHG Vent. Rate : 088 BPM Atrial Rate : 088 BPM P-R Int : 150 ms QRS Dur : 082 ms QT Int : 390 ms P-R-T Axes : 037 -02 084 degrees QTc Int : 471 ms Normal sinus rhythm Possible Left atrial enlargement Nonspecific ST abnormality Abnormal ECG Confirmed by ERENDIRA GRIFFIN MD ([id number]), editor managing newspaper [employer] ([id number]) on 10/21/2017 3:50:16 PM Referred By: Confirmed By:ERENDIRA GRIFFIN MD
[2017-10-21 17:16] LABS: #Eosinphils 0.1 thou/uL (0.0-0.7); #Monocytes 0.3 thou/uL (0.11-0.59); #Neutrophils 4.9 thou/uL (1.40-6.50); %Basophils 0.2 % (0.0-1.0); %Eosinophils 2.3 % (0.0-10.0); %Lymphocytes 15.2 % (21.0-51.0); %Monocytes 5.3 % (0.0-10.0); %Neutrophils 76.9 % (42.0-75.0); Hemoglobin 7.6 g/dL (12.0-16.0); Mean Corpuscular HGB CONC 34.1 g/dL (32.0-36.0); Mean Corpuscular Hemoglobin 33.6 pg (27.0-31.0); Mean Corpuscular Volume 98.6 fl (81.0-99.0); Mean Platelet Volume 7.2 fL (7.4-10.4); Platelet Count 181 thou/uL (130-400); RBC Distribution Width 13.8 % (11.5-14.5); Red Blood Cell (RBC) Count 2.27 mill/uL (4.20-5.40); White Blood Cell (WBC) Count 6.3 thou/uL (4.8-10.8)
[2017-10-21] MEDS: HumaLOG 300 UNITS/3 ML VIAL SC PRN ×2 (17:46→21:00)
--- NOTE | 2017-10-21 18:55 | HP-2 ---
DATE OF ADMISSION: 10/21/2017 ATTENDING: Dr. Desire Jansen. RESIDENT: Angélica Granados M.D. CODE STATUS: FULL. PRIMARY CARE PHYSICIAN: [facility]. HISTORIAN: Patient. CHIEF COMPLAINT: Shortness of breath and headache. HISTORY OF PRESENT ILLNESS: A 57-year-old female with end-stage renal disease on dialysis Monday, and Monday, presents with chest pain and shortness of breath since . She has received hemodialysis since Monday daily for the past 4 days in a row for volume overload. States she started having chest pain and shortness of breath. She describes her chest pain as sharp, constant, 6/10 on the right side, worse with coughing. Associated symptoms include fluid in her legs and worsening and as mentioned above, shortness of breath. She normally is on 2 liters of oxygen at home chronically. Patient also sees Dr. Kat regularly, her document control specialist. She denies fever, nasal congestion. She does endorse cough. She states she received her flu shot. She says she has had a hard time following her diet and fluid restrictions over the holidays and additionally over the weekend. She states that she normally drinks 4 cups of Elijah-Aid a day. She also states that her daughter and grandson were recently ill with the flu. PAST MEDICAL HISTORY: Hypertension, hyperlipidemia, CHF with preserved ejection fraction, type 1 diabetes, anemia of chronic disease, end-stage renal disease on hemodialysis Monday, , and Monday. PAST SURGICAL HISTORY: Cholecystectomy, cardiac catheterization in 2015, which is normal, fistula of the left arm, hysterectomy, x1, and right foot second toe amputation. ALLERGIES: No known drug allergies. MEDICATIONS: Lisinopril, gabapentin, aspirin, amlodipine, calcium/vitamin D, nitro, carvedilol, atorvastatin, famotidine, insulin 12 units q. a.m. and 10 units at night. SOCIAL HISTORY: Former smoker 7-pack-year history. Denies alcohol or drug use. REVIEW OF SYSTEMS: GENERAL: Denies fevers, chills, weight, appetite or sleep changes. Denies night sweats or fatigue. HEENT: Denies vision changes, eye pain, nasal congestion, rhinorrhea, or sore throat. RESPIRATORY: Endorses cough. Denies congestion or shortness of breath. Denies exercise intolerance. CARDIOVASCULAR: Endorses chest pain. Denies palpitations. Endorses edema. Endorses orthopnea. GASTROINTESTINAL: Denies nausea, vomiting, diarrhea, constipation. SKIN: Denies rashes or lesions. MUSCULOSKELETAL: Denies pain or tenderness. NEUROLOGIC: Denies weakness or numbness. PSYCHIATRIC: Denies anxiety or depression. PHYSICAL EXAMINATION: VITAL SIGNS: Blood pressure 166/83, pulse of 83, respiratory rate 16, T-max 98.6 degrees Fahrenheit, pulse ox 84% on room air, 96% on 2 liters, current weight 71 kilograms. GENERAL: Alert and oriented x4, no apparent distress. Well-developed, well- nourished, appropriately interactive. HEENT: Eyes: Conjunctivae within normal limits. Nasal mucosa and oropharynx within normal limits. NECK: Supple, no lymphadenopathy, no thyromegaly. CARDIOVASCULAR: Regular rate and rhythm. S3 gallop or murmur appreciated. 1+ pedal pulses. RESPIRATORY: Normal effort, no retractions. Decreased breath sounds. Crackles present bilaterally. SKIN: Warm and dry. No cyanosis. No lesion. ABDOMEN: Soft, nontender to palpation. Hypoactive bowel sounds. No mass or distention. Positive fluid. EXTREMITIES: No clubbing, no cyanosis. Edema, 2+. MUSCULOSKELETAL: Structure is within normal limits. Tone is within normal limits. NEUROLOGIC: No focal deficits. GCS 15. PSYCHIATRIC: Appropriate. LABORATORY DATA AND IMAGING DATA: 1. CBC 13.9, 7.3, 22.5, 258. 2. CMP: 139, 111, 1.53, glucose 168, CK MB 4.0, troponin 0.054. 3. AST and ALT 30 and 44, calcium 9.4, albumin 3.8, total bilirubin 0.9. BNP 8431. 4. Chest x-ray: Patchy airspace opacities with interstitial markings and marked effusion. ASSESSMENT AND PLAN: This is a 57-year-old female with past medical history of end-stage renal disease on hemodialysis Monday, , and Monday, presents with shortness of breath and chest pain for 2 days and has required dialysis for the past 4 days secondary to volume overload, admitted for acute on chronic hypoxic respiratory failure secondary to volume overload and right heart failure. 1. Acute on chronic hypoxic respiratory failure secondary to volume overload. Patient is going to receive hemodialysis this morning. Dr. Kat has been consulted. We would recommend a sleep study in the outpatient setting as patient likely is chronically hypoxic and would benefit from continuous positive airway pressure machine at home secondary to suspected obstructive sleep apnea and suspected chronic hypoxia worsening pulmonary hypertension and right heart strain, which could also be contributing to patient's persistent volume overloaded state. 2. Right heart failure. Patient appears to be volume overloaded. Patient had a recent echo in 09/2017 which stated that patient has severe pulmonary hypertension. As mentioned above, patient is clinically hypervolemic and we would recommend that patient adhere to a fluid restricted diet; however, patient endorses difficulty with compliance. It appears that in addition to patients ESRD, she has significant right heart strain with a right heart failure picture going on during this admission. She is currently on appropriate medications for CHF at home, however it is unclear at this time if she is compliant with taking her medications as well as with adhereing to a fluid restricted diet. I also think that she has sever pulmonary hypertension d/t a chronically hypoxic state at home; it is unclear if she is adhering to wearing her oxygen at home. She would benefit from a sleep study to evaluate if she needs a CPAP machine at night. In addition, we will order a dietitian consult for the patient to assist in providing dietary guidance regarding fluid restriction and heart healthy diet. 3. End-stage renal disease on hemodialysis Monday, , and Monday. Recommend dialysis today (Monday) and discuss further plans with pt's document control specialist, Dr Kat. KAL
[2017-10-21] MEDS ORDERED: Atorvastatin Calcium 40 MG TAB PO SCH (21:00)
[2017-10-21] MEDS ORDERED: Insulin Detemir 100 UNITS/ML 10 UNITS in Admixture Fee 1 EACH SC SCH (21:00)
[2017-10-21] MEDS ORDERED: Insulin Detemir 100 UNITS/ML 10 UNITS in Pre-Filled Syringe 1 EACH SC SCH (21:00)
--- NOTE | 2017-10-21 21:43 | HP ---
ATTENDING NOTE DATE OF SERVICE: 10/21/2017 CHIEF COMPLAINT: Shortness of breath and facial swelling. HISTORY OF PRESENT ILLNESS: The patient is a 57-year-old female with a significant past med ical history of end-stage renal disease on hemodialysis, hypertension, chronic anemia, congestive hea rt failure, and history of noncompliance with medical treatment, who was admitted with shortness of b reath and swelling. The patient had been getting dialysis daily for several days prior to the admiss ion because she was volume overloaded. The patient admits that she has not been compliant with her f luid restriction and has been drinking large amounts of Elijah-Aid every day and that is the only thing that she drinks is large amounts of Elijah-Aid. Dr. Kat has noticed that the patient was having unil ateral facial swelling, it was concerned for possible pericardial effusion or some other cardiac issu es. The patient received dialysis overnight and is feeling much better this morning. Her facial swe lling has resolved. The patient has been counseled extensively on the need to comply with her dialys is and with her fluid restrictions necessary. We also note that on a previous echo, she had a signif icant right heart strain noted and severe pulmonary hypertension. She has been advised that she need ed to follow up as an outpatient with her primary care physician to be set up for a sleep study, we e xplained the reason behind this, this morning. I spoke with Dr. Kat who has requested that we get a noncontrast CT of the chest and this is being ordered. If this is normal, the patient has been salvador red for discharge. Her hemoglobin is low and she may need transfusion, but we will clarify whether t his needs to happen in the hospital or if this will be given with her next dialysis treatment. Lindsey moreno see the resident's dictation for the full history and physical, assessment and plan. I have discus sed this in detail and repeated pertinent portions of the history and physical myself.
[2017-10-22] MEDS ORDERED: Sodium Chloride 0.9% 10 ML ONE (05:57)
[2017-10-22 06:56] LABS: Band 3 % (5-11); Eosinophils 2 % (0-10); Hemoglobin 7.1 g/dL (12.0-16.0); Hypochromia SLIGHT = 6-15 cells (100X) (0-5/hpf); Lymphocytes 8 % (21-51); MDiff Complete? YES; Mean Corpuscular Hemoglobin 31.3 pg (27.0-31.0); Mean Platelet Volume 7.7 fL (7.4-10.4); Monocytes 3 % (0-10); Neutrophil 84 % (42-75); Platelet Count 124 thou/uL (130-400); RBC Distribution Width 13.7 % (11.5-14.5); Red Blood Cell (RBC) Count 2.28 mill/uL (4.20-5.40); White Blood Cell (WBC) Count 7.1 thou/uL (4.8-10.8)
[2017-10-22 06:59] LABS: Anion Gap 10 mmol/L (10-20); BUN (Urea Nitrogen) 20 mg/dL (9.8-20.1); Calc. Creatinine Clearance 26 mL/min (70-130); Calcium 7.8 mg/dL (7.8-10.44); Carbon Dioxide 30 mmol/L (22-29); Chloride 100 mmol/L (98-107); Estimated GFR-MDRD 19; Glucose 89 mg/dL (70-105); Potassium 3.9 mmol/L (3.5-5.1); Sodium 136 mmol/L (136-145)
--- NOTE | 2017-10-22 07:25 | PDOC.FM ---
- Subjective Subjective: Mrs. Rodriguez is doing well this morning, states that she is feeling better. Since admission and having dialysis, her breathing is much improved and she states that it is easier for her to breath. She was seen by Dr. Kat, nephrology, yesterday and he cleared her for discharge last night. Patient wanted to be seen by case management to talk about assisted living options and resources and she was see last night by CM. She was provided with resources. - Objective MAR Reviewed: Yes Vital Signs & Weight: Vital Signs (12 hours) Temp Pulse Resp BP Pulse Ox 10/22/17 06:45 93 L 10/22/17 04:34 98.1 F 66 20 124/60 92 L 10/21/17 23:48 98.2 F 63 20 117/58 L 92 L 10/21/17 20:35 97.9 F 31 L 20 94 L Result Diagrams: 10/22/17 06:01 10/22/17 06:01 <Miguel Ellis - Last Filed: 10/22/17 07:23> - Objective Vital Signs & Weight: Vital Signs (12 hours) Temp Pulse Resp BP BP Pulse Ox 10/22/17 11:26 98.7 F 66 22 H 148/66 H 10/22/17 08:00 98.4 F 67 20 160/71 H 96 10/22/17 07:53 160/71 H 10/22/17 06:45 93 L Result Diagrams: 10/22/17 06:01 10/22/17 06:01 <Desire Jansen - Last Filed: 10/22/17 16:50> Phys Exam - Physical Examination Constitutional: NAD HEENT: moist MMs, sclera anicteric Neck: no JVD, supple, full ROM Respiratory: no wheezing, no rales, no rhonchi, clear to auscultation bilateral Cardiovascular: RRR, no significant murmur Gastrointestinal: soft, non-tender, no distention Musculoskeletal: edema present 2+ in B/l LE Neurological: non-focal, moves all 4 limbs Psychiatric: normal affect, A&O x 3 <Miguel Ellis - Last Filed: 10/22/17 07:23> Dx/Plan (1) Acute and chronic respiratory failure with hypoxia Code(s): J96.21 - ACUTE AND CHRONIC RESPIRATORY FAILURE WITH HYPOXIA Status: Acute Plan: Patient's respiratory status improved dramatically after receiving dialysis right upon admission. She respiratory status has continued to be improved. Dr. Kat, nephrology, has set patient up for extra dialysis on Monday (she is normally a , , and Sat dialysis). We are continuing her home medications. She was started on Epogen by Dr. Kat yesterday for anemia. (2) Right heart failure Status: Acute (3) ESRD (end stage renal disease) on dialysis Code(s): N18.6 - END STAGE RENAL DISEASE; Z99.2 - DEPENDENCE ON RENAL DIALYSIS Status: Chronic Plan: on Mon, , Sat dialysis - Plan Plan: Patient has been cleared for d/c by Dr. Kat, with instruction to have extra dialysis tomorrow (monday) and to continue normal Mon, Sonya, Mon dialysis. Patient has a 1000 mL fluid restricted diet. She was likely decompensated due to noncompliance with this diet. Patient was started on Epogen for anemia. Patient instructed to follow up with [facility] as soon as she can get an appointment and to keep all dialysis appointments. She was in agreement with this plan. Also reiterated the importance of following her fluid restricted diet. Also, provided her with assisted living resources and contact information. <Miguel Ellis - Last Filed: 10/22/17 07:23> Attending Addendum - Attending Addendum I personally evaluated the patient and discussed the management with Dr. Ellis. I agree with the History, Examination, Assessment and Plan documented above with any addition or exceptions noted below. The patient is feeling better and wants to go home. She will have dialysis tomorrow. Pt will f/u up at [facility] clinic for repeat CBC. <Desire Jansen - Last Filed: 10/22/17 16:50>
[2017-10-22] MEDS: Aspirin 325 MG TAB PO SCH (07:53)
[2017-10-22] MEDS: Gabapentin 100 MG CAP PO SCH (07:53)
[2017-10-22] MEDS: Lisinopril 20 MG TAB PO SCH (07:53)
[2017-10-22] MEDS: Carvedilol 25 MG TAB PO SCH (07:54)
[2017-10-22] MEDS: Famotidine 20 MG TAB PO SCH (07:54)
[2017-10-22] MEDS: Insulin Detemir 100 UNITS/ML 12 UNITS in Pre-Filled Syringe 1 EACH SC SCH (09:30)
[2017-10-22] MEDS: HumaLOG 300 UNITS/3 ML VIAL SC PRN (11:21)
[2017-10-22 11:26] VITALS: BP 148/66; TEMP 98.7
--- NOTE | 2017-10-22 14:21 | PRG ---
DATE OF SERVICE: 10/22/2017 NEPHROLOGY PROGRESS NOTE SUBJECTIVE: This is a 57-year-old female being seen for end-stage renal disease. Patient denies any nausea, vomiting or chest pain. PHYSICAL EXAMINATION: GENERAL: Patient is awake, alert. VITAL SIGNS: Afebrile, pulse 66, breathing at 16, blood pressure 140/66. HEAD/NECK: Normocephalic. Atraumatic. EYES: EOMI. No deformity. EARS: Clear. No ulcers. NOSE: Intact. No lesions. MOUTH: Clear. No discharge. THROAT: Clear. No exudate. LUNGS: Clear. No crackles. CARDIAC: S1, S2. No rub. ABDOMEN: Benign. BS+. GENITALIA/RECTUM: Vasquez absent. BACK/EXTREMITIES: Edema 0+ Ulcer- NEUROLOGICAL: Alert and motor intact. SKIN: Rash- Bruise- LYMPHATICS: Edema- Ulcer- LABORATORY DATA: Hemoglobin 7.1. ASSESSMENT AND RECOMMENDATIONS: 1. Stage 6 chronic kidney disease, continue hemodialysis. 2. Hypertension, stable. 3. Anemia. Continue Epogen. Recheck hemoglobin. If hemoglobin less than 7, we will transfuse.
--- NOTE | 2017-10-22 17:10 | DIS-2 ---
DATE OF ADMISSION: 10/20/2017 DATE OF DISCHARGE: 10/22/2017 RESIDENT: Miguel Ellis M.D. ADMITTING ATTENDING: Desire Jansen M.D. DISCHARGE ATTENDING: Desire Jansen M.D. CONSULTS: Nephrology, Dr. Kat PROCEDURES: 1. Dialysis on 10/21/2017. 2. Chest x-ray on 10/20/2017 showed patchy airspace opacities with interstitial markings and left ef fusion given her history of maybe a sequela of volume overload. 3. Chest CT on 10/21/2017. IMPRESSION: Confluent linear infiltrate in the left upper lobe extending to the apex, worrisome for an inflammatory infiltrate, ground glass infiltrate in the lingula in both lower lobes concerning for infiltrate or edema, small bilateral pleural effusions, focal atelectasis in the posterior left lung base and areas of linear atelectasis in both lung bases and there is cardiomegaly without evidence o f pericardial effusion. PRIMARY DIAGNOSIS: Acute on chronic hypoxic respiratory failure secondary to volume overload. SECONDARY DIAGNOSES: 1. Right heart failure. 2. End-stage renal disease. DISCHARGE MEDICATIONS: All the medications are resumed as home medications; 1. Gabapentin 100 mg p.o. b.i.d. 2. Aspirin 325 mg p.o. daily. 3. Cholecalciferol 500 units p.o. daily. 4. Calcium acetate 1334 mg p.o. b.i.d. 5. Nitroglycerin 0.4 mg p.o. p.r.n. 6. Carvedilol 25 mg p.o. b.i.d. 7. Atorvastatin calcium 40 mg p.o. at bedtime. 8. Famotidine 20 mg p.o. b.i.d. 9. Levemir 12 units subcu q.a.m. 10. Levemir 10 units subcu at bedtime. 11. Prednisone 40 mg p.o. daily. 12. Lisinopril 20 mg p.o. daily. NEW MEDICATIONS AT HOME: Procrit 10,000 units subcutaneously every 7 days. DISCONTINUED MEDICATIONS: None. HISTORY OF PRESENT ILLNESS AND HOSPITAL COURSE: Kathy Rodriguez is a 57-year-old female with end-st age renal disease on dialysis Monday, , and Monday, who presented with chest pain, shortne ss of breath since . The patient states that she has received dialysis since Monday daily f or the past 4 days in a row for volume overload. She states that she started having chest pain and s hortness of breath. She described the chest pain as sharp, constant, 6/10 on the right side, worse w ith coughing. Associated symptoms include fluid in her legs and worsening shortness of breath. Norm ally, she is on 2 liters of oxygen at home chronically. She sees Dr. Kat regularly, her nephrologis t. She denied any fever or nasal congestion. She states that she received a flu shot. She endorses having a very difficult time following her diet and fluid restrictions over the holidays and additio elian over the weekend. She states that she normally drinks four large cups of Elijah-Aid every day an d on admission, the patient's blood pressure was 166/83, pulse of 83, respiratory rate 16, temperatur e of 98.6 and pulse ox was 84% on room air, 96% on 2 liters, which is her baseline. Physical exam wa s significant for 2+ pitting edema in the lower extremities bilaterally as well as decreased breath s ounds and crackles present bilaterally in the lungs. Laboratory data was significant for CBC at 13.9, hemoglobin of 7.3, hematocrit of 22.5, platelets of 258. Chest x-ray showed patchy airspace opacities with interstitial markings and marked effusion cruz aterally in the lower lobes. BNP was 8431. The patient got dialysis on admission after ER doctor aly manuel to Dr. Kat, her fabric sourcer. In the morning the first morning of her admission after receiving dialysis, the patient stated that she was feeling significantly better, stating that the chest pain and shortness of breath had resolved completely. She was satting well anywhere from 94%-96% on 3 lit ers which is about her baseline. Symptoms remained improved throughout the course of her stay. Dr. Kat cleared her for discharge on 10/21/2017 and scheduling her for an extra day of dialysis on y 10/23/2017 and resuming her normal Monday, and Monday dialysis after that. She was als o started her on Epogen 10,000 units for her anemia. Patient requested to speak with case management prior to her being discharged to discuss resources for assisted living. Case management saw the can macias on the evening of 10/21/2017 and provided resources for her. On the next morning on 10/22/2017, the patient was ready for discharge. She was still feeling well. Her lungs were clear. Christopher carrillo was provided with her to go to dialysis on Monday and continue her, Monday, , Monday zack lysis as well. Instruction was also provided to set up an appointment with [facility] or [facility] care providers on Monday or Monday as soon as she can get an appointment. The patient was in agreement with this plan. DISPOSITION: The patient should do well if she follows her fluid restricted diet. However, patient has had difficulty with this in the past. She also do well if she goes to her dialysis appointment o n Monday, continues dialysis on Monday, and Monday as well as follows up with [facility]. She was stable on day of discharge. DISCHARGE INSTRUCTIONS: 1. Location: Home. 2. Diet: Heart healthy, low sodium and fluid restriction of 1000 mL a day. Activity as tolerated. Follow up with dialysis on Monday, Monday, , and Monday with Dr. Kat and follow up with [facility] as soon as soon as she can make an appointment.
== END 2017-10-22 13:45 | disposition home or self-care (01) ==
LOC: ERS 20:06 → ERHOLD 22:30 → 3SE 10-21 06:37
PROVIDERS: ADMIT Family Medicine; ATTEND Family Medicine
DX: J96.21 Acute and chronic respiratory failure with hypoxia (principal); E87.70 Fluid overload, unspecified; I13.2 Hypertensive heart and chronic kidney disease with heart failure and with stage 5 chronic kidney disease, or end stage renal disease; E10.22 Type 1 diabetes mellitus with diabetic chronic kidney disease; I50.810 Right heart failure, unspecified; N18.6 End stage renal disease; D63.1 Anemia in chronic kidney disease; E78.5 Hyperlipidemia, unspecified; Z91.11 Patient's noncompliance with dietary regimen; Z79.899 Other long term (current) drug therapy; Z90.49 Acquired absence of other specified parts of digestive tract; Z90.710 Acquired absence of both cervix and uterus; Z98.890 Other specified postprocedural states; Z99.2 Dependence on renal dialysis
CPT/HCPCS: 71045; 71260; 80048 ×2; 80053; 82550; 82553; 82962 ×2; 83880; 84484; 85014; 85018; 85025 ×3; 85610; 85730; 93005; 94760; 99285; G0378; Q4081; 36415; 36416; 90935; A4216; G0257; J1815

== ENCOUNTER 2017-10-26 13:51 | Inpatient (IN) | payer MEDICARE, MEDICAID ==
[2017-10-26 14:40] LABS: #Eosinphils 0.1 thou/uL (0.0-0.7); #Lymphocytes 0.9 thou/uL (1.20-3.40); #Monocytes 0.4 thou/uL (0.11-0.59); %Basophils 0.3 % (0.0-1.0); %Eosinophils 0.9 % (0.0-10.0); %Lymphocytes 12.1 % (21.0-51.0); %Neutrophils 81.7 % (42.0-75.0); Hemoglobin 6.7 g/dL (12.0-16.0); Mean Corpuscular HGB CONC 31.8 g/dL (32.0-36.0); Mean Corpuscular Hemoglobin 31.3 pg (27.0-31.0); Mean Corpuscular Volume 98.3 fl (81.0-99.0); Mean Platelet Volume 6.4 fL (7.4-10.4); Platelet Count 339 thou/uL (130-400); RBC Distribution Width 15.5 % (11.5-14.5); Red Blood Cell (RBC) Count 2.15 mill/uL (4.20-5.40); White Blood Cell (WBC) Count 7.4 thou/uL (4.8-10.8)
[2017-10-26 14:58] LABS: ALT (SGPT) 29 U/L (8-55); AST (SGOT) 24 U/L (5-34); Albumin 2.8 g/dL (3.5-5.0); Alkaline Phosphatase 321 U/L (40-150); Anion Gap 13 mmol/L (10-20); BUN (Urea Nitrogen) 24 mg/dL (9.8-20.1); Bilirubin, Total 0.6 mg/dL (0.2-1.2); CK (CPK) 186 U/L (29-168); Calc. Creatinine Clearance 0 mL/min (70-130); Calcium 8.9 mg/dL (7.8-10.44); Carbon Dioxide 27 mmol/L (22-29); Chloride 98 mmol/L (98-107); Estimated GFR-MDRD 26; Globulin 3.1 g/dL (2.4-3.5); Glucose 335 mg/dL (70-105); Potassium 3.7 mmol/L (3.5-5.1); Protein, Total 5.9 g/dL (6.0-8.3); Sodium 134 mmol/L (136-145)
[2017-10-26 15:03] LABS: Troponin I 0.036 ng/mL (< 0.028)
--- NOTE | 2017-10-26 15:13 | RAD ---
UPRIGHT FRONTAL CHEST RADIOGRAPH: Date: 10/26/17 COMPARISON: 10/20/17. HISTORY: Chest pain. FINDINGS: Cardiac silhouette appears enlarged. There is no pneumothorax. No large volume pleural effusion is se en. There is pulmonary vascular congestion. There is interstitial opacity in the perihilar regions and anju th lung bases, similar to slightly improved when compared to the 10/20/17 exam. IMPRESSION: Interstitial opacity noted in the perihilar regions and both lung bases with prominence of the cardia c silhouette. Leading consideration for this is pulmonary edema. Infectious pneumonitis is a possibil ity. Short-term follow-up imaging following treatment is advised to document resolution. POS: RAOUL
[2017-10-26 15:16] LABS: CKMB 6.8 ng/mL (0-6.6)
[2017-10-26] MEDS ORDERED: Acetaminophen 325 MG TAB PO PRN (18:24)
[2017-10-26 18:39] VITALS: BMI 27.1
[2017-10-26] MEDS: Carvedilol 25 MG TAB PO SCH (20:22)
[2017-10-26] MEDS: Gabapentin 100 MG CAP PO SCH (20:23)
[2017-10-26] MEDS ORDERED: Famotidine 20 MG TAB PO SCH (21:00)
[2017-10-26] MEDS ORDERED: Atorvastatin Calcium 40 MG TAB PO SCH (21:00)
[2017-10-26 21:24] LABS: Troponin I 0.037 ng/mL (< 0.028)
--- NOTE | 2017-10-26 23:43 | HP-2 ---
TIME AND DATE OF SERVICE: 16:25 on 10/26/2017. CODE STATUS: FULL CODE. PRIMARY CARE PHYSICIAN: Dr. Margaux Boland with [facility]. ATTENDING: Patrick Henry M.D. RESIDENT: Miguel Ellis M.D. HISTORIAN: The patient. SPECIALIST: Dr. Kat with Nephrology. CHIEF COMPLAINT: Shortness of breath. HISTORY OF PRESENT ILLNESS: Kathy Rodriguez is a 57-year-old female with a history of hypertension, hyperlipidemia, heart failure with preserved ejection fraction, end-stage renal disease on Monday, , and Monday dialysis; and anemia of chronic disease and type 1 diabetes mellitus, who pres ents with shortness of breath that started today during hemodialysis towards the end of therapy. She completed her hemodialysis therapy, however, and she states that she got 4 liters of fluid. She has no associated symptoms other than shortness of breath. She denies that anything relieves her shortn ess of breath or worsens the shortness of breath. The symptoms have not resolved since arriving to [facility] ED. She is not requiring any additional O2 from her baseline, which is 2 liters of nasal cannula. She is currently satting 100% on nasal cannula. PAST MEDICAL HISTORY: 1. Hypertension. 2. Hyperlipidemia. 3. Heart failure with preserved ejection fraction. 4. Anemia of chronic disease. 5. Type 1 diabetes mellitus. 6. End-stage renal disease on Monday, , Monday dialysis. PAST SURGICAL HISTORY: 1. Cholecystectomy. 2. Cardiac catheterization in 2014. 3. Fistula in left arm. 4. Hysterectomy. 5. x1. 6. Right foot second toe amputation. ALLERGIES: No known drug allergies. MEDICATIONS: 1. Lisinopril 10 mg p.o. daily. 2. Gabapentin 100 mg b.i.d. daily. 3. Aspirin 325 mg p.o. daily. 4. Amlodipine 10 mg p.o. daily. 5. Calcium/vitamin D3 5000 units p.o. daily. 6. Calcium acetate 1334 mg p.o. daily. 7. Nitroglycerin 0.4 mg p.o. p.r.n. 8. Carvedilol 25 mg p.o. daily. 9. Atorvastatin 40 mg p.o. at bedtime. 10. Famotidine 20 mg p.o. daily. 11. Detemir 12 units subcu every morning and 10 units subcu at night. FAMILY HISTORY: Noncontributory. SOCIAL HISTORY: She is a former 7-pack-year smoker. She has quit. She denies any alcohol or drug u se. REVIEW OF SYSTEMS: Twelve point review of systems including general, eyes, ENT, respiratory, CV, GI, , skin, musculoskeletal, neuro, and psych were all reviewed and were negative, unless otherwise st ated in the HPI. PHYSICAL EXAMINATION: VITAL SIGNS: Blood pressure 160/95, respiratory rate 15, pulse 79, T-max 98.4, pulse ox 100% on 2 li ters. Current weight 71 kilograms. GENERAL: The patient is alert and oriented x3, in no acute distress, well-developed, well-nourished, and appropriately interactive. HEENT: Pupils equal, round, react to light and accommodation. Extraocular muscles intact. Conjunct ivae within normal limits. ENT: Tympanic membranes pearly campbell without bulging or erythema. Nasal mucosa and oropharynx within normal limits. NECK: Supple, without lymphadenopathy or thyromegaly. CARDIOVASCULAR: Regular rate and rhythm, 3/6 systolic murmur. No gallops. RESPIRATORY: Normal effort. Faint crackles at the bases bilaterally. ABDOMEN: Soft, nontender, bowel sounds x4. No mass or distention. EXTREMITIES: No clubbing, cyanosis. There is 2+ pitting edema up to the distal thigh. MUSCULOSKELETAL: Structure and tone within normal limits. Full range of motion. NEUROLOGIC: No focal deficits. Sensation within normal limits. Cranial nerves II through XII gross ly intact. PSYCHIATRIC: Appropriate. LABORATORY DATA: White blood cell count 7.4, hemoglobin 6.7, hematocrit 21.2, MCV of 98, platelets o f 33.3. Sodium 134, potassium 3.7, chloride 98, bicarbonate 27, BUN 24, creatinine 1.97, glucose 337 , calcium 8.9, total protein 5.9, albumin 2.8, AST 24, ALT 29, alkaline phosphatase 186, total biliru bin 0.6. Influenza A and B negative. CK 186, CK-MB 6.8, troponin 0.036. Lipase 37. BNP 7113 at pr ior admission on 10/20/2017, it was 8431. The troponin was 0.036 on this admission. On discharge of last admission, it was 0.054. Chest x-ray showed interstitial opacity noted in the perihilar region s of both lung bases with prominence of cardiac silhouette leading consideration is pulmonary edema. There is also pulmonary vascular congestion present. ASSESSMENT AND PLAN: 1. Congestive heart failure exacerbation. Admit to telemetry. Continue home congestive heart failu re meds. Start intravenous Lasix 40 mg b.i.d. Strict I's and O's, daily weights. Consult Nephrolog y and repeat chest x-ray in 2 days. Supplemental oxygen. The patient is currently at baseline for r espiratory status. 2. Acute anemia of chronic disease. Type and crossmatch 1 unit packed red blood cells. Recheck hem oglobin and hematocrit 4 hours status post completion of infusion. 3. Type 1 diabetes mellitus. Continue home insulin regimen. 4. Accu-Cheks a.c. and at bedtime. 5. Hypertension. Continue home medications. 6. Hyperlipidemia. Continue statin. 7. Code status: FULL CODE. 8. Deep venous thrombosis prophylaxis, sequential compression devices. DISPOSITION AND LENGTH OF HOSPITAL STAY: 2 days. Symptomatic medication will be provided. History and physical exam as well as management discussed with Dr. Martínez.
--- NOTE | 2017-10-27 01:17 | CON ---
DATE OF CONSULTATION: 10/26/2017 CONSULTING PHYSICIAN: Dr. Gage. REASON FOR CONSULTATION: Evaluation and care. REASON FOR ADMISSION: Shortness of breath. HISTORY OF PRESENT ILLNESS: A 57-year-old female with history of end-stage renal disease, hypertensi on, coronary artery disease, CHF, came to the hospital with fluid overload and shortness of breath wh en the patient gets dialysis. She started to have dialysis today as well as started having shortness of breath and was sent to the hospital. No fever or chills. No nausea, vomiting, no chest pain. PAST MEDICAL HISTORY: Positive for end-stage renal disease, CHF, hyperlipidemia, hypertension, diabe carmen, anemia. PAST SURGICAL HISTORY: Cholecystectomy, cardiac catheterization fistula, hysterectomy, , ri ght foot second toe amputations. HOME MEDICATIONS: Lisinopril, aspirin, amlodipine, calcium, vitamin D, carvedilol, atorvastatin, fam otidine, insulin. ALLERGIES: No known drug allergies. SOCIAL HISTORY: Former smoker. No alcohol or illicit drug abuse. FAMILY HISTORY: No history of any kidney disease. REVIEW OF SYSTEMS: The following complete review of systems was negative, unless otherwise mentioned in the HPI or below: Constitutional: Weight loss or gain, ability to conduct usual activities. Skin: Rash, itching. Eyes: Double vision, pain. ENT/Mouth: Nose bleeding, neck stiffness, pain, tenderness. Cardiovascular: Palpitations, dyspnea on exertion, orthopnea. Respiratory: Shortness of breath, wheezing, cough, hemoptysis, fever or night sweats. Gastrointestinal: Poor appetite, abdominal pain, heartburn, nausea, vomiting, constipation, or diarr hea. Genitourinary: Urgency, frequency, dysuria, nocturia. Musculoskeletal: Pain, swelling. Neurologic/Psychiatric: Anxiety, depression. Allergy/Immunologic: Skin rash, bleeding tendency. PHYSICAL EXAMINATION: GENERAL: This is a well-built female in no apparent distress. VITAL SIGNS: Temperature 98.4, respirations 20, blood pressure 116/66. HEENT: Atraumatic, normocephalic. Oral mucosa is moist. Facial puffiness present. NECK: Supple. CARDIOVASCULAR: S1, S2 heard. Rate and rhythm regular. RESPIRATORY: Clear. GASTROINTESTINAL: Abdomen is soft. MUSCULOSKELETAL: 2+ edema. DERMATOLOGIC: No skin rash. NEUROLOGIC: Alert, awake. PSYCHIATRIC: Mood and affect normal. LABORATORY DATA: Hemoglobin is 6.7. BUN 24, creatinine 1.9. ASSESSMENT AND PLAN: 1. End-stage renal disease. Continue on hemodialysis as tolerated, might need transfusion. 2. Elevated BNP, fluid overload, and shortness of breath. 3. Acute hypoxic respiratory failure. 4. Edema with fluid overload, remove fluid. 5. Hypoalbuminemia. 6. Anemia. Will have a transfusion with dialysis as tolerated. 7. Noncompliance. 8. Continue on fluid restriction and salt restriction. We will remove fluid with dialysis as tolera kimberly.
[2017-10-27] MEDS: Furosemide 40 MG/4 ML VIAL SLOW IVP SCH ×2 (05:25→16:55)
[2017-10-27 05:41] LABS: #Eosinphils 0.1 thou/uL (0.0-0.7); #Lymphocytes 0.9 thou/uL (1.20-3.40); #Monocytes 0.3 thou/uL (0.11-0.59); #Neutrophils 4.8 thou/uL (1.40-6.50); %Basophils 0.2 % (0.0-1.0); %Eosinophils 1.5 % (0.0-10.0); %Lymphocytes 15.1 % (21.0-51.0); %Monocytes 5.5 % (0.0-10.0); %Neutrophils 77.7 % (42.0-75.0); Hemoglobin 8.2 g/dL (12.0-16.0); Mean Corpuscular HGB CONC 33.3 g/dL (32.0-36.0); Mean Corpuscular Hemoglobin 32.4 pg (27.0-31.0); Mean Corpuscular Volume 97.2 fl (81.0-99.0); Mean Platelet Volume 6.6 fL (7.4-10.4); Platelet Count 303 thou/uL (130-400); RBC Distribution Width 15.2 % (11.5-14.5); Red Blood Cell (RBC) Count 2.54 mill/uL (4.20-5.40); White Blood Cell (WBC) Count 6.2 thou/uL (4.8-10.8)
[2017-10-27 05:56] LABS: Anion Gap 14 mmol/L (10-20); BUN (Urea Nitrogen) 34 mg/dL (9.8-20.1); Calc. Creatinine Clearance 23 mL/min (70-130); Calcium 8.4 mg/dL (7.8-10.44); Carbon Dioxide 26 mmol/L (22-29); Chloride 94 mmol/L (98-107); Estimated GFR-MDRD 18; Glucose 470 mg/dL (70-105); Potassium 4.2 mmol/L (3.5-5.1); Sodium 130 mmol/L (136-145)
--- NOTE | 2017-10-27 05:58 | PDOC.FM ---
- Subjective Subjective: Mrs. Rodriguez is seen at bedside this morning, she states she is feeling better than she was when she came to the hospital. She states she had no issues with get the blood transfusion. She denies any chest pain, dyspnea, fever, n/v/d. - Objective MAR Reviewed: Yes Vital Signs & Weight: Vital Signs (12 hours) Temp Pulse Pulse Resp BP BP BP 10/27/17 04:00 97.8 F 69 20 155/65 H 10/27/17 01:10 97.4 F L 70 18 155/69 H 10/26/17 23:40 97.5 F L 70 18 166/73 H 10/26/17 23:25 97 F L 71 18 120/67 10/26/17 21:47 98.2 F 73 18 142/65 H 10/26/17 19:45 98.1 F 78 18 10/26/17 18:10 98.1 F 78 18 169/66 H Pulse Ox 10/27/17 04:00 97 10/27/17 01:10 98 10/26/17 23:40 10/26/17 23:25 10/26/17 21:47 97 10/26/17 19:45 93 L 10/26/17 18:10 93 L Weight Weight 64.047 kg I&O: 10/25/17 10/26/17 10/27/17 06:59 06:59 06:59 Intake Total 950 Output Total 100 Balance 850 Result Diagrams: 10/27/17 05:10 10/27/17 05:10 <Miguel Ellis - Last Filed: 10/27/17 08:18> - Objective Vital Signs & Weight: Vital Signs (12 hours) Temp Pulse Pulse Resp BP BP BP 10/27/17 08:57 155/65 H 10/27/17 08:56 69 155/65 H 10/27/17 08:00 98.2 F 74 18 155/65 H 10/27/17 04:00 97.8 F 69 20 155/65 H 10/27/17 01:10 97.4 F L 70 18 155/69 H 10/26/17 23:40 97.5 F L 70 18 166/73 H 10/26/17 23:25 97 F L 71 18 120/67 Pulse Ox 10/27/17 08:57 10/27/17 08:56 01/12/18 08:00 94 L 10/27/17 04:00 97 10/27/17 01:10 98 10/26/17 23:40 10/26/17 23:25 Weight Weight 64.047 kg I&O: 10/26/17 10/27/17 10/28/17 06:59 06:59 06:59 Intake Total 950 240 Output Total 100 Balance 850 240 Result Diagrams: 10/27/17 05:10 10/27/17 05:10 <Kobe Velasco - Last Filed: 10/27/17 11:13> Phys Exam - Physical Examination Constitutional: NAD HEENT: moist MMs, sclera anicteric Neck: no JVD, supple, full ROM Respiratory: no wheezing, no rhonchi, clear to auscultation bilateral minimal rales Cardiovascular: RRR 3/6 systolic murmur Gastrointestinal: soft, non-tender, no distention 2+ pitting edema b/l LE Neurological: non-focal, moves all 4 limbs Psychiatric: normal affect, A&O x 3 <Miguel Ellis - Last Filed: 10/27/17 08:18> Dx/Plan (1) CHF exacerbation Code(s): I50.9 - HEART FAILURE, UNSPECIFIED Status: Acute (2) Heart failure with preserved ejection fraction Code(s): I50.30 - UNSPECIFIED DIASTOLIC (CONGESTIVE) HEART FAILURE Status: Chronic (3) Anemia in chronic kidney disease (CKD) Code(s): N18.9 - CHRONIC KIDNEY DISEASE, UNSPECIFIED; D63.1 - ANEMIA IN CHRONIC KIDNEY DISEASE Status: Chronic (4) Hyperlipidemia Code(s): E78.5 - HYPERLIPIDEMIA, UNSPECIFIED Status: Chronic QualifierTitle: Hyperlipidemia type: unspecified Qualified Code(s): E78.5 - Hyperlipidemia, unspecified (5) Hypertension Code(s): I10 - ESSENTIAL (PRIMARY) HYPERTENSION Status: Chronic QualifierTitle: Hypertension type: secondary to other renal disorders Qualified Code(s): I15.1 - Hypertension secondary to other renal disorders; N28.89 - Other specified disorders of kidney and ureter; N28.89 - Other specified disorders of kidney and ureter - Plan Plan: 1) CHF exacerbation: Continue IV furosemide 40 mg BID Cont strict I/Os and daily weights Continue scheduled T//Sat dialysis Supplemental O2 2) Symptomatic Anemia: transfused 1U pRBCs yesterday Hemoglobin this morning is improved to 8.2 3) TIDM: Cont home insulin regimen with Accuchecks ACHS 4) HTN: Home meds 5) HLD: Cont statin <Miguel Ellis - Last Filed: 10/27/17 08:18> Attending Addendum - Attending Addendum I personally evaluated the patient and discussed the management with Dr. Ellis. I agree with the History, Examination, Assessment and Plan documented above with any addition or exceptions noted below. Patient feels improved after receiving 1 unit of blood. She has no evidence of volume overload. Will discuss case with Nephrology but consider discharge later today if we can get her blood sugars under control. <Kobe Velasco - Last Filed: 10/27/17 11:13>
[2017-10-27] MEDS ORDERED: HumaLOG 300 UNITS/3 ML VIAL SC PRN (06:01)
[2017-10-27] MEDS ORDERED: Dextrose 5% in Water 1,000 ML IV PRN (06:01)
[2017-10-27] MEDS ORDERED: Dextrose 50% Abboject 50 ML SYRINGE SLOW IVP PRN (06:01)
[2017-10-27] MEDS: Carvedilol 25 MG TAB PO SCH (08:56)
[2017-10-27] MEDS: Gabapentin 100 MG CAP PO SCH (08:56)
[2017-10-27] MEDS ORDERED: Insulin Detemir 100 UNITS/ML 10 UNITS in Pre-Filled Syringe 1 EACH SC SCH ×2 (09:00→21:00)
[2017-10-27] MEDS ORDERED: Insulin Detemir 100 UNITS/ML 12 UNITS in Pre-Filled Syringe 1 EACH SC SCH ×2 (09:00→21:00)
[2017-10-27] MEDS ORDERED: Amlodipine 10 MG TAB PO SCH (09:00)
[2017-10-27] MEDS ORDERED: Lisinopril 10 MG TAB PO SCH (09:00)
--- NOTE | 2017-10-27 13:58 | PRG ---
DATE OF SERVICE: 10/27/2017 SUBJECTIVE: Patient was seen and examined at bedside and overnight events noted. Patient denies any shortness of breath or chest pain or palpitation. No history of nausea or vomiting or diarrhea or f ever or chills or cramps. OBJECTIVE: GENERAL: This is a well-built female in no apparent distress. VITAL SIGNS: Temperature 98.2, pulse 74, respiratory rate 18, blood pressure 155/65. HEENT: Atraumatic, normocephalic. Oral mucosa is moist. NECK: Supple. CARDIOVASCULAR: S1, S2 heard. Rate and rhythm regular. RESPIRATORY: Clear to auscultation. GASTROINTESTINAL: Abdomen is soft. MUSCULOSKELETAL: No tenderness. No edema. DERMATOLOGIC: No skin rash. NEUROLOGIC: Alert and awake and oriented x3. No focal neurologic deficits. Moving all the extremiti es. LABORATORY DATA: Potassium is 4.2, BUN 34, creatinine was 2.7. ASSESSMENT AND PLAN: 1. End-stage renal disease. Continue on dialysis Monday as tolerated. 2. Anemia, much better. 3. Edema with fluid overload. Remove fluid with dialysis. The plan is remove 4 liters off today. 4. Hypoalbuminemia. 5. Noncompliance, poor. 6. 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 The patient continues to have increasing intake despite continu ed counseling. We will follow.
[2017-10-27 17:38] VITALS: BP 137/64; TEMP 96.8
[2017-10-27] MEDS ORDERED: Famotidine 20 MG TAB PO SCH (21:00)
--- NOTE | 2017-10-28 00:14 | DIS-2 ---
DATE OF ADMISSION: 10/26/2017 DATE OF DISCHARGE: 10/27/2017 RESIDENT: Miguel Ellis MD ADMITTING ATTENDING: Patrick Henry MD DISCHARGE ATTENDING: Kobe Velasco MD CONSULTS: Nephrology, Dr. Louise on 10/26/2017. PROCEDURES: 1. Chest x-ray on 10/26/2017. Impression: Interstitial opacity noted in the perihilar regions of b oth lung bases with prominence of cardiac silhouette leading consideration for this is pulmonary donny a, infectious pneumonitis is a possibility. Short term follow up imaging following treatment is advi sed to document resolution. 2. Dialysis on 10/27/2017. PRIMARY DIAGNOSIS: Congestive heart failure exacerbation. SECONDARY DIAGNOSES: 1. Heart failure with preserved ejection fraction. 2. Type 2 diabetes mellitus. 3. Anemia of chronic disease. 4. Hypertension. 5. Hyperlipidemia. DISCHARGE MEDICATIONS: Resume all home medications. 1. Gabapentin 100 mg p.o. b.i.d. 2. Aspirin 325 mg p.o. daily. 3. Vitamin D3 of 5000 units p.o. daily. 4. Calcium acetate 1334 mg p.o. b.i.d. 5. Nitroglycerin 0.4 mg p.o. p.r.n. 6. Carvedilol 25 mg p.o. b.i.d. 7. Atorvastatin calcium 40 mg p.o. at bedtime. 8. Famotidine 20 mg p.o. b.i.d. 9. Prednisone 40 mg p.o. daily. 10. Lisinopril 20 mg p.o. daily. 11. Procrit 10,000 units subcu q.7 days. 12. Detemir 12 units subcu every morning. 13. Detemir 10 units subcu every night. HISTORY OF PRESENT ILLNESS AND HOSPITAL COURSE: Kathy Rodriguez is a 57-year-old female with past m edical history of hypertension, hyperlipidemia, heart failure with preserved ejection fraction, end-s tage renal disease on Monday, , and Monday dialysis and anemia of chronic disease and type 1 diabetes mellitus, who presents with shortness of breath, this started the day of admission during dialysis towards the end of her therapy, she had 4 liters of fluid taken off during the dialysis ses yoandy. She has no other symptoms other than shortness of breath. She denied that anything relieved h er shortness of breath or worsened her shortness of breath. The patient was not requiring any additi onal oxygen from her baseline which is 2 liters of normal nasal cannula. The patient was satting 100 % on nasal cannula in the ER. Her blood pressure is 160/95, pulse is 79, respiratory rate 15, temper ature 98.4, pulse ox 100% on 2 liters. PHYSICAL EXAMINATION: Significant for 2+ pitting edema in bilateral lower extremities up to mid thig h and bilateral bibasilar crackles. LABORATORY DATA: Patient's labs were significant for hemoglobin of 6.7, which was down from 7.1 and discharge on prior admission 6 days prior. Sodium 134, potassium 3.7, creatinine of 1.97, glucose of 337. Influenza A and B negative. CK 168, troponin of 0.036 which was actually lower than discharge troponin at last admission. BNP of which was actually lower than prior admission which was BNP at 8 431. Patient was started on IV Lasix. Dr. Louise was consulted. Dr. Kat is the patient's normal tying machine operator where the patient was started on all home meds given supplemental O2 and patient receive d 1 unit packed red blood cells. Hemoglobin and hematocrit was checked the next morning and had incr eased to 8.2. Patient stated that she felt better on the day of discharge which was 10/27/2017. She went to dialys is that day. After dialysis, she was feeling well and ready for discharge. The patient instructed t o follow up with primary care physician on Monday and continue normal dialysis schedule. The patient was in agreement with this plan. DISPOSITION: Guarded. The patient should do well if she follows fluid restriction diet and continue s taking her heart failure medications as prescribed and attending her normal dialysis sessions. She will also benefit much from seeing her primary care provider, Dr. Margaux Boland at [facility] as soon as she can possibly on 10/30/2017. DISCHARGE INSTRUCTIONS: 1. Location: Home. 2. Diet: Renal diet and diabetic diet with fluid restriction at 1500 mL per day. 3. Activity: As tolerated. 4. Followup: Follow up with [facility], her primary care provider, Margaux Boland, and [facility] physicians as soon as possible and follow up with normal dialysis appointme nts on Monday, , and Monday.
== END 2017-10-27 20:34 | disposition home or self-care (01) | DRG 291 ==
LOC: ERS 13:51 → 2NO 18:02
PROVIDERS: ADMIT Student in an Organized Health Care Education/Training Program; ATTEND Student in an Organized Health Care Education/Training Program
PROC: 30233N1 Transfusion of Nonautologous Red Blood Cells into Peripheral Vein, Percutaneous Approach (ICD-10-PCS; 2017-10-26)
PROC: 5A1D70Z Performance of Urinary Filtration, Intermittent, Less than 6 Hours Per Day (ICD-10-PCS; principal; 2017-10-27)
DX: I13.2 Hypertensive heart and chronic kidney disease with heart failure and with stage 5 chronic kidney disease, or end stage renal disease (principal); N18.6 End stage renal disease; E10.22 Type 1 diabetes mellitus with diabetic chronic kidney disease; I50.33 Acute on chronic diastolic (congestive) heart failure; E88.09 Other disorders of plasma-protein metabolism, not elsewhere classified; D63.1 Anemia in chronic kidney disease; E78.5 Hyperlipidemia, unspecified; I25.10 Atherosclerotic heart disease of native coronary artery without angina pectoris; R63.1 Polydipsia; Z99.2 Dependence on renal dialysis; Z87.891 Personal history of nicotine dependence; Z79.82 Long term (current) use of aspirin; Z89.421 Acquired absence of other right toe(s)
CPT/HCPCS: 36415; 36416; 36430; 71045; 80048; 80053; 82550; 82553; 83690; 83880; 84484; 85025; 86850; 86900; 86901; 90935; 93005; 93798; 94760; A4216; G0257; J1815; J1940; P9016

== ENCOUNTER 2017-10-31 13:32 | Emergency (ER) | payer MEDICAID, MEDICARE ==
[2017-10-31 14:15] LABS: #Eosinphils 0.1 thou/uL (0.0-0.7); #Lymphocytes 0.7 thou/uL (1.20-3.40); #Monocytes 0.2 thou/uL (0.11-0.59); #Neutrophils 7.1 thou/uL (1.40-6.50); %Basophils 0.4 % (0.0-1.0); %Lymphocytes 8.7 % (21.0-51.0); %Monocytes 2.3 % (0.0-10.0); %Neutrophils 87.7 % (42.0-75.0); Hemoglobin 7.4 g/dL (12.0-16.0); Mean Corpuscular HGB CONC 32.9 g/dL (32.0-36.0); Mean Corpuscular Volume 97.1 fl (81.0-99.0); Mean Platelet Volume 6.5 fL (7.4-10.4); Platelet Count 255 thou/uL (130-400); RBC Distribution Width 15.5 % (11.5-14.5); Red Blood Cell (RBC) Count 2.32 mill/uL (4.20-5.40); White Blood Cell (WBC) Count 8.1 thou/uL (4.8-10.8)
[2017-10-31 14:37] LABS: ALT (SGPT) 34 U/L (8-55); AST (SGOT) 29 U/L (5-34); Albumin 2.9 g/dL (3.5-5.0); Alkaline Phosphatase 631 U/L (40-150); Anion Gap 15 mmol/L (10-20); BUN (Urea Nitrogen) 41 mg/dL (9.8-20.1); Bilirubin, Total 0.6 mg/dL (0.2-1.2); Calc. Creatinine Clearance 0 mL/min (70-130); Calcium 8.5 mg/dL (7.8-10.44); Carbon Dioxide 27 mmol/L (22-29); Chloride 91 mmol/L (98-107); Estimated GFR-MDRD 17; Globulin 3.2 g/dL (2.4-3.5); Potassium 4.2 mmol/L (3.5-5.1); Protein, Total 6.1 g/dL (6.0-8.3); Sodium 129 mmol/L (136-145)
[2017-10-31 14:41] LABS: Glucose 579 mg/dL (70-105)
== END 2017-10-31 14:50 | disposition home or self-care (01) ==
LOC: ERS 13:32
DX: D64.9 Anemia, unspecified (principal); E78.5 Hyperlipidemia, unspecified; I13.2 Hypertensive heart and chronic kidney disease with heart failure and with stage 5 chronic kidney disease, or end stage renal disease; E10.22 Type 1 diabetes mellitus with diabetic chronic kidney disease; N18.6 End stage renal disease; I50.9 Heart failure, unspecified; D63.1 Anemia in chronic kidney disease; Z99.2 Dependence on renal dialysis; Z87.891 Personal history of nicotine dependence; Z79.899 Other long term (current) drug therapy; Z79.82 Long term (current) use of aspirin
CPT/HCPCS: 80053; 85025; 86850; 86870; 86900; 86901; 86905; 99284

== ENCOUNTER 2017-11-03 22:03 | Inpatient (IN) | payer MEDICAID, MEDICARE ==
[2017-11-03 22:41] LABS: #Eosinphils 0.1 thou/uL (0.0-0.7); #Monocytes 0.3 thou/uL (0.11-0.59); %Basophils 0.4 % (0.0-1.0); %Eosinophils 0.8 % (0.0-10.0); %Lymphocytes 11.7 % (21.0-51.0); %Monocytes 3.9 % (0.0-10.0); %Neutrophils 83.2 % (42.0-75.0); Mean Corpuscular HGB CONC 31.7 g/dL (32.0-36.0); Mean Corpuscular Hemoglobin 30.4 pg (27.0-31.0); Platelet Count 214 thou/uL (130-400); RBC Distribution Width 14.6 % (11.5-14.5); Red Blood Cell (RBC) Count 2.28 mill/uL (4.20-5.40); White Blood Cell (WBC) Count 8.4 thou/uL (4.8-10.8)
[2017-11-03 22:45] LABS: Base Excess-Venous 1.1 mmol/L (-30.0-30.0); Bicarbonate (HCO3v) 24.8 mmol/L (1.0-85.0); CO2 Tension (PvCO2) 34.4 mmHg (41.0-51.0); Calcium, Ionized 1.05 mmol/L (1.12-1.32); Hemoglobin - Calc 7.6 g/dL (12.0-18.0); O2 Tension (PvO2) 47.4 mmHg (35.0-45.0); Potassium 4.4 mmol/L (3.4-4.7); T. Carbon Dioxide 25.8 mmol/L (1.0-85.0); pH (Venous) 7.466 (7.35-7.45); vO2 Saturation-calc 85.7 % (0.0-100.0)
[2017-11-03] MEDS ORDERED: Nitroglycerin 2% Ointment 1 INCH/1 GM Packet ONE (22:49)
--- NOTE | 2017-11-03 22:51 | RAD ---
PORTABLE CHEST: 11/03/17 HISTORY: Shortness of breath. CHF. COMPARISON: 10/26/17. Cardiomegaly. Vascular congestion. Mild interstitial congestion and edema. IMPRESSION: Cardiomegaly with mild congestive change. POS: H
[2017-11-03 23:00] LABS: INR-International Normal Ratio 1.2; PTT 32.6 SEC (22.9-36.1); Prothrombin Time 15.7 SEC (12.0-14.7)
[2017-11-03 23:02] LABS: D-Dimer Test 1.86 *mcg/mL (0.27-0.43)
[2017-11-03 23:02] LABS: ALT (SGPT) 31 U/L (8-55); AST (SGOT) 31 U/L (5-34); Albumin 2.9 g/dL (3.5-5.0); Alkaline Phosphatase 635 U/L (40-150); Anion Gap 18 mmol/L (10-20); BUN (Urea Nitrogen) 48 mg/dL (9.8-20.1); Bilirubin, Total 0.7 mg/dL (0.2-1.2); Calc. Creatinine Clearance 0 mL/min (70-130); Calcium 8.4 mg/dL (7.8-10.44); Carbon Dioxide 23 mmol/L (22-29); Chloride 91 mmol/L (98-107); Estimated GFR-MDRD 12; Globulin 2.8 g/dL (2.4-3.5); Lipase 33 U/L (8-78); Potassium 4.6 mmol/L (3.5-5.1); Protein, Total 5.7 g/dL (6.0-8.3); Sodium 127 mmol/L (136-145)
[2017-11-03 23:03] LABS: Troponin I 0.053 ng/mL (< 0.028)
[2017-11-03 23:12] LABS: CKMB 7.4 ng/mL (0-6.6); Glucose 603 mg/dL (70-105)
--- NOTE | 2017-11-03 23:26 | CT ---
CT PULMONARY ANGIO OF CHEST WITH CONTRAST: 11/03/17 Multiple axial tomograms obtained through the chest with pulmonary angio protocol and multiplanar rec onstructions with 3D postprocessing. HISTORY: Shortness of breath. CHF. FINDINGS: Coronary arteries show adequate enhancement. There is no evidence of pulmonary embolus. There is card iomegaly and mild vascular congestion. Review of the lung hawk show linear opacities in the right upper lobe consistent with atelectasis a nd/or streaky infiltrate. Linear atelectatic and/or infiltrate in the right middle lobe also noted. S mall bilateral effusions, slightly larger on the right. There is mediastinal adenopathy. AP window no tyrone measure up to 3.0 cm. Paratracheal lymph nodes measure up to 2.5 cm. Carinal lymph nodes are enla rged as are subcarinal lymph nodes. There are also enlarged hilar lymph nodes bilaterally. There is a nodular infiltrative density in the left upper lobe, possibly inflammatory. Vascular and interstitia l prominence suggest mild congestion. Images through the upper abdomen unremarkable. Thoracic aorta is unremarkable with no dissection. IMPRESSION: 1. No evidence of pulmonary embolus. 2. Streaky atelectasis and/or infiltrative changes in the right upper lobe and right middle lobe . Mild atelectasis in both lung bases. Ground glass opacities seen in the posterior lung bases could represent edema. 3. There is mediastinal and hilar adenopathy. 4. Small effusions slightly larger on the right. 5. Cardiomegaly and vascular congestion. POS: [facility]
[2017-11-03] MEDS ORDERED: Insulin Regular 300 UNITS/3 ML VIAL ONE (23:38)
[2017-11-04] MEDS ORDERED: Dextrose 50% Abboject 50 ML SYRINGE IVP PRN (02:49)
[2017-11-04] MEDS ORDERED: Ondansetron HCl/PF 4 MG/2 ML Vial IVP PRN (02:49)
[2017-11-04] MEDS ORDERED: Insulin Regular 300 UNITS/3 ML VIAL SC PRN (02:49)
[2017-11-04] MEDS ORDERED: Dextrose 5% in Water 1,000 ML IV PRN ×2 (02:49→03:09)
[2017-11-04] MEDS ORDERED: Ondansetron ODT 4 MG TAB SL PRN (02:49)
[2017-11-04] MEDS ORDERED: Dextrose 50% Abboject 50 ML SYRINGE SLOW IVP PRN (03:09)
[2017-11-04] MEDS: Insulin Detemir 100 UNITS/ML 10 UNITS in Admixture Fee 1 EACH SC SCH ×2 (03:31→21:40)
--- NOTE | 2017-11-04 03:35 | HP-2 ---
CODE STATUS: FULL. PRIMARY CARE PHYSICIAN: Margaux Boland DO ATTENDING: Sebastián Mota M.D. RESIDENT: Amalia Ricks MD HISTORIAN: Self. SPECIALIST: Dr. Kat, locksmith helper. CHIEF COMPLAINT: Shortness of breath. HISTORY OF PRESENT ILLNESS: This 57-year-old female with past medical history of end-stage renal dis ease on hemodialysis, heart failure with preserved ejection fraction, severe pulmonary hypertension, anemia of chronic kidney disease, who presents to the ED complaining of shortness of breath and chest pain that started this morning, but kept getting worse throughout the day. She is on 2 liters of ox ygen at home and reports trying to turn up her oxygen to help with the shortness of breath. The shital ent described the chest pain as sharp, in the middle of her chest. Denies any radiation or alleviati ng or worsening factors, but she does report the chest pain is worse if she is lying down and she fee ls better if she is sitting up and she always gets this chest pain whenever she gets really bad short ness of breath. She took Tylenol, but this did not help. She went to her PCP today who told her danelle t she need to go to the ED if her shortness of breath continued to get worse. She reports worsening swelling in her legs, as well as worsening shortness of breath if she lies down and that she often wa kes up at night feeling short of breath. She does not follow her fluid-restricted diet. She reports that she has not missed dialysis this week. In the ER, she was given 8 units of insulin and nitrogl ycerin paste. PAST MEDICAL HISTORY: 1. End-stage renal disease on hemodialysis Monday, , and Monday. 2. Heart failure with preserved ejection fraction, EF at 50-55% in 09/2017. 3. Severe pulmonary hypertension. 4. Diabetes type 1. 5. Hypertension. 6. Hyperlipidemia. 7. Anemia of chronic kidney disease. PAST SURGICAL HISTORY: 1. Cholecystectomy. 2. Cardiac catheterization in 2014. 3. Fistula in left arm. 4. Hysterectomy. 5. . 6. Right foot second toe amputation. ALLERGIES: No known drug allergies. MEDICATIONS: 1. Gabapentin 100 mg b.i.d. 2. Aspirin 325 mg daily. 3. Vitamin D3 of 5000 units daily. 4. Calcium acetate 1334 mg b.i.d. 5. Nitro 0.4 mg p.r.n. 6. Carvedilol 25 mg b.i.d. 7. Atorvastatin 40 mg at bedtime. 8. Famotidine 20 mg b.i.d. 9. Prednisone 40 mg daily. 10. Lisinopril 20 mg daily. 11. Procrit 10,000 units every 7 days. 12. Levemir 12 units q.a.m. and 10 units at bedtime. FAMILY HISTORY: Mom has heart disease and uncles have heart problems. SOCIAL HISTORY: Former tobacco user, smoked 1 pack per day for 15 years. Denies alcohol or drug use . REVIEW OF SYSTEMS: General: Negative for fever, chills, fatigue. Eyes: Negative for vision change s or eye pain. ENT: Negative for rhinorrhea, sore throat. Respiratory: Positive for shortness of breath. Negative for cough. Cardiovascular: Positive for chest pain and edema. GI: Negative for nausea, vomiting, diarrhea, abdominal pain. Genitourinary: Negative for dysuria, polyuria. Skin: Negative for rashes or itching. Musculoskeletal: Negative for pain or tenderness. Neurologic: Pos itive for weakness, numbness. PHYSICAL EXAMINATION: VITAL SIGNS: Blood pressure 159/75, pulse 83, respiratory rate 20, temperature 98.0, pulse ox 95% on 2 liters, was 88% on room air on presentation. Current weight 72.57 kilograms. GENERAL: Alert and oriented x3, no acute distress, well-nourished, appropriately interactive. HEENT: Eyes PERRLA. Extraocular muscles are intact. Conjunctivae within normal limits. ENT: Nasal mucosa and oropharynx within normal limits. NECK: Supple, no lymphadenopathy, no bruits. CARDIOVASCULAR: Regular rate and rhythm, 3/6 systolic murmur. No gallops, 2+ radial and pedal pulse s. LUNGS: Normal effort, no retractions. Rales at bilateral lung bases. SKIN: Warm, dry. No cyanosis or lesions. ABDOMEN: Soft, mildly tender in the midepigastric region. Normoactive bowel sounds. No mass or dis tention. EXTREMITIES: No cyanosis, 2+ pitting edema up to the knees bilaterally. MUSCULOSKELETAL: Structure, tone within normal limits. Full range of motion. NEUROLOGIC: No focal deficits. Sensation within normal limits. GCS 15. PSYCHIATRIC: Appropriate. LABORATORY DATA: WBC 8.4, hemoglobin 7.0, hematocrit 21.9, platelets 214, MCV 96.0. Sodium 127, cor rected to 135; potassium 4.6, chloride 91, CO2 of 23, BUN 48, creatinine 3.83, GFR 12, glucose 603, c alcium 8.4, alkaline phosphatase 635, AST 31, ALT 31, total bilirubin 0.7. PT 15.7, INR 1.2, PTT 32. 6, D-dimer 1.86, magnesium 2.0, lipase 33. BNP 9126.9, troponin 0.053, CK-MB 7.4. VBG showed pH of 7.466, pCO2 of 34.4, pO2 of 47.4. EKG showed normal sinus rhythm. CTA showed no PE likely atelectas is, mediastinal and hilar adenopathy, small effusions, right greater than left, cardiomegaly and vasc ular congestion. ASSESSMENT AND PLAN: This is a 57-year-old female who presents with: 1. Acute hypoxic respiratory failure secondary to volume overload from end-stage renal disease. We will continue oxygen as needed. Monitor on tele. Consult Nephrology in the morning as patient likel y needs dialysis. I appreciate recommendations. 2. End-stage renal disease on hemodialysis. The patient gets dialysis Monday, , and ay. Dr. Kat, her penology professor will consult in the morning and get dialysis. 3. Indeterminate troponins, likely secondary to heart strain from volume overload and end-stage camden l disease. We will trend and monitor on tele and nitroglycerin as needed and aspirin. 4. Hyperglycemia secondary to diabetes type 2. We will continue home Levemir sliding scale insulin and Accu-Cheks a.c. and at bedtime. 5. Anemia of chronic kidney disease. Hemoglobin is 7.0. We will type and cross. Consider transfus ion with dialysis if the hemoglobin falls below 7 in the morning. We will discuss with Nephrology. We will continue Procrit q.7 days. 6. Hypertension. Continue home medications. 7. Hyperlipidemia. Continue home medications. 8. Severe pulmonary hypertension. Continue oxygen as needed. 9. Venous thromboembolism prophylaxis. Patient is at low risk with a Eleni score of 1. We will use sequential compression devices. DISPOSITION: Admit to tele. Symptomatic medication will be provided. History and physical exam as well as management discussed with Dr. Mota.
[2017-11-04 05:07] LABS: #Eosinphils 0.1 thou/uL (0.0-0.7); #Monocytes 0.5 thou/uL (0.11-0.59); #Neutrophils 6.9 thou/uL (1.40-6.50); %Basophils 0.3 % (0.0-1.0); %Eosinophils 0.9 % (0.0-10.0); %Lymphocytes 11.1 % (21.0-51.0); %Monocytes 6.2 % (0.0-10.0); %Neutrophils 81.5 % (42.0-75.0); Hemoglobin 6.8 g/dL (12.0-16.0); Mean Corpuscular HGB CONC 32.1 g/dL (32.0-36.0); Mean Corpuscular Hemoglobin 30.8 pg (27.0-31.0); Mean Corpuscular Volume 95.9 fl (81.0-99.0); Mean Platelet Volume 7.3 fL (7.4-10.4); Platelet Count 216 thou/uL (130-400); RBC Distribution Width 14.7 % (11.5-14.5); Red Blood Cell (RBC) Count 2.19 mill/uL (4.20-5.40); White Blood Cell (WBC) Count 8.5 thou/uL (4.8-10.8)
[2017-11-04 05:26] LABS: Anion Gap 16 mmol/L (10-20); BUN (Urea Nitrogen) 51 mg/dL (9.8-20.1); Calc. Creatinine Clearance 19 mL/min (70-130); Calcium 8.6 mg/dL (7.8-10.44); Carbon Dioxide 21 mmol/L (22-29); Chloride 95 mmol/L (98-107); Estimated GFR-MDRD 12; Glucose 285 mg/dL (70-105); Sodium 128 mmol/L (136-145)
[2017-11-04 09:11] VITALS: BMI 31.9
[2017-11-04] MEDS: INSULIN DETEMIR SC SCH (09:21)
[2017-11-04] MEDS: ADMIXTURE FEE SC SCH (09:21)
--- NOTE | 2017-11-04 11:13 | CON ---
DATE OF CONSULTATION: 11/04/2017 REASON FOR CONSULTATION: Stage 6 chronic kidney disease and edema. HISTORY OF PRESENT ILLNESS: This is a 57-year-old noncompliant female who presents to the hospital a fter excessive fluid gain. The patient has some dyspnea. Denies any nausea, vomiting or chest pain. PAST MEDICAL HISTORY: Hypertension, anemia, congestive heart failure, noncompliance with fluid, hear t failure, EF of 50%, pulmonary hypertension, diabetes mellitus, cholecystectomy, cardiac catheteriza tion, AV fistula, tunneled catheter, hysterectomy, . ALLERGIES: Reviewed. HOME MEDICATIONS: Reviewed. FAMILY HISTORY: Negative for ESRD. SOCIAL HISTORY: No alcohol or drug use. REVIEW OF SYSTEMS: Fifteen point review of systems was performed and negative except positives noted above. GENERAL: Weakness- HEAD: Headache- NECK: No swelling or lumps. NOSE: No epistaxis or discharge. EYES: No diplopia or pain. RESPIRATORY: Dyspnea- CARDIOVASCULAR: Chest pain- GASTROINTESTINAL: Nausea- /ELEVATOR REPAIRER: Hematuria- MUSCULOSKELETAL: No joint pain. NEUROPSYCHIATIC SYSTEMS: No suicidal ideation. No ideation. SKIN: Denies any rash or ulcer. CONSTITUTIONAL: No fever or chills. PHYSICAL EXAMINATION: GENERAL: Patient is awake, alert. VITAL SIGNS: Afebrile, pulse 82, breathing at 16, blood pressure 159/75. OBJECTIVE: See above. Awake, alert, in no acute distress. GENERAL APPEARANCE AND MENTAL STATUS: Fair. HEAD/NECK: Normocephalic. Atraumatic. EYES: EOMI. No deformity. EARS: Clear. No ulcers. NOSE: Intact. No lesions. MOUTH: Clear. No discharge. THROAT: Clear. No exudate. LUNGS: Clear. No crackles. CARDIAC: S1, S2. No rub. ABDOMEN: Benign. BS+. GENITALIA/RECTUM: Vasquez absent. BACK/EXTREMITIES: Lower extremities had 4+ edema. NEUROLOGICAL: Alert and motor intact. SKIN: Rash- Bruise- LYMPHATICS: Edema- Ulcer- LABORATORY: Hemoglobin of 6.4. ASSESSMENT AND RECOMMENDATIONS: 1. Stage 6 chronic kidney disease. We will plan hemodialysis. 2. Edema. We will plan dialysis. 3. Anemia, stable. 4. Noncompliance with fluid. The patient educated. 5. Anemia, we will plan transfusion. 6. Hypertension, stable. 7. Congestive heart failure, plan ultrafiltration.
[2017-11-04] MEDS: Lisinopril 20 MG TAB PO SCH (14:05)
[2017-11-04] MEDS: Acetaminophen 325 MG TAB PO PRN (14:05)
[2017-11-04] MEDS: Carvedilol 25 MG TAB PO SCH ×2 (15:53→21:39)
[2017-11-04] MEDS: Calcium Acetate 667 MG CAP PO SCH ×2 (15:53→21:39)
[2017-11-04] MEDS: Gabapentin 100 MG CAP PO SCH ×2 (15:53→21:39)
[2017-11-04] MEDS: Famotidine 20 MG TAB PO SCH (15:53)
[2017-11-04] MEDS: Aspirin 325 MG TAB PO SCH (15:53)
[2017-11-04] MEDS: hydrALAZINE 20 MG/ML VIAL SLOW IVP PRN (18:02)
--- NOTE | 2017-11-04 19:54 | CON ---
DATE OF CONSULTATION: 11/04/2017 HISTORY OF PRESENT ILLNESS: Ms. Rodriguez is a 57-year-old female. She is a dialysis patient. She presented with shortness of breath, is felt to be volume overloaded and says she is better now that she is being dialyzed. From what I understand, she does not limit her p.o. intake of liquids in the hospital frequently. I was consulted because of an abnormal chest CT. PAST MEDICAL HISTORY: Remarkable for, 1. Diabetes. 2. Hypertension. 3. Lipid disorder. 4. Anemia of chronic disease. 5. History of cholecystectomy. 6. History of vascular access procedures. 7. Status post hysterectomy. 8. 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 SOCIAL HISTORY: She is a non-smoker, nondrinker. ALLERGIES: No drug allergies. She did not use drugs. FAMILY HISTORY: Vascular disease. MEDICATIONS PRIOR TO ADMISSION: Gabapentin, aspirin, calcium, Coreg, atorvastatin, Pepcid. She was on 40 of prednisone when she was admitted, lisinopril, Procrit and Levemir. REVIEW OF SYSTEMS: Ten points otherwise negative. She denies having any respiratory illnesses recently. PHYSICAL EXAMINATION: VITAL SIGNS: She is afebrile. Blood pressure 191/85, heart rate 69, respiratory rate 16. HEENT: Pupils are equal. Sclerae is anicteric. NECK: Supple. LUNGS: Remarkable for crackles at her bases. HEART: Regular rhythm, no S3. ABDOMEN: Soft and nontender. EXTREMITIES: Without asymmetry. LABORATORY DATA: White count 8.5, hemoglobin 6.8, MCV is 95, and platelets 216, 000. Sodium 128, potassium 4, chloride 95, bicarbonate 29, BUN 51, creatinine 3.96, glucose 285, pH yesterday 7.46, CO2 of 34, PO2 47. This is a venous blood gas. Chest CT shows mediastinal lymph nodes. These were not present 12 days ago. IMPRESSION: Acute mediastinal lymph node enlargement of unclear etiology, it is most likely an inflammatory process given the rapid development and a CT scan that I reviewed 12 days ago that shows no lymph node enlargement of significance. This needs simply be followed up with a CAT scan in 1 month. If this were a malignant process, this would be extremely anaplastic lymphoma, most likely this is extremely rare. It is much more likely these are acute reactive nodes. This is a 50-minute consult in which 50% of the time was spent coordinating care on the unit reviewing records and reviewing radiographs. KAL
[2017-11-04] MEDS: Atorvastatin Calcium 40 MG TAB PO SCH (21:39)
[2017-11-04] MEDS ORDERED: diphenhydrAMINE 25 MG CAP PO PRN (23:08)
[2017-11-05 05:22] LABS: #Eosinphils 0.1 thou/uL (0.0-0.7); #Lymphocytes 0.8 thou/uL (1.20-3.40); #Monocytes 0.4 thou/uL (0.11-0.59); #Neutrophils 7.1 thou/uL (1.40-6.50); %Basophils 0.4 % (0.0-1.0); %Eosinophils 1.4 % (0.0-10.0); %Monocytes 4.7 % (0.0-10.0); %Neutrophils 84.6 % (42.0-75.0); Mean Corpuscular HGB CONC 31.8 g/dL (32.0-36.0); Mean Corpuscular Hemoglobin 30.3 pg (27.0-31.0); Mean Corpuscular Volume 95.3 fl (81.0-99.0); Mean Platelet Volume 7.4 fL (7.4-10.4); Platelet Count 211 thou/uL (130-400); RBC Distribution Width 16.1 % (11.5-14.5); Red Blood Cell (RBC) Count 2.97 mill/uL (4.20-5.40); White Blood Cell (WBC) Count 8.3 thou/uL (4.8-10.8)
[2017-11-05 05:38] LABS: Anion Gap 14 mmol/L (10-20); BUN (Urea Nitrogen) 23 mg/dL (9.8-20.1); Calc. Creatinine Clearance 30 mL/min (70-130); Calcium 8.4 mg/dL (7.8-10.44); Carbon Dioxide 24 mmol/L (22-29); Chloride 100 mmol/L (98-107); Estimated GFR-MDRD 19; Glucose 145 mg/dL (70-105); Potassium 4.2 mmol/L (3.5-5.1); Sodium 134 mmol/L (136-145)
--- NOTE | 2017-11-05 06:55 | PDOC.FM ---
- Objective Vital Signs & Weight: Vital Signs (12 hours) Temp Pulse Resp BP Pulse Ox 11/05/17 04:00 98.4 F 73 20 154/69 H 91 L 11/05/17 00:00 72 16 162/69 H 98 11/04/17 20:00 98.3 F 78 18 180/79 H 95 Weight Admit Weight 76.385 kg Weight 73.799 kg Most Recent Monitor Data Heart Rate from ECG 69 NIBP 149/77 Respiration from ECG 16 I&O: 11/03/17 11/04/17 11/05/17 06:59 06:59 06:59 Intake Total 360 1036 Output Total 100 5400 Balance 260 -4364 Result Diagrams: 11/05/17 04:36 11/05/17 04:36 Dx/Plan (1) Acute and chronic respiratory failure with hypoxia Code(s): J96.21 - ACUTE AND CHRONIC RESPIRATORY FAILURE WITH HYPOXIA Status: Acute (2) Fluid overload Code(s): E87.70 - FLUID OVERLOAD, UNSPECIFIED Status: Acute Qualifiers: (3) Pulmonary hypertension Code(s): I27.20 - PULMONARY HYPERTENSION, UNSPECIFIED Status: Chronic (4) Anemia in chronic kidney disease (CKD) Code(s): N18.9 - CHRONIC KIDNEY DISEASE, UNSPECIFIED; D63.1 - ANEMIA IN CHRONIC KIDNEY DISEASE Status: Chronic Qualifiers: Chronic kidney disease stage: on chronic dialysis (5) ESRD (end stage renal disease) on dialysis Code(s): N18.6 - END STAGE RENAL DISEASE; Z99.2 - DEPENDENCE ON RENAL DIALYSIS Status: Chronic (6) Hyperlipidemia Code(s): E78.5 - HYPERLIPIDEMIA, UNSPECIFIED Status: Chronic Qualifiers: (7) Hypertension Code(s): I10 - ESSENTIAL (PRIMARY) HYPERTENSION Status: Chronic Qualifiers: (8) T2DM (type 2 diabetes mellitus) Status: Resolved Qualifiers: - Plan Plan: 1. Acute hypoxic respiratory failure 2/2 volume overload - Appreciate nephro recs - Dialysis yesterday - Improved symptoms today - Patient in hospital monthly due to volume overload despite not missing dialysis sessions; discussed nursing home NH - CM consulted for termite control servicer NH discussion 2. ESRD on HD - HD T, TH, S - Did not miss any sessions within the last few weeks - Does not abide by fluid restriction diet - Continued counseling 3. Severe anemia of CKD - Transfused 2 units pRBCs for hg 6.8 - Hg today 9.0 - Patient on procrit per nephro 4. Intederminate troponins - Likely related to kidney disease - Patient at baseline 5. Type II DM - Not compliant with medications - Continue insulin - Mild SSI - Patient would benefit from NH placement to help with daily medications 6. Severe pulmonary HTN - Likely related to dialysis - Patient on chronic O2 for past 6 months 7. Acute mediastinal and hilar lymphadenopathy - Appreciate pulm recs - Likely reactive rather than malignant process - CT scan done 12 days ago normal - Recommend repeat CT scan in 1 month 8. HTN - Continue home medications 9. HLD - Continue home medications
--- NOTE | 2017-11-05 07:00 | ADD-HP ---
ADDENDUM Please see Dr. Ricks's history and physical for which I concur. The patient was seen and evaluated, examined and discussed with the residents. HISTORY OF PRESENT ILLNESS: This is a 57-year-old female with end-stage renal disease who was admitt ed to the hospital for volume overload and renal issues along with medical noncompliance issues. She comes in with increasing shortness of breath stress test in June. Echocardiogram actuall y seems fairly normal other than possibility of pulmonary hypertension. She is a little edematous. She was getting dialysis today as she has Monday, , Monday scheduled. She is getting home oxygen at home and that is continuing. PAST MEDICAL HISTORY, PAST SURGICAL HISTORY, MEDICATIONS, FAMILY HISTORY SOCIAL HISTORY, REVIEW OF SY STEMS: All per Dr. Ricks's history and physical evaluation for which I concur. PHYSICAL EXAMINATION: GENERAL: On exam, does not appear to be in respiratory distress. VITAL SIGNS: Blood pressure is borderline elevated, pulse rate is normal in the 80s. She is comfort able, alert and oriented x3. ENT: Conjunctivae pale, anicteric. CHEST: Clear. LABORATORY DATA: Reviewed. ASSESSMENT AND PLAN: 1. chest pain and without obvious volume overload. 2. End-stage renal disease, on hemodialysis. 3. Pulmonary hypertension. The etiology of this is unclear. It looks like she has had a lot of ___ __ through the years which could be contributing. 4. Possible lymphadenopathy. On CT of the chest, it is unclear what the etiology of this is s hortness of breath and chest symptoms until we run that by Pulmonary. 5. Admission for medical noncompliance. We may look and see if we can actually get her set up in a senior living setting as the patient was actually desiring that to help her get more compliant and in a healthier place.
[2017-11-05] MEDS: INSULIN DETEMIR SC SCH (10:40)
[2017-11-05] MEDS: Calcium Acetate 667 MG CAP PO SCH ×2 (10:40→19:45)
[2017-11-05] MEDS: ADMIXTURE FEE SC SCH (10:40)
[2017-11-05] MEDS: Aspirin 325 MG TAB PO SCH (10:41)
[2017-11-05] MEDS: Lisinopril 20 MG TAB PO SCH (10:41)
[2017-11-05] MEDS: Famotidine 20 MG TAB PO SCH (10:41)
[2017-11-05] MEDS: Carvedilol 25 MG TAB PO SCH ×2 (10:41→19:46)
[2017-11-05] MEDS: Gabapentin 100 MG CAP PO SCH ×2 (10:41→19:45)
--- NOTE | 2017-11-05 11:25 | PRG ---
DATE OF SERVICE: 11/05/2017 SUBJECTIVE: This is a 57-year-old female being seen for end-stage renal disease. Patient denies any nausea, vomiting, chest pain. PHYSICAL EXAMINATION: GENERAL: Patient is awake, alert. VITAL SIGNS: Afebrile, pulse 70, breathing at 16, blood pressure 154/67. HEAD/NECK: Normocephalic. Atraumatic. EYES: EOMI. No deformity. EARS: Clear. No ulcers. NOSE: Intact. No lesions. MOUTH: Clear. No discharge. THROAT: Clear. No exudate. LUNGS: Clear. No crackles. CARDIAC: S1, S2. No rub. ABDOMEN: Benign. BS+. GENITALIA/RECTUM: Vasquez absent. BACK/EXTREMITIES: Edema 0+ Ulcer- NEUROLOGICAL: Alert and motor intact. SKIN: Rash- Bruise- LYMPHATICS: Edema- Ulcer- LABORATORY DATA: Show hemoglobin 9. ASSESSMENT AND RECOMMENDATIONS: 1. Stage 6 chronic kidney disease, continue hemodialysis. 2. Hypertension. 3. Anemia, stable. 4. Medications based on glomerular filtration rate are appropriate.
[2017-11-05] MEDS: HumaLOG 300 UNITS/3 ML VIAL SC PRN (11:53)
[2017-11-05] MEDS: hydrALAZINE 20 MG/ML VIAL SLOW IVP PRN (13:46)
--- NOTE | 2017-11-05 16:15 | ADD-PRG ---
DATE: 11/05/2017 Please see the note from Dr. Margaux Boland for which I concur. SUBJECTIVE: The patient was seen and evaluated, examined and discussed with resident by bedside. Ba sically no change on her, she is breathing better. Pulmonary was consulted and they recommend repeat ing a CT in a month based on the lymphadenopathy and they thought the pulmonary hypertension is all l ikely from dialysis, so doing better after dialysis yesterday, no shortness of breath, no chest pain. We really just waiting on placement issues as the patient wants to go to the custodial and consi dering how often she is unfortunately in the hospital from medical noncompliance, etc. I think this is cardiovascular rhythm. PHYSICAL EXAMINATION CHEST: Clear. CARDIOVASCULAR: Regular rate and rhythm. EXTREMITIES: Show 1+ pitting edema, which is baseline. LABORATORY DATA: No other changes in labs.
[2017-11-05] MEDS: Insulin Detemir 100 UNITS/ML 10 UNITS in Admixture Fee 1 EACH SC SCH (19:44)
[2017-11-05] MEDS: Atorvastatin Calcium 40 MG TAB PO SCH (19:45)
[2017-11-05] MEDS: Acetaminophen 325 MG TAB PO PRN (23:25)
[2017-11-06 04:25] LABS: #Eosinphils 0.2 thou/uL (0.0-0.7); #Lymphocytes 0.8 thou/uL (1.20-3.40); #Monocytes 0.4 thou/uL (0.11-0.59); #Neutrophils 4.9 thou/uL (1.40-6.50); %Basophils 0.3 % (0.0-1.0); %Eosinophils 2.7 % (0.0-10.0); %Lymphocytes 12.3 % (21.0-51.0); %Monocytes 6.3 % (0.0-10.0); %Neutrophils 78.4 % (42.0-75.0); Hemoglobin 9.1 g/dL (12.0-16.0); Mean Corpuscular HGB CONC 32.5 g/dL (32.0-36.0); Mean Corpuscular Hemoglobin 30.9 pg (27.0-31.0); Mean Platelet Volume 7.3 fL (7.4-10.4); Platelet Count 224 thou/uL (130-400); RBC Distribution Width 15.8 % (11.5-14.5); Red Blood Cell (RBC) Count 2.94 mill/uL (4.20-5.40); White Blood Cell (WBC) Count 6.3 thou/uL (4.8-10.8)
[2017-11-06 04:43] LABS: Anion Gap 14 mmol/L (10-20); BUN (Urea Nitrogen) 36 mg/dL (9.8-20.1); Calc. Creatinine Clearance 21 mL/min (70-130); Calcium 8.2 mg/dL (7.8-10.44); Carbon Dioxide 25 mmol/L (22-29); Chloride 96 mmol/L (98-107); Estimated GFR-MDRD 13; Glucose 234 mg/dL (70-105); Potassium 4.9 mmol/L (3.5-5.1); Sodium 130 mmol/L (136-145)
[2017-11-06] MEDS: HumaLOG 300 UNITS/3 ML VIAL SC PRN ×3 (05:54→16:38)
--- NOTE | 2017-11-06 06:27 | PDOC.FM ---
- Subjective Subjective: Patient had a good night. She is actually the most alert, interactive, and responsive that I have personally ever seen the patient. She denies chest pain, sob, n/v/d, fevers, chills, or cough. She has been counseled on NH placement and believes this what would be best for her. She states that she doesn't follow her fluid restrictions at home and sometimes the medications are difficult for her to manage alone. She has states she is willing to be placed into the NH going forward. She has no other concerns this morning. - Objective Vital Signs & Weight: Vital Signs (12 hours) Temp Pulse Resp BP Pulse Ox 11/05/17 20:00 98.2 F 67 18 145/69 H 94 L Weight Admit Weight 76.385 kg Weight 73.346 kg Most Recent Monitor Data Heart Rate from ECG 69 NIBP 149/77 Respiration from ECG 16 I&O: 11/04/17 11/05/17 11/06/17 06:59 06:59 06:59 Intake Total 360 1036 690 Output Total 100 5400 0 Balance 260 -4364 690 Result Diagrams: 11/06/17 03:32 11/06/17 03:32 Phys Exam - Physical Examination Constitutional: NAD HEENT: PERRLA, moist MMs Neck: no nodes Respiratory: no wheezing, clear to auscultation bilateral Cardiovascular: RRR, no significant murmur Gastrointestinal: soft, non-tender, no distention, positive bowel sounds Musculoskeletal: pulses present, edema present 3+ pitting edema bilaterally Neurological: non-focal, normal sensation, moves all 4 limbs Lymphatic: no nodes Psychiatric: normal affect, A&O x 3 Skin: no rash Dx/Plan (1) Acute and chronic respiratory failure with hypoxia Code(s): J96.21 - ACUTE AND CHRONIC RESPIRATORY FAILURE WITH HYPOXIA Status: Acute (2) Fluid overload Code(s): E87.70 - FLUID OVERLOAD, UNSPECIFIED Status: Acute Qualifiers: (3) Anemia in chronic kidney disease (CKD) Code(s): N18.9 - CHRONIC KIDNEY DISEASE, UNSPECIFIED; D63.1 - ANEMIA IN CHRONIC KIDNEY DISEASE Status: Chronic Qualifiers: Chronic kidney disease stage: on chronic dialysis Qualified Code(s): N18.6 - End stage renal disease; D63.1 - Anemia in chronic kidney disease; D63.1 - Anemia in chronic kidney disease; Z99.2 - Dependence on renal dialysis; Z99.2 - Dependence on renal dialysis; Z99.2 - Dependence on renal dialysis; Z99.2 - Dependence on renal dialysis (4) ESRD (end stage renal disease) on dialysis Code(s): N18.6 - END STAGE RENAL DISEASE; Z99.2 - DEPENDENCE ON RENAL DIALYSIS Status: Chronic (5) Hyperlipidemia Code(s): E78.5 - HYPERLIPIDEMIA, UNSPECIFIED Status: Chronic Qualifiers: (6) Hypertension Code(s): I10 - ESSENTIAL (PRIMARY) HYPERTENSION Status: Chronic Qualifiers: (7) Pulmonary hypertension Code(s): I27.20 - PULMONARY HYPERTENSION, UNSPECIFIED Status: Chronic (8) T2DM (type 2 diabetes mellitus) Status: Resolved Qualifiers: - Plan Plan: 1. Acute hypoxic respiratory failure 2/2 volume overload - Appreciate nephro recs - Dialysis yesterday - Improved symptoms today - Patient in hospital monthly due to volume overload despite not missing dialysis sessions; discussed correction NH - CM consulted for correction NH discussion 2. ESRD on HD - HD T, , S - Did not miss any sessions within the last few weeks - Does not abide by fluid restriction diet - Continued counseling 3. Severe anemia of CKD - Transfused 2 units pRBCs for hg 6.8 - Hg today 9.0 - Patient on procrit per nephro 4. Intederminate troponins - Likely related to kidney disease - Patient at baseline 5. Type II DM - Not compliant with medications - Continue insulin - Mild SSI - Patient would benefit from NH placement to help with daily medications 6. Severe pulmonary HTN - Likely related to dialysis - Patient on chronic O2 for past 6 months 7. Acute mediastinal and hilar lymphadenopathy - Appreciate pulm recs - Likely reactive rather than malignant process - CT scan done 12 days ago normal - Recommend repeat CT scan in 1 month 8. HTN - Continue home medications 9. HLD - Continue home medications Disposition: Stable. Will await placement to NH facility.
[2017-11-06] MEDS: Gabapentin 100 MG CAP PO SCH ×2 (09:13→20:01)
[2017-11-06] MEDS: Lisinopril 20 MG TAB PO SCH (09:13)
[2017-11-06] MEDS: Aspirin 325 MG TAB PO SCH (09:13)
[2017-11-06] MEDS: Calcium Acetate 667 MG CAP PO SCH ×2 (09:13→20:01)
[2017-11-06] MEDS: Carvedilol 25 MG TAB PO SCH ×2 (09:13→20:01)
[2017-11-06] MEDS: Famotidine 20 MG TAB PO SCH (09:14)
[2017-11-06] MEDS: ADMIXTURE FEE SC SCH (09:14)
[2017-11-06] MEDS: INSULIN DETEMIR SC SCH (09:14)
--- NOTE | 2017-11-06 12:20 | ADD-PRG ---
DATE OF SERVICE: 11/06/2017 This is an addendum to the note of Dr. Bob Mancini. Ms. Rodriguez is resting comfortably back on hemodialysis. She has in the past missed sessions of hemod ialysis which have resulted in pulmonary congestion or subsequent admission to the hospital. She has agreed to residential placement so she can be followed more closely. After arrangements made terrence moreno is ready for discharge.
[2017-11-06] MEDS: Atorvastatin Calcium 40 MG TAB PO SCH (20:01)
[2017-11-06] MEDS: Insulin Detemir 100 UNITS/ML 10 UNITS in Admixture Fee 1 EACH SC SCH (21:30)
[2017-11-06] MEDS: Acetaminophen 325 MG TAB PO PRN (22:01)
[2017-11-07] MEDS ORDERED: Ketorolac Tromethamine 30 MG/ML VIAL IVP SCH (01:15)
[2017-11-07 05:14] LABS: Anion Gap 19 mmol/L (10-20); BUN (Urea Nitrogen) 51 mg/dL (9.8-20.1); Calc. Creatinine Clearance 16 mL/min (70-130); Calcium 7.9 mg/dL (7.8-10.44); Carbon Dioxide 20 mmol/L (22-29); Chloride 94 mmol/L (98-107); Estimated GFR-MDRD 10; Glucose 214 mg/dL (70-105); Potassium 6.5 mmol/L (3.5-5.1); Sodium 126 mmol/L (136-145)
[2017-11-07 05:38] LABS: #Eosinphils 0.2 thou/uL (0.0-0.7); #Lymphocytes 0.9 thou/uL (1.20-3.40); #Monocytes 0.5 thou/uL (0.11-0.59); #Neutrophils 6.1 thou/uL (1.40-6.50); %Basophils 0.4 % (0.0-1.0); %Eosinophils 2.2 % (0.0-10.0); %Lymphocytes 11.1 % (21.0-51.0); %Monocytes 6.8 % (0.0-10.0); %Neutrophils 79.5 % (42.0-75.0); Hemoglobin 9.3 g/dL (12.0-16.0); Mean Corpuscular HGB CONC 31.1 g/dL (32.0-36.0); Mean Corpuscular Hemoglobin 29.5 pg (27.0-31.0); Mean Corpuscular Volume 94.9 fl (81.0-99.0); Mean Platelet Volume 7.1 fL (7.4-10.4); Platelet Count 213 thou/uL (130-400); RBC Distribution Width 15.4 % (11.5-14.5); Red Blood Cell (RBC) Count 3.14 mill/uL (4.20-5.40); White Blood Cell (WBC) Count 7.7 thou/uL (4.8-10.8)
--- NOTE | 2017-11-07 06:23 | PDOC.FM ---
- Subjective Subjective: Patient states she didn't have a great night. She states that she had a leg pain last night and then she said that she wasn't able to sleep well. She denies chest pain, sob, n/v/d, fevers, chills, or cough. She states it is time for dialysis today and they usuallly remove 4L where she feels much better. She states she is still ready to be placed into a NH for intermediate project manager care. She has no other concerns this morning. - Objective Vital Signs & Weight: Vital Signs (12 hours) Temp Pulse Resp BP Pulse Ox 11/07/17 04:00 98.1 F 63 20 147/79 H 92 L 11/07/17 00:00 98.4 F 69 20 177/64 H 94 L 11/06/17 20:00 98.5 F 66 20 93 L Weight Admit Weight 76.385 kg Weight 73.346 kg Most Recent Monitor Data Heart Rate from ECG 69 NIBP 149/77 Respiration from ECG 16 I&O: 11/05/17 11/06/17 11/07/17 06:59 06:59 06:59 Intake Total 1036 690 240 Output Total 5400 0 Balance -4364 690 240 Result Diagrams: 11/07/17 05:20 11/07/17 03:37 Phys Exam - Physical Examination Constitutional: NAD HEENT: PERRLA, moist MMs Neck: no nodes Respiratory: no wheezing, clear to auscultation bilateral Cardiovascular: RRR, no significant murmur Gastrointestinal: soft, non-tender, no distention, positive bowel sounds Musculoskeletal: edema present 3+ bilaterally Pain in right hip area, tender to palpation, no deficits in strength or ROM Neurological: non-focal, normal sensation, moves all 4 limbs Lymphatic: no nodes Psychiatric: normal affect, A&O x 3 Skin: no rash Dx/Plan (1) Acute and chronic respiratory failure with hypoxia Code(s): J96.21 - ACUTE AND CHRONIC RESPIRATORY FAILURE WITH HYPOXIA Status: Acute (2) Fluid overload Code(s): E87.70 - FLUID OVERLOAD, UNSPECIFIED Status: Acute Qualifiers: (3) Anemia in chronic kidney disease (CKD) Code(s): N18.9 - CHRONIC KIDNEY DISEASE, UNSPECIFIED; D63.1 - ANEMIA IN CHRONIC KIDNEY DISEASE Status: Chronic Qualifiers: Chronic kidney disease stage: on chronic dialysis Qualified Code(s): N18.6 - End stage renal disease; D63.1 - Anemia in chronic kidney disease; D63.1 - Anemia in chronic kidney disease; Z99.2 - Dependence on renal dialysis; Z99.2 - Dependence on renal dialysis; Z99.2 - Dependence on renal dialysis; Z99.2 - Dependence on renal dialysis (4) ESRD (end stage renal disease) on dialysis Code(s): N18.6 - END STAGE RENAL DISEASE; Z99.2 - DEPENDENCE ON RENAL DIALYSIS Status: Chronic (5) Hyperlipidemia Code(s): E78.5 - HYPERLIPIDEMIA, UNSPECIFIED Status: Chronic Qualifiers: (6) Hypertension Code(s): I10 - ESSENTIAL (PRIMARY) HYPERTENSION Status: Chronic Qualifiers: (7) Pulmonary hypertension Code(s): I27.20 - PULMONARY HYPERTENSION, UNSPECIFIED Status: Chronic (8) T2DM (type 2 diabetes mellitus) Status: Resolved Qualifiers: - Plan Plan: 1. Acute hypoxic respiratory failure 2/2 volume overload - Appreciate nephro recs - Dialysis yesterday - Improved symptoms today - Patient in hospital monthly due to volume overload despite not missing dialysis sessions; discussed nursing home NH - CM consulted for nursing home NH placement - Will be evaluated by PT/ OT for placement 2. ESRD on HD - HD T, TH, S - Did not miss any sessions within the last few weeks - Does not abide by fluid restriction diet - Continued counseling 3. Severe anemia of CKD - Transfused 2 units pRBCs for hg 6.8 - Hg today 9.0 - Patient on procrit per nephro 4. Intederminate troponins - Likely related to kidney disease - Patient at baseline 5. Type II DM - Not compliant with medications - Continue insulin - Mild SSI - Patient would benefit from NH placement to help with daily medications 6. Severe pulmonary HTN - Likely related to dialysis - Patient on chronic O2 for past 6 months 7. Acute mediastinal and hilar lymphadenopathy - Appreciate pulm recs - Likely reactive rather than malignant process - CT scan done 12 days ago normal - Recommend repeat CT scan in 1 month 8. HTN - Continue home medications 9. HLD - Continue home medications Disposition: Stable. Will await placement to NH facility.
[2017-11-07] MEDS: Acetaminophen 325 MG TAB PO PRN ×2 (06:49→20:57)
[2017-11-07] MEDS: Famotidine 20 MG TAB PO SCH (08:38)
[2017-11-07] MEDS: Aspirin 325 MG TAB PO SCH (08:38)
[2017-11-07] MEDS: Gabapentin 100 MG CAP PO SCH ×2 (08:38→20:57)
[2017-11-07] MEDS: Lisinopril 20 MG TAB PO SCH (08:38)
[2017-11-07] MEDS: Calcium Acetate 667 MG CAP PO SCH ×2 (08:38→20:57)
[2017-11-07] MEDS: INSULIN DETEMIR SC SCH (08:39)
[2017-11-07] MEDS: ADMIXTURE FEE SC SCH (08:39)
[2017-11-07] MEDS: Carvedilol 25 MG TAB PO SCH ×2 (09:59→20:57)
[2017-11-07] MEDS: HumaLOG 300 UNITS/3 ML VIAL SC PRN ×2 (11:52→20:57)
[2017-11-07 13:02] LABS: HBSAg Index 0.23 S/CO (0-0.99); Hep B Surf Ag Non-Reactive S/CO (NonReactive)
--- NOTE | 2017-11-07 15:21 | ADD-PRG ---
DATE OF SERVICE: 11/07/2017 Please add this as an addendum to the note of Dr. Bob Mancini. Ms. Rodriguez continues to undergo successful hemodialysis. We are still awaiting SNF placement. Other worrell, there have been no significant changes in her clinically.
--- NOTE | 2017-11-07 19:23 | PRG ---
DATE OF SERVICE: 11/07/2017 SUBJECTIVE: Patient was seen and examined at bedside and overnight events noted. Patient denies any shortness of breath or chest pain or palpitation. No history of nausea or vomiting or diarrhea or f ever or chills or cramps. OBJECTIVE: GENERAL: This is a well-built female in no apparent distress. VITAL SIGNS: Temperature 97.7, pulse 52, respiratory rate 18 and blood pressure 141/71. HEENT: Atraumatic and normocephalic. Oral mucosa is moist. NECK: Supple. CARDIOVASCULAR: S1 and S2 heard. Rate and rhythm regular. RESPIRATORY: Clear to auscultation. GASTROINTESTINAL: Abdomen is soft. MUSCULOSKELETAL: No tenderness. No edema. DERMATOLOGIC: No skin rash. NEUROLOGIC: Alert, awake and oriented x3. No focal neurologic deficits. Moving all the extremities . PSYCHIATRIC: Mood and affect normal. LABORATORY DATA: Potassium is 6.5, BUN is 51 and creatinine is 4.5. ASSESSMENT AND PLAN: 1. End-stage renal disease. Plan is to have dialysis. 2. Hyponatremia. 3. Edema. 4. Hypertension. 5. Hypoalbuminemia. Plan is to continue on dialysis as tolerated.
[2017-11-07] MEDS: Atorvastatin Calcium 40 MG TAB PO SCH (20:57)
[2017-11-07] MEDS: Insulin Detemir 100 UNITS/ML 10 UNITS in Admixture Fee 1 EACH SC SCH (20:58)
[2017-11-08] MEDS: HumaLOG 300 UNITS/3 ML VIAL SC PRN ×2 (05:34→12:11)
--- NOTE | 2017-11-08 06:35 | PDOC.FM ---
- Objective Vital Signs & Weight: Vital Signs (12 hours) Temp Pulse Resp BP Pulse Ox 11/08/17 04:31 99.5 F 76 18 175/73 H 97 11/08/17 00:00 99.1 F 74 18 153/71 H 94 L 11/07/17 20:00 97.7 F 77 20 94 L Weight Admit Weight 76.385 kg Weight 73.573 kg Most Recent Monitor Data Heart Rate from ECG 69 NIBP 149/77 Respiration from ECG 16 I&O: 11/06/17 11/07/17 11/08/17 06:59 06:59 06:59 Intake Total 690 240 Output Total 0 Balance 690 240 Result Diagrams: 11/07/17 05:20 11/07/17 03:37 Dx/Plan (1) Acute and chronic respiratory failure with hypoxia Code(s): J96.21 - ACUTE AND CHRONIC RESPIRATORY FAILURE WITH HYPOXIA Status: Acute (2) Fluid overload Code(s): E87.70 - FLUID OVERLOAD, UNSPECIFIED Status: Acute Qualifiers: (3) Anemia in chronic kidney disease (CKD) Code(s): N18.9 - CHRONIC KIDNEY DISEASE, UNSPECIFIED; D63.1 - ANEMIA IN CHRONIC KIDNEY DISEASE Status: Chronic Qualifiers: Chronic kidney disease stage: on chronic dialysis Qualified Code(s): N18.6 - End stage renal disease; D63.1 - Anemia in chronic kidney disease; D63.1 - Anemia in chronic kidney disease; Z99.2 - Dependence on renal dialysis; Z99.2 - Dependence on renal dialysis; Z99.2 - Dependence on renal dialysis; Z99.2 - Dependence on renal dialysis (4) ESRD (end stage renal disease) on dialysis Code(s): N18.6 - END STAGE RENAL DISEASE; Z99.2 - DEPENDENCE ON RENAL DIALYSIS Status: Chronic (5) Hyperlipidemia Code(s): E78.5 - HYPERLIPIDEMIA, UNSPECIFIED Status: Chronic Qualifiers: (6) Hypertension Code(s): I10 - ESSENTIAL (PRIMARY) HYPERTENSION Status: Chronic Qualifiers: (7) Pulmonary hypertension Code(s): I27.20 - PULMONARY HYPERTENSION, UNSPECIFIED Status: Chronic (8) T2DM (type 2 diabetes mellitus) Status: Resolved Qualifiers: - Plan Plan: 1. Acute hypoxic respiratory failure 2/2 volume overload - Appreciate nephro recs - Dialysis yesterday - Improved symptoms today - Patient in hospital monthly due to volume overload despite not missing dialysis sessions; discussed retirement NH - Patient accepted to local [place], will be placed there today. 2. ESRD on HD - HD T, TH, S - Did not miss any sessions within the last few weeks - Does not abide by fluid restriction diet - Continued counseling 3. Severe anemia of CKD - Transfused 2 units pRBCs for hg 6.8 - Hg today 9.0 - Patient on procrit per nephro 4. Intederminate troponins - Likely related to kidney disease - Patient at baseline 5. Type II DM - Not compliant with medications - Continue insulin - Mild SSI - Patient would benefit from NH placement to help with daily medications 6. Severe pulmonary HTN - Likely related to dialysis - Patient on chronic O2 for past 6 months 7. Acute mediastinal and hilar lymphadenopathy - Appreciate pulm recs - Likely reactive rather than malignant process - CT scan done 12 days ago normal - Recommend repeat CT scan in 1 month 8. HTN - Continue home medications 9. HLD - Continue home medications Disposition: Stable. Patient been accepted to local [place], will be transferred there today.
[2017-11-08 07:09] LABS: Anion Gap 15 mmol/L (10-20); BUN (Urea Nitrogen) 29 mg/dL (9.8-20.1); Calc. Creatinine Clearance 22 mL/min (70-130); Calcium 8.1 mg/dL (7.8-10.44); Carbon Dioxide 26 mmol/L (22-29); Chloride 96 mmol/L (98-107); Estimated GFR-MDRD 15; Glucose 210 mg/dL (70-105); Potassium 4.8 mmol/L (3.5-5.1); Sodium 132 mmol/L (136-145)
[2017-11-08] MEDS: Famotidine 20 MG TAB PO SCH (08:13)
[2017-11-08] MEDS: Aspirin 325 MG TAB PO SCH (08:13)
[2017-11-08] MEDS: INSULIN DETEMIR SC SCH (08:13)
[2017-11-08] MEDS: ADMIXTURE FEE SC SCH (08:13)
[2017-11-08] MEDS: Calcium Acetate 667 MG CAP PO SCH (08:13)
[2017-11-08] MEDS: Carvedilol 25 MG TAB PO SCH (08:13)
[2017-11-08] MEDS: Gabapentin 100 MG CAP PO SCH (08:13)
[2017-11-08] MEDS: Lisinopril 20 MG TAB PO SCH (08:13)
[2017-11-08 10:34] VITALS: BP 178/76
--- NOTE | 2017-11-08 11:49 | PRG ---
Patient Name: BRIGIDO CASTILLO Date of service: 11/08/2017 Subjective: Patient was seen and examined at bedside and overnight events noted. Patient denies any shortness of breath or chest pain or palpitation. No history of nausea or vomiting or diarrhea or fever or chills or cramps. Objective: General: This is a well-built female in no apparent distress. Vital signs: Temperature 98.4, pulse 70, respirations 17, blood pressure 173/70. HEENT: Atraumatic, normocephalic. Oral mucosa is moist. Neck: Supple. Cardiovascular: S1 S2 heard. Rate and rhythm regular. Respiratory: Clear to auscultation. Gastrointestinal: Abdomen is soft. Musculoskeletal: No tenderness. No edema. Dermatologic: No skin rash. Neurologic: Alert and awake and oriented X3. No focal neurologic deficits. Moving all the extremit ies. Psychiatric: Mood and affect normal. LABORATORY: Potassium is 4.8, BUN 29, creatinine 3.2. ASSESSMENT AND PLAN: 1. End-stage renal disease. Continue on dialysis Monday, , Monday. 2. Hyponatremia. 3. Edema. Limit fluid. 4. Hypertension. 5. Hypoalbuminemia. Plan is to remove fluid with dialysis as tolerated. Limit fluid intake.
--- NOTE | 2017-11-08 11:55 | PRG ---
DATE OF SERVICE: 11/08/2017 Ms. Rodriguez has received a stent placement and will be discharged today to continue her dialysis. Cli nically, she remains improved.
[2017-11-08 12:06] VITALS: TEMP 99
--- NOTE | 2017-11-08 14:12 | DIS-2 ---
DATE OF ADMISSION: 11/04/2017 DATE OF DISCHARGE: 11/08/2017 RESIDENT: Dr. Mancini. ADMITTING ATTENDING: Dr. Mota. DISCHARGE ATTENDING: Dr. Jasmine. CONSULTATIONS: Include Dr. Kat with Nephrology and Dr. Donahue with Pulmonology. Case management and OT evaluation and treatment. PROCEDURES: The patient underwent a chest thorax CTA on 11/03/2017 that showed no evidence of pulmonary embolism, streaky atelectasis in both lung bases, and/or infiltrative changes in the right upper lobe and right middle lobe. Ground- glass opacity seen in the posterior lung bases could represent edema. There is mediastinal and hilar adenopathy and small effusions, slightly larger on the right, cardiomegaly, and vascular congestion. The patient also underwent a chest x-ray on 11/03/2017 that showed cardiomegaly with mild congestive change. Patient had dialysis on 11/05/2016 and pulled off roughly 4 liters. The patient also underwent dialysis yesterday, on 11/07/2016, without any documented changes in her input and output. PRIMARY DISCHARGE DIAGNOSES: 1. Acute and chronic respiratory failure with hypoxia. 2. Fluid overload. 3. Anemia of chronic disease. 4. End-stage renal disease, on dialysis. 5. Hyperlipidemia. 6. Hypertension. 7. Pulmonary hypertension. 8. Type 2 diabetes mellitus. DISCHARGE MEDICATIONS: 1. Gabapentin 100 mg t.i.d. 2. Aspirin 325 mg daily. 3. Vitamin D3 5000 units daily. 4. PhosLo 1334 mg t.i.d. 5. Nitroglycerin 0.4 mg p.r.n. 6. Carvedilol 25 mg b.i.d. 7. Atorvastatin 40 mg at bedtime. 8. Lisinopril 20 mg. 9. Insulin detemir 12 units sc 8:00 a.m. 10. Insulin detemir 10 units sc at bedtime. 11. Tylenol #3 one tablet b.i.d. 12. Clonidine 0.2 mg 1.5 tabs b.i.d. 13. Zofran 4 mg q.6 hours p.r.n. 14. Metoclopramide 5 mg q.i.d. 15. Amlodipine 5 mg. 16. Protonix 40 mg. HISTORY OF PRESENT ILLNESS AND HOSPITAL COURSE: This is a 57-year-old female with past medical history of end-stage renal disease on hemodialysis, heart failure with preserved ejection fraction, severe pulmonary hypertension, anemia of chronic disease, who presents to the ED complaining of shortness of breath and chest pain that started this morning. It kept getting worse throughout the day. She is on 2 liters of oxygen at home and reports trying to turn up her oxygen to help with her shortness of breath. The patient described the chest pain as sharp, in the middle of her chest. She denies any radiation or alleviating or worsening factors, but she does report the chest pain is worse if she is lying down and she feels better if she is sitting up, and is always getting this chest pain whenever she gets really bad shortness of breath. She took Tylenol, but this did not help. She went to her PCP today, who told her that she needs to go to the ED if her shortness of breath continued to get worse. She reports worsening swelling in her legs as well as worsening shortness of breath if she lies down and she often wakes up at night feeling short of breath. She does not follow her fluid-restricted diet. She reports that she has not missed dialysis this week. In the ER, she was given 8 units of insulin and nitroglycerin paste. During this hospitalization, patient had some notable lab values of hemoglobin that ranged from 7.0-9.3, white blood cell count that ranged from 8.4-6.3. She had an INR of 1.2 and a D-dimer of 1.86. Her VBG on day of admission showed a VBG: pH of 7.466, pCO2 of 34.4, and a pO2 of 47.4. The patient also had potassium that ranged from 4.6 up to 6.5 on a day that she got dialysis and down to 4.8 on day of discharge. The patient also had glucoses that ranged from as low as 52 to as high as 453, and so she will need to have further followup on her insulin regimen and her diet. The patient also had a hepatitis B surface antigen that was negative. The patient was seen by Dr. Donahue, pulmonology consultation, and he was consulted for the acute mediastinal lymph node enlargement. He said there was unclear etiology, most likely an inflammatory process given the rapid development of on the CT, and he recommended a CT scan in 1 month to see if this is was persistent. The patient was also seen by Dr. Kat, her intellectual property counsel, and he recommended keeping her on her hemodialysis schedule of Monday, , and Monday. He also educated the patient on the noncompliance of her fluid restriction as well as her other chronic medical problems. The patient was counseled extensively on what causes her to be admitted to the hospital every couple weeks for the past few months. She said extensively she basically is not able to care for herself any longer and she does not follow her fluid restriction and she has a difficult time managing all of her medications at home and quite often she fails to take any of her medications. The patient has become more compliant with going to dialysis sessions, but she does have a past history of missing dialysis sessions as well. A discussion was began to eventually get this patient transferred to a retirement facility for further long-term care going forward and she was agreeable to this. Case management was involved and had her approved for retirement placement at [facility] in the [facility]. At that point, it was decided that she was safe for discharge and will be transferred there. Otherwise, the patient had no further complications during this hospitalization and was discharged on appropriate condition. DISPOSITION: Stable. DISCHARGE INSTRUCTIONS: 1. Location: She will be discharged to the [facility] facility. 2. Diet: Will be a diabetic heart healthy, low-sodium diet. 3. Activity: Will be with cardiopulmonary limitations as she is chronically short of breath and with her heart failure history. 4. Followup: Will be with [facility] in 7 days as well as with her intellectual property counsel, Dr. Kat, in the coming days to make sure that she stays on her current dialysis schedule. We wished this patient best of luck and hopefully she is successful at the retirement here in [facility]. KAL
--- NOTE | 2017-11-11 22:42 | EKG ---
Test Reason : Blood Pressure : / mmHG Vent. Rate : 081 BPM Atrial Rate : 081 BPM P-R Int : 152 ms QRS Dur : 080 ms QT Int : 368 ms P-R-T Axes : 030 -08 024 degrees QTc Int : 427 ms Normal sinus rhythm Possible Left atrial enlargement Borderline ECG Confirmed by ETHAN LUCIA ([id number]), continuity editor CANDI DUNN ([id number]) on 11/11/2017 10:41:05 PM Referred By: Confirmed By:ETHAN LUCIA
== END 2017-11-08 14:18 | DRG 291 ==
LOC: ERS 22:03 → 2NO 11-04 00:13 → T4-A 11-05 15:00
PROVIDERS: ADMIT Family Medicine; ATTEND Family Medicine
PROC: 30233N1 Transfusion of Nonautologous Red Blood Cells into Peripheral Vein, Percutaneous Approach (ICD-10-PCS; principal; 2017-11-04)
PROC: 5A1D70Z Performance of Urinary Filtration, Intermittent, Less than 6 Hours Per Day (ICD-10-PCS; 2017-11-04)
PROC: 5A1D70Z Performance of Urinary Filtration, Intermittent, Less than 6 Hours Per Day (ICD-10-PCS; 2017-11-07)
DX: I13.2 Hypertensive heart and chronic kidney disease with heart failure and with stage 5 chronic kidney disease, or end stage renal disease (principal); N18.6 End stage renal disease; J96.21 Acute and chronic respiratory failure with hypoxia; E11.22 Type 2 diabetes mellitus with diabetic chronic kidney disease; I27.20 Pulmonary hypertension, unspecified; E88.09 Other disorders of plasma-protein metabolism, not elsewhere classified; E11.65 Type 2 diabetes mellitus with hyperglycemia; E87.1 Hypo-osmolality and hyponatremia; Z99.81 Dependence on supplemental oxygen; Z91.19 Patient's noncompliance with other medical treatment and regimen; E78.5 Hyperlipidemia, unspecified; D63.1 Anemia in chronic kidney disease; Z79.82 Long term (current) use of aspirin; Z79.4 Long term (current) use of insulin; Z87.891 Personal history of nicotine dependence; Z99.2 Dependence on renal dialysis; R59.0 Localized enlarged lymph nodes; Z89.421 Acquired absence of other right toe(s); I50.9 Heart failure, unspecified
CPT/HCPCS: 36415; 36416; 36430; 71045; 71275; 80048; 80053; 82330; 82553; 82803; 83690; 83735; 83880; 84484; 85025; 85379; 85610; 85730; 86850; 86900; 86901; 86904; 86922; 87040; 87340; 90935; 93005; G0257; G8978-GP-CH; G8979-GP-CH; G8980-GP-CH; G8987-GO-CJ; G8988-GO-CI; J0360; J1815; J1885; J2405; P9016